=== PATIENT | female | born 1960 | race Caucasian/White ===

== ENCOUNTER 2016-09-27 21:16 | Emergency (ER) | payer BC ==
[~2016-09-27] VITALS: Ht 157.5 cm; Wt 93.0 kg
[~2016-09-27 21:16] MED LIST: ADVIN10/60 INH; AMLO-110 PO; ASPEC325 PO; CLB200 PO; ENAL5TAB83 PO; FAMO20TA11 PO; FESO8TAB PO; FEXO1TAB46 PO; HYDR-5688 PO; LXP/10 PO; MONT1TAB3 PO; PRAV20TA PO; TRIAMCINOLONE NAE
[2016-09-27 21:20] VITALS: TEMP 36.8; Ht 157.5 cm; Wt 93.0 kg
[2016-09-27] MEDS ORDERED: ONDANSETRON INJ 2 MG/ML 2 ML VIAL IV STA (21:50)
[2016-09-27] MEDS ORDERED: LIDODERM (LIDOCAINE) PATCH 5% TD STA (21:50)
[2016-09-27] MEDS ORDERED: KETOROLAC TROMETHAMINE 30 MG/ML VIAL IV STA (21:50)
[2016-09-27] MEDS ORDERED: HYDROmorphone INJ 1 MG/ML SYR IV STA (21:50)
[2016-09-27] MEDS ORDERED: SODIUM CHLORIDE 0.9% 1000ML 1,000 ML IV STA (21:50)
[2016-09-27] MEDS ORDERED: NAPR500T3 PO (22:10)
[2016-09-27] MEDS ORDERED: B-CO-25 PO (22:10)
[2016-09-27] MEDS ORDERED: ALPR-411 PO (22:10)
[2016-09-27] MEDS ORDERED: KRIL1000 PO (22:10)
[2016-09-27] MEDS ORDERED: FLX/5 PO (22:10)
[2016-09-27] MEDS ORDERED: KFL500HP PO (22:13)
--- NOTE | 2016-09-27 22:17 | EMERGENCY ROOM VISIT NOTE ---
History Report prepared by Talita: Magalie Mays Under the Supervision of: Dr. Matt Godwin M.D. First contact with patient: 21:40 Chief Complaint: HIP PAIN Stated Complaint: SEVERE HIP PAIN/BACL/GROIN PAIN,SEVERE SPASMS History of Present Illness The patient is a 55 year old female who presents to the Emergency Room with complaints of persistent left hip pain that began one week ago. She currently rates her discomfort as a 10/10 in severity. The patient states that she was evaluated at [facility] emergency department one week ago and was thought to have either a kidney stone or sciatica. She states that after testing and CT scans, the patient was diagnosed with a UTI. The patient states that she was given a shot of Toradol and discharged with Prednisone, Percocet, and Keflex. She states that she saw her PCP this past and was told that she needed physical therapy. The patient states that she could not get in to see physical therapy until yesterday, but states that her pain worsened. She states that she went back to her PCP's office and was given more Toradol and had hip x- rays. The patient states that she was instructed to go to physical therapy. She states that once evaluated at PT, she was told to use a walker for ambulation. The patient states that her physical therapist stated that she was in too much pain and too inflamed to do any physical therapy. She states that she took Flexeril today. The patient states that she restarted taking her Naproxen today. She notes increased pain with movement, noting that her left hip feels weak and heavy. The patient denies any injury to the hip. She notes slight abdominal pain. The patient states that she has been sleeping in a recliner, but states that she could not settle in it this evening. She states that she has been using a walker to assist with ambulation. The patient notes a history of appendectomy. Source of History: patient Onset: one week ago Position: other (left hip) Symptom Intensity: 10/10 Timing: other (persistent) Modifying Factors (Worsening): movement Associated Symptoms: + abdominal pain, + weakness Note: Associated symptoms: heaviness feeling in left hip Review of Systems See HPI for pertinent positives & negatives. A total of 10 systems reviewed and were otherwise negative. Past Medical & Surgical Medical Problems: (1) Acid reflux (2) Asthma (3) Depression (4) Hypercholesterolemia (5) Hypertension Surgical Problems: (1) Hx of appendectomy (2) Previous section Family History No pertinent family history stated. Social History Smoking Status: Never Smoker Marital Status: Housing Status: lives with significant other Occupation Status: employed Current/Historical Medications Scheduled Alprazolam (Alprazolam), 0.5 MG PO PRN UD Amlodipine (Norvasc), 5 MG PO QAM B-Complex W/ Folic Acid (Super B Complex Maxi), 1 TAB PO DAILY Cephalexin Monohydrate (Cephalexin), 1 TAB PO BID Docusate Sodium (Colace), 1 CAP PO BID Enalapril (Vasotec), 5 MG PO QAM Escitalopram Oxalate (Lexapro), 1 TAB PO QPM Famotidine (Pepcid), 20 MG PO AMPM Fesoterodine Fumarate (Toviaz), 1 TAB PO QAM Fexofenadine Hcl (Shahida), 180 MG PO QAM Fluticasone Prop/Salmeterol (Advair Diskus 100/50 60 Dose), 1 PUFFS INH BID Krill Oil (Krill Oil), 1 CAP PO DAILY Lidocaine (Lidoderm Patch 5%), 1 PATCH TD DIRECTED Montelukast Sodium (Singulair), 1 TAB PO QPM Naproxen (Naproxen), 500 MG PO BID Pravastatin (Pravachol ), 20 MG PO QPM Sennosides (Senokot), 8.6 MG PO HS Scheduled PRN Cyclobenzaprine HCl (Cyclobenzaprine HCl), 5 MG PO TID PRN for Muscle Spasms Oxycodone/Acetaminophen 5MG/325MG (Percocet 5MG/325MG), 1-2 TABLETS PO Q4H PRN for Pain Allergies Coded Allergies: No Known Allergies (Unverified , 12/23/14) Physical Exam Vital Signs Date Time Temp Pulse Resp B/P Pulse Ox O2 Delivery O2 Flow Rate FiO2 09/28/16 00:40 106 16 128/77 95 Room Air 09/27/16 22:39 102 18 165/91 97 Room Air 09/27/16 21:20 36.8 99 18 154/88 98 Room Air Physical Exam GENERAL: Patient is a healthy-appearing well-nourished HEAD: Normocephalic atraumatic EYES: Ocular movements intact pupils equal and react to light OROPHARYNX mucous membranes are moist no exudates present no erythema or edema present NECK: Supple no nuchal rigidity CHEST: Good equal expansion LUNGS: Clear and equal to auscultation CARDIAC: Normal S1 and S2 ABDOMEN: Soft nontender no guarding BACK: No CVA tenderness EXTREMITIES: Point tender in the left hip area, neurovascularly intact. Good range of motion of the knee and ankle. No signs of cellulitis. NEURO: Patient is following commands is answering questions appropriately. Alert and oriented x3 Cranial Nerves 2-12 grossly intact Medical Decision & Procedures ER Provider Diagnostic Interpretation: CT results as stated below per my review and radiologist interpretation: CT Pelvis: No acute fracture or dislocation. Minimal osteoarthritic changes of the hips. No significant erosive changes. No aggressive appearing process. Diverticulosis. Partially imaged pelvic structures show no definite evidence for an acute inflammatory process. Radiologist: Ian Varner MD Study ready at 2312 and initial results transmitted at 2333 Laboratory Results 09/27/16 22:25 Red Blood Count 4.37, Mean Corpuscular Volume 90.8, Mean Corpuscular Hemoglobin 30.0, Mean Corpuscular Hemoglobin Concent 33.0, Mean Platelet Volume 9.4, Neutrophils (%) (Auto) 66.2, Lymphocytes (%) (Auto) 22.1, Monocytes (%) (Auto) 8.6, Eosinophils (%) (Auto) 2.2, Basophils (%) (Auto) 0.6, Neutrophils # (Auto) 9.65, Lymphocytes # (Auto) 3.23, Monocytes # (Auto) 1.25, Eosinophils # (Auto) 0.32, Basophils # (Auto) 0.09 09/27/16 22:25 Test 09/27/16 22:01 09/27/16 22:25 Urine Color YELLOW Urine Appearance CLEAR (CLEAR) Urine pH 6.0 (4.5-7.5) Urine Specific [place] 1.017 (1.000-1.030) Urine Protein NEG (NEG) Urine Glucose (UA) NEG (NEG) Urine Ketones NEG (NEG) Urine Occult Blood NEG (NEG) Urine Nitrite NEG (NEG) Urine Bilirubin NEG (NEG) Urine Urobilinogen NEG (NEG) Urine Leukocyte Esterase SMALL (NEG) Urine WBC (Auto) 5-10 /hpf (0-5) Urine RBC (Auto) 0-4 /hpf (0-4) Urine Hyaline Casts (Auto) 1-5 /lpf (0-5) Urine Epithelial Cells (Auto) 5-10 /lpf (0-5) Urine Bacteria (Auto) NEG (NEG) White Blood Count 14.59 K/uL (4.8-10.8) Red Blood Count 4.37 M/uL (4.2-5.4) Hemoglobin 13.1 g/dL (12.0-16.0) Hematocrit 39.7 % (37-47) Mean Corpuscular Volume 90.8 fL (80-100) Mean Corpuscular Hemoglobin 30.0 pg (25-34) Mean Corpuscular Hemoglobin Concent 33.0 g/dl (32-36) Platelet Count 341 K/uL (130-400) Mean Platelet Volume 9.4 fL (7.4-10.4) Neutrophils (%) (Auto) 66.2 % Lymphocytes (%) (Auto) 22.1 % Monocytes (%) (Auto) 8.6 % Eosinophils (%) (Auto) 2.2 % Basophils (%) (Auto) 0.6 % Neutrophils # (Auto) 9.65 K/uL (1.4-6.5) Lymphocytes # (Auto) 3.23 K/uL (1.2-3.4) Monocytes # (Auto) 1.25 K/uL (0.11-0.59) Eosinophils # (Auto) 0.32 K/uL (0-0.5) Basophils # (Auto) 0.09 K/uL (0-0.2) RDW Standard Deviation 43.8 fL (36.4-46.3) RDW Coefficient of Variation 13.2 % (11.5-14.5) Immature Granulocyte % (Auto) 0.3 % Immature Granulocyte # (Auto) 0.05 K/uL (0.00-0.02) Anion Gap 8.0 mmol/L (3-11) Est Creatinine Clear Calc Drug Dose 67.4 ml/min Estimated GFR () 73.8 Estimated GFR (Non- 63.7 BUN/Creatinine Ratio 19.4 (10-20) Calcium Level 9.4 mg/dl (8.5-10.1) Total Bilirubin 0.5 mg/dl (0.2-1) Direct Bilirubin 0.1 mg/dl (0-0.2) Aspartate Amino Transf (AST/SGOT) 13 U/L (15-37) Alanine Aminotransferase (ALT/SGPT) 27 U/L (12-78) Alkaline Phosphatase 90 U/L (45-117) Total Protein 7.4 gm/dl (6.4-8.2) Albumin 3.6 gm/dl (3.4-5.0) Lipase 94 U/L (73-393) Labs reviewed by ED physician. Medications Administered Medications (Trade) Dose Ordered Sig/William Route Start Time Stop Time Status Last Admin Dose Admin Sodium Chloride (Nss 1000ml) 1,000 ml @ 999 mls/hr Q1H1M STAT IV 09/27/16 21:50 09/27/16 22:50 DC 09/27/16 22:37 999 MLS/HR Lidocaine (Lidoderm Patch 5%) 1 patch NOW STAT TD 09/27/16 21:50 09/27/16 21:54 DC 09/27/16 22:38 1 PATCH Ketorolac Tromethamine (Toradol Inj) 30 mg NOW STAT IV 09/27/16 21:50 09/27/16 21:54 DC 09/27/16 22:34 30 MG Hydromorphone HCl (Dilaudid Inj) 1 mg NOW STAT IV 09/27/16 21:50 09/27/16 21:54 DC 09/27/16 22:36 1 MG Ondansetron HCl (Zofran Inj) 4 mg NOW STAT IV 09/27/16 21:50 09/27/16 21:54 DC 09/27/16 22:33 4 MG ED Course 4: Past medical records reviewed. The patient was evaluated in room B12B. A complete history and physical examination was performed. 2149: Ordered Zofran Inj 4 mg IV, Dilaudid Inj 1 mg IV, Toradol Inj 30 mg IV, Lidocaine 1 patch TD, Sodium Chloride 1000 ml @ 999 mls/hr IV. 0: I reevaluated the patient and she is resting. I updated her at the treatment plan at this time. 5: I reevaluated the patient and she is resting comfortably. I discussed the exam findings with her and I discussed the treatment plan. She verbalized complete understanding and agreement. She is ready to go home. Medical Decision Differential diagnosis: Etiologies such as fracture, dislocation, neurovascular compromise, compartment syndrome, soft tissue injury, as well as others were entertained. This is a 55-year-old female who presents emergency department complaining of left hip pain. The patient reports she is in so much pain she is having difficulty in relating at home. The patient has tried seeing physical therapy and has been to an outside emergency department twice due to the pain. She had x-rays performed at that emergency department. For this reason the patient was sent for CAT scan of her hip which did not show any acute process. An IV was established, patient given normal saline bolus, Toradol, Dilaudid. She had a Lidoderm patch placed in the area the hip where she is having the pain. Repeat examination revealed much improvement the patient's symptoms. At this point the patient was requesting to be admitted however I discussed the fact that the patient's insurance may not cover it therefore case management was asked to speak with the patient. They recommended that the patient be discharged as she would most likely be an observation. Patient was in agreement with this fact. She is going to follow-up with orthopedics in the morning. In the meanwhile she was written for Percocet as well as stool softeners and to take off the Lidoderm patch in 10 hours. Patient was in agreement with the treatment plan. [place] Drug Monitoring Program Search Results: patient reviewed within database Drug Monitoring Findings: The patient had alprazolam 15 mg prescribed yesterday from [place]. Impression Primary Impression: Hip pain, left Scribe Attestation The scribe's documentation has been prepared under my direction and personally reviewed by me in its entirety. I confirm that the note above accurately reflects all work, treatment, procedures, and medical decision making performed by me. Departure Information Dispostion Home / Self-Care Prescriptions Docusate Sodium (COLACE) 100 Mg Cap 1 CAP PO BID for 10 Days, #20 CAP Prov: Matt Godwin MD 09/27/16 Sennosides (SENOKOT) 8.6 Mg Tab 8.6 MG PO HS, #10 TAB Prov: Matt Godwin MD 09/27/16 Oxycodone/Acetaminophen 5MG/325MG (PERCOCET 5MG/325MG) Tab 1-2 TABLETS PO Q4H Y for Pain, #14 TAB PAIN Prov: Matt oGdwin MD 09/27/16 Lidocaine (Lidoderm Patch 5%) 1 Ea Tdsy 1 PATCH TD DIRECTED, #2 PATCH Prov: Matt Godwin MD 09/27/16 Referrals Any Bess M.D. (PCP) Alessio Engle D.O. Forms HOME CARE DOCUMENTATION FORM, IMPORTANT VISIT INFORMATION, WORK / SCHOOL INSTRUCTIONS Patient Instructions ED Sprain Hip, My [facility] Additional Instructions Need follow up with Dr Engle's office Remove Lidoderm patch in 10 hours (10 am) You received narcotic or benzodiazepene medication while in the emergency room today. Do not drive, operate heavy machinery, or drink alcohol under the influence of this medication. Take Naproxen as directed Take Percocet for breakthrough pain You have been examined and treated today on an emergency basis only. This is not a substitute for, or an effort to provide, complete comprehensive medical care. It is impossible to recognize and treat all injuries or illnesses in a single emergency department visit. It is therefore important that you follow up closely with Dr Bess. Call as soon as possible for an appointment. Thank you for your time and consideration. I look forward to speaking with you again soon. Please don't hesitate to call us if you have any questions.
[2016-09-27 22:32] LABS: URINE APPEARANCE CLEAR (CLEAR); URINE BILIRUBIN NEG (NEG); URINE COLOR YELLOW; URINE NITRITE NEG (NEG); URINE SPECIFIC GRAVITY 1.017 (1.000-1.030); UROBILINOGEN NEG (NEG)
[2016-09-27 22:33] LABS: MANUAL MICROSCOPIC REQUIRED? NO; REVIEW REQ? NO
[2016-09-27 22:39] LABS: BASO % 0.6 %; BASO ABS # 0.09 K/uL (0-0.2); COMPLETE YES; EOS % 2.2 %; HEMATOCRIT 39.7 % (37-47); IG% 0.3 %; LYMPH % 22.1 %; LYMPH ABS # 3.23 K/uL (1.2-3.4); MEAN CELL VOLUME 90.8 fL (80-100); MEAN PLATELET VOLUME 9.4 fL (7.4-10.4); MONO % 8.6 %; NEUT % 66.2 %; PLATELET COUNT 341 K/uL (130-400); RED BLOOD COUNT 4.37 M/uL (4.2-5.4); WHITE BLOOD COUNT 14.59 K/uL (4.8-10.8)
[2016-09-27 22:55] LABS: BUN/CREATININE RATIO 19.4 (10-20); CALCIUM 9.4 mg/dl (8.5-10.1); CREATININE 0.99 mg/dl (0.60-1.20); POTASSIUM 3.9 mmol/L (3.5-5.1)
[2016-09-27] MEDS ORDERED: SENN1TAB77 PO (23:44)
[2016-09-27] MEDS ORDERED: DOCU-94 PO (23:44)
[2016-09-27] MEDS ORDERED: NF656 TD (23:44)
[2016-09-27] MEDS ORDERED: OXYC-57 PO (23:44)
[2016-09-28 00:40] VITALS: BP 128/77; PULSE 106; O2SAT 95
--- NOTE | 2016-09-28 07:38 | DIAGNOSTIC IMAGING REPORT ---
PELVIS CT CT DOSE: 991.69 mGy.cm HISTORY: Pt c/o left hip pain TECHNIQUE: Multiaxial CT images of the pelvis were performed and reformatted in the sagittal and coronal plane without the use of contrast. COMPARISON: None. FINDINGS: No fracture or dislocation within the pelvis or hips. Minimal arthritic changes within the bilateral hips. Soft tissues are unremarkable. A few colonic diverticula. IMPRESSION: No fracture or dislocation within the pelvis or hips. Electronically signed by: Todd Apodaca M.D. 09/28/2016 7:36 AM Dictated Date/Time: 09/28/2016 7:33 AM
[2017-03-16] MEDS ORDERED: NRN100 PO (10:24)
[2017-03-16] MEDS ORDERED: NPR375 PO (10:24)
[2017-03-16] MEDS ORDERED: DAPT500I IV (10:24)
[2017-03-16] MEDS ORDERED: CEFT2INJ40 IV (10:24)
[2017-03-16] MEDS ORDERED: CYCL10TA6 PO (10:24)
== END 2016-09-28 00:44 | disposition home or self-care (01) ==
LOC: C.EDB 21:17
DX: M25.552 Pain in left hip (principal); R10.9 Unspecified abdominal pain; R53.1 Weakness; I10 Essential (primary) hypertension; E78.00 Pure hypercholesterolemia, unspecified; F32.9 Major depressive disorder, single episode, unspecified; K21.9 Gastro-esophageal reflux disease without esophagitis; J45.909 Unspecified asthma, uncomplicated; Z79.899 Other long term (current) drug therapy

== ENCOUNTER → 2017-01-11 | Outpatient (CLI) | payer BC ==
[~2017-01-11] MED LIST changes: +ALBINS/ INH; +ALPR-411 PO; -ASPEC325 PO; +B-CO-25 PO; +CALC600T9 PO; +CEFT2INJ40 IV; +CHOL1TAB46 PO; -CLB200 PO; +CYCL10TA6 PO; +DAPT500I IV; +FLX/5 PO; -HYDR-5688 PO; +KFL500HP PO; +KRIL1000 PO; +NABU500T3 PO; +NAPR500T3 PO; +NF656 TD; +NPR375 PO; +NRN100 PO; +OXYC-57 PO; +Proair HFA INH; -TRIAMCINOLONE NAE
--- NOTE | 2017-01-11 12:15 | DIAGNOSTIC IMAGING REPORT ---
LUMBAR SPINE W/O CONTRAST HISTORY: Pain. Neuropathy. OSTEOARTHRITIS OF SPINE WITH RADICULOPATHY, LUMBAR REGION TECHNIQUE: Multiplanar multisequence MRI of the lumbar spine was performed without the use of contrast. COMPARISON: None. FINDINGS: For the purpose of the report the L5-S1 disc space will be located on axial image 22 of 25. Significant degenerative disc changes throughout. Signal characteristics of the vertebral bodies are generally unremarkable. L1-L2: Mild broad-based disc bulge. Minimal impact upon the anterior thecal sac. L2-L3: Broad-based disc bulge. Mild multifactorial narrowing of the spinal canal. L3-L4: Mild multifactorial narrowing of the spinal canal. Broad-based bulging disc. Mild narrowing of the neuroforamina bilaterally. L4-L5: Moderate multifactorial narrowing of the spinal canal. Mild broad-based disc herniation. Hypertrophic change posterior elements. Moderate narrowing of the left and to lesser extent right neuroforamina. L5-S1: Mild left central disc herniation. Minimal impact with the anterior thecal sac. Moderate narrowing of the neuroforamina bilaterally. IMPRESSION: 1. Considerable degenerative disc change throughout the entire lumbar region. 2. Mild left central disc herniation L5-S1 creating minimal impact upon the anterior thecal sac. 3. Moderate multifactorial narrowing of the spinal canal at L4-L5 4. Mild multifactorial narrowing of the spinal canal at L3-L4. 5. Moderate narrowing of several neural foramina bilaterally on a multilevel bases. The above report was generated using voice recognition software. It may contain grammatical, syntax or spelling errors. Electronically signed by: Toi Sanford M.D. 01/11/2017 12:14 PM Dictated Date/Time: 01/11/2017 12:10 PM
== END | disposition home or self-care (01) ==
LOC: C.MRIBC 10:38
PROVIDERS: ATTEND Pain Medicine Interventional Pain Medicine
DX: M47.26 Other spondylosis with radiculopathy, lumbar region (principal)

== ENCOUNTER 2017-03-10 15:27 | Inpatient (IN) | payer BC ==
[~2017-03-10] VITALS: Ht 157.5 cm; Wt 95.0 kg
[~2017-03-10 15:27] MED LIST changes: -ALBINS/ INH; -CALC600T9 PO; -CEFT2INJ40 IV; -CHOL1TAB46 PO; -CYCL10TA6 PO; -DAPT500I IV; -NABU500T3 PO; -NPR375 PO; -NRN100 PO; -Proair HFA INH
[2017-03-10] MEDS ORDERED: KETOROLAC TROMETHAMINE 30 MG/ML VIAL IV STA (16:03)
[2017-03-10] MEDS ORDERED: LIDODERM (LIDOCAINE) PATCH 5% TD STA (16:03)
[2017-03-10] MEDS ORDERED: HYDROmorphone INJ 1 MG/ML SYR IV STA (16:03)
[2017-03-10] MEDS ORDERED: ONDANSETRON INJ 2 MG/ML 2 ML VIAL IV STA (16:03)
[2017-03-10] MEDS ORDERED: SODIUM CHLORIDE 0.9% 1000ML 1,000 ML IV STA (16:03)
[2017-03-10 16:39] LABS: BASO % 0.5 %; BASO ABS # 0.06 K/uL (0-0.2); COMPLETE YES; EOS % 1.9 %; HEMATOCRIT 40.8 % (37-47); IG% 0.3 %; LYMPH % 15.7 %; MEAN CELL VOLUME 91.3 fL (80-100); MEAN CORPUSCULAR HGB CONC 32.8 g/dl (32-36); MEAN PLATELET VOLUME 9.6 fL (7.4-10.4); MONO % 7.2 %; NEUT % 74.4 %; PLATELET COUNT 316 K/uL (130-400); RED BLOOD COUNT 4.47 M/uL (4.2-5.4); WHITE BLOOD COUNT 11.45 K/uL (4.8-10.8)
[2017-03-10 17:06] LABS: ALT/SGPT 25 U/L (12-78); AST/SGOT 17 U/L (15-37); BLOOD UREA NITROGEN 14 mg/dl (7-18); BUN/CREATININE RATIO 17.5 (10-20); C-REACTIVE PROTEIN 4.69 mg/dl (0-0.29); CALCIUM 9.7 mg/dl (8.5-10.1); CARBON DIOXIDE 24 mmol/L (21-32); CHLORIDE 106 mmol/L (98-107); CREATININE 0.79 mg/dl (0.60-1.20); GLUCOSE 97 mg/dl (70-99); SODIUM 139 mmol/L (136-145); URIC ACID 5.7 mg/dl (2.6-7.2)
[2017-03-10 17:16] LABS: ALKALINE PHOSPHATASE 104 U/L (45-117); THYROID STIMULATING HORMONE 0.781 uIu/ml (0.300-4.500)
[2017-03-10 17:23] LABS: ANTI-STREP O SCR: 5YRS OR > NEG IU/ml (<200 IU)
--- NOTE | 2017-03-10 17:28 | EMERGENCY ROOM VISIT NOTE ---
History Report prepared by Talita: Mary Lucia Under the Supervision of: Dr. Matt Godwin M.D. First contact with patient: 15:48 Chief Complaint: BACK PAIN Stated Complaint: SEVERE BACK PAIN - HIP PAIN - SPASMS History of Present Illness The patient is a 56 year old female who presents to the Emergency Room with complaints of constant back pain starting 3 days ago. The patient states that she has seen multiple doctors for her back pain with multiple attempts to treat it and states her last was with a chiropractor. She reports that she feels like "someone beat her up." She states that the pain is worse when she stands up and down. She reports that it is uncomfortable to breathe and wearing her bra is too painful. The patient reports that she has been alternating Percocet and Flexeril every 6-8 hours. She notes she has also been taking Tylenol. She states that these have not provided any relief. The patient states that she had two episodes of incontinence last night of her bladder. She complains that she has been having urination frequency, an aching lower abdomen, muscle spasms, and her breasts feeling sore. The patient notes that everything is on the left side of her body. The patient denies ever having back surgery and neck pain. She notes that she tried 6 weeks of physical therapy with no relief. Source of History: patient Onset: 3 days ago Position: back Quality: other ("someone beat her up") Timing: constant Modifying Factors (Worsening): breathing, other (standing up and down, wearing a bra) Associated Symptoms: + abdominal pain, + urinary symptoms, No neck pain Note: The patient complains of bladder incontinence, muscle spasms, and breast soreness. Review of Systems See HPI for pertinent positives & negatives. A total of 10 systems reviewed and were otherwise negative. Past Medical & Surgical Medical Problems: (1) Anxiety (2) Asthma (3) Back pain (4) Depression (5) Hypercholesterolemia (6) Hypertension Surgical Problems: (1) Hx of appendectomy (2) Previous section (3) Status post appendectomy (4) Status post tubal ligation Family History No pertinent family history Social History Smoking Status: Former Smoker Marital Status: Housing Status: lives with significant other Occupation Status: employed Current/Historical Medications Scheduled Amlodipine (Norvasc), 5 MG PO QAM B-Complex W/ Folic Acid (Super B Complex Maxi), 1 TAB PO DAILY Calcium Carbonate-Vitamin D (Calcium + D), 1 TAB PO DAILY Cholecalciferol (Vitamin D3), 5,000 UNITS PO DAILY Enalapril (Vasotec), 5 MG PO QAM Escitalopram Oxalate (Lexapro), 10 MG PO QPM Famotidine (Pepcid), 20 MG PO BID Fesoterodine Fumarate (Toviaz), 1 TAB PO QAM Fexofenadine Hcl (Shahida), 180 MG PO QAM Fluticasone Prop/Salmeterol (Advair Diskus 100/50 60 Dose), 1 PUFFS INH BID Krill Oil (Krill Oil), 1 CAP PO DAILY Montelukast Sodium (Singulair), 1 TAB PO QPM Nabumetone (Relafen), 500 MG PO BIDM Pravastatin (Pravachol ), 20 MG PO QPM Scheduled PRN Albuterol Sulf (Proventil 0.083% 2.5MG/3ML), 2.5 MG INH Q4 PRN for Wheezing Alprazolam (Alprazolam), 0.5 MG PO TID PRN for Anxiety Cyclobenzaprine HCl (Cyclobenzaprine HCl), 5 MG PO TID PRN for Muscle Spasms Oxycodone/Acetaminophen 5MG/325MG (Percocet 5MG/325MG), 1-2 TABLETS PO Q4H PRN for Pain [Proair HFA], 2 PUFFS INH Q4 PRN for Wheezing Allergies Coded Allergies: No Known Allergies (Unverified , 12/23/14) Physical Exam Vital Signs Date Time Temp Pulse Resp B/P (MAP) Pulse Ox O2 Delivery O2 Flow Rate FiO2 03/10/17 20:45 86 16 139/74 95 Room Air 03/10/17 19:30 88 18 138/87 94 Room Air 03/10/17 17:40 87 16 137/83 92 Room Air 03/10/17 15:41 36.9 96 17 151/88 99 Room Air Physical Exam GENERAL: Patient is a healthy-appearing well-nourished HEAD: Normocephalic atraumatic EYES: Ocular movements intact pupils equal and react to light OROPHARYNX mucous membranes are moist no exudates present no erythema or edema present NECK: Supple no nuchal rigidity CHEST: Good equal expansion LUNGS: Clear and equal to auscultation CARDIAC: Normal S1 and S2 ABDOMEN: Soft nontender no guarding BACK: No CVA tenderness EXTREMITIES: No pain upon palpation normal muscle strength in all groups no clubbing cyanosis or edema NEURO: Patient is following commands and answering questions appropriately. Alert and oriented x3 Cranial Nerves 2-12 grossly intact. Patient can walk on tiptoes. Patient is having spasms on examination over the left side of the body. SKIN: No rash noted. Medical Decision & Procedures ER Provider Diagnostic Interpretation: Radiology results as stated below per my review and radiologist interpretation: THORACIC SPINE MRI HISTORY: Pt c/o loss of bladder, mid back pain TECHNIQUE: Multiplanar multisequence MRI of the thoracic spine was performed without the use of contrast. COMPARISON: None. FINDINGS: No fracture or subluxation. Paraspinal soft tissues are unremarkable. Mild degenerative disc disease throughout the majority of the thoracic spine. There are few small disc bulges and disc protrusions within the thoracic spine. However, no significant central canal or neural foraminal narrowing. The thoracic spinal cord is normal in course, caliber, and signal intensity. Athletic Monitor images demonstrate reversal of the normal lordotic curvature of the cervical spine with multilevel central canal narrowing. There is 3 mm of anterolisthesis of C3 on C4 IMPRESSION: 1. No fracture or subluxation within the thoracic spine. 2. Mild degenerative disc disease within the thoracic spine. No significant central canal or neural foraminal narrowing. 3. Degenerative changes within the cervical spine with multilevel central canal narrowing and reversal of the normal lordotic curvature. There is associated 3 mm of anterolisthesis of C3 on C4 likely due to long-standing degenerative change. Electronically signed by: Todd Apodaca M.D. 03/10/2017 7:13 PM Dictated Date/Time: 03/10/2017 7:08 PM PELVIS 1 OR 2 VIEW ROUTINE, L FEMUR 2 VIEWS ROUTINE CLINICAL HISTORY: Pt c/o left hip pain COMPARISON STUDY: Pelvis CT 09/27/2016. FINDINGS: No fracture or dislocation within the pelvis, hips, left femur. The sacrum appears intact. Soft tissues are unremarkable. No radiopaque foreign bodies. Minimal degenerative changes within the right hip. IMPRESSION: No fracture or dislocation within the pelvis, hips, or left femur. Electronically signed by: Todd Apodaca M.D. 03/10/2017 5:39 PM Dictated Date/Time: 03/10/2017 5:36 PM LUMBAR SPINE MRI HISTORY: Pt c/o loss of bladder control TECHNIQUE: Multiplanar multisequence MRI of the lumbar spine was performed without the use of contrast. COMPARISON: None. FINDINGS: For the purpose of the report the L5-S1 disc space will be located on axial image 27 of 30. Alignment is intact. No fractures within the lumbar spine. Mild disc space narrowing at L1-L2 and L5-S1. Moderate to space narrowing at L3-L4. Severe disc space narrowing at L2-L3 and L4-L5. There is endplate edema along the left side of the L4-L5 level with increased signal within the disc. There is trace paravertebral edema at this location. 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 The conus terminates at the L1-L2 disc space level. L1-L2: Small broad-based posterior disc bulge without significant central canal or neural foraminal narrowing. L2-L3: Small broad-based posterior disc bulge without significant central canal or neural foraminal narrowing. L3-L4: Broad-based posterior disc bulge with ligamentum and facet hypertrophy resulting in mild central canal narrowing. No significant neural foraminal narrowing. L4-L5: Broad-based posterior disc bulge with a central and left paracentral annular tear. In conjunction with the ligamentum and facet hypertrophy this results in mild to moderate central canal and mild to moderate bilateral neural foraminal narrowing. L5-S1: Small broad-based posterior disc bulge without significant central canal narrowing. [id number] bilateral neural foraminal narrowing. IMPRESSION: 1. No fractures or subluxation within the lumbar spine. 2. Multilevel degenerative changes as described above most pronounced at the L4-5 level where there is mild to moderate central canal and neural foraminal narrowing. 3. Endplate edema with increase signal within the disc at the left side of the L4-5 level. There is also trace paravertebral edema at this location. This is likely due to the long-standing degenerative change. However, a developing discitis/osteomyelitis could also a similar appearance in the appropriate clinical setting. Therefore, clinical correlation recommended. Electronically signed by: Todd Apodaca M.D. 03/10/2017 7:21 PM Dictated Date/Time: 03/10/2017 7:14 PM PELVIS 1 OR 2 VIEW ROUTINE, L FEMUR 2 VIEWS ROUTINE CLINICAL HISTORY: Pt c/o left hip pain COMPARISON STUDY: Pelvis CT 09/27/2016. FINDINGS: No fracture or dislocation within the pelvis, hips, left femur. The sacrum appears intact. Soft tissues are unremarkable. No radiopaque foreign bodies. Minimal degenerative changes within the right hip. IMPRESSION: No fracture or dislocation within the pelvis, hips, or left femur. Electronically signed by: Todd Apodaca M.D. 03/10/2017 5:39 PM Dictated Date/Time: 03/10/2017 5:36 PM Laboratory Results 03/10/17 16:25 Red Blood Count 4.47, Mean Corpuscular Volume 91.3, Mean Corpuscular Hemoglobin 30.0, Mean Corpuscular Hemoglobin Concent 32.8, Mean Platelet Volume 9.6, Neutrophils (%) (Auto) 74.4, Lymphocytes (%) (Auto) 15.7, Monocytes (%) (Auto) 7.2, Eosinophils (%) (Auto) 1.9, Basophils (%) (Auto) 0.5, Neutrophils # (Auto) 8.52, Lymphocytes # (Auto) 1.80, Monocytes # (Auto) 0.82, Eosinophils # (Auto) 0.22, Basophils # (Auto) 0.06 03/10/17 16:25 Test 03/10/17 16:25 White Blood Count 11.45 K/uL (4.8-10.8) Red Blood Count 4.47 M/uL (4.2-5.4) Hemoglobin 13.4 g/dL (12.0-16.0) Hematocrit 40.8 % (37-47) Mean Corpuscular Volume 91.3 fL (80-100) Mean Corpuscular Hemoglobin 30.0 pg (25-34) Mean Corpuscular Hemoglobin Concent 32.8 g/dl (32-36) Platelet Count 316 K/uL (130-400) Mean Platelet Volume 9.6 fL (7.4-10.4) Neutrophils (%) (Auto) 74.4 % Lymphocytes (%) (Auto) 15.7 % Monocytes (%) (Auto) 7.2 % Eosinophils (%) (Auto) 1.9 % Basophils (%) (Auto) 0.5 % Neutrophils # (Auto) 8.52 K/uL (1.4-6.5) Lymphocytes # (Auto) 1.80 K/uL (1.2-3.4) Monocytes # (Auto) 0.82 K/uL (0.11-0.59) Eosinophils # (Auto) 0.22 K/uL (0-0.5) Basophils # (Auto) 0.06 K/uL (0-0.2) RDW Standard Deviation 43.2 fL (36.4-46.3) RDW Coefficient of Variation 13.0 % (11.5-14.5) Immature Granulocyte % (Auto) 0.3 % Immature Granulocyte # (Auto) 0.03 K/uL (0.00-0.02) Erythrocyte Sedimentation Rate 43 mm/hr (0-21) Anion Gap 9.0 mmol/L (3-11) Est Creatinine Clear Calc Drug Dose 84.4 ml/min Estimated GFR () 96.3 Estimated GFR (Non- 83.1 BUN/Creatinine Ratio 17.5 (10-20) Uric Acid 5.7 mg/dl (2.6-7.2) Calcium Level 9.7 mg/dl (8.5-10.1) Total Bilirubin 0.5 mg/dl (0.2-1) Direct Bilirubin < 0.1 mg/dl (0-0.2) Aspartate Amino Transf (AST/SGOT) 17 U/L (15-37) Alanine Aminotransferase (ALT/SGPT) 25 U/L (12-78) Alkaline Phosphatase 104 U/L (45-117) C-Reactive Protein 4.69 mg/dl (0-0.29) Total Protein 8.3 gm/dl (6.4-8.2) Albumin 3.6 gm/dl (3.4-5.0) Thyroid Stimulating Hormone (TSH) 0.781 uIu/ml (0.300-4.500) Acetaminophen Level < 2 ug/ml (10-30) Lyme Disease IgG Antibody NEG (NEG) Lyme Disease IgM Antibody NEG (NEG) Hepatitis C Antibody Screen NEG (NEG) Anti-Streptolysin O Antibody Screen NEG IU/ml (<200 IU) Labs reviewed by ED physician. Medications Administered Medications (Trade) Dose Ordered Sig/William Route Start Time Stop Time Status Last Admin Dose Admin Sodium Chloride 1,000 ml @ 999 mls/hr Q1H1M STAT IV 03/10/17 16:03 03/10/17 17:03 DC 03/10/17 16:03 999 MLS/HR Hydromorphone HCl (Dilaudid Inj) 1 mg NOW STAT IV 03/10/17 16:03 03/10/17 16:08 DC 03/10/17 16:28 1 MG Lidocaine (Lidoderm Patch 5%) 1 patch NOW STAT TD 03/10/17 16:03 03/10/17 16:08 DC 03/10/17 16:28 1 PATCH Ketorolac Tromethamine (Toradol Inj) 30 mg NOW STAT IV 03/10/17 16:03 03/10/17 16:08 DC 03/10/17 16:28 30 MG Ondansetron HCl (Zofran Inj) 4 mg NOW STAT IV 03/10/17 16:03 03/10/17 16:08 DC 03/10/17 16:27 4 MG Piperacillin Sod/ Tazobactam Sod (Zosyn Iv) 4.5 gm NOW STAT IV 03/10/17 20:01 03/10/17 20:04 DC 03/10/17 20:54 4.5 GM Vancomycin HCl (Vancomycin 1gm/ 270ml Nss) 1 gm NOW STAT IV 03/10/17 20:01 03/10/17 20:04 DC 03/10/17 21:32 1 GM ED Course 1555: Past medical records reviewed. The patient was evaluated in room B10. A complete history and physical examination was performed. 3: Ordered Zofran Inj 4 mg IV, Toradol Inj 30 mg IV, Lidocaine 1 patch TD, Dilaudid Inj 1 mg IV, NSS 1000 ml @ 999 mls/hr IV. 1952: I discussed the patient's case with Dr. Bola Stiles. He suggests admitting to medicine and starting her on broad spectrum antibiotics. 2000: Ordered Vancomycin HCl 1 gm IV, Zosyn Iv 4.5 gm IV. 2100: I discussed the patient's case with Dr. Banks, he has agreed to evaluate the patient for further management and care. Medical Decision Etiologies such as metabolic, infection, hypo/hyperglycemia, electrolyte abnormalities, cardiac sources, intracerebral event, toxicologic, neurologic, as well as others were entertained. This is a 56-year-old female who presents emergency department complaining of severe back spasms. The patient also lost control of her bladder. In addition the patient has an elevation in her CRP he has are as well as her white blood cell count. Based on these findings the patient was sent for an MRI of her back. This was concerning for discitis. Because of this patient was pain cultured and started on antibiotics. I did discuss the case with [facility] who asked that the patient be admitted to the medicine service. I did discuss case with Dr. Garcia. In the meanwhile the patient was started on IV Dilaudid as well as Toradol. Repeat examination revealed much improvement the patient's symptoms. Consults Time Called: 1951 Consulting Physician: Dr. Bola Stiles Returned Call: 1952 I discussed the patient's case with Dr. Bola Stiles. He suggests admitting to medicine and starting her on broad spectrum antibiotics. Additional Consults: Time Called: 2056 Consulted Physician: Dr. Banks Returned Call: 2100 Additional Comments: I discussed the patient's case with Dr. Banks, he has agreed to evaluate the patient for further management and care. Impression Primary Impression: Discitis Scribe Attestation The scribe's documentation has been prepared under my direction and personally reviewed by me in its entirety. I confirm that the note above accurately reflects all work, treatment, procedures, and medical decision making performed by me. Departure Information Dispostion Being Evaluated By Hospitalist Referrals Any Bess M.D. (PCP) Patient Instructions My [facility] Problem Qualifiers Primary Impression: Discitis Spinal region: lumbar Qualified Codes: M46.46 - Discitis, unspecified, lumbar region
--- NOTE | 2017-03-10 17:40 | DIAGNOSTIC IMAGING REPORT ---
PELVIS 1 OR 2 VIEW ROUTINE, L FEMUR 2 VIEWS ROUTINE CLINICAL HISTORY: Pt c/o left hip pain COMPARISON STUDY: Pelvis CT 09/27/2016. FINDINGS: No fracture or dislocation within the pelvis, hips, left femur. The sacrum appears intact. Soft tissues are unremarkable. No radiopaque foreign bodies. Minimal degenerative changes within the right hip. IMPRESSION: No fracture or dislocation within the pelvis, hips, or left femur. Electronically signed by: Todd Apodaca M.D. 03/10/2017 5:39 PM Dictated Date/Time: 03/10/2017 5:36 PM
[2017-03-10 17:50] LABS: LYME DISEASE AB IGG NEG (NEG); LYME DISEASE AB IGM NEG (NEG)
[2017-03-10] MEDS ORDERED: CALC600T9 PO (18:44)
[2017-03-10] MEDS ORDERED: NABU500T3 PO (18:44)
[2017-03-10] MEDS ORDERED: CHOL1TAB46 PO (18:44)
--- NOTE | 2017-03-10 19:14 | DIAGNOSTIC IMAGING REPORT ---
THORACIC SPINE MRI HISTORY: Pt c/o loss of bladder, mid back pain TECHNIQUE: Multiplanar multisequence MRI of the thoracic spine was performed without the use of contrast. COMPARISON: None. FINDINGS: No fracture or subluxation. Paraspinal soft tissues are unremarkable. Mild degenerative disc disease throughout the majority of the thoracic spine. There are few small disc bulges and disc protrusions within the thoracic spine. However, no significant central canal or neural foraminal narrowing. The thoracic spinal cord is normal in course, caliber, and signal intensity. Surfacing Machine Operator images demonstrate reversal of the normal lordotic curvature of the cervical spine with multilevel central canal narrowing. There is 3 mm of anterolisthesis of C3 on C4 IMPRESSION: 1. No fracture or subluxation within the thoracic spine. 2. Mild degenerative disc disease within the thoracic spine. No significant central canal or neural foraminal narrowing. 3. Degenerative changes within the cervical spine with multilevel central canal narrowing and reversal of the normal lordotic curvature. There is associated 3 mm of anterolisthesis of C3 on C4 likely due to long-standing degenerative change. Electronically signed by: Todd Apodaca M.D. 03/10/2017 7:13 PM Dictated Date/Time: 03/10/2017 7:08 PM
--- NOTE | 2017-03-10 19:23 | DIAGNOSTIC IMAGING REPORT ---
LUMBAR SPINE MRI HISTORY: Pt c/o loss of bladder control TECHNIQUE: Multiplanar multisequence MRI of the lumbar spine was performed without the use of contrast. COMPARISON: None. FINDINGS: For the purpose of the report the L5-S1 disc space will be located on axial image 27 of 30. Alignment is intact. No fractures within the lumbar spine. Mild disc space narrowing at L1-L2 and L5-S1. Moderate to space narrowing at L3-L4. Severe disc space narrowing at L2-L3 and L4-L5. There is endplate edema along the left side of the L4-L5 level with increased signal within the disc. There is trace paravertebral edema at this location. 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 The conus terminates at the L1-L2 disc space level. L1-L2: Small broad-based posterior disc bulge without significant central canal or neural foraminal narrowing. L2-L3: Small broad-based posterior disc bulge without significant central canal or neural foraminal narrowing. L3-L4: Broad-based posterior disc bulge with ligamentum and facet hypertrophy resulting in mild central canal narrowing. No significant neural foraminal narrowing. L4-L5: Broad-based posterior disc bulge with a central and left paracentral annular tear. In conjunction with the ligamentum and facet hypertrophy this results in mild to moderate central canal and mild to moderate bilateral neural foraminal narrowing. L5-S1: Small broad-based posterior disc bulge without significant central canal narrowing. [id number] bilateral neural foraminal narrowing. IMPRESSION: 1. No fractures or subluxation within the lumbar spine. 2. Multilevel degenerative changes as described above most pronounced at the L4-5 level where there is mild to moderate central canal and neural foraminal narrowing. 3. Endplate edema with increase signal within the disc at the left side of the L4-5 level. There is also trace paravertebral edema at this location. This is likely due to the long-standing degenerative change. However, a developing discitis/osteomyelitis could also a similar appearance in the appropriate clinical setting. Therefore, clinical correlation recommended. Electronically signed by: Todd Apodaca M.D. 03/10/2017 7:21 PM Dictated Date/Time: 03/10/2017 7:14 PM
[2017-03-10] MEDS ORDERED: PIPERACILLIN/TAZOBACTAM 4.5 GM/100ML D5W IV STA (20:01)
[2017-03-10] MEDS ORDERED: VANCOMYCIN 1GM/270ML NSS IV STA (20:01)
--- NOTE | 2017-03-10 21:32 | History and Physical ---
History & Physical Date & Time of Service: Mar 10, 2017 at 21:32 . Chief Complaint: back pain . Primary Care Physician: Any Bess M.D. . History of Present Illness Source: patient, clinic records, hospital records 56 YO female followed by Dr. Bess in [place]. History of hypertension, asthma, and other problems noted below. Developed left hip pain in September and was seen by Dr. Sol. Referred to Dr. Vega for pain management. MRI was obtained and injection (SI joint per patient) performed. Has been seeing a chiropractor for spine manipulation over the last 2 weeks. 3 days prior to admission she developed back pain and spasm. Pain located in lower thoracic and lumbar region. Lumbar pain is moderately severe and constant, sometimes radiating to the left groin and left anterior thigh. Pain worsened by activity and certain positions. Last evening she experienced urinary incontinence. Left leg feels weak when she stands from sitting position or climbs stairs. Tried Percocet and Flexeril without much benefit. No fever, chills, sweats. . Past Medical/Surgical History Chronic and Resolved Medical Problems: (1) Anxiety Status: Chronic (2) Asthma Status: Chronic (3) Depression Status: Chronic (4) Hypercholesterolemia Status: Chronic (5) Hypertension Status: Chronic Surgical Problems: (1) Hx of appendectomy Status: Resolved (2) Previous section Status: Resolved (3) Status post appendectomy Status: Chronic (4) Status post tubal ligation Status: Chronic . Family History FATHER Heart disease Diabetes mellitus Asthma MOTHER Hypertension Diabetes mellitus Ovarian cancer Social History Smoking Status: Former Smoker Alcohol Use: none Occupational Status: employed Multi-Drug Resistant Organisms History of MDRO: No Allergies Coded Allergies: No Known Allergies (Unverified , 12/23/14) Home Medications Scheduled Amlodipine (Norvasc), 5 MG PO QAM B-Complex W/ Folic Acid (Super B Complex Maxi), 1 TAB PO DAILY Calcium Carbonate-Vitamin D (Calcium + D), 1 TAB PO DAILY Cholecalciferol (Vitamin D3), 5,000 UNITS PO DAILY Enalapril (Vasotec), 5 MG PO QAM Escitalopram Oxalate (Lexapro), 10 MG PO QPM Famotidine (Pepcid), 20 MG PO BID Fesoterodine Fumarate (Toviaz), 1 TAB PO QAM Fexofenadine Hcl (Shahida), 180 MG PO QAM Fluticasone Prop/Salmeterol (Advair Diskus 100/50 60 Dose), 1 PUFFS INH BID Krill Oil (Krill Oil), 1 CAP PO DAILY Montelukast Sodium (Singulair), 1 TAB PO QPM Nabumetone (Relafen), 500 MG PO BIDM Pravastatin (Pravachol ), 20 MG PO QPM Scheduled PRN Albuterol Sulf (Proventil 0.083% 2.5MG/3ML), 2.5 MG INH Q4 PRN for Wheezing Alprazolam (Alprazolam), 0.5 MG PO TID PRN for Anxiety Cyclobenzaprine HCl (Cyclobenzaprine HCl), 5 MG PO TID PRN for Muscle Spasms Oxycodone/Acetaminophen 5MG/325MG (Percocet 5MG/325MG), 1-2 TABLETS PO Q4H PRN for Pain [Proair HFA], 2 PUFFS INH Q4 PRN for Wheezing Review of Systems Constitutional: No fever, No chills, No sweats, No weight loss Eyes: No worsening of vision, No diplopia ENT: No nasal symptoms, No sore throat Respiratory: No cough, No shortness of breath Cardiovascular: No chest pain, No edema, No palpitations Abdomen: No pain, No nausea, No vomiting, No diarrhea, No GI bleeding Musculoskeletal: + joint pain (back pain) Genitourinary - Female: + urinary incontinence, No dysuria, No hematuria Neurologic: + weakness (left leg), + problem reported (no headaches) Psychiatric: + depression symptoms, + anxiety Endocrine: No excessive thirst, No excessive urination Hematologic / Lymphatic: + abnormal bleeding/bruising Integumentary: No rash, No new/changing skin lesions Physical Exam Vital Signs Date Time Temp Pulse Resp B/P (MAP) Pulse Ox O2 Delivery O2 Flow Rate FiO2 03/10/17 20:45 86 16 139/74 95 Room Air 03/10/17 19:30 88 18 138/87 94 Room Air 03/10/17 17:40 87 16 137/83 92 Room Air 03/10/17 15:41 36.9 96 17 151/88 99 Room Air General Appearance: WD/WN, no apparent distress Head: normocephalic, atraumatic Eyes: normal inspection, PERRL, EOMI, sclerae normal, + pertinent finding ( conjunctivae pink) ENT: normal ENT inspection, hearing grossly normal, pharynx normal Neck: supple, no adenopathy, thyroid normal, trachea midline Respiratory/Chest: lungs clear, no respiratory distress, no accessory muscle use Cardiovascular: regular rate, rhythm, no edema, no gallop, no JVD, no murmur, normal peripheral pulses Abdomen/GI: normal bowel sounds, non tender, soft, no organomegaly, no pulsatile mass Back: + pertinent finding (tenderness over lower thoracic spine and lower lumbar spine; lumbar pain with left SLR) Extremities/Musculoskelatal: normal inspection, no calf tenderness, normal capillary refill, no pedal edema Neurologic/Psych: web application tester II-XII nml as tested (PERRL, EOMI, no facial palsy, no dysarthria), alert, oriented x 3, + pertinent finding (mild proximal weakness LLE; plantar reflexes equivocally upgoing bilaterally) Skin: normal color, warm/dry, no rash Diagnostics Laboratory Results Results Past 24 Hours Test 03/10/17 16:25 Range/Units White Blood Count 11.45 4.8-10.8 K/uL Red Blood Count 4.47 4.2-5.4 M/uL Hemoglobin 13.4 12.0-16.0 g/dL Hematocrit 40.8 37-47 % Mean Corpuscular Volume 91.3 80-100 fL Mean Corpuscular Hemoglobin 30.0 25-34 pg Mean Corpuscular Hemoglobin Concent 32.8 32-36 g/dl Platelet Count 316 130-400 K/uL Mean Platelet Volume 9.6 7.4-10.4 fL Neutrophils (%) (Auto) 74.4 % Lymphocytes (%) (Auto) 15.7 % Monocytes (%) (Auto) 7.2 % Eosinophils (%) (Auto) 1.9 % Basophils (%) (Auto) 0.5 % Neutrophils # (Auto) 8.52 1.4-6.5 K/uL Lymphocytes # (Auto) 1.80 1.2-3.4 K/uL Monocytes # (Auto) 0.82 0.11-0.59 K/uL Eosinophils # (Auto) 0.22 0-0.5 K/uL Basophils # (Auto) 0.06 0-0.2 K/uL RDW Standard Deviation 43.2 36.4-46.3 fL RDW Coefficient of Variation 13.0 11.5-14.5 % Immature Granulocyte % (Auto) 0.3 % Immature Granulocyte # (Auto) 0.03 0.00-0.02 K/uL Erythrocyte Sedimentation Rate 43 0-21 mm/hr Sodium Level 139 136-145 mmol/L Potassium Level 4.0 3.5-5.1 mmol/L Chloride Level 106 98-107 mmol/L Carbon Dioxide Level 24 21-32 mmol/L Anion Gap 9.0 3-11 mmol/L Blood Urea Nitrogen 14 7-18 mg/dl Creatinine 0.79 0.60-1.20 mg/dl Est Creatinine Clear Calc Drug Dose 84.4 ml/min Estimated GFR () 96.3 Estimated GFR (Non- 83.1 BUN/Creatinine Ratio 17.5 10-20 Random Glucose 97 70-99 mg/dl Uric Acid 5.7 2.6-7.2 mg/dl Calcium Level 9.7 8.5-10.1 mg/dl Total Bilirubin 0.5 0.2-1 mg/dl Direct Bilirubin < 0.1 0-0.2 mg/dl Aspartate Amino Transf (AST/SGOT) 17 15-37 U/L Alanine Aminotransferase (ALT/SGPT) 25 12-78 U/L Alkaline Phosphatase 104 45-117 U/L C-Reactive Protein 4.69 0-0.29 mg/dl Total Protein 8.3 6.4-8.2 gm/dl Albumin 3.6 3.4-5.0 gm/dl Thyroid Stimulating Hormone (TSH) 0.781 0.300-4.500 uIu/ml Acetaminophen Level < 2 10-30 ug/ml Lyme Disease IgG Antibody NEG NEG Lyme Disease IgM Antibody NEG NEG Anti-Streptolysin O Antibody Screen NEG <200 IU IU/ml Microbiology Results 03/10/17 Blood Culture, Received Pending 03/10/17 Blood Culture, Received Pending Diagnostic Radiology PELVIS 1 OR 2 VIEW ROUTINE, L FEMUR 2 VIEWS ROUTINE FINDINGS: No fracture or dislocation within the pelvis, hips, left femur. The sacrum appears intact. Soft tissues are unremarkable. No radiopaque foreign bodies. Minimal degenerative changes within the right hip. IMPRESSION: No fracture or dislocation within the pelvis, hips, or left femur. Electronically signed by: Todd Apodaca M.D. 03/10/2017 5:39 PM Dictated Date/Time: 03/10/2017 5:36 PM THORACIC SPINE MRI FINDINGS: No fracture or subluxation. Paraspinal soft tissues are unremarkable. Mild degenerative disc disease throughout the majority of the thoracic spine. There are few small disc bulges and disc protrusions within the thoracic spine. However, no significant central canal or neural foraminal narrowing. The thoracic spinal cord is normal in course, caliber, and signal intensity. 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 There is 3 mm of anterolisthesis of C3 on C4 IMPRESSION: 1. No fracture or subluxation within the thoracic spine. 2. Mild degenerative disc disease within the thoracic spine. No significant central canal or neural foraminal narrowing. 3. Degenerative changes within the cervical spine with multilevel central canal narrowing and reversal of the normal lordotic curvature. There is associated 3 mm of anterolisthesis of C3 on C4 likely due to long-standing degenerative change. Electronically signed by: Todd Apodaca M.D. 03/10/2017 7:13 PM Dictated Date/Time: 03/10/2017 7:08 PM LUMBAR SPINE MRI FINDINGS: For the purpose of the report the L5-S1 disc space will be located on axial image 27 of 30. Alignment is intact. No fractures within the lumbar spine. Mild disc space narrowing at L1-L2 and L5-S1. Moderate to space narrowing at L3-L4. Severe disc space narrowing at L2-L3 and L4-L5. There is endplate edema along the left side of the L4-L5 level with increased signal within the disc. There is trace paravertebral edema at this location. 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 The conus terminates at the L1-L2 disc space level. L1-L2: Small broad-based posterior disc bulge without significant central canal or neural foraminal narrowing. L2-L3: Small broad-based posterior disc bulge without significant central canal or neural foraminal narrowing. L3-L4: Broad-based posterior disc bulge with ligamentum and facet hypertrophy resulting in mild central canal narrowing. No significant neural foraminal narrowing. L4-L5: Broad-based posterior disc bulge with a central and left paracentral annular tear. In conjunction with the ligamentum and facet hypertrophy this results in mild to moderate central canal and mild to moderate bilateral neural foraminal narrowing. L5-S1: Small broad-based posterior disc bulge without significant central canal narrowing. [id number] bilateral neural foraminal narrowing. IMPRESSION: 1. No fractures or subluxation within the lumbar spine. 2. Multilevel degenerative changes as described above most pronounced at the L4-5 level where there is mild to moderate central canal and neural foraminal narrowing. 3. Endplate edema with increase signal within the disc at the left side of the L4-5 level. There is also trace paravertebral edema at this location. This is likely due to the long-standing degenerative change. However, a developing discitis/osteomyelitis could also a similar appearance in the appropriate clinical setting. Therefore, clinical correlation recommended. Electronically signed by: Todd Apodaca M.D. 03/10/2017 7:21 PM Dictated Date/Time: 03/10/2017 7:14 PM . Impression Assessment and Plan BACK PAIN Patient experiencing lower thoracic and lumbar pain with radiation to the left groin and left anterior thigh. She notes proximal weakness of the left lower extremity and last night had incontinence of urine. MR imaging of thoracic and lumbar spine as detailed above with multilevel degenerative disease and possible discitis at L4-L5. Patient is afebrile. WBC = 11,450. ESR = 43. C reactive protein = 4.69. Must assume discitis proven otherwise. Received IV vancomycin in the ED. Vancomycin will be continued and ceftriaxone will be added for gram-negative coverage. Analgesics PRN. PT. Consult Orthopedics Spine and Infectious Disease. HYPERTENSION Hemodynamically stable. Continue enalapril. ASTHMA Stable. Continue Advair + albuterol PRN. DEPRESSION / ANXIETY Continue escitalopram + alprazolam PRN. VTE PROPHYLAXIS Moderate risk for VTE. No anticoagulants pending surgical disposition. SCD's. Ambulate. RESUSCITATION STATUS Discussed with patient. She has a living will. She would like resuscitation attempted in the event of a cardiopulmonary arrest if there is a reasonable chance of a meaningful recovery, but does not want prolonged extraordinary measures if prognosis is poor. Therefore, code status = "Level 1" (full resuscitation). DISPOSITION Admit to Med-Surg Unit. Expected discharge to home. PCP is Dr. Bess with [facility]. Patient reports that Dr. Bess is leaving the practice soon and she will have to establish with a new PCP. . VTE Prophylaxis Given or contraindicated: SCD's
[2017-03-10] MEDS ORDERED: ACETAMINOPHEN 325 MG TAB PO PRN (21:45)
[2017-03-10 21:57] VITALS: Ht 157.5 cm; Wt 95.0 kg
[2017-03-10] MEDS ORDERED: INFLUENZA ADMINISTRATION CHARGE ONE (23:30)
[2017-03-10] MEDS ORDERED: INFLUENZA VIRUS QUAD VACCINE 0.5 ML SYR IM. ONE (23:30)
[2017-03-10] MEDS ORDERED: ALBINS/ INH (23:42)
[2017-03-10] MEDS ORDERED: Proair HFA INH (23:42)
[2017-03-10] MEDS ORDERED: ALBUTEROL HFA 8 GM INHALER INH PRN (23:45)
[2017-03-10] MEDS ORDERED: OXYCODONE/ACETAMINOPHEN 5-325 TAB PO PRN (23:45)
[2017-03-10] MEDS ORDERED: ALPRAZOLAM 0.5 MG TAB PO PRN (23:45)
[2017-03-10] MEDS ORDERED: CYCLOBENZAPRINE HCL 5 MG TAB PO PRN (23:45)
[2017-03-11 07:22] VITALS: BP 129/81; PULSE 79; TEMP 36.8; O2SAT 96
[2017-03-11] MEDS ORDERED: VANCOMYCIN CONSULT ACTIVE PRN (08:15)
[2017-03-11] MEDS: FLUTICASONE/SALMETEROL 100/50 (ADVAIR) 14 PUFF/1 INHALER INH SCH ×2 (08:26→21:16)
[2017-03-11] MEDS: FEXOFENADINE HCL 180 MG TAB PO SCH (08:28)
[2017-03-11] MEDS: FAMOTIDINE 20 MG TAB PO SCH ×2 (08:28→21:17)
[2017-03-11] MEDS: NABUMETONE 500 MG TAB PO SCH ×2 (08:28→17:22)
[2017-03-11] MEDS: ENALAPRIL MALEATE 5 MG TAB PO SCH (08:29)
[2017-03-11] MEDS: CEFTRIAXONE SOD INJ 2,000 MG in DEXTROSE 5% 50ML 50 ML IV SCH (08:29)
[2017-03-11] MEDS: AMLODIPINE BESYLATE 5 MG TAB PO SCH (08:30)
[2017-03-11] MEDS ORDERED: VANCOMYCIN INJ 1,500 MG in SODIUM CHLORIDE 0.9% 500ML 500 ML IV ONE (08:30)
[2017-03-11] MEDS ORDERED: LIDODERM (LIDOCAINE) PATCH 5% TD ONE (10:30)
--- NOTE | 2017-03-11 13:23 | Pharmacy Progress Note ---
Pharmacy Antibiotic Consult Date of Service: Mar 11, 2017. Pharmacy Dosing Scope Pharmacy is consulted to initiate vancomycin IV dosing therapy, order appropriate labs and adjust drug dose/frequency. Subjective The patient is a 56 year old female admitted on Mar 10, 2017 at 21:34. Objective Height (Feet): 5 Height (Inches): 2.00 Weight (Kilograms): 95.000 Lab Results (24hrs): Test 03/10/17 16:25 White Blood Count 11.45 K/uL (4.8-10.8) Red Blood Count 4.47 M/uL (4.2-5.4) Hemoglobin 13.4 g/dL (12.0-16.0) Hematocrit 40.8 % (37-47) Mean Corpuscular Volume 91.3 fL (80-100) Mean Corpuscular Hemoglobin 30.0 pg (25-34) Mean Corpuscular Hemoglobin Concent 32.8 g/dl (32-36) Platelet Count 316 K/uL (130-400) Mean Platelet Volume 9.6 fL (7.4-10.4) Neutrophils (%) (Auto) 74.4 % Lymphocytes (%) (Auto) 15.7 % Monocytes (%) (Auto) 7.2 % Eosinophils (%) (Auto) 1.9 % Basophils (%) (Auto) 0.5 % Neutrophils # (Auto) 8.52 K/uL (1.4-6.5) Lymphocytes # (Auto) 1.80 K/uL (1.2-3.4) Monocytes # (Auto) 0.82 K/uL (0.11-0.59) Eosinophils # (Auto) 0.22 K/uL (0-0.5) Basophils # (Auto) 0.06 K/uL (0-0.2) RDW Standard Deviation 43.2 fL (36.4-46.3) RDW Coefficient of Variation 13.0 % (11.5-14.5) Immature Granulocyte % (Auto) 0.3 % Immature Granulocyte # (Auto) 0.03 K/uL (0.00-0.02) Erythrocyte Sedimentation Rate 43 mm/hr (0-21) Sodium Level 139 mmol/L (136-145) Potassium Level 4.0 mmol/L (3.5-5.1) Chloride Level 106 mmol/L (98-107) Carbon Dioxide Level 24 mmol/L (21-32) Anion Gap 9.0 mmol/L (3-11) Blood Urea Nitrogen 14 mg/dl (7-18) Creatinine 0.79 mg/dl (0.60-1.20) Est Creatinine Clear Calc Drug Dose 84.4 ml/min Estimated GFR () 96.3 Estimated GFR (Non- 83.1 BUN/Creatinine Ratio 17.5 (10-20) Random Glucose 97 mg/dl (70-99) Uric Acid 5.7 mg/dl (2.6-7.2) Calcium Level 9.7 mg/dl (8.5-10.1) Total Bilirubin 0.5 mg/dl (0.2-1) Direct Bilirubin < 0.1 mg/dl (0-0.2) Aspartate Amino Transf (AST/SGOT) 17 U/L (15-37) Alanine Aminotransferase (ALT/SGPT) 25 U/L (12-78) Alkaline Phosphatase 104 U/L (45-117) C-Reactive Protein 4.69 mg/dl (0-0.29) Total Protein 8.3 gm/dl (6.4-8.2) Albumin 3.6 gm/dl (3.4-5.0) Thyroid Stimulating Hormone (TSH) 0.781 uIu/ml (0.300-4.500) Acetaminophen Level < 2 ug/ml (10-30) Lyme Disease IgG Antibody NEG (NEG) Lyme Disease IgM Antibody NEG (NEG) Hepatitis C Antibody Screen NEG (NEG) Anti-Streptolysin O Antibody Screen NEG IU/ml (<200 IU) Assessment & Plan Patient started on vancomycin and rocephin for bone/joint infection. BC x 2 are pending. Vancomycin: * Received vancomycin 1 gm last evening in ED (~10 mg/kg); estimated level this am around 8 mcg/ml therefore gave an additional 1500 mg x 1 (~15 mg/kg) to achieve a peak of ~30 mcg/ml * Will start MD of vancomycin 1250 mg iv q 14 hrs to achieve an estimated trough ~15-20 mcg/ml (goal for bone infection) * Estimated kinetics: t1/2~9 hrs, ke~0.07 hr-1, CrCl ~84 ml/min * Will plan to obtain a trough prior to the 0400 dose on 03/13 to ensure therapeutic; note this will be before steady state but want to ensure therapeutic since patient with elevated BMI>35 kg/m2 and increased risk of drug accumulation Pharmacy will continue to follow and will adjust dose/frequency as necessary. Thank you
[2017-03-11] MEDS ORDERED: KETOROLAC TROMETHAMINE 30 MG/ML VIAL IV ONE (14:28)
--- NOTE | 2017-03-11 14:40 | Progress Note ---
Medicine Progress Note Date & Time of Visit: Mar 11, 2017 at 14:32. Subjective patient seen resting in bedside chair, daughter Yudy at the bedside states she is still having midback pain- worse with movement as well as lower back pain radiating to the left groin, anterior thigh denies incontinence denies other symptoms no fever/chills Objective Last 8 Hrs Date Time Temp Pulse Resp B/P (MAP) Pulse Ox O2 Delivery O2 Flow Rate FiO2 03/11/17 07:22 36.8 79 20 129/81 (97) 96 Room Air Physical Exam: General- oriented x 3, not in distress, speaks in sentences with no effort Head- atraumatic Eyes- EOMI, anicteric ENT- oropharynx clear Neck- supple, no JVD Lungs- clear breath sounds bilaterally Heart- regular rhythm; no murmur, normal rate Abdomen- normal bowel sounds, soft, nontender Extremities- no pretibial edema, no calf tenderness; peripheral pulses intact Back- (+) tenderness on the lower thoracic spine and paraspinal muscles, no erythema/warmth/swelling Neuro- alert, oriented x 3; no gross focal deficits Skin- warm & dry Laboratory Results: Last 24 Hours Test 03/10/17 16:25 White Blood Count 11.45 K/uL Red Blood Count 4.47 M/uL Hemoglobin 13.4 g/dL Hematocrit 40.8 % Mean Corpuscular Volume 91.3 fL Mean Corpuscular Hemoglobin 30.0 pg Mean Corpuscular Hemoglobin Concent 32.8 g/dl Platelet Count 316 K/uL Mean Platelet Volume 9.6 fL Neutrophils (%) (Auto) 74.4 % Lymphocytes (%) (Auto) 15.7 % Monocytes (%) (Auto) 7.2 % Eosinophils (%) (Auto) 1.9 % Basophils (%) (Auto) 0.5 % Neutrophils # (Auto) 8.52 K/uL Lymphocytes # (Auto) 1.80 K/uL Monocytes # (Auto) 0.82 K/uL Eosinophils # (Auto) 0.22 K/uL Basophils # (Auto) 0.06 K/uL RDW Standard Deviation 43.2 fL RDW Coefficient of Variation 13.0 % Immature Granulocyte % (Auto) 0.3 % Immature Granulocyte # (Auto) 0.03 K/uL Erythrocyte Sedimentation Rate 43 mm/hr Sodium Level 139 mmol/L Potassium Level 4.0 mmol/L Chloride Level 106 mmol/L Carbon Dioxide Level 24 mmol/L Anion Gap 9.0 mmol/L Blood Urea Nitrogen 14 mg/dl Creatinine 0.79 mg/dl Est Creatinine Clear Calc Drug Dose 84.4 ml/min Estimated GFR () 96.3 Estimated GFR (Non- 83.1 BUN/Creatinine Ratio 17.5 Random Glucose 97 mg/dl Uric Acid 5.7 mg/dl Calcium Level 9.7 mg/dl Total Bilirubin 0.5 mg/dl Direct Bilirubin < 0.1 mg/dl Aspartate Amino Transf (AST/SGOT) 17 U/L Alanine Aminotransferase (ALT/SGPT) 25 U/L Alkaline Phosphatase 104 U/L C-Reactive Protein 4.69 mg/dl Total Protein 8.3 gm/dl Albumin 3.6 gm/dl Thyroid Stimulating Hormone (TSH) 0.781 uIu/ml Acetaminophen Level < 2 ug/ml Lyme Disease IgG Antibody NEG Lyme Disease IgM Antibody NEG Hepatitis C Antibody Screen NEG Anti-Streptolysin O Antibody Screen NEG IU/ml Date/Time Source Procedure Growth Status 03/10/17 20:40 Blood Blood Culture Pending Received 03/10/17 20:39 Blood Blood Culture Pending Received Assessment & Plan UPPER BACK PAIN, LIKELY MYOFASCIAL PAIN SYNDROME - MRI Thoracic Spine: mild degenerative disc disease - Lidoderm patch, Toradol PRN, Tramadol PRN, Warm compress, PT/OT ordered patient states Flexeril has not been effective as outpatient - will monitor response POSSIBLE L4-L5 DISCITIS - afebrile - blood cultures: pending - empiric Vanco + Ceftri IV Day 2 ID and Ortho consulted HYPERTENSION Hemodynamically stable. Continue enalapril. ASTHMA Stable. Continue Advair + albuterol PRN. DEPRESSION / ANXIETY Continue escitalopram + alprazolam PRN. VTE PROPHYLAXIS Moderate risk for VTE. No anticoagulants pending surgical disposition. SCD's. Ambulate. RESUSCITATION STATUS = "Level 1" (full resuscitation). DISPOSITION Admit to Med-Surg Unit. Expected discharge to home. PCP is Dr. Bess with [facility]. Patient reports that Dr. Bess is leaving the practice soon and she will have to establish with a new PCP. . Current Inpatient Medications: Current Inpatient Medications Medications (Trade) Dose Ordered Sig/William Route Start Time Stop Time Status Last Admin Dose Admin Acetaminophen (Tylenol Tab) 650 mg Q4H PRN PO 03/10/17 21:45 04/09/17 21:44 Alprazolam (Xanax Tab) 0.5 mg TID PRN PO 03/10/17 23:45 04/09/17 23:44 Amlodipine Besylate (Norvasc Tab) 5 mg QAM PO 03/11/17 09:00 04/10/17 08:59 03/11/17 08:30 5 MG Cyclobenzaprine HCl (Flexeril Tab) 5 mg TID PRN PO 03/10/17 23:45 04/09/17 23:44 03/11/17 06:43 5 MG Enalapril Maleate (Vasotec Tab) 5 mg QAM PO 03/11/17 09:00 04/10/17 08:59 03/11/17 08:29 5 MG Escitalopram Oxalate (Lexapro Tab) 10 mg QPM PO 03/11/17 21:00 04/10/17 20:59 Famotidine (Pepcid Tab) 20 mg BID PO 03/11/17 09:00 04/10/17 08:59 03/11/17 08:28 20 MG Fexofenadine HCl (Shahida Tab) 180 mg QAM PO 03/11/17 09:00 04/10/17 08:59 03/11/17 08:28 180 MG Salmeterol Xinafoate/ Fluticasone (Advair Diskus 100/50 Inh) 1 puff BID INH 03/11/17 09:00 04/10/17 08:59 03/11/17 08:26 1 PUFF Montelukast Sodium (Singulair Tab) 10 mg QPM PO 03/11/17 21:00 04/10/17 20:59 Nabumetone (Relafen Tab) 500 mg BIDM PO 03/11/17 08:00 04/10/17 07:59 03/11/17 08:28 500 MG Oxycodone/ Acetaminophen (Percocet 5-325mg Tab) 1 tab Q4H PRN PO 03/10/17 23:45 03/24/17 23:44 03/11/17 01:00 1 TAB Pravastatin Sodium (Pravachol Tab) 20 mg QPM PO 03/11/17 21:00 04/10/17 20:59 Albuterol (Ventolin Hfa Inhaler) 2 puffs Q4H PRN INH 03/10/17 23:45 04/09/17 23:44 Ceftriaxone Sodium 2000 mg/ Dextrose 70 ml @ 100 mls/hr Q24H IV 03/11/17 08:00 04/22/17 07:59 03/11/17 08:29 100 MLS/HR Vancomycin HCl (Consult) 1 ea UD PRN N/A 03/11/17 08:15 04/10/17 08:14 Lidocaine (Lidoderm Patch 5%) 1 patch QAM TD 03/12/17 09:00 03/12/17 09:00 Miscellaneous (Remove Lidoderm Patch) 1 ea DAILY@21 N/A 03/11/17 21:00 04/10/17 20:59 Vancomycin HCl 1250 mg/Sodium Chloride 275 ml @ 125 mls/hr Q14H IV 03/12/17 00:00 03/12/17 00:00
[2017-03-11] MEDS ORDERED: TRAMADOL HCL 50 MG TAB PO PRN (14:45)
[2017-03-11 15:00] VITALS: BP 106/72; PULSE 81; TEMP 37.1; O2SAT 96
[2017-03-11] MEDS: SODIUM CHLORIDE 0.9% 1000ML 1,000 ML IV SCH (15:02)
[2017-03-11] MEDS: LACTOBACILLUS ACIDOPHILUS (FLORANEX) TAB PO SCH (17:21)
[2017-03-11] MEDS: ESCITALOPRAM OXALATE 10 MG TAB PO SCH (21:18)
[2017-03-11] MEDS: MONTELUKAST SOD 10 MG TAB PO SCH (21:18)
[2017-03-11] MEDS: PRAVASTATIN SOD 20 MG TAB PO SCH (21:18)
[2017-03-11] MEDS: KETOROLAC TROMETHAMINE 30 MG/ML VIAL IV PRN (21:19)
[2017-03-11 22:48] VITALS: BP 115/75; PULSE 73; TEMP 37; O2SAT 94
[2017-03-11] MEDS: VANCOMYCIN INJ 1,250 MG in SODIUM CHLORIDE 0.9% 250ML 250 ML IV SCH (23:54)
[2017-03-12 07:22] LABS: BASO % 0.6 %; BASO ABS # 0.05 K/uL (0-0.2); COMPLETE YES; EOS % 3.4 %; HEMATOCRIT 38.7 % (37-47); IG% 0.1 %; LYMPH ABS # 1.77 K/uL (1.2-3.4); MEAN CELL VOLUME 94.2 fL (80-100); MEAN CORPUSCULAR HEMOGLOBIN 29.4 pg (25-34); MEAN CORPUSCULAR HGB CONC 31.3 g/dl (32-36); MEAN PLATELET VOLUME 9.6 fL (7.4-10.4); MONO % 9.1 %; NEUT % 64.8 %; PLATELET COUNT 292 K/uL (130-400); RED BLOOD COUNT 4.11 M/uL (4.2-5.4); WHITE BLOOD COUNT 8.04 K/uL (4.8-10.8)
[2017-03-12 07:46] LABS: BUN/CREATININE RATIO 22.7 (10-20); CALCIUM 9.1 mg/dl (8.5-10.1); CREATININE 0.7 mg/dl (0.60-1.20); POTASSIUM 4.1 mmol/L (3.5-5.1)
[2017-03-12 07:48] VITALS: BP 130/80; PULSE 80; TEMP 37.2; O2SAT 99
[2017-03-12] MEDS: SODIUM CHLORIDE 0.9% 1000ML 1,000 ML IV SCH (08:17)
[2017-03-12] MEDS: KETOROLAC TROMETHAMINE 30 MG/ML VIAL IV PRN ×3 (08:18→23:44)
[2017-03-12] MEDS: CEFTRIAXONE SOD INJ 2,000 MG in DEXTROSE 5% 50ML 50 ML IV SCH (08:18)
[2017-03-12] MEDS: LACTOBACILLUS ACIDOPHILUS (FLORANEX) TAB PO SCH ×3 (08:20→16:59)
[2017-03-12] MEDS: NABUMETONE 500 MG TAB PO SCH ×2 (08:20→16:59)
[2017-03-12] MEDS: FLUTICASONE/SALMETEROL 100/50 (ADVAIR) 14 PUFF/1 INHALER INH SCH ×2 (08:21→20:20)
[2017-03-12] MEDS: FEXOFENADINE HCL 180 MG TAB PO SCH (08:21)
[2017-03-12] MEDS: AMLODIPINE BESYLATE 5 MG TAB PO SCH (08:21)
[2017-03-12] MEDS: FAMOTIDINE 20 MG TAB PO SCH ×2 (08:22→20:22)
[2017-03-12] MEDS: ENALAPRIL MALEATE 5 MG TAB PO SCH (08:22)
[2017-03-12] MEDS ORDERED: LIDODERM (LIDOCAINE) PATCH 5% TD SCH (09:00)
[2017-03-12 09:24] VITALS: O2SAT 99
[2017-03-12 11:19] VITALS: BP 128/80; PULSE 87; O2SAT 100
[2017-03-12 14:32] VITALS: BP 121/82; PULSE 81; TEMP 36.5; O2SAT 100
--- NOTE | 2017-03-12 16:11 | Progress Note ---
Medicine Progress Note Date & Time of Visit: Mar 12, 2017 at 16:11. Subjective seen sitting in bedside chair states upper back pain and low back pain only slightly better still has pain radiating to her left leg reports feeling stiff all over in the morning, lasting for hours denies other symptoms Objective Last 8 Hrs Date Time Temp Pulse Resp B/P (MAP) Pulse Ox O2 Delivery O2 Flow Rate FiO2 03/12/17 14:32 36.5 81 18 121/82 (95) 100 Room Air 03/12/17 11:19 87 100 03/12/17 09:24 99 Room Air 03/12/17 09:00 Room Air 0.0 Physical Exam: General- oriented x 3, not in distress, speaks in sentences with no effort Eyes- anicteric Neck- supple, no JVD Lungs- clear breath sounds bilaterally, no rales/wheezes Heart- regular rhythm; no murmur, normal rate Abdomen- normal bowel sounds, soft, nontender Extremities- no pretibial edema, no calf tenderness; peripheral pulses intact Back- (+) tenderness on the lower thoracic spine and paraspinal muscles, no erythema/warmth/swelling Neuro- alert, oriented x 3; no gross focal deficits Skin- warm & dry Laboratory Results: Last 24 Hours Test 03/12/17 06:33 White Blood Count 8.04 K/uL Red Blood Count 4.11 M/uL Hemoglobin 12.1 g/dL Hematocrit 38.7 % Mean Corpuscular Volume 94.2 fL Mean Corpuscular Hemoglobin 29.4 pg Mean Corpuscular Hemoglobin Concent 31.3 g/dl Platelet Count 292 K/uL Mean Platelet Volume 9.6 fL Neutrophils (%) (Auto) 64.8 % Lymphocytes (%) (Auto) 22.0 % Monocytes (%) (Auto) 9.1 % Eosinophils (%) (Auto) 3.4 % Basophils (%) (Auto) 0.6 % Neutrophils # (Auto) 5.21 K/uL Lymphocytes # (Auto) 1.77 K/uL Monocytes # (Auto) 0.73 K/uL Eosinophils # (Auto) 0.27 K/uL Basophils # (Auto) 0.05 K/uL RDW Standard Deviation 44.4 fL RDW Coefficient of Variation 12.9 % Immature Granulocyte % (Auto) 0.1 % Immature Granulocyte # (Auto) 0.01 K/uL Sodium Level 142 mmol/L Potassium Level 4.1 mmol/L Chloride Level 110 mmol/L Carbon Dioxide Level 27 mmol/L Anion Gap 5.0 mmol/L Blood Urea Nitrogen 16 mg/dl Creatinine 0.70 mg/dl Est Creatinine Clear Calc Drug Dose 95.3 ml/min Estimated GFR () 111.5 Estimated GFR (Non- 96.2 BUN/Creatinine Ratio 22.7 Random Glucose 100 mg/dl Calcium Level 9.1 mg/dl Assessment & Plan UPPER BACK PAIN, 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 Continue enalapril. ASTHMA Stable. Continue Advair + albuterol PRN. DEPRESSION / ANXIETY Continue escitalopram + alprazolam PRN. VTE PROPHYLAXIS Moderate risk for VTE. No anticoagulants pending surgical disposition. SCD's. Ambulate. RESUSCITATION STATUS = "Level 1" (full resuscitation). DISPOSITION Admit to Med-Surg Unit. Expected discharge to home. PCP is Dr. Bess with [facility]. Patient reports that Dr. Bess is leaving the practice soon and she will have to establish with a new PCP. . Current Inpatient Medications: Current Inpatient Medications Medications (Trade) Dose Ordered Sig/[facility] Route Start Time Stop Time Status Last Admin Dose Admin Acetaminophen (Tylenol Tab) 650 mg Q4H PRN PO 03/10/17 21:45 04/09/17 21:44 Alprazolam (Xanax Tab) 0.5 mg TID PRN PO 03/10/17 23:45 04/09/17 23:44 Amlodipine Besylate (Norvasc Tab) 5 mg QAM PO 03/11/17 09:00 04/10/17 08:59 03/12/17 08:21 5 MG Cyclobenzaprine HCl (Flexeril Tab) 5 mg TID PRN PO 03/10/17 23:45 04/09/17 23:44 03/11/17 06:43 5 MG Enalapril Maleate (Vasotec Tab) 5 mg QAM PO 03/11/17 09:00 04/10/17 08:59 03/12/17 08:22 5 MG Escitalopram Oxalate (Lexapro Tab) 10 mg QPM PO 03/11/17 21:00 04/10/17 20:59 03/11/17 21:18 10 MG Famotidine (Pepcid Tab) 20 mg BID PO 03/11/17 09:00 04/10/17 08:59 03/12/17 08:22 20 MG Fexofenadine HCl (Shahida Tab) 180 mg QAM PO 03/11/17 09:00 04/10/17 08:59 03/12/17 08:21 180 MG Salmeterol Xinafoate/ Fluticasone (Advair Diskus 100/50 Inh) 1 puff BID INH 03/11/17 09:00 04/10/17 08:59 03/12/17 08:21 1 PUFF Montelukast Sodium (Singulair Tab) 10 mg QPM PO 03/11/17 21:00 04/10/17 20:59 03/11/17 21:18 10 MG Nabumetone (Relafen Tab) 500 mg BIDM PO 03/11/17 08:00 04/10/17 07:59 03/12/17 08:20 500 MG Oxycodone/ Acetaminophen (Percocet 5-325mg Tab) 1 tab Q4H PRN PO 03/10/17 23:45 03/24/17 23:44 03/11/17 01:00 1 TAB Pravastatin Sodium (Pravachol Tab) 20 mg QPM PO 03/11/17 21:00 04/10/17 20:59 03/11/17 21:18 20 MG Albuterol (Ventolin Hfa Inhaler) 2 puffs Q4H PRN INH 03/10/17 23:45 04/09/17 23:44 Ceftriaxone Sodium 2000 mg/ Dextrose 70 ml @ 100 mls/hr Q24H IV 03/11/17 08:00 04/22/17 07:59 03/12/17 08:18 100 MLS/HR Vancomycin HCl (Consult) 1 ea UD PRN N/A 03/11/17 08:15 04/10/17 08:14 Miscellaneous (Remove Lidoderm Patch) 1 ea DAILY@21 N/A 03/11/17 21:00 04/10/17 20:59 03/11/17 21:17 1 EA Vancomycin HCl 1250 mg/Sodium Chloride 275 ml @ 125 mls/hr Q14H IV 03/12/17 00:00 04/21/17 00:00 03/11/17 23:54 125 MLS/HR Ketorolac Tromethamine (Toradol Inj) 30 mg Q6H PRN IV 03/11/17 14:30 03/16/17 14:29 03/12/17 08:18 30 MG Lactobacillus Acidophilus (Floranex Tab) 4 tab TIDM PO 03/11/17 17:00 04/10/17 16:59 03/12/17 15:09 4 TAB Sodium Chloride 1,000 ml @ 60 mls/hr [id number] IV 03/11/17 14:30 04/10/17 14:29 03/12/17 08:17 60 MLS/HR Tramadol HCl (Ultram Tab) 50 mg Q4H PRN PO 03/11/17 14:45 04/10/17 14:44 03/12/17 15:37 50 MG
[2017-03-12] MEDS ORDERED: DOCUSATE SODIUM/SENNA 50/8.6MG TAB PO PRN (16:15)
[2017-03-12] MEDS ORDERED: POLYETHYLENE (MIRALAX) 17 GM PACK PO ONE (16:30)
[2017-03-12] MEDS ORDERED: GABAPENTIN 100 MG CAP PO ONE (16:30)
[2017-03-12] MEDS: VANCOMYCIN INJ 1,250 MG in SODIUM CHLORIDE 0.9% 250ML 250 ML IV SCH (16:59)
[2017-03-12] MEDS: PRAVASTATIN SOD 20 MG TAB PO SCH (20:22)
[2017-03-12] MEDS: GABAPENTIN 100 MG CAP PO SCH (20:22)
[2017-03-12] MEDS: MONTELUKAST SOD 10 MG TAB PO SCH (20:22)
[2017-03-12] MEDS: ESCITALOPRAM OXALATE 10 MG TAB PO SCH (20:22)
[2017-03-12 23:49] VITALS: BP 116/69; PULSE 83; TEMP 36.5; O2SAT 99
[2017-03-13] MEDS ORDERED: VANCOMYCIN TROUGH ONE (03:30)
[2017-03-13] MEDS: VANCOMYCIN INJ 1,250 MG in SODIUM CHLORIDE 0.9% 250ML 250 ML IV SCH ×2 (04:19→17:09)
[2017-03-13 04:23] LABS: BASO % 0.5 %; BASO ABS # 0.04 K/uL (0-0.2); COMPLETE YES; EOS % 3.5 %; HEMATOCRIT 34.7 % (37-47); IG% 0.1 %; LYMPH % 28.1 %; LYMPH ABS # 2.27 K/uL (1.2-3.4); MEAN CELL VOLUME 92.3 fL (80-100); MEAN CORPUSCULAR HEMOGLOBIN 30.1 pg (25-34); MEAN CORPUSCULAR HGB CONC 32.6 g/dl (32-36); MEAN PLATELET VOLUME 9.2 fL (7.4-10.4); MONO % 9.2 %; NEUT % 58.6 %; PLATELET COUNT 272 K/uL (130-400); RED BLOOD COUNT 3.76 M/uL (4.2-5.4); WHITE BLOOD COUNT 8.07 K/uL (4.8-10.8)
[2017-03-13 04:43] LABS: BLOOD UREA NITROGEN 17 mg/dl (7-18); BUN/CREATININE RATIO 24.2 (10-20); CALCIUM 8.7 mg/dl (8.5-10.1); CARBON DIOXIDE 25 mmol/L (21-32); CHLORIDE 111 mmol/L (98-107); CREATININE 0.69 mg/dl (0.60-1.20); GLUCOSE 109 mg/dl (70-99); POTASSIUM 4.1 mmol/L (3.5-5.1); SODIUM 142 mmol/L (136-145)
[2017-03-13 04:45] LABS: RHEUMATOID FACTOR < 10.0 U/mL (0-15)
[2017-03-13 07:42] VITALS: BP 116/78; PULSE 83; TEMP 36.9; O2SAT 95
[2017-03-13] MEDS: KETOROLAC TROMETHAMINE 30 MG/ML VIAL IV PRN ×3 (07:44→20:49)
[2017-03-13] MEDS: FLUTICASONE/SALMETEROL 100/50 (ADVAIR) 14 PUFF/1 INHALER INH SCH ×2 (07:44→20:44)
[2017-03-13] MEDS: NABUMETONE 500 MG TAB PO SCH ×2 (07:45→17:11)
[2017-03-13] MEDS: GABAPENTIN 100 MG CAP PO SCH ×3 (07:45→20:46)
[2017-03-13] MEDS: FAMOTIDINE 20 MG TAB PO SCH ×2 (07:45→20:45)
[2017-03-13] MEDS: LACTOBACILLUS ACIDOPHILUS (FLORANEX) TAB PO SCH ×3 (07:46→17:10)
[2017-03-13] MEDS: AMLODIPINE BESYLATE 5 MG TAB PO SCH (07:46)
[2017-03-13] MEDS: ENALAPRIL MALEATE 5 MG TAB PO SCH (07:46)
[2017-03-13] MEDS: FEXOFENADINE HCL 180 MG TAB PO SCH (07:46)
[2017-03-13] MEDS ORDERED: POLYETHYLENE (MIRALAX) 17 GM PACK ONE (07:52)
[2017-03-13] MEDS: CEFTRIAXONE SOD INJ 2,000 MG in DEXTROSE 5% 50ML 50 ML IV SCH (07:54)
[2017-03-13] MEDS: POLYETHYLENE (MIRALAX) 17 GM PACK PO SCH (07:54)
--- NOTE | 2017-03-13 10:28 | Pharmacy Progress Note ---
Pharmacy Abx Dose Short Note Date of Service Mar 13, 2017. Assessment & Plan Assessment 56 year old female receiving vancomycin/Rocephin for treatment of bone/joint infection Day # 4 of antimicrobial therapy. Plan Vancomycin * Trough level of 16.7 mcg/mL is technically therapeutic HOWEVER, the dose prior was hung 3 hours late. Suspect actual trough is lower. Re-draw trough tomorrow with 8 am dose. * Continue dose of 1250 mg IV every 14 hours * Goal trough level for bone/joint infection : 15 to 20 mcg/mL * Trough ordered for: 03/14/17 prior to 0800 dose Pharmacy will continue to follow and will adjust dose/frequency as necessary. Thank you.
--- NOTE | 2017-03-13 10:34 | Orthopedic Consultation ---
Orthopedic Consultation Date of Consultation: Mar 13, 2017. Attending Physician: Tao Toscano MD Reason for Consultation: L4 5 degenerative changes versus discitis History of Present Illness Is a pleasant 56-year-old female that we are asked to see in consultation regards to abnormalities on her lumbar MRI. She has had back pain for several months. It has progressively worsened over the past week and a half to 2 weeks. She initially followed up with Dr. Lang for evaluation of her left hip. This pathology was ruled out. Symptoms progressed. She is referred Dr. Vega. Studies are ordered a lumbar MRI at [facility] which we do not have available to review at this point in time. She reports this is the end of December. She then underwent a left SI joint injection by Dr. Vega without relief. Pain persisted. She recently trialed chiropractic treatment with Dr. Mcintosh about a week and a half ago which progressively exacerbated her symptoms. She presented to the emergency room over the weekend after she noted 2 episodes of urinary incontinence the evening before. She denies saddle paresthesias. Pain involves the lumbar spine, thoracic spine, left groin and anterior thigh to the level of the knee. Right leg is asymptomatic. She denies fevers or chills or recent illnesses. She states been taking occasional Percocet as well as Tylenol and ibuprofen for pain control. She reports her family physician is also given her Flexeril. She reports pain is intensified with prolonged sitting. She is most comfortable standing. Past Medical/Surgical History Medical Problems: (1) Discitis Status: Acute (2) Hip pain, left Status: Acute Family History Asthma FATHER Diabetes mellitus FATHER MOTHER Heart disease FATHER Hypertension MOTHER Ovarian cancer MOTHER Social History Smoking Status: Former Smoker Alcohol Use: none Housing Status: lives with significant other Occupation Status: employed Allergies Coded Allergies: No Known Allergies (Unverified , 12/23/14) Home Medications Scheduled Amlodipine (Norvasc), 5 MG PO QAM B-Complex W/ Folic Acid (Super B Complex Maxi), 1 TAB PO DAILY Calcium Carbonate-Vitamin D (Calcium + D), 1 TAB PO DAILY Cholecalciferol (Vitamin D3), 5,000 UNITS PO DAILY Enalapril (Vasotec), 5 MG PO QAM Escitalopram Oxalate (Lexapro), 10 MG PO QPM Famotidine (Pepcid), 20 MG PO BID Fesoterodine Fumarate (Toviaz), 1 TAB PO QAM Fexofenadine Hcl (Shahida), 180 MG PO QAM Fluticasone Prop/Salmeterol (Advair Diskus 100/50 60 Dose), 1 PUFFS INH BID Krill Oil (Krill Oil), 1 CAP PO DAILY Montelukast Sodium (Singulair), 1 TAB PO QPM Nabumetone (Relafen), 500 MG PO BIDM Pravastatin (Pravachol ), 20 MG PO QPM Scheduled PRN Albuterol Sulf (Proventil 0.083% 2.5MG/3ML), 2.5 MG INH Q4 PRN for Wheezing Alprazolam (Alprazolam), 0.5 MG PO TID PRN for Anxiety Cyclobenzaprine HCl (Cyclobenzaprine HCl), 5 MG PO TID PRN for Muscle Spasms Oxycodone/Acetaminophen 5MG/325MG (Percocet 5MG/325MG), 1-2 TABLETS PO Q4H PRN for Pain [Proair HFA], 2 PUFFS INH Q4 PRN for Wheezing Current Inpatient Medications Current Inpatient Medications Medications (Trade) Dose Ordered Sig/[facility] Route Start Time Stop Time Status Last Admin Dose Admin Acetaminophen (Tylenol Tab) 650 mg Q4H PRN PO 03/10/17 21:45 04/09/17 21:44 Alprazolam (Xanax Tab) 0.5 mg TID PRN PO 03/10/17 23:45 04/09/17 23:44 Amlodipine Besylate (Norvasc Tab) 5 mg QAM PO 03/11/17 09:00 04/10/17 08:59 03/13/17 07:46 5 MG Enalapril Maleate (Vasotec Tab) 5 mg QAM PO 03/11/17 09:00 04/10/17 08:59 03/13/17 07:46 5 MG Escitalopram Oxalate (Lexapro Tab) 10 mg QPM PO 03/11/17 21:00 04/10/17 20:59 03/12/17 20:22 10 MG Famotidine (Pepcid Tab) 20 mg BID PO 03/11/17 09:00 04/10/17 08:59 03/13/17 07:45 20 MG Fexofenadine HCl (Shahida Tab) 180 mg QAM PO 03/11/17 09:00 04/10/17 08:59 03/13/17 07:46 180 MG Salmeterol Xinafoate/ Fluticasone (Advair Diskus 100/50 Inh) 1 puff BID INH 03/11/17 09:00 04/10/17 08:59 03/13/17 07:44 1 PUFF Montelukast Sodium (Singulair Tab) 10 mg QPM PO 03/11/17 21:00 04/10/17 20:59 03/12/17 20:22 10 MG Nabumetone (Relafen Tab) 500 mg BIDM PO 03/11/17 08:00 04/10/17 07:59 03/13/17 07:45 500 MG Oxycodone/ Acetaminophen (Percocet 5-325mg Tab) 1 tab Q4H PRN PO 03/10/17 23:45 03/24/17 23:44 03/11/17 01:00 1 TAB Pravastatin Sodium (Pravachol Tab) 20 mg QPM PO 03/11/17 21:00 04/10/17 20:59 03/12/17 20:22 20 MG Albuterol (Ventolin Hfa Inhaler) 2 puffs Q4H PRN INH 03/10/17 23:45 04/09/17 23:44 Ceftriaxone Sodium 2000 mg/ Dextrose 70 ml @ 100 mls/hr Q24H IV 03/11/17 08:00 04/22/17 07:59 03/13/17 07:54 100 MLS/HR Vancomycin HCl (Consult) 1 ea UD PRN N/A 03/11/17 08:15 04/10/17 08:14 Miscellaneous (Remove Lidoderm Patch) 1 ea DAILY@21 N/A 03/11/17 21:00 04/10/17 20:59 03/12/17 20:22 1 EA Vancomycin HCl 1250 mg/Sodium Chloride 275 ml @ 125 mls/hr Q14H IV 03/12/17 00:00 04/21/17 00:00 03/13/17 04:19 125 MLS/HR Ketorolac Tromethamine (Toradol Inj) 30 mg Q6H PRN IV 03/11/17 14:30 03/16/17 14:29 03/13/17 07:44 30 MG Lactobacillus Acidophilus (Floranex Tab) 4 tab TIDM PO 03/11/17 17:00 04/10/17 16:59 03/13/17 07:46 4 TAB Tramadol HCl (Ultram Tab) 50 mg Q4H PRN PO 03/11/17 14:45 04/10/17 14:44 03/12/17 15:37 50 MG Polyethylene (Miralax Powder Packet) 17 gm DAILY PO 03/13/17 09:00 04/12/17 08:59 03/13/17 07:54 17 GM Senna/Docusate Sodium (Senokot S Tab) 1 tab DAILY PRN PO 03/12/17 16:15 04/11/17 16:14 Gabapentin (Neurontin Cap) 100 mg TID PO 03/12/17 21:00 04/11/17 20:59 03/13/17 07:45 100 MG Baclofen (Lioresal Tab) 10 mg TID PO 03/13/17 14:00 04/12/17 13:59 Physical Exam Date Time Temp Pulse Resp B/P (MAP) Pulse Ox O2 Delivery O2 Flow Rate FiO2 03/13/17 07:42 36.9 83 18 116/78 (91) 95 Room Air 03/13/17 00:00 Room Air 03/12/17 23:49 36.5 83 18 116/69 (85) 99 Room Air 03/12/17 20:15 Room Air 03/12/17 16:00 Room Air 03/12/17 14:32 36.5 81 18 121/82 (95) 100 Room Air 03/12/17 11:19 87 100 Upon examination patient is sitting in the chair in her bedroom. No obvious distress. She moves around the room with ease. She changes positions from a seated to a standing position with ease. She is negative logrolling of the left hip. Negative tension signs bilaterally. Strength is intact bilateral lower extremities. Lumbar spine she has no skin breakdown. No increased warmth. No ecchymosis.: General Appearance: WD/WN Head: normocephalic Eyes: normal inspection ENT: hearing grossly normal Neck: supple Respiratory/Chest: no respiratory distress, no accessory muscle use Cardiovascular: regular rate, rhythm, normal peripheral pulses Abdomen/GI: soft Back: normal inspection Extremities/Musculoskelatal: normal inspection, normal capillary refill, normal range of motion, non-tender, pelvis stable Neurologic/Psych: certified medical technician assistant II-XII nml as tested Skin: normal color, no rash Laboratory Results Last 24 Hours Test 03/13/17 04:03 White Blood Count 8.07 K/uL Red Blood Count 3.76 M/uL Hemoglobin 11.3 g/dL Hematocrit 34.7 % Mean Corpuscular Volume 92.3 fL Mean Corpuscular Hemoglobin 30.1 pg Mean Corpuscular Hemoglobin Concent 32.6 g/dl Platelet Count 272 K/uL Mean Platelet Volume 9.2 fL Neutrophils (%) (Auto) 58.6 % Lymphocytes (%) (Auto) 28.1 % Monocytes (%) (Auto) 9.2 % Eosinophils (%) (Auto) 3.5 % Basophils (%) (Auto) 0.5 % Neutrophils # (Auto) 4.73 K/uL Lymphocytes # (Auto) 2.27 K/uL Monocytes # (Auto) 0.74 K/uL Eosinophils # (Auto) 0.28 K/uL Basophils # (Auto) 0.04 K/uL RDW Standard Deviation 43.5 fL RDW Coefficient of Variation 12.8 % Immature Granulocyte % (Auto) 0.1 % Immature Granulocyte # (Auto) 0.01 K/uL Sodium Level 142 mmol/L Potassium Level 4.1 mmol/L Chloride Level 111 mmol/L Carbon Dioxide Level 25 mmol/L Anion Gap 6.0 mmol/L Blood Urea Nitrogen 17 mg/dl Creatinine 0.69 mg/dl Est Creatinine Clear Calc Drug Dose 96.7 ml/min Estimated GFR () 112.0 Estimated GFR (Non- 96.6 BUN/Creatinine Ratio 24.2 Random Glucose 109 mg/dl Calcium Level 8.7 mg/dl Vancomycin Level Trough 16.7 mcg/ml Rheumatoid Factor < 10.0 U/mL Patient Name: EDEN YING Unit Number: [id number] Dictated: 03/10/171913 Transcribed: 03/10/171913 [facility] Printed Date/Time: [~ rep prt dt]/[~ rep prt tm] [~ rep ct labl] - [~ rep ct ivnm] [facility] [place] [address] Dictated: 03/10/171913 Transcribed: 03/10/171913 [facility] Printed Date/Time: [~ rep prt dt]/[~ rep prt tm] [~ rep ct labl] - [~ rep ct ivnm] Patient: EDEN YING Address1: [address] [facility] [address] [facility] Rec: [id number] Address2: Acct ID: [id number] [facility] Zip: [place] [address] Date: 1960 Sex: F Room/Bed: Ref Phy: Any Bess M.D. SC: SUSAN Att Phy: Report #: [id number] Zehra Phy: Any Bess M.D. Test: LSWOC Admit Phy: Well Drill Operator Rotary Drill: FREDI Interpreting Phy: Todd Apodaca MD Diagnosis: SEVERE BACK PAIN - HIP PAIN - SPASMS Ordering Phy: Matt Godwin MD Service Date: 03/10/17 Admit Date: 03/10/17 MNE: [id number] CONF: DICTATED BY: Todd Apodaca M.D.]] CC: Any Bess M.D. Finnerty, Kevin M., MD Endcc: [~ rep ct add3]] LUMBAR SPINE MRI HISTORY: Pt c/o loss of bladder control TECHNIQUE: Multiplanar multisequence MRI of the lumbar spine was performed without the use of contrast. COMPARISON: None. FINDINGS: For the purpose of the report the L5-S1 disc space will be located on axial image 27 of 30. Alignment is intact. No fractures within the lumbar spine. Mild disc space narrowing at L1-L2 and L5-S1. Moderate to space narrowing at L3-L4. Severe disc space narrowing at L2-L3 and L4-L5. There is endplate edema along the left side of the L4-L5 level with increased signal within the disc. There is trace paravertebral edema at this location. 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 The conus terminates at the L1-L2 disc space level. L1-L2: Small broad-based posterior disc bulge without significant central canal or neural foraminal narrowing. L2-L3: Small broad-based posterior disc bulge without significant central canal or neural foraminal narrowing. L3-L4: Broad-based posterior disc bulge with ligamentum and facet hypertrophy resulting in mild central canal narrowing. No significant neural foraminal narrowing. L4-L5: Broad-based posterior disc bulge with a central and left paracentral annular tear. In conjunction with the ligamentum and facet hypertrophy this results in mild to moderate central canal and mild to moderate bilateral neural foraminal narrowing. L5-S1: Small broad-based posterior disc bulge without significant central canal narrowing. [id number] bilateral neural foraminal narrowing. IMPRESSION: 1. No fractures or subluxation within the lumbar spine. 2. Multilevel degenerative changes as described above most pronounced at the L4-5 level where there is mild to moderate central canal and neural foraminal narrowing. 3. Endplate edema with increase signal within the disc at the left side of the L4-5 level. There is also trace paravertebral edema at this location. This is likely due to the long-standing degenerative change. However, a developing discitis/osteomyelitis could also a similar appearance in the appropriate clinical setting. Therefore, clinical correlation recommended. Electronically signed by: Todd Apodaca M.D. 03/10/2017 7:21 PM Dictated Date/Time: 03/10/2017 7:14 PM The status of this report is Signed. Draft = Not yet reviewed or approved by Radiologist. Signed = Reviewed and approved by Radiologist. <AttendingPhy></AttendingPhy> <FamilyPhy>Any Bess M.D.</FamilyPhy> < PrimaryPhy>Any Bess M.D.</PrimaryPhy> <UnitNumber>[id number]</UnitNumber> <VisitNumber>[id number]</VisitNumber> <PatientName>DENVER, [place]</PatientName > <DateOfBirth>1960</DateOfBirth> <Location>[facility]</Location> <ServiceDate> 03/10/17</ServiceDate> <MNE>ESINDI</MNE> <OrderingPhy>Matt Godwin MD</ OrderingPhy> <OrderingPhyMNE>f rep ord dr iniguez</OrderingPhyMNE> <DictatingPhyMNE> f rep dict dr iniguez</DictatingPhyMNE> <CCListMNE>f rep ct mne</CCListMNE> < AdmittingPhyMNE>f pt admit dr iniguez</AdmittingPhyMNE> <AttendingPhyMNE>f pt attend dr iniguez</AttendingPhyMNE> <ConsultingPhyMNE>f pt consult dr iniguez</ConsultingPhyMNE> <FamilyPhyMNE>f pt fam dr iniguez</FamilyPhyMNE> <OtherPhyMNE>f pt other dr iniguez</OtherPhyMNE> < PrimaryPhyMNE>f pt prim care dr iniguez</PrimaryPhyMNE> <ReferringPhyMNE>f pt referring dr iniguez</ReferringPhyMNE> Patient: EDEN YING Address1: [address] [place] [address] Rec: [id number] Address2: Acct ID: [id number] [facility] Zip: [place] [address] Date: 1960 Sex: F Room/Bed: Ref Phy: Any Bess M.D. SC: SUSAN Att Phy: Report #: [id number] Zehra Phy: Any Bess M.D. Test: TWOC Admit Phy: Well Drill Operator Rotary Drill: FREDI Interpreting Phy: Todd Apodaca MD Diagnosis: SEVERE BACK PAIN - HIP PAIN - SPASMS Ordering Phy: Matt Godwin MD Service Date: 03/10/17 Admit Date: 03/10/17 MNE: [id number] CONF: DICTATED BY: Todd Apodaca M.D.]] CC: Any Bess M.D. Finnerty, Kevin M., MD Endcc: [~ rep ct add3]] THORACIC SPINE MRI HISTORY: Pt c/o loss of bladder, mid back pain TECHNIQUE: Multiplanar multisequence MRI of the thoracic spine was performed without the use of contrast. COMPARISON: None. FINDINGS: No fracture or subluxation. Paraspinal soft tissues are unremarkable. Mild degenerative disc disease throughout the majority of the thoracic spine. There are few small disc bulges and disc protrusions within the thoracic spine. However, no significant central canal or neural foraminal narrowing. The thoracic spinal cord is normal in course, caliber, and signal intensity. Apprentice Machinist Outside images demonstrate reversal of the normal lordotic curvature of the cervical spine with multilevel central canal narrowing. There is 3 mm of anterolisthesis of C3 on C4 IMPRESSION: 1. No fracture or subluxation within the thoracic spine. 2. Mild degenerative disc disease within the thoracic spine. No significant central canal or neural foraminal narrowing. 3. Degenerative changes within the cervical spine with multilevel central canal narrowing and reversal of the normal lordotic curvature. There is associated 3 mm of anterolisthesis of C3 on C4 likely due to long-standing degenerative change. Electronically signed by: Todd Apodaca M.D. 03/10/2017 7:13 PM Dictated Date/Time: 03/10/2017 7:08 PM The status of this report is Signed. Draft = Not yet reviewed or approved by Radiologist. Signed = Reviewed and approved by Radiologist. <AttendingPhy></AttendingPhy> <FamilyPhy>Any Bess M.D.</FamilyPhy> < PrimaryPhy>Any Bess M.D.</PrimaryPhy> <UnitNumber>[id number]</UnitNumber> <VisitNumber>[id number]</VisitNumber> <PatientName>DENVER, [place]</PatientName > <DateOfBirth>1960</DateOfBirth> <Location>[facility]</Location> <ServiceDate> 03/10/17</ServiceDate> <MNE>ESINDI</MNE> <OrderingPhy>Matt Godwin MD</ OrderingPhy> <OrderingPhyMNE>f rep ord dr iniguez</OrderingPhyMNE> <DictatingPhyMNE> f rep dict dr iniguez</DictatingPhyMNE> <CCListMNE>f rep ct hira</CCListMNE> < AdmittingPhyMNE>f pt admit dr iniguez</AdmittingPhyMNE> <AttendingPhyMNE>f pt attend dr iniguez</AttendingPhyMNE> <ConsultingPhyMNE>f pt consult dr iniguez</ConsultingPhyMNE> <FamilyPhyMNE>f pt fam dr iniguez</FamilyPhyMNE> <OtherPhyMNE>f pt other dr iniguez</OtherPhyMNE> < PrimaryPhyMNE>f pt prim care dr iniguez</PrimaryPhyMNE> <ReferringPhyMNE>f pt referring dr iniguez</ReferringPhyMNE> Assessment & Plan Assessment: L4 5 degenerative changes versus discitis early Moderate to severe left-sided neural foraminal stenosis L4 5 Plan: Patient's imaging has been reviewed with Dr. Larsen. Patient's MRI is remarkable for severe left-sided L4 5 neural foramen neural foraminal stenosis as well as significant degenerative changes. In light of her leukocytosis and elevated CRP and sedimentation rate upon admission there was concern for early discitis as well. Plan is to treat this conservatively initially. Order rigid LSO brace. Continue light activity in the form of bedrest with bathroom privileges. Continue with antibiotic therapy per infectious disease recommendations. Would consider reimaging her lumbar spine with an MRI in about 8 weeks and assess for any changes. Will proceed based on that.
--- NOTE | 2017-03-13 11:21 | Medical Consult ---
Consultation Date of Consultation: Mar 13, 2017. Attending Physician: Tao Toscano MD Reason for Consultation: Back pain, possible diskitis History of Present Illness 56-year-old female with history of asthma, hypertension, and hyperlipidemia, who states that since September she has been suffering from pain radiating into her right hip and leg. She has seen multiple physicians and has received physical therapy without improvement. Had MRI scan in December which showed only degenerative disease. Now presents with progressively worsening pain, and had recent MRI scan which showed the presence of possible diskitis in the L4-L5 area with associated lumbar osteomyelitis and some paravertebral edema. She denies any significant fever, has been significantly fatigue, and has had some sweats. No chills. Has had history of previous urinary tract infections. No other significant travel or exposure history. Past Medical/Surgical History Medical Problems: (1) Discitis Status: Acute (2) Hip pain, left Status: Acute Medical Problems: (1) Anxiety (2) Asthma (3) Back pain (4) Depression (5) Hypercholesterolemia (6) Hypertension Surgical Problems: (1) Hx of appendectomy (2) Previous section (3) Status post appendectomy (4) Status post tubal ligation Family History Asthma FATHER Diabetes mellitus FATHER MOTHER Heart disease FATHER Hypertension MOTHER Ovarian cancer MOTHER Social History Smoking Status: Former Smoker Alcohol Use: none Housing Status: lives with significant other Occupation Status: employed Allergies Coded Allergies: No Known Allergies (Unverified , 12/23/14) Current Inpatient Medications Current Inpatient Medications Medications (Trade) Dose Ordered Sig/William Route Start Time Stop Time Status Last Admin Dose Admin Acetaminophen (Tylenol Tab) 650 mg Q4H PRN PO 03/10/17 21:45 04/09/17 21:44 Alprazolam (Xanax Tab) 0.5 mg TID PRN PO 03/10/17 23:45 04/09/17 23:44 Amlodipine Besylate (Norvasc Tab) 5 mg QAM PO 03/11/17 09:00 04/10/17 08:59 03/13/17 07:46 5 MG Enalapril Maleate (Vasotec Tab) 5 mg QAM PO 03/11/17 09:00 04/10/17 08:59 03/13/17 07:46 5 MG Escitalopram Oxalate (Lexapro Tab) 10 mg QPM PO 03/11/17 21:00 04/10/17 20:59 03/12/17 20:22 10 MG Famotidine (Pepcid Tab) 20 mg BID PO 03/11/17 09:00 04/10/17 08:59 03/13/17 07:45 20 MG Fexofenadine HCl (Shahida Tab) 180 mg QAM PO 03/11/17 09:00 04/10/17 08:59 03/13/17 07:46 180 MG Salmeterol Xinafoate/ Fluticasone (Advair Diskus 100/50 Inh) 1 puff BID INH 03/11/17 09:00 04/10/17 08:59 03/13/17 07:44 1 PUFF Montelukast Sodium (Singulair Tab) 10 mg QPM PO 03/11/17 21:00 04/10/17 20:59 03/12/17 20:22 10 MG Nabumetone (Relafen Tab) 500 mg BIDM PO 03/11/17 08:00 04/10/17 07:59 03/13/17 07:45 500 MG Oxycodone/ Acetaminophen (Percocet 5-325mg Tab) 1 tab Q4H PRN PO 03/10/17 23:45 03/24/17 23:44 03/11/17 01:00 1 TAB Pravastatin Sodium (Pravachol Tab) 20 mg QPM PO 03/11/17 21:00 04/10/17 20:59 03/12/17 20:22 20 MG Albuterol (Ventolin Hfa Inhaler) 2 puffs Q4H PRN INH 03/10/17 23:45 04/09/17 23:44 Ceftriaxone Sodium 2000 mg/ Dextrose 70 ml @ 100 mls/hr Q24H IV 03/11/17 08:00 04/22/17 07:59 03/13/17 07:54 100 MLS/HR Vancomycin HCl (Consult) 1 ea UD PRN N/A 03/11/17 08:15 04/10/17 08:14 Miscellaneous (Remove Lidoderm Patch) 1 ea DAILY@21 N/A 03/11/17 21:00 04/10/17 20:59 03/12/17 20:22 1 EA Vancomycin HCl 1250 mg/Sodium Chloride 275 ml @ 125 mls/hr Q14H IV 03/12/17 00:00 04/21/17 00:00 03/13/17 04:19 125 MLS/HR Ketorolac Tromethamine (Toradol Inj) 30 mg Q6H PRN IV 03/11/17 14:30 03/16/17 14:29 03/13/17 07:44 30 MG Lactobacillus Acidophilus (Floranex Tab) 4 tab TIDM PO 03/11/17 17:00 04/10/17 16:59 03/13/17 07:46 4 TAB Tramadol HCl (Ultram Tab) 50 mg Q4H PRN PO 03/11/17 14:45 04/10/17 14:44 03/12/17 15:37 50 MG Polyethylene (Miralax Powder Packet) 17 gm DAILY PO 03/13/17 09:00 04/12/17 08:59 03/13/17 07:54 17 GM Senna/Docusate Sodium (Senokot S Tab) 1 tab DAILY PRN PO 03/12/17 16:15 04/11/17 16:14 Gabapentin (Neurontin Cap) 100 mg TID PO 03/12/17 21:00 04/11/17 20:59 03/13/17 07:45 100 MG Baclofen (Lioresal Tab) 10 mg TID PO 03/13/17 14:00 04/12/17 13:59 Review of Systems All systems were reviewed and are negative except as per HPI Physical Exam Date Time Temp Pulse Resp B/P (MAP) Pulse Ox O2 Delivery O2 Flow Rate FiO2 03/13/17 07:42 36.9 83 18 116/78 (91) 95 Room Air 03/13/17 00:00 Room Air 03/12/17 23:49 36.5 83 18 116/69 (85) 99 Room Air 03/12/17 20:15 Room Air 03/12/17 16:00 Room Air 03/12/17 14:32 36.5 81 18 121/82 (95) 100 Room Air 03/12/17 11:19 87 100 General Appearance: WD/WN, no apparent distress Head: normocephalic, atraumatic Eyes: normal inspection, EOMI, sclerae normal ENT: normal ENT inspection, pharynx normal Neck: supple, no adenopathy, thyroid normal, trachea midline Respiratory/Chest: chest non-tender, lungs clear, normal breath sounds, no respiratory distress Cardiovascular: regular rate, rhythm, no gallop, no murmur Abdomen/GI: normal bowel sounds, non tender, soft, no organomegaly Back: normal inspection, no CVA tenderness, + pertinent finding (Tenderness over lower lumbar spine) Extremities/Musculoskelatal: no calf tenderness, normal capillary refill Neurologic/Psych: alert, oriented x 3 Skin: normal color, no rash Lymphatic: no adenopathy Laboratory Results RUN DATE: 03/12/17 [facility] PAGE 1 RUN TIME: 711 Specimen Inquiry PATIENT: EDNE YING LOC: Luis [id number] U # : [id number] AGE/SX: 56/F ROOM: [facility] REG : 03/10/[address]: Tao Toscano MD : 1960 BED: 2 DIS : STATUS: ADM IN TLOC: SPEC #: [id number] IRENE: 03/10/17 STATUS: RES REQ #: [id number] RECD: 03/10/[address]: Matt Godwin MD SOURCE: BLOOD ENTR: 03/10/17-2003 [facility] DR: Any Bess M.D. SPDESC: ORDERED: BLOOD CULTURE Procedure Result Verified Site BLD CULT Preliminary 03/12/17-710 NO GROWTH TO DATE. Last 24 Hours Test 03/13/17 04:03 White Blood Count 8.07 K/uL Red Blood Count 3.76 M/uL Hemoglobin 11.3 g/dL Hematocrit 34.7 % Mean Corpuscular Volume 92.3 fL Mean Corpuscular Hemoglobin 30.1 pg Mean Corpuscular Hemoglobin Concent 32.6 g/dl Platelet Count 272 K/uL Mean Platelet Volume 9.2 fL Neutrophils (%) (Auto) 58.6 % Lymphocytes (%) (Auto) 28.1 % Monocytes (%) (Auto) 9.2 % Eosinophils (%) (Auto) 3.5 % Basophils (%) (Auto) 0.5 % Neutrophils # (Auto) 4.73 K/uL Lymphocytes # (Auto) 2.27 K/uL Monocytes # (Auto) 0.74 K/uL Eosinophils # (Auto) 0.28 K/uL Basophils # (Auto) 0.04 K/uL RDW Standard Deviation 43.5 fL RDW Coefficient of Variation 12.8 % Immature Granulocyte % (Auto) 0.1 % Immature Granulocyte # (Auto) 0.01 K/uL Sodium Level 142 mmol/L Potassium Level 4.1 mmol/L Chloride Level 111 mmol/L Carbon Dioxide Level 25 mmol/L Anion Gap 6.0 mmol/L Blood Urea Nitrogen 17 mg/dl Creatinine 0.69 mg/dl Est Creatinine Clear Calc Drug Dose 96.7 ml/min Estimated GFR () 112.0 Estimated GFR (Non- 96.6 BUN/Creatinine Ratio 24.2 Random Glucose 109 mg/dl Calcium Level 8.7 mg/dl Vancomycin Level Trough 16.7 mcg/ml Rheumatoid Factor < 10.0 U/mL LUMBAR SPINE MRI HISTORY: Pt c/o loss of bladder control TECHNIQUE: Multiplanar multisequence MRI of the lumbar spine was performed without the use of contrast. COMPARISON: None. FINDINGS: For the purpose of the report the L5-S1 disc space will be located on axial image 27 of 30. Alignment is intact. No fractures within the lumbar spine. Mild disc space narrowing at L1-L2 and L5-S1. Moderate to space narrowing at L3-L4. Severe disc space narrowing at L2-L3 and L4-L5. There is endplate edema along the left side of the L4-L5 level with increased signal within the disc. There is trace paravertebral edema at this location. 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 The conus terminates at the L1-L2 disc space level. L1-L2: Small broad-based posterior disc bulge without significant central canal or neural foraminal narrowing. L2-L3: Small broad-based posterior disc bulge without significant central canal or neural foraminal narrowing. L3-L4: Broad-based posterior disc bulge with ligamentum and facet hypertrophy resulting in mild central canal narrowing. No significant neural foraminal narrowing. L4-L5: Broad-based posterior disc bulge with a central and left paracentral annular tear. In conjunction with the ligamentum and facet hypertrophy this results in mild to moderate central canal and mild to moderate bilateral neural foraminal narrowing. L5-S1: Small broad-based posterior disc bulge without significant central canal narrowing. [id number] bilateral neural foraminal narrowing. IMPRESSION: 1. No fractures or subluxation within the lumbar spine. 2. Multilevel degenerative changes as described above most pronounced at the L4-5 level where there is mild to moderate central canal and neural foraminal narrowing. 3. Endplate edema with increase signal within the disc at the left side of the L4-5 level. There is also trace paravertebral edema at this location. This is likely due to the long-standing degenerative change. However, a developing discitis/osteomyelitis could also a similar appearance in the appropriate clinical setting. Therefore, clinical correlation recommended. Electronically signed by: Todd Apodaca M.D. 03/10/2017 7:21 PM Dictated Date/Time: 03/10/2017 7:14 PM The status of this report is Signed. Draft = Not yet reviewed or approved by Radiologist. Assessment & Plan 56-year-old female with possible lumbar diskitis and vertebral osteomyelitis, which would be supported by potential changes on MRI scan from December to now. Agree with current antibiotics with vancomycin and ceftriaxone pending culture results. May need to consider biopsy of the disc space. Await orthopedic consultation. Will follow.
--- NOTE | 2017-03-13 12:59 | Pain Management Consultation ---
Pain Management Consultation Date of Consultation Mar 13, 2017. Reason for Consultation Left-sided low back, hip and groin pain History Mrs. Ying is a 56-year-old white female who was admitted with left-sided back pain radiating towards the hip and groin. The patient reported onset of her current symptoms in September without known injury. She was evaluated by ortho and referred to Dr. Vega who reportedly performed an SI joint injection. The patient does believe that she expresses some short-term relief for duration of local anesthetic but no sustained benefit. She underwent physical therapy as well as chiropractic treatment without relief of symptoms. She indicates her pain is in the left lumbosacral region rating towards the lateral hip and groin location patient describes the pain as aching in characteristic with episodic sharp shooting pains aggravated with positional change. She describes a sensation of the leg being "weak" but denies footdrop or falling. Weakness occurs typically with positional change from sitting to standing as well as stair activities. She denies a radicular pain below the level of the knee. She denies similar right-sided low back, hip or lower extremity pain. She has no bowel or bladder incontinence and denies saddle anesthesias. Imaging completed during this admission raises concerns over discitis versus osteomyelitis at the L4-5 level. Antibiotic therapy is currently being utilized for treatment. Patient does find Toradol to be effective at diminishing her pain and discomfort. Patient has no further constitutional complaints at this time. Plan of care discussed with Dr. Tammie Avelar. Past Medical/Surgical History (1) Hypertension (2) Hypercholesterolemia (3) Asthma (4) Depression (5) Discitis (6) Anxiety (7) Back pain (8) Status post appendectomy (9) Status post tubal ligation Family History Asthma FATHER Diabetes mellitus FATHER MOTHER Heart disease FATHER Hypertension MOTHER Ovarian cancer MOTHER Social / Work History Smoking Status: Former smoker Smokeless Tobacco Use: No Alcohol Use: none Drug Use: none Marital Status: Housing Status: lives with significant other Occupation: employed Allergies Coded Allergies: No Known Allergies (Unverified , 12/23/14) Medications Current Inpatient Medications Medications (Trade) Dose Ordered Sig/William Route Start Time Stop Time Status Last Admin Dose Admin Acetaminophen (Tylenol Tab) 650 mg Q4H PRN PO 03/10/17 21:45 04/09/17 21:44 Alprazolam (Xanax Tab) 0.5 mg TID PRN PO 03/10/17 23:45 04/09/17 23:44 Amlodipine Besylate (Norvasc Tab) 5 mg QAM PO 03/11/17 09:00 04/10/17 08:59 03/13/17 07:46 5 MG Enalapril Maleate (Vasotec Tab) 5 mg QAM PO 03/11/17 09:00 04/10/17 08:59 03/13/17 07:46 5 MG Escitalopram Oxalate (Lexapro Tab) 10 mg QPM PO 03/11/17 21:00 04/10/17 20:59 03/12/17 20:22 10 MG Famotidine (Pepcid Tab) 20 mg BID PO 03/11/17 09:00 04/10/17 08:59 03/13/17 07:45 20 MG Fexofenadine HCl (Shahida Tab) 180 mg QAM PO 03/11/17 09:00 04/10/17 08:59 03/13/17 07:46 180 MG Salmeterol Xinafoate/ Fluticasone (Advair Diskus 100/50 Inh) 1 puff BID INH 03/11/17 09:00 04/10/17 08:59 03/13/17 07:44 1 PUFF Montelukast Sodium (Singulair Tab) 10 mg QPM PO 03/11/17 21:00 04/10/17 20:59 03/12/17 20:22 10 MG Nabumetone (Relafen Tab) 500 mg BIDM PO 03/11/17 08:00 04/10/17 07:59 03/13/17 07:45 500 MG Oxycodone/ Acetaminophen (Percocet 5-325mg Tab) 1 tab Q4H PRN PO 03/10/17 23:45 03/24/17 23:44 03/11/17 01:00 1 TAB Pravastatin Sodium (Pravachol Tab) 20 mg QPM PO 03/11/17 21:00 04/10/17 20:59 03/12/17 20:22 20 MG Albuterol (Ventolin Hfa Inhaler) 2 puffs Q4H PRN INH 03/10/17 23:45 04/09/17 23:44 Ceftriaxone Sodium 2000 mg/ Dextrose 70 ml @ 100 mls/hr Q24H IV 03/11/17 08:00 04/22/17 07:59 03/13/17 07:54 100 MLS/HR Vancomycin HCl (Consult) 1 ea UD PRN N/A 03/11/17 08:15 04/10/17 08:14 Miscellaneous (Remove Lidoderm Patch) 1 ea DAILY@21 N/A 03/11/17 21:00 04/10/17 20:59 03/12/17 20:22 1 EA Vancomycin HCl 1250 mg/Sodium Chloride 275 ml @ 125 mls/hr Q14H IV 03/12/17 00:00 04/21/17 00:00 03/13/17 04:19 125 MLS/HR Ketorolac Tromethamine (Toradol Inj) 30 mg Q6H PRN IV 03/11/17 14:30 03/16/17 14:29 03/13/17 07:44 30 MG Lactobacillus Acidophilus (Floranex Tab) 4 tab TIDM PO 03/11/17 17:00 04/10/17 16:59 03/13/17 07:46 4 TAB Tramadol HCl (Ultram Tab) 50 mg Q4H PRN PO 03/11/17 14:45 04/10/17 14:44 03/12/17 15:37 50 MG Polyethylene (Miralax Powder Packet) 17 gm DAILY PO 03/13/17 09:00 04/12/17 08:59 03/13/17 07:54 17 GM Senna/Docusate Sodium (Senokot S Tab) 1 tab DAILY PRN PO 03/12/17 16:15 04/11/17 16:14 Gabapentin (Neurontin Cap) 100 mg TID PO 03/12/17 21:00 04/11/17 20:59 03/13/17 07:45 100 MG Baclofen (Lioresal Tab) 10 mg TID PO 03/13/17 14:00 04/12/17 13:59 Review of Systems Patient denies complaints related to cardiac, pulmonary, GI, , endocrine, neurologic, hepatic, renal, ENT, dermatologic or musculoskeletal other than those described above in the history of present illness. Physical Exam Height & Weight: Height 5 feet, 2.00 inches. Weight 95.000 (Kilograms) 209 (Pounds) Last Vital Signs Documentation Date Time Temp Pulse Resp B/P (MAP) Pulse Ox O2 Delivery O2 Flow Rate FiO2 03/13/17 08:00 Room Air 03/13/17 07:42 36.9 83 18 116/78 (91) 95 03/12/17 09:00 0.0 Exam: Gen.: Patient sitting upon entering the room in no acute distress. Speech and thought process appropriate. Mood and affect appropriate. Cognition intact. Back/spine: Patient nontender over the midline. Minimal paravertebral lumbosacral tenderness. No focal facet joint tenderness. Patient is tender to provocative testing over the left SI joint, nontender correspondingly on the right. No focal tenderness with piriformis musculature with deep palpation. Facet loadbearing test negative bilaterally. No evidence of edema, erythema or skin breakdown at the lumbar spine. Lower extremities: SLR negative bilaterally. Moderate tenderness over the left greater trochanter, nontender corresponding on the right. Hip is nontender with internal and external rotation bilaterally. Cong maneuver is equivocal on the left. Unable to perform Cong maneuver on the right status post TKA with a well-healed incision over the anterior patella. Resisted hip flexion on the left increased axial low back pain. Strength testing was 5/5 with some guarding on the left. Neurologic: Cranial nerves grossly intact. Patient able to stand and transfer in bed without limitation. Laboratory Laboratory Results (Last CBC): 03/13/17 04:03 Red Blood Count 3.76 L, Mean Corpuscular Volume 92.3, Mean Corpuscular Hemoglobin 30.1, Mean Corpuscular Hemoglobin Concent 32.6, Mean Platelet Volume 9.2, Neutrophils (%) (Auto) 58.6, Lymphocytes (%) (Auto) 28.1, Monocytes (%) ( Auto) 9.2, Eosinophils (%) (Auto) 3.5, Basophils (%) (Auto) 0.5, Neutrophils # ( Auto) 4.73, Lymphocytes # (Auto) 2.27, Monocytes # (Auto) 0.74 H, Eosinophils # (Auto) 0.28, Basophils # (Auto) 0.04 Imaging MRI: non enhanced, reports reviewed MRI Findings Patient: EDEN YING Address1: [address] [place] [address] Rec: [id number] Address2: Acct ID: [id number] [facility] Zip: [place] [address] Date: 1960 Sex: F Room/Bed: Ref Phy: Any Bess M.D. SC: SUSAN Att Phy: Report #: [id number] Zehra Phy: Any Bess M.D. Test: TWOC Admit Phy: Asset Liability Analyst: FREDI Interpreting Phy: Todd Apodaca MD Diagnosis: SEVERE BACK PAIN - HIP PAIN - SPASMS Ordering Phy: Matt Godwin MD Service Date: 03/10/17 Admit Date: 03/10/17 MNE: [id number] CONF: DICTATED BY: Todd Apodaca M.D.]] CC: Any Bess M.D. Finnerty, Kevin M., MD Endcc: [~ rep ct add3]] THORACIC SPINE MRI HISTORY: Pt c/o loss of bladder, mid back pain TECHNIQUE: Multiplanar multisequence MRI of the thoracic spine was performed without the use of contrast. COMPARISON: None. FINDINGS: No fracture or subluxation. Paraspinal soft tissues are unremarkable. Mild degenerative disc disease throughout the majority of the thoracic spine. There are few small disc bulges and disc protrusions within the thoracic spine. However, no significant central canal or neural foraminal narrowing. The thoracic spinal cord is normal in course, caliber, and signal intensity. Planer Feeder images demonstrate reversal of the normal lordotic curvature of the cervical spine with multilevel central canal narrowing. There is 3 mm of anterolisthesis of C3 on C4 IMPRESSION: 1. No fracture or subluxation within the thoracic spine. 2. Mild degenerative disc disease within the thoracic spine. No significant central canal or neural foraminal narrowing. 3. Degenerative changes within the cervical spine with multilevel central canal narrowing and reversal of the normal lordotic curvature. There is associated 3 mm of anterolisthesis of C3 on C4 likely due to long-standing degenerative change. Electronically signed by: Todd Apodaca M.D. 03/10/2017 7:13 PM Dictated Date/Time: 03/10/2017 7:08 PM The status of this report is Signed. Draft = Not yet reviewed or approved by Radiologist. Signed = Reviewed and approved by Radiologist. Patient: EDEN YING Address1: [address] [place] [address] Rec: [id number] Address2: Acct ID: [id number] [facility] Zip: [place] [address] Date: 1960 Sex: F Room/Bed: Ref Phy: Any Bess M.D. SC: SUSAN Att Phy: Report #: [id number] Zehra Phy: Any Bess M.D. Test: LSWOC Admit Phy: Asset Liability Analyst: FREDI Interpreting Phy: Todd Apodaca MD Diagnosis: SEVERE BACK PAIN - HIP PAIN - SPASMS Ordering Phy: Matt Godwin MD Service Date: 03/10/17 Admit Date: 03/10/17 MNE: [id number] CONF: DICTATED BY: Todd Apodaca M.D.]] CC: Any Bess M.D. Finnerty, Kevin M., MD Endcc: [~ rep ct add3]] LUMBAR SPINE MRI HISTORY: Pt c/o loss of bladder control TECHNIQUE: Multiplanar multisequence MRI of the lumbar spine was performed without the use of contrast. COMPARISON: None. FINDINGS: For the purpose of the report the L5-S1 disc space will be located on axial image 27 of 30. Alignment is intact. No fractures within the lumbar spine. Mild disc space narrowing at L1-L2 and L5-S1. Moderate to space narrowing at L3-L4. Severe disc space narrowing at L2-L3 and L4-L5. There is endplate edema along the left side of the L4-L5 level with increased signal within the disc. There is trace paravertebral edema at this location. 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 The conus terminates at the L1-L2 disc space level. L1-L2: Small broad-based posterior disc bulge without significant central canal or neural foraminal narrowing. L2-L3: Small broad-based posterior disc bulge without significant central canal or neural foraminal narrowing. L3-L4: Broad-based posterior disc bulge with ligamentum and facet hypertrophy resulting in mild central canal narrowing. No significant neural foraminal narrowing. L4-L5: Broad-based posterior disc bulge with a central and left paracentral annular tear. In conjunction with the ligamentum and facet hypertrophy this results in mild to moderate central canal and mild to moderate bilateral neural foraminal narrowing. L5-S1: Small broad-based posterior disc bulge without significant central canal narrowing. [id number] bilateral neural foraminal narrowing. IMPRESSION: 1. No fractures or subluxation within the lumbar spine. 2. Multilevel degenerative changes as described above most pronounced at the L4-5 level where there is mild to moderate central canal and neural foraminal narrowing. 3. Endplate edema with increase signal within the disc at the left side of the L4-5 level. There is also trace paravertebral edema at this location. This is likely due to the long-standing degenerative change. However, a developing discitis/osteomyelitis could also a similar appearance in the appropriate clinical setting. Therefore, clinical correlation recommended. Electronically signed by: Todd Apodaca M.D. 03/10/2017 7:21 PM Dictated Date/Time: 03/10/2017 7:14 PM The status of this report is Signed. Draft = Not yet reviewed or approved by Radiologist. Signed = Reviewed and approved by Radiologist. Radiology: reports reviewed Radiology Findings Patient: EDEN YING Address1: [address] [place] [address] Rec: [id number] Address2: Acct ID: [id number] [facility] Zip: [place] [address] Date: 1960 Sex: F Room/Bed: Ref Phy: Any Bess M.D. SC: SUSAN Att Phy: Report #: [id number] Zehra Phy: Any Bess M.D. Test: PVS Admit Phy: Asset Liability Analyst: JUAN Interpreting Phy: Todd Apodaca MD Diagnosis: SEVERE BACK PAIN - HIP PAIN - SPASMS Ordering Phy: Matt Godwin MD Service Date: 03/10/17 Admit Date: 03/10/17 MNE: [id number] CONF: DICTATED BY: Todd Apodaca M.D.]] CC: Any Bess M.D. Finnerty, Kevin M., MD Endcc: [~ rep ct add3]] PELVIS 1 OR 2 VIEW ROUTINE, L FEMUR 2 VIEWS ROUTINE CLINICAL HISTORY: Pt c/o left hip pain COMPARISON STUDY: Pelvis CT 09/27/2016. FINDINGS: No fracture or dislocation within the pelvis, hips, left femur. The sacrum appears intact. Soft tissues are unremarkable. No radiopaque foreign bodies. Minimal degenerative changes within the right hip. IMPRESSION: No fracture or dislocation within the pelvis, hips, or left femur. Electronically signed by: Todd Apodaca M.D. 03/10/2017 5:39 PM Dictated Date/Time: 03/10/2017 5:36 PM The status of this report is Signed. Draft = Not yet reviewed or approved by Radiologist. Signed = Reviewed and approved by Radiologist. Patient: EDEN YING Address1: [address] [facility] Rec: [id number] Address2: Acct ID: [id number] [facility] Zip: [place] [address] Date: 1960 Sex: F Room/Bed: Ref Phy: Any Bess M.D. SC: SUSAN Att Phy: Report #: [id number] Zehra Phy: Any Bess M.D. Test: FMR Admit Phy: Asset Liability Analyst: JUAN Interpreting Phy: Todd Apodaca MD Diagnosis: SEVERE BACK PAIN - HIP PAIN - SPASMS Ordering Phy: Matt Godwin MD Service Date: 03/10/17 Admit Date: 03/10/17 MNE: [id number] CONF: DICTATED BY: Todd Apodaca M.D.]] CC: Any Bess M.D. Finnerty, Kevin M., MD Endcc: [~ rep ct add3]] PELVIS 1 OR 2 VIEW ROUTINE, L FEMUR 2 VIEWS ROUTINE CLINICAL HISTORY: Pt c/o left hip pain COMPARISON STUDY: Pelvis CT 09/27/2016. FINDINGS: No fracture or dislocation within the pelvis, hips, left femur. The sacrum appears intact. Soft tissues are unremarkable. No radiopaque foreign bodies. Minimal degenerative changes within the right hip. IMPRESSION: No fracture or dislocation within the pelvis, hips, or left femur. Electronically signed by: Todd Apodaca M.D. 03/10/2017 5:39 PM Dictated Date/Time: 03/10/2017 5:36 PM The status of this report is Signed. Draft = Not yet reviewed or approved by Radiologist. Signed = Reviewed and approved by Radiologist. Assessment 1. Lumbago with left-sided hip/groin pain of uncertain etiology 2. Potential for discitis versus osteomyelitis L4-5 3. Broad-based posterior disc bulge with a central and left paracentral annular tear at L4-5 4. History of right TKA Recommendations 1. Patient with concern over possible lumbar discitis versus osteomyelitis of the vertebral body currently considered to be a poor candidate for interventional procedures at this time. We discussed potential treatment options once definitive treatment is completed. Will leave to the discretion of orthopedic and infectious disease service regarding the possibility of biopsy. 2. Continue with conservative management at this time 3. Will add baclofen 10 mg 3 times a day 4. Maintain gabapentin at 100 mg 3 times a day, but consider progression of dose pending tolerability. 5. Continue with Toradol and when necessary tramadol
[2017-03-13] MEDS ORDERED: BACLOFEN 10 MG TAB PO SCH (14:00)
[2017-03-13 15:31] VITALS: BP 103/70; PULSE 80; TEMP 36.7; O2SAT 98
--- NOTE | 2017-03-13 19:57 | Progress Note ---
Medicine Progress Note Date & Time of Visit: Mar 13, 2017 at 19:57. Subjective states she feels better today upper back pain resolved low back pain radiating to the left thigh improving felt "spacy" with baclofen denies other symptoms Objective Last 8 Hrs Date Time Temp Pulse Resp B/P (MAP) Pulse Ox O2 Delivery O2 Flow Rate FiO2 03/13/17 16:00 Room Air 03/13/17 15:31 36.7 80 16 103/70 (81) 98 Physical Exam: General- oriented x 3, not in distress, speaks in sentences with no effort Neck- no JVD Lungs- clear BS bilaterally Heart- regular rhythm; no murmur, normal rate Abdomen- normal bowel sounds, soft, nontender Extremities- no pretibial edema, no calf tenderness Back- mild tenderness on the lumbar spine and paraspinal muscles, no erythema/ warmth/swelling Neuro- alert, oriented x 3; no gross focal deficits Skin- warm & dry Laboratory Results: Last 24 Hours Test 03/13/17 04:03 White Blood Count 8.07 K/uL Red Blood Count 3.76 M/uL Hemoglobin 11.3 g/dL Hematocrit 34.7 % Mean Corpuscular Volume 92.3 fL Mean Corpuscular Hemoglobin 30.1 pg Mean Corpuscular Hemoglobin Concent 32.6 g/dl Platelet Count 272 K/uL Mean Platelet Volume 9.2 fL Neutrophils (%) (Auto) 58.6 % Lymphocytes (%) (Auto) 28.1 % Monocytes (%) (Auto) 9.2 % Eosinophils (%) (Auto) 3.5 % Basophils (%) (Auto) 0.5 % Neutrophils # (Auto) 4.73 K/uL Lymphocytes # (Auto) 2.27 K/uL Monocytes # (Auto) 0.74 K/uL Eosinophils # (Auto) 0.28 K/uL Basophils # (Auto) 0.04 K/uL RDW Standard Deviation 43.5 fL RDW Coefficient of Variation 12.8 % Immature Granulocyte % (Auto) 0.1 % Immature Granulocyte # (Auto) 0.01 K/uL Sodium Level 142 mmol/L Potassium Level 4.1 mmol/L Chloride Level 111 mmol/L Carbon Dioxide Level 25 mmol/L Anion Gap 6.0 mmol/L Blood Urea Nitrogen 17 mg/dl Creatinine 0.69 mg/dl Est Creatinine Clear Calc Drug Dose 96.7 ml/min Estimated GFR () 112.0 Estimated GFR (Non- 96.6 BUN/Creatinine Ratio 24.2 Random Glucose 109 mg/dl Calcium Level 8.7 mg/dl Vancomycin Level Trough 16.7 mcg/ml Rheumatoid Factor < 10.0 U/mL Assessment & Plan UPPER BACK PAIN, LIKELY MYOFASCIAL PAIN SYNDROME - MRI Thoracic Spine: mild degenerative disc disease - Lidoderm patch, Toradol PRN, Tramadol PRN, Warm compress, PT/OT ordered patient states Flexeril has not been effective as outpatient -- added Gabapentin 100mg po TID -- pain improving -- patient declines Baclofen due to side effects -- appreciate Ortho and Pain Management SVC recommendations POSSIBLE L4-L5 DISCITIS - remains afebrile - blood cultures: negative so far - empiric Vanco + Ceftri IV Day 4 ID and Ortho consulted awaiting final recommendations HYPERTENSION Hemodynamically stable. Continue enalapril. ASTHMA Stable. Continue Advair + albuterol PRN. DEPRESSION / ANXIETY Continue escitalopram + alprazolam PRN. VTE PROPHYLAXIS Moderate risk for VTE. No anticoagulants pending surgical disposition. SCD's. Ambulate. RESUSCITATION STATUS = "Level 1" (full resuscitation). DISPOSITION Admit to Med-Surg Unit. Expected discharge to home when medically stable PCP is Dr. Bess with [facility]. Patient reports that Dr. Bess is leaving the practice soon and she will have to establish with a new PCP. . Current Inpatient Medications: Current Inpatient Medications Medications (Trade) Dose Ordered Sig/William Route Start Time Stop Time Status Last Admin Dose Admin Acetaminophen (Tylenol Tab) 650 mg Q4H PRN PO 03/10/17 21:45 04/09/17 21:44 Alprazolam (Xanax Tab) 0.5 mg TID PRN PO 03/10/17 23:45 04/09/17 23:44 Amlodipine Besylate (Norvasc Tab) 5 mg QAM PO 03/11/17 09:00 04/10/17 08:59 03/13/17 07:46 5 MG Enalapril Maleate (Vasotec Tab) 5 mg QAM PO 03/11/17 09:00 04/10/17 08:59 03/13/17 07:46 5 MG Escitalopram Oxalate (Lexapro Tab) 10 mg QPM PO 03/11/17 21:00 04/10/17 20:59 03/12/17 20:22 10 MG Famotidine (Pepcid Tab) 20 mg BID PO 03/11/17 09:00 04/10/17 08:59 03/13/17 07:45 20 MG Fexofenadine HCl (Shahida Tab) 180 mg QAM PO 03/11/17 09:00 04/10/17 08:59 03/13/17 07:46 180 MG Salmeterol Xinafoate/ Fluticasone (Advair Diskus 100/50 Inh) 1 puff BID INH 03/11/17 09:00 04/10/17 08:59 03/13/17 07:44 1 PUFF Montelukast Sodium (Singulair Tab) 10 mg QPM PO 03/11/17 21:00 04/10/17 20:59 03/12/17 20:22 10 MG Nabumetone (Relafen Tab) 500 mg BIDM PO 03/11/17 08:00 04/10/17 07:59 03/13/17 17:11 500 MG Oxycodone/ Acetaminophen (Percocet 5-325mg Tab) 1 tab Q4H PRN PO 03/10/17 23:45 03/24/17 23:44 03/11/17 01:00 1 TAB Pravastatin Sodium (Pravachol Tab) 20 mg QPM PO 03/11/17 21:00 04/10/17 20:59 03/12/17 20:22 20 MG Albuterol (Ventolin Hfa Inhaler) 2 puffs Q4H PRN INH 03/10/17 23:45 04/09/17 23:44 Ceftriaxone Sodium 2000 mg/ Dextrose 70 ml @ 100 mls/hr Q24H IV 03/11/17 08:00 04/22/17 07:59 03/13/17 07:54 100 MLS/HR Vancomycin HCl (Consult) 1 ea UD PRN N/A 03/11/17 08:15 04/10/17 08:14 Miscellaneous (Remove Lidoderm Patch) 1 ea DAILY@21 N/A 03/11/17 21:00 04/10/17 20:59 03/12/17 20:22 1 EA Vancomycin HCl 1250 mg/Sodium Chloride 275 ml @ 125 mls/hr Q14H IV 03/12/17 00:00 04/21/17 00:00 03/13/17 17:09 125 MLS/HR Ketorolac Tromethamine (Toradol Inj) 30 mg Q6H PRN IV 03/11/17 14:30 03/16/17 14:29 03/13/17 13:27 30 MG Lactobacillus Acidophilus (Floranex Tab) 4 tab TIDM PO 03/11/17 17:00 04/10/17 16:59 03/13/17 17:10 4 TAB Tramadol HCl (Ultram Tab) 50 mg Q4H PRN PO 03/11/17 14:45 04/10/17 14:44 03/12/17 15:37 50 MG Polyethylene (Miralax Powder Packet) 17 gm DAILY PO 03/13/17 09:00 04/12/17 08:59 03/13/17 07:54 17 GM Senna/Docusate Sodium (Senokot S Tab) 1 tab DAILY PRN PO 03/12/17 16:15 04/11/17 16:14 Gabapentin (Neurontin Cap) 100 mg TID PO 03/12/17 21:00 04/11/17 20:59 03/13/17 15:17 100 MG Baclofen (Lioresal Tab) 10 mg TID PO 03/13/17 14:00 04/12/17 13:59 03/13/17 13:26 10 MG
[2017-03-13] MEDS: PRAVASTATIN SOD 20 MG TAB PO SCH (20:44)
[2017-03-13] MEDS: MONTELUKAST SOD 10 MG TAB PO SCH (20:45)
[2017-03-13] MEDS: ESCITALOPRAM OXALATE 10 MG TAB PO SCH (20:45)
[2017-03-13 23:36] VITALS: BP 103/66; PULSE 79; TEMP 37.1; O2SAT 96
[2017-03-14] MEDS: KETOROLAC TROMETHAMINE 30 MG/ML VIAL IV PRN ×2 (03:00→09:15)
[2017-03-14] MEDS ORDERED: VANCOMYCIN TROUGH SCH (07:30)
[2017-03-14] MEDS: CEFTRIAXONE SOD INJ 2,000 MG in DEXTROSE 5% 50ML 50 ML IV SCH (07:42)
[2017-03-14] MEDS: FLUTICASONE/SALMETEROL 100/50 (ADVAIR) 14 PUFF/1 INHALER INH SCH ×2 (07:47→21:01)
[2017-03-14 07:48] VITALS: BP 103/68; PULSE 83; TEMP 36.7; O2SAT 95
[2017-03-14 07:48] LABS: BASO % 0.5 %; BASO ABS # 0.04 K/uL (0-0.2); COMPLETE YES; EOS % 3.3 %; HEMATOCRIT 40.5 % (37-47); IG% 0.1 %; LYMPH % 24.6 %; LYMPH ABS # 1.92 K/uL (1.2-3.4); MEAN CORPUSCULAR HEMOGLOBIN 29.1 pg (25-34); MEAN CORPUSCULAR HGB CONC 31.6 g/dl (32-36); MEAN PLATELET VOLUME 9.1 fL (7.4-10.4); MONO % 7.2 %; NEUT % 64.3 %; PLATELET COUNT 321 K/uL (130-400); WHITE BLOOD COUNT 7.79 K/uL (4.8-10.8)
[2017-03-14] MEDS: GABAPENTIN 100 MG CAP PO SCH ×3 (07:49→21:01)
[2017-03-14] MEDS: POLYETHYLENE (MIRALAX) 17 GM PACK PO SCH (07:49)
[2017-03-14] MEDS: ENALAPRIL MALEATE 5 MG TAB PO SCH (07:50)
[2017-03-14] MEDS: NABUMETONE 500 MG TAB PO SCH ×2 (07:50→16:50)
[2017-03-14] MEDS: LACTOBACILLUS ACIDOPHILUS (FLORANEX) TAB PO SCH ×3 (07:50→16:50)
[2017-03-14] MEDS: AMLODIPINE BESYLATE 5 MG TAB PO SCH (07:50)
[2017-03-14 07:51] VITALS: BP 115/76; PULSE 81
[2017-03-14] MEDS: FEXOFENADINE HCL 180 MG TAB PO SCH (07:51)
[2017-03-14] MEDS: FAMOTIDINE 20 MG TAB PO SCH ×2 (07:51→21:01)
[2017-03-14 08:11] LABS: BUN/CREATININE RATIO 21.7 (10-20); CALCIUM 9.6 mg/dl (8.5-10.1); CREATININE 0.78 mg/dl (0.60-1.20); POTASSIUM 4.1 mmol/L (3.5-5.1)
[2017-03-14] MEDS: VANCOMYCIN INJ 1,250 MG in SODIUM CHLORIDE 0.9% 250ML 250 ML IV SCH ×2 (08:44→21:27)
--- NOTE | 2017-03-14 09:08 | Pharmacy Progress Note ---
Pharmacy Abx Dose Short Note Date of Service Mar 14, 2017. Assessment & Plan Assessment 56 year old female receiving vancomycin/Rocephin for treatment of possible discitis Day # 5 of antimicrobial therapy. Plan Vancomycin * Trough level of 15.3 mcg/mL is therapeutic. * Continue dose of 1250 mg IV every 14 hours (if patient requires home regimen , may try vancomycin 1 gm IV q12) * Goal trough level for discitis : 15 to 20 mcg/mL * Additional troughs to be ordered as appropriate Pharmacy will continue to follow and will adjust dose/frequency as necessary. Thank you.
--- NOTE | 2017-03-14 09:39 | Orthopedic Progress Note ---
Orthopedic Progress Note Date of Service Mar 14, 2017. Subjective Additional Notes: Patient slightly better today. She still notes lower back pain relating to the left hip and groin. She is a difficult night sleeping last evening. no bowel or bladder changes. Pain management has seen the patient and given medication recommendations. Objective N/V intact, A&O x3, toes mobile Unchanged Date Time Temp Pulse Resp B/P (MAP) Pulse Ox O2 Delivery O2 Flow Rate FiO2 03/14/17 07:51 81 115/76 (89) 03/14/17 07:48 36.7 83 18 103/68 (80) 95 Room Air 03/14/17 00:00 Room Air 03/13/17 23:36 37.1 79 16 103/66 (78) 96 Room Air 03/13/17 20:00 Room Air 03/13/17 16:00 Room Air 03/13/17 15:31 36.7 80 16 103/70 (81) 98 Laboratory Results 24 Hours: Test 03/14/17 07:29 White Blood Count 7.79 K/uL Red Blood Count 4.40 M/uL Hemoglobin 12.8 g/dL Hematocrit 40.5 % Mean Corpuscular Volume 92.0 fL Mean Corpuscular Hemoglobin 29.1 pg Mean Corpuscular Hemoglobin Concent 31.6 g/dl Platelet Count 321 K/uL Mean Platelet Volume 9.1 fL Neutrophils (%) (Auto) 64.3 % Lymphocytes (%) (Auto) 24.6 % Monocytes (%) (Auto) 7.2 % Eosinophils (%) (Auto) 3.3 % Basophils (%) (Auto) 0.5 % Neutrophils # (Auto) 5.00 K/uL Lymphocytes # (Auto) 1.92 K/uL Monocytes # (Auto) 0.56 K/uL Eosinophils # (Auto) 0.26 K/uL Basophils # (Auto) 0.04 K/uL Assessment & Plan Assessment: Degenerative disc disease L4 5 with left-sided neuroforamen stenosis versus early discitis Plan: LSO brace been ordered. Again at this point time we'll continue with antibiotic therapy. We will continue bedrest with bathroom privileges/very light activity. Would consider reimaging in a roughly 8 weeks' time with an updated MRI of the lumbar spine.
--- NOTE | 2017-03-14 09:48 | Pain Management Progress Note ---
Pain Management Progress Note Date of Service Mar 14, 2017. Subjective Patient reported difficulties with left-sided gluteal and hip related pain throughout last evening. She was unable to tolerate baclofen due to feeling sedate with cognitive dysfunction. She found it to be without efficacy as well as regards to pain control. She continues indicate. In the left gluteal lateral hip groin and proximal thigh location which remains aching with episodic sharp and shooting pains continually aggravated with positional change and ambulatory activities. She remains on antibiotic therapy due to concerns over discitis versus osteomyelitis. She continues to find Toradol to be effective at diminishing her discomfort for 4-6 hours in duration. Patient has not utilized Percocet therapy since 03/11/2017 and tramadol since 03/02/2017. She denies radicular pain below the level of the proximal thigh, bowel/bladder incontinence or saddle anesthesias. She has no further constitutional complaints this time. Objective Vital Signs: Last Vital Signs Documentation Date Time Temp Pulse Resp B/P (MAP) Pulse Ox O2 Delivery O2 Flow Rate FiO2 03/14/17 07:51 81 115/76 (89) 03/14/17 07:48 36.7 18 95 Room Air 03/12/17 09:00 0.0 Physical Exam: Gen.: Patient sitting upon entering room in no acute distress. Speech and thought process appropriate. Mood and affect appropriate. Cognition intact. Lower extremities: SLR negative bilaterally. Patient remains moderately tender over the left greater trochanter and IT band location and nontender correspondingly on the right. Strength testing 5/5 with guarding appreciated on the left. Resisted hip flexion increased axial low back pain on the left, nontender corresponding the right. Neurologic: Cranial nerves grossly intact. Ambulatory function not witnessed. Laboratory Laboratory Findings 03/14/17 07:29 Red Blood Count 4.40, Mean Corpuscular Volume 92.0, Mean Corpuscular Hemoglobin 29.1, Mean Corpuscular Hemoglobin Concent 31.6 L, Mean Platelet Volume 9.1, Neutrophils (%) (Auto) 64.3, Lymphocytes (%) (Auto) 24.6, Monocytes (%) (Auto) 7.2, Eosinophils (%) (Auto) 3.3, Basophils (%) (Auto) 0.5, Neutrophils # (Auto) 5.00, Lymphocytes # (Auto) 1.92, Monocytes # (Auto) 0.56, Eosinophils # (Auto) 0.26, Basophils # (Auto) 0.04 Assessment 1. Lumbago with left-sided hip/groin pain of uncertain etiology 2. Possible discitis versus also myelitis L4-5 3. Broad-based posterior disc bulge with central left paracentral annular tear at L4-5 4. History of right TKA Recommendations 1. Will discontinue baclofen due to side effect and resume cyclobenzaprine 10 mg initially at 3 times a day dosing to assess effectiveness versus side effects. 2. Maintain gabapentin at current dosing 3. Continue current dosing of ketorolac without change 4. Tramadol reserved for when necessary breakthrough pain 5. Will plan to follow-up with the patient in outpatient setting at her request for reevaluation as she is not currently a candidate for interventional procedure upon this admission due to concern over discitis/osteomyelitis. 6. Will sign off on the patient at this time. Please reconsult as needed during this admission, otherwise will follow up in the outpatient setting upon discharge. Thank you for allowing us to participate in the care of Mrs. Vaz.
[2017-03-14] MEDS: CYCLOBENZAPRINE HCL 10 MG TAB PO SCH ×2 (14:19→21:01)
[2017-03-14 15:01] VITALS: BP 105/66; PULSE 83; TEMP 36.7; O2SAT 97
--- NOTE | 2017-03-14 15:11 | Infectious Disease Progress Nt ---
Progress Note Date of Service Mar 14, 2017. Subjective Pt evaluation today including: conversation w/ patient, physical exam, chart review, lab review, review of studies, conversation w/ data consultant, review of inpatient medication list Pain may be slightly better today. Remains afebrile. No other new complaints.Blood cultures remain negative, white count also normal. Orthopedic consultation noted All Other Systems: Reviewed and Negative Medications Current Inpatient Medications Medications (Trade) Dose Ordered Sig/William Route Start Time Stop Time Status Last Admin Dose Admin Acetaminophen (Tylenol Tab) 650 mg Q4H PRN PO 03/10/17 21:45 04/09/17 21:44 Alprazolam (Xanax Tab) 0.5 mg TID PRN PO 03/10/17 23:45 04/09/17 23:44 Amlodipine Besylate (Norvasc Tab) 5 mg QAM PO 03/11/17 09:00 04/10/17 08:59 03/14/17 07:50 5 MG Enalapril Maleate (Vasotec Tab) 5 mg QAM PO 03/11/17 09:00 04/10/17 08:59 03/14/17 07:50 5 MG Escitalopram Oxalate (Lexapro Tab) 10 mg QPM PO 03/11/17 21:00 04/10/17 20:59 03/13/17 20:45 10 MG Famotidine (Pepcid Tab) 20 mg BID PO 03/11/17 09:00 04/10/17 08:59 03/14/17 07:51 20 MG Fexofenadine HCl (Shahida Tab) 180 mg QAM PO 03/11/17 09:00 04/10/17 08:59 03/14/17 07:51 180 MG Salmeterol Xinafoate/ Fluticasone (Advair Diskus 100/50 Inh) 1 puff BID INH 03/11/17 09:00 04/10/17 08:59 03/14/17 07:47 1 PUFF Montelukast Sodium (Singulair Tab) 10 mg QPM PO 03/11/17 21:00 04/10/17 20:59 03/13/17 20:45 10 MG Nabumetone (Relafen Tab) 500 mg BIDM PO 03/11/17 08:00 04/10/17 07:59 03/14/17 07:50 500 MG Oxycodone/ Acetaminophen (Percocet 5-325mg Tab) 1 tab Q4H PRN PO 03/10/17 23:45 03/24/17 23:44 03/11/17 01:00 1 TAB Pravastatin Sodium (Pravachol Tab) 20 mg QPM PO 03/11/17 21:00 04/10/17 20:59 03/13/17 20:44 20 MG Albuterol (Ventolin Hfa Inhaler) 2 puffs Q4H PRN INH 03/10/17 23:45 04/09/17 23:44 Ceftriaxone Sodium 2000 mg/ Dextrose 70 ml @ 100 mls/hr Q24H IV 03/11/17 08:00 04/22/17 07:59 03/14/17 07:42 100 MLS/HR Vancomycin HCl (Consult) 1 ea UD PRN N/A 03/11/17 08:15 04/10/17 08:14 Miscellaneous (Remove Lidoderm Patch) 1 ea DAILY@21 N/A 03/11/17 21:00 04/10/17 20:59 03/12/17 20:22 1 EA Vancomycin HCl 1250 mg/Sodium Chloride 275 ml @ 125 mls/hr Q14H IV 03/12/17 00:00 04/21/17 00:00 03/14/17 08:44 125 MLS/HR Ketorolac Tromethamine (Toradol Inj) 30 mg Q6H PRN IV 03/11/17 14:30 03/16/17 14:29 03/14/17 09:15 30 MG Lactobacillus Acidophilus (Floranex Tab) 4 tab TIDM PO 03/11/17 17:00 04/10/17 16:59 03/14/17 12:40 4 TAB Tramadol HCl (Ultram Tab) 50 mg Q4H PRN PO 03/11/17 14:45 04/10/17 14:44 03/12/17 15:37 50 MG Polyethylene (Miralax Powder Packet) 17 gm DAILY PO 03/13/17 09:00 04/12/17 08:59 03/14/17 07:49 17 GM Senna/Docusate Sodium (Senokot S Tab) 1 tab DAILY PRN PO 03/12/17 16:15 04/11/17 16:14 03/13/17 20:48 1 TAB Gabapentin (Neurontin Cap) 100 mg TID PO 03/12/17 21:00 04/11/17 20:59 03/14/17 14:19 100 MG Cyclobenzaprine HCl (Flexeril Tab) 10 mg TID PO 03/14/17 14:00 04/13/17 13:59 03/14/17 14:19 10 MG Objective Vital Signs Date Time Temp Pulse Resp B/P (MAP) Pulse Ox O2 Delivery O2 Flow Rate FiO2 03/14/17 15:01 36.7 83 18 105/66 (79) 97 Room Air 03/14/17 08:00 Room Air 03/14/17 07:51 81 115/76 (89) 03/14/17 07:48 36.7 83 18 103/68 (80) 95 Room Air 03/14/17 00:00 Room Air 03/13/17 23:36 37.1 79 16 103/66 (78) 96 Room Air 03/13/17 20:00 Room Air 03/13/17 16:00 Room Air 03/13/17 15:31 36.7 80 16 103/70 (81) 98 Physical Exam General Appearance: WD/WN, no apparent distress Eyes: normal inspection, EOMI, sclerae normal ENT: normal ENT inspection, pharynx normal Neck: supple, no adenopathy, thyroid normal, trachea midline Respiratory/Chest: chest non-tender, lungs clear, normal breath sounds, no respiratory distress Cardiovascular: regular rate, rhythm, no gallop, no murmur Abdomen: normal bowel sounds, non tender, soft, no organomegaly Extremities: non-tender, no calf tenderness Neurologic/Psychiatric: alert, oriented x 3 Skin: normal color, no rash Lymphatic: no adenopathy Laboratory Results RUN DATE: 03/12/17 [facility] LAB PAGE 1 RUN TIME: 711 Specimen Inquiry PATIENT: EDEN YING LOC: [facility] U # : [id number] AGE/SX: 56/F ROOM: [facility] REG : 03/10/[address]: Tao Toscano MD : [id number] BED: 2 DIS : STATUS: ADM IN TLOC: SPEC #: [id number] IRENE: 03/10/17 STATUS: RES REQ #: [id number] RECD: 03/10/[address]: Matt Godwin MD SOURCE: BLOOD ENTR: 03/10/17-[address]: Any Bess M.D. [facility]: ORDERED: BLOOD CULTURE Procedure Result Verified Site BLD CULT Preliminary 03/12/17 NO GROWTH TO DATE. Last 24 Hours Test 03/14/17 07:29 White Blood Count 7.79 K/uL Red Blood Count 4.40 M/uL Hemoglobin 12.8 g/dL Hematocrit 40.5 % Mean Corpuscular Volume 92.0 fL Mean Corpuscular Hemoglobin 29.1 pg Mean Corpuscular Hemoglobin Concent 31.6 g/dl Platelet Count 321 K/uL Mean Platelet Volume 9.1 fL Neutrophils (%) (Auto) 64.3 % Lymphocytes (%) (Auto) 24.6 % Monocytes (%) (Auto) 7.2 % Eosinophils (%) (Auto) 3.3 % Basophils (%) (Auto) 0.5 % Neutrophils # (Auto) 5.00 K/uL Lymphocytes # (Auto) 1.92 K/uL Monocytes # (Auto) 0.56 K/uL Eosinophils # (Auto) 0.26 K/uL Basophils # (Auto) 0.04 K/uL RDW Standard Deviation 43.2 fL RDW Coefficient of Variation 12.8 % Immature Granulocyte % (Auto) 0.1 % Immature Granulocyte # (Auto) 0.01 K/uL Sodium Level 141 mmol/L Potassium Level 4.1 mmol/L Chloride Level 108 mmol/L Carbon Dioxide Level 26 mmol/L Anion Gap 7.0 mmol/L Blood Urea Nitrogen 17 mg/dl Creatinine 0.78 mg/dl Est Creatinine Clear Calc Drug Dose 85.5 ml/min Estimated GFR () 97.8 Estimated GFR (Non- 84.4 BUN/Creatinine Ratio 21.7 Random Glucose 104 mg/dl Calcium Level 9.6 mg/dl Vancomycin Level Trough 15.3 mcg/ml Cyclic Citrullinated Peptide IgG Ab < 0.40 U/mL Assessment and Plan 56-year-old female with possible lumbar diskitis and vertebral osteomyelitis, which would be supported by potential changes on MRI scan from December to now. Agree with current antibiotics with vancomycin and ceftriaxone pending culture results. Will follow inflammatory markers, clinical response and follow-up MRI to assess response to therapy.
--- NOTE | 2017-03-14 18:29 | Progress Note ---
Subjective Date of Service: Mar 14, 2017. Subjective Pt evaluation today including: conversation w/ patient, physical exam, lab review, review of studies, review of inpatient medication list Saw/examined the patient in room 262 She's doing well - seated in a chair with an LSO brace on Pain controlled Eager to get home Problem List Medical Problems: (1) Discitis Status: Acute (2) Hip pain, left Status: Acute Review of Systems Constitutional: No fever, No chills Respiratory: No shortness of breath Cardiac: No chest pain Abdomen: No pain, No nausea, No vomiting, No diarrhea Musculoskeletal: + joint pain (back pain) Medications Current Inpatient Medications Medications (Trade) Dose Ordered Sig/William Route Start Time Stop Time Status Last Admin Dose Admin Acetaminophen (Tylenol Tab) 650 mg Q4H PRN PO 03/10/17 21:45 04/09/17 21:44 Alprazolam (Xanax Tab) 0.5 mg TID PRN PO 03/10/17 23:45 04/09/17 23:44 Amlodipine Besylate (Norvasc Tab) 5 mg QAM PO 03/11/17 09:00 04/10/17 08:59 03/14/17 07:50 5 MG Enalapril Maleate (Vasotec Tab) 5 mg QAM PO 03/11/17 09:00 04/10/17 08:59 03/14/17 07:50 5 MG Escitalopram Oxalate (Lexapro Tab) 10 mg QPM PO 03/11/17 21:00 04/10/17 20:59 03/13/17 20:45 10 MG Famotidine (Pepcid Tab) 20 mg BID PO 03/11/17 09:00 04/10/17 08:59 03/14/17 07:51 20 MG Fexofenadine HCl (Shahida Tab) 180 mg QAM PO 03/11/17 09:00 04/10/17 08:59 03/14/17 07:51 180 MG Salmeterol Xinafoate/ Fluticasone (Advair Diskus 100/50 Inh) 1 puff BID INH 03/11/17 09:00 04/10/17 08:59 03/14/17 07:47 1 PUFF Montelukast Sodium (Singulair Tab) 10 mg QPM PO 03/11/17 21:00 10/24/17 20:59 03/13/17 20:45 10 MG Nabumetone (Relafen Tab) 500 mg BIDM PO 03/11/17 08:00 04/10/17 07:59 03/14/17 16:50 500 MG Oxycodone/ Acetaminophen (Percocet 5-325mg Tab) 1 tab Q4H PRN PO 03/10/17 23:45 03/24/17 23:44 03/11/17 01:00 1 TAB Pravastatin Sodium (Pravachol Tab) 20 mg QPM PO 03/11/17 21:00 04/10/17 20:59 03/13/17 20:44 20 MG Albuterol (Ventolin Hfa Inhaler) 2 puffs Q4H PRN INH 03/10/17 23:45 04/09/17 23:44 Ceftriaxone Sodium 2000 mg/ Dextrose 70 ml @ 100 mls/hr Q24H IV 03/11/17 08:00 04/22/17 07:59 03/14/17 07:42 100 MLS/HR Vancomycin HCl (Consult) 1 ea UD PRN N/A 03/11/17 08:15 04/10/17 08:14 Miscellaneous (Remove Lidoderm Patch) 1 ea DAILY@21 N/A 03/11/17 21:00 04/10/17 20:59 03/12/17 20:22 1 EA Vancomycin HCl 1250 mg/Sodium Chloride 275 ml @ 125 mls/hr Q14H IV 03/12/17 00:00 04/21/17 00:00 03/14/17 08:44 125 MLS/HR Ketorolac Tromethamine (Toradol Inj) 30 mg Q6H PRN IV 03/11/17 14:30 03/16/17 14:29 03/14/17 09:15 30 MG Lactobacillus Acidophilus (Floranex Tab) 4 tab TIDM PO 03/11/17 17:00 04/10/17 16:59 03/14/17 16:50 4 TAB Tramadol HCl (Ultram Tab) 50 mg Q4H PRN PO 03/11/17 14:45 04/10/17 14:44 03/12/17 15:37 50 MG Polyethylene (Miralax Powder Packet) 17 gm DAILY PO 03/13/17 09:00 04/12/17 08:59 03/14/17 07:49 17 GM Senna/Docusate Sodium (Senokot S Tab) 1 tab DAILY PRN PO 03/12/17 16:15 04/11/17 16:14 03/13/17 20:48 1 TAB Gabapentin (Neurontin Cap) 100 mg TID PO 03/12/17 21:00 04/11/17 20:59 03/14/17 14:19 100 MG Cyclobenzaprine HCl (Flexeril Tab) 10 mg TID PO 03/14/17 14:00 04/13/17 13:59 03/14/17 14:19 10 MG Objective Vital Signs Date Time Temp Pulse Resp B/P (MAP) Pulse Ox O2 Delivery O2 Flow Rate FiO2 03/14/17 16:00 Room Air 03/14/17 15:01 36.7 83 18 105/66 (79) 97 Room Air 03/14/17 08:00 Room Air 03/14/17 07:51 81 115/76 (89) 03/14/17 07:48 36.7 83 18 103/68 (80) 95 Room Air 03/14/17 00:00 Room Air 03/13/17 23:36 37.1 79 16 103/66 (78) 96 Room Air 03/13/17 20:00 Room Air Physical Exam General Appearance: no apparent distress Respiratory/Chest: lungs clear, normal breath sounds, no respiratory distress, no accessory muscle use Cardiovascular: regular rate, rhythm, no edema, no murmur Extremities: + pertinent finding (LSO Brace in place) Laboratory Results Last 24 Hours Test 03/14/17 07:29 White Blood Count 7.79 K/uL Red Blood Count 4.40 M/uL Hemoglobin 12.8 g/dL Hematocrit 40.5 % Mean Corpuscular Volume 92.0 fL Mean Corpuscular Hemoglobin 29.1 pg Mean Corpuscular Hemoglobin Concent 31.6 g/dl Platelet Count 321 K/uL Mean Platelet Volume 9.1 fL Neutrophils (%) (Auto) 64.3 % Lymphocytes (%) (Auto) 24.6 % Monocytes (%) (Auto) 7.2 % Eosinophils (%) (Auto) 3.3 % Basophils (%) (Auto) 0.5 % Neutrophils # (Auto) 5.00 K/uL Lymphocytes # (Auto) 1.92 K/uL Monocytes # (Auto) 0.56 K/uL Eosinophils # (Auto) 0.26 K/uL Basophils # (Auto) 0.04 K/uL RDW Standard Deviation 43.2 fL RDW Coefficient of Variation 12.8 % Immature Granulocyte % (Auto) 0.1 % Immature Granulocyte # (Auto) 0.01 K/uL Sodium Level 141 mmol/L Potassium Level 4.1 mmol/L Chloride Level 108 mmol/L Carbon Dioxide Level 26 mmol/L Anion Gap 7.0 mmol/L Blood Urea Nitrogen 17 mg/dl Creatinine 0.78 mg/dl Est Creatinine Clear Calc Drug Dose 85.5 ml/min Estimated GFR () 97.8 Estimated GFR (Non- 84.4 BUN/Creatinine Ratio 21.7 Random Glucose 104 mg/dl Calcium Level 9.6 mg/dl Vancomycin Level Trough 15.3 mcg/ml Cyclic Citrullinated Peptide IgG Ab < 0.40 U/mL Assessment and Plan UPPER BACK PAIN, LIKELY MYOFASCIAL PAIN SYNDROME 03/14 possible discitis IV Vanco and Rocephin for now as per ID continue LSO brace, Flexeril and Gabapentin as per pain management cultures pending, final abx. recommendations pending - MRI Thoracic Spine: mild degenerative disc disease - Lidoderm patch, Toradol PRN, Tramadol PRN, Warm compress, PT/OT ordered patient states Flexeril has not been effective as outpatient -- added Gabapentin 100mg po TID -- pain improving -- patient declines Baclofen due to side effects -- appreciate Ortho and Pain Management SVC recommendations POSSIBLE L4-L5 DISCITIS - remains afebrile - blood cultures: negative so far - empiric Vanco + Ceftri IV Day 4 ID and Ortho consulted awaiting final recommendations HYPERTENSION Hemodynamically stable. Continue enalapril. ASTHMA Stable. Continue Advair + albuterol PRN. DEPRESSION / ANXIETY Continue escitalopram + alprazolam PRN. VTE PROPHYLAXIS Moderate risk for VTE. No anticoagulants pending surgical disposition. SCD's. Ambulate. RESUSCITATION STATUS = "Level 1" (full resuscitation). DISPOSITION Admit to Med-Surg Unit. Expected discharge to home when medically stable PCP is Dr. Bess with [facility]. Patient reports that Dr. Bess is leaving the practice soon and she will have to establish with a new PCP.
[2017-03-14] MEDS ORDERED: TRAMADOL HCL 50 MG TAB PO PRN (18:45)
[2017-03-14] MEDS: ESCITALOPRAM OXALATE 10 MG TAB PO SCH (21:01)
[2017-03-14] MEDS: MONTELUKAST SOD 10 MG TAB PO SCH (21:01)
[2017-03-14] MEDS: NAPROXEN 375 MG TAB PO PRN (21:02)
[2017-03-14] MEDS: PRAVASTATIN SOD 20 MG TAB PO SCH (21:02)
[2017-03-14 22:55] VITALS: BP 108/70; PULSE 85; TEMP 36.7; O2SAT 95
[2017-03-15 05:35] LABS: BASO % 0.8 %; BASO ABS # 0.06 K/uL (0-0.2); COMPLETE YES; EOS % 3.9 %; HEMATOCRIT 37.7 % (37-47); IG% 0.3 %; LYMPH % 24.7 %; LYMPH ABS # 1.84 K/uL (1.2-3.4); MEAN CELL VOLUME 92.6 fL (80-100); MEAN CORPUSCULAR HEMOGLOBIN 28.5 pg (25-34); MEAN CORPUSCULAR HGB CONC 30.8 g/dl (32-36); MONO % 10.7 %; NEUT % 59.6 %; PLATELET COUNT 286 K/uL (130-400); RED BLOOD COUNT 4.07 M/uL (4.2-5.4); WHITE BLOOD COUNT 7.46 K/uL (4.8-10.8)
[2017-03-15 06:02] LABS: BUN/CREATININE RATIO 25.7 (10-20); CALCIUM 8.7 mg/dl (8.5-10.1); CREATININE 0.72 mg/dl (0.60-1.20); POTASSIUM 4.4 mmol/L (3.5-5.1)
[2017-03-15 07:29] VITALS: BP 105/73; PULSE 78; TEMP 36.7; O2SAT 96
[2017-03-15] MEDS: POLYETHYLENE (MIRALAX) 17 GM PACK PO SCH (07:44)
[2017-03-15] MEDS: FLUTICASONE/SALMETEROL 100/50 (ADVAIR) 14 PUFF/1 INHALER INH SCH ×2 (07:50→21:13)
[2017-03-15] MEDS: GABAPENTIN 100 MG CAP PO SCH ×3 (07:50→21:14)
[2017-03-15] MEDS: CEFTRIAXONE SOD INJ 2,000 MG in DEXTROSE 5% 50ML 50 ML IV SCH (07:50)
[2017-03-15] MEDS: NABUMETONE 500 MG TAB PO SCH ×2 (07:51→16:40)
[2017-03-15] MEDS: FEXOFENADINE HCL 180 MG TAB PO SCH (07:51)
[2017-03-15] MEDS: FAMOTIDINE 20 MG TAB PO SCH ×2 (07:51→21:15)
[2017-03-15] MEDS: CYCLOBENZAPRINE HCL 10 MG TAB PO SCH ×3 (07:52→21:14)
[2017-03-15] MEDS: ENALAPRIL MALEATE 5 MG TAB PO SCH (07:52)
[2017-03-15] MEDS: LACTOBACILLUS ACIDOPHILUS (FLORANEX) TAB PO SCH ×3 (07:52→16:39)
[2017-03-15 07:53] VITALS: BP 124/84; PULSE 92
[2017-03-15] MEDS: AMLODIPINE BESYLATE 5 MG TAB PO SCH (07:53)
[2017-03-15] MEDS: NAPROXEN 375 MG TAB PO PRN ×2 (08:17→21:16)
[2017-03-15] MEDS: VANCOMYCIN INJ 1,250 MG in SODIUM CHLORIDE 0.9% 250ML 250 ML IV SCH (11:38)
[2017-03-15 15:06] VITALS: BP 97/63; PULSE 83; TEMP 36.5; O2SAT 95
--- NOTE | 2017-03-15 18:24 | Infectious Disease Progress Nt ---
Progress Note Date of Service Mar 15, 2017. Subjective Pt evaluation today including: conversation w/ patient, physical exam, chart review, lab review, review of studies, conversation w/ transformation consultant, review of inpatient medication list Patient about the same. Back pain may be slightly better. Remains afebrile. Blood cultures remain negative to date. All Other Systems: Reviewed and Negative Medications Current Inpatient Medications Medications (Trade) Dose Ordered Sig/William Route Start Time Stop Time Status Last Admin Dose Admin Acetaminophen (Tylenol Tab) 650 mg Q4H PRN PO 03/10/17 21:45 04/09/17 21:44 Alprazolam (Xanax Tab) 0.5 mg TID PRN PO 03/10/17 23:45 04/09/17 23:44 Amlodipine Besylate (Norvasc Tab) 5 mg QAM PO 03/11/17 09:00 04/10/17 08:59 03/15/17 07:53 5 MG Enalapril Maleate (Vasotec Tab) 5 mg QAM PO 03/11/17 09:00 04/10/17 08:59 03/15/17 07:52 5 MG Escitalopram Oxalate (Lexapro Tab) 10 mg QPM PO 03/11/17 21:00 04/10/17 20:59 03/14/17 21:01 10 MG Famotidine (Pepcid Tab) 20 mg BID PO 03/11/17 09:00 04/10/17 08:59 03/15/17 07:51 20 MG Fexofenadine HCl (Shahida Tab) 180 mg QAM PO 03/11/17 09:00 04/10/17 08:59 03/15/17 07:51 180 MG Salmeterol Xinafoate/ Fluticasone (Advair Diskus 100/50 Inh) 1 puff BID INH 03/11/17 09:00 04/10/17 08:59 03/15/17 07:50 1 PUFF Montelukast Sodium (Singulair Tab) 10 mg QPM PO 03/11/17 21:00 04/10/17 20:59 03/14/17 21:01 10 MG Nabumetone (Relafen Tab) 500 mg BIDM PO 03/11/17 08:00 04/10/17 07:59 03/15/17 16:40 500 MG Oxycodone/ Acetaminophen (Percocet 5-325mg Tab) 1 tab Q4H PRN PO 03/10/17 23:45 03/24/17 23:44 03/11/17 01:00 1 TAB Pravastatin Sodium (Pravachol Tab) 20 mg QPM PO 03/11/17 21:00 04/10/17 20:59 03/14/17 21:02 20 MG Albuterol (Ventolin Hfa Inhaler) 2 puffs Q4H PRN INH 03/10/17 23:45 04/09/17 23:44 Ceftriaxone Sodium 2000 mg/ Dextrose 70 ml @ 100 mls/hr Q24H IV 03/11/17 08:00 04/22/17 07:59 03/15/17 07:50 100 MLS/HR Vancomycin HCl (Consult) 1 ea UD PRN N/A 03/11/17 08:15 04/10/17 08:14 Miscellaneous (Remove Lidoderm Patch) 1 ea DAILY@21 N/A 03/11/17 21:00 04/10/17 20:59 03/12/17 20:22 1 EA Vancomycin HCl 1250 mg/Sodium Chloride 275 ml @ 125 mls/hr Q14H IV 03/12/17 00:00 04/21/17 00:00 03/15/17 11:38 125 MLS/HR Ketorolac Tromethamine (Toradol Inj) 30 mg Q6H PRN IV 03/11/17 14:30 03/16/17 14:29 03/14/17 09:15 30 MG Lactobacillus Acidophilus (Floranex Tab) 4 tab TIDM PO 03/11/17 17:00 04/10/17 16:59 03/15/17 16:39 4 TAB Tramadol HCl (Ultram Tab) 50 mg Q4H PRN PO 03/11/17 14:45 04/10/17 14:44 03/12/17 15:37 50 MG Polyethylene (Miralax Powder Packet) 17 gm DAILY PO 03/13/17 09:00 04/12/17 08:59 03/14/17 07:49 17 GM Senna/Docusate Sodium (Senokot S Tab) 1 tab DAILY PRN PO 03/12/17 16:15 04/11/17 16:14 03/13/17 20:48 1 TAB Gabapentin (Neurontin Cap) 100 mg TID PO 03/12/17 21:00 04/11/17 20:59 03/15/17 13:33 100 MG Cyclobenzaprine HCl (Flexeril Tab) 10 mg TID PO 03/14/17 14:00 04/13/17 13:59 03/15/17 13:33 10 MG Naproxen (Naprosyn Tab) 375 mg BID PRN PO 03/14/17 18:45 04/13/17 18:44 03/15/17 08:17 375 MG Objective Vital Signs Date Time Temp Pulse Resp B/P (MAP) Pulse Ox O2 Delivery O2 Flow Rate FiO2 03/15/17 16:00 Room Air 03/15/17 15:06 36.5 83 18 97/63 (74) 95 Room Air 03/15/17 08:00 Room Air 03/15/17 07:53 92 124/84 (97) 03/15/17 07:29 36.7 78 16 105/73 (84) 96 Room Air 03/15/17 00:00 Room Air 03/14/17 22:55 36.7 85 18 108/70 (83) 95 Room Air 03/14/17 20:00 Room Air Physical Exam General Appearance: WD/WN, no apparent distress Eyes: normal inspection, EOMI, sclerae normal ENT: normal ENT inspection, pharynx normal Neck: supple, no adenopathy, thyroid normal, trachea midline Respiratory/Chest: lungs clear, normal breath sounds, no respiratory distress Cardiovascular: regular rate, rhythm, no gallop, no murmur Abdomen: normal bowel sounds, non tender, soft, no organomegaly Extremities: non-tender, no calf tenderness Neurologic/Psychiatric: alert, oriented x 3 Skin: normal color, no rash Lymphatic: no adenopathy Laboratory Results Last 24 Hours Test 03/15/17 05:23 White Blood Count 7.46 K/uL Red Blood Count 4.07 M/uL Hemoglobin 11.6 g/dL Hematocrit 37.7 % Mean Corpuscular Volume 92.6 fL Mean Corpuscular Hemoglobin 28.5 pg Mean Corpuscular Hemoglobin Concent 30.8 g/dl Platelet Count 286 K/uL Mean Platelet Volume 9.0 fL Neutrophils (%) (Auto) 59.6 % Lymphocytes (%) (Auto) 24.7 % Monocytes (%) (Auto) 10.7 % Eosinophils (%) (Auto) 3.9 % Basophils (%) (Auto) 0.8 % Neutrophils # (Auto) 4.45 K/uL Lymphocytes # (Auto) 1.84 K/uL Monocytes # (Auto) 0.80 K/uL Eosinophils # (Auto) 0.29 K/uL Basophils # (Auto) 0.06 K/uL RDW Standard Deviation 43.6 fL RDW Coefficient of Variation 13.0 % Immature Granulocyte % (Auto) 0.3 % Immature Granulocyte # (Auto) 0.02 K/uL Sodium Level 143 mmol/L Potassium Level 4.4 mmol/L Chloride Level 110 mmol/L Carbon Dioxide Level 26 mmol/L Anion Gap 7.0 mmol/L Blood Urea Nitrogen 19 mg/dl Creatinine 0.72 mg/dl Est Creatinine Clear Calc Drug Dose 92.6 ml/min Estimated GFR () 107.7 Estimated GFR (Non- 93.0 BUN/Creatinine Ratio 25.7 Random Glucose 104 mg/dl Calcium Level 8.7 mg/dl Assessment and Plan 56-year-old female with possible lumbar diskitis and vertebral osteomyelitis, which would be supported by potential changes on MRI scan from December to now. patient should be continued on antibiotic therapy empirically for diskitis, and would recommend combination of daptomycin and ceftriaxone to allow easier outpatient therapy. Will discuss with all involved and follow.
[2017-03-15 20:00] VITALS: O2SAT 95
[2017-03-15] MEDS: PRAVASTATIN SOD 20 MG TAB PO SCH (21:14)
[2017-03-15] MEDS: MONTELUKAST SOD 10 MG TAB PO SCH (21:14)
[2017-03-15] MEDS: ESCITALOPRAM OXALATE 10 MG TAB PO SCH (21:15)
[2017-03-15 23:33] VITALS: BP 107/69; PULSE 85; TEMP 36.6; O2SAT 94
[2017-03-16] VITALS: O2SAT 95
--- NOTE | 2017-03-16 | Progress Note ---
Subjective Date of Service: Mar 15, 2017. Subjective Pt evaluation today including: conversation w/ patient, physical exam, lab review, review of studies, review of inpatient medication list Saw/examined the patient in room 262 she feels well back pain controlled no other issues to note today Problem List Medical Problems: (1) Discitis Status: Acute (2) Hip pain, left Status: Acute Review of Systems Constitutional: No fever, No chills Respiratory: No cough, No shortness of breath Cardiac: No chest pain Abdomen: No pain, No nausea, No vomiting, No diarrhea Musculoskeletal: + joint pain Medications Current Inpatient Medications Medications (Trade) Dose Ordered Sig/William Route Start Time Stop Time Status Last Admin Dose Admin Acetaminophen (Tylenol Tab) 650 mg Q4H PRN PO 03/10/17 21:45 04/09/17 21:44 Alprazolam (Xanax Tab) 0.5 mg TID PRN PO 03/10/17 23:45 04/09/17 23:44 Amlodipine Besylate (Norvasc Tab) 5 mg QAM PO 03/11/17 09:00 04/10/17 08:59 03/15/17 07:53 5 MG Enalapril Maleate (Vasotec Tab) 5 mg QAM PO 03/11/17 09:00 04/10/17 08:59 03/15/17 07:52 5 MG Escitalopram Oxalate (Lexapro Tab) 10 mg QPM PO 03/11/17 21:00 04/10/17 20:59 03/15/17 21:15 10 MG Famotidine (Pepcid Tab) 20 mg BID PO 03/11/17 09:00 04/10/17 08:59 03/15/17 21:15 20 MG Fexofenadine HCl (Shahida Tab) 180 mg QAM PO 03/11/17 09:00 04/10/17 08:59 03/15/17 07:51 180 MG Salmeterol Xinafoate/ Fluticasone (Advair Diskus 100/50 Inh) 1 puff BID INH 03/11/17 09:00 04/10/17 08:59 03/15/17 21:13 1 PUFF Montelukast Sodium (Singulair Tab) 10 mg QPM PO 03/11/17 21:00 04/10/17 20:59 03/15/17 21:14 10 MG Nabumetone (Relafen Tab) 500 mg BIDM PO 03/11/17 08:00 04/10/17 07:59 03/15/17 16:40 500 MG Oxycodone/ Acetaminophen (Percocet 5-325mg Tab) 1 tab Q4H PRN PO 03/10/17 23:45 03/24/17 23:44 03/11/17 01:00 1 TAB Pravastatin Sodium (Pravachol Tab) 20 mg QPM PO 03/11/17 21:00 04/10/17 20:59 03/15/17 21:14 20 MG Albuterol (Ventolin Hfa Inhaler) 2 puffs Q4H PRN INH 03/10/17 23:45 04/09/17 23:44 Ceftriaxone Sodium 2000 mg/ Dextrose 70 ml @ 100 mls/hr Q24H IV 03/11/17 08:00 04/22/17 07:59 03/15/17 07:50 100 MLS/HR Vancomycin HCl (Consult) 1 ea UD PRN N/A 03/11/17 08:15 04/10/17 08:14 Miscellaneous (Remove Lidoderm Patch) 1 ea DAILY@21 N/A 03/11/17 21:00 04/10/17 20:59 03/12/17 20:22 1 EA Vancomycin HCl 1250 mg/Sodium Chloride 275 ml @ 125 mls/hr Q14H IV 03/12/17 00:00 04/21/17 00:00 03/15/17 11:38 125 MLS/HR Ketorolac Tromethamine (Toradol Inj) 30 mg Q6H PRN IV 03/11/17 14:30 03/16/17 14:29 03/14/17 09:15 30 MG Lactobacillus Acidophilus (Floranex Tab) 4 tab TIDM PO 03/11/17 17:00 04/10/17 16:59 03/15/17 16:39 4 TAB Tramadol HCl (Ultram Tab) 50 mg Q4H PRN PO 03/11/17 14:45 04/10/17 14:44 03/12/17 15:37 50 MG Polyethylene (Miralax Powder Packet) 17 gm DAILY PO 03/13/17 09:00 04/12/17 08:59 03/14/17 07:49 17 GM Senna/Docusate Sodium (Senokot S Tab) 1 tab DAILY PRN PO 03/12/17 16:15 04/11/17 16:14 03/13/17 20:48 1 TAB Gabapentin (Neurontin Cap) 100 mg TID PO 03/12/17 21:00 04/11/17 20:59 03/15/17 21:14 100 MG Cyclobenzaprine HCl (Flexeril Tab) 10 mg TID PO 03/14/17 14:00 04/13/17 13:59 03/15/17 21:14 10 MG Naproxen (Naprosyn Tab) 375 mg BID PRN PO 03/14/17 18:45 04/13/17 18:44 03/15/17 21:16 375 MG Objective Vital Signs Date Time Temp Pulse Resp B/P (MAP) Pulse Ox O2 Delivery O2 Flow Rate FiO2 03/15/17 23:33 36.6 85 20 107/69 (82) 94 Room Air 03/15/17 20:00 95 Room Air 0.0 03/15/17 16:00 Room Air 03/15/17 15:06 36.5 83 18 97/63 (74) 95 Room Air 03/15/17 08:00 Room Air 03/15/17 07:53 92 124/84 (97) 03/15/17 07:29 36.7 78 16 105/73 (84) 96 Room Air 03/15/17 00:00 Room Air Physical Exam General Appearance: no apparent distress ENT: hearing grossly normal Respiratory/Chest: lungs clear, normal breath sounds, no respiratory distress, no accessory muscle use Cardiovascular: regular rate, rhythm, no edema, no murmur Laboratory Results Last 24 Hours Test 03/15/17 05:23 White Blood Count 7.46 K/uL Red Blood Count 4.07 M/uL Hemoglobin 11.6 g/dL Hematocrit 37.7 % Mean Corpuscular Volume 92.6 fL Mean Corpuscular Hemoglobin 28.5 pg Mean Corpuscular Hemoglobin Concent 30.8 g/dl Platelet Count 286 K/uL Mean Platelet Volume 9.0 fL Neutrophils (%) (Auto) 59.6 % Lymphocytes (%) (Auto) 24.7 % Monocytes (%) (Auto) 10.7 % Eosinophils (%) (Auto) 3.9 % Basophils (%) (Auto) 0.8 % Neutrophils # (Auto) 4.45 K/uL Lymphocytes # (Auto) 1.84 K/uL Monocytes # (Auto) 0.80 K/uL Eosinophils # (Auto) 0.29 K/uL Basophils # (Auto) 0.06 K/uL RDW Standard Deviation 43.6 fL RDW Coefficient of Variation 13.0 % Immature Granulocyte % (Auto) 0.3 % Immature Granulocyte # (Auto) 0.02 K/uL Sodium Level 143 mmol/L Potassium Level 4.4 mmol/L Chloride Level 110 mmol/L Carbon Dioxide Level 26 mmol/L Anion Gap 7.0 mmol/L Blood Urea Nitrogen 19 mg/dl Creatinine 0.72 mg/dl Est Creatinine Clear Calc Drug Dose 92.6 ml/min Estimated GFR () 107.7 Estimated GFR (Non- 93.0 BUN/Creatinine Ratio 25.7 Random Glucose 104 mg/dl Calcium Level 8.7 mg/dl Assessment and Plan UPPER BACK PAIN, LIKELY MYOFASCIAL PAIN SYNDROME 03/15 lumbar disc[address] plan to place PICC line in the AM Dapto and Rocephin long-term as per ID 03/14 possible discitis IV Vanco and Rocephin for now as per ID continue LSO brace, Flexeril and Gabapentin as per pain management cultures pending, final abx. recommendations pending - MRI Thoracic Spine: mild degenerative disc disease - Lidoderm patch, Toradol PRN, Tramadol PRN, Warm compress, PT/OT ordered patient states Flexeril has not been effective as outpatient -- added Gabapentin 100mg po TID -- pain improving -- patient declines Baclofen due to side effects -- appreciate Ortho and Pain Management SVC recommendations POSSIBLE L4-L5 DISCITIS - remains afebrile - blood cultures: negative so far - empiric Vanco + Ceftri IV Day 4 ID and Ortho consulted awaiting final recommendations HYPERTENSION Hemodynamically stable. Continue enalapril. ASTHMA Stable. Continue Advair + albuterol PRN. DEPRESSION / ANXIETY Continue escitalopram + alprazolam PRN. VTE PROPHYLAXIS Moderate risk for VTE. No anticoagulants pending surgical disposition. SCD's. Ambulate. RESUSCITATION STATUS = "Level 1" (full resuscitation). DISPOSITION Admit to Med-Surg Unit. Expected discharge to home when medically stable PCP is Dr. Bess with [facility]. Patient reports that Dr. Bess is leaving the practice soon and she will have to establish with a new PCP.
[2017-03-16] MEDS: VANCOMYCIN INJ 1,250 MG in SODIUM CHLORIDE 0.9% 250ML 250 ML IV SCH (01:38)
[2017-03-16 07:54] VITALS: BP 129/86; PULSE 84; TEMP 36.7; O2SAT 97
[2017-03-16] MEDS: POLYETHYLENE (MIRALAX) 17 GM PACK PO SCH (07:59)
[2017-03-16] MEDS: CYCLOBENZAPRINE HCL 10 MG TAB PO SCH ×3 (08:00→13:49)
[2017-03-16] MEDS: FLUTICASONE/SALMETEROL 100/50 (ADVAIR) 14 PUFF/1 INHALER INH SCH (08:00)
[2017-03-16] MEDS: NABUMETONE 500 MG TAB PO SCH (08:01)
[2017-03-16] MEDS: ENALAPRIL MALEATE 5 MG TAB PO SCH (08:02)
[2017-03-16] MEDS: LACTOBACILLUS ACIDOPHILUS (FLORANEX) TAB PO SCH ×2 (08:02→11:45)
[2017-03-16] MEDS: AMLODIPINE BESYLATE 5 MG TAB PO SCH (08:02)
[2017-03-16] MEDS: FAMOTIDINE 20 MG TAB PO SCH (08:03)
[2017-03-16] MEDS: FEXOFENADINE HCL 180 MG TAB PO SCH (08:03)
[2017-03-16] MEDS: GABAPENTIN 100 MG CAP PO SCH ×2 (08:03→13:46)
[2017-03-16] MEDS: NAPROXEN 375 MG TAB PO PRN (08:04)
[2017-03-16] MEDS: CEFTRIAXONE SOD INJ 2,000 MG in DEXTROSE 5% 50ML 50 ML IV SCH (08:05)
[2017-03-16 08:09] VITALS: O2SAT 97
[2017-03-16 08:12] LABS: BUN/CREATININE RATIO 21.3 (10-20); CALCIUM 9.3 mg/dl (8.5-10.1); CREATININE 0.79 mg/dl (0.60-1.20); POTASSIUM 4.1 mmol/L (3.5-5.1)
[2017-03-16 08:13] LABS: HEMATOCRIT 39.9 % (37-47); MEAN CELL VOLUME 93.4 fL (80-100); MEAN CORPUSCULAR HEMOGLOBIN 29.7 pg (25-34); MEAN CORPUSCULAR HGB CONC 31.8 g/dl (32-36); MEAN PLATELET VOLUME 10.2 fL (7.4-10.4); PLATELET COUNT 298 K/uL (130-400); RED BLOOD COUNT 4.27 M/uL (4.2-5.4); WHITE BLOOD COUNT 7.49 K/uL (4.8-10.8)
[2017-03-16 08:17] LABS: BASO % 0.8 %; BASO ABS # 0.06 K/uL (0-0.2); COMPLETE YES; EOS % 3.9 %; HYPERSEGMENTED POLYS 1+; IG% 0.3 %; LYMPH % 19.9 %; LYMPH ABS # 1.49 K/uL (1.2-3.4); MONO % 8.5 %; NEUT % 66.6 %; PLT ESTIMATE NORMAL; TOXIC GRANULATION 1+
[2017-03-16] MEDS ORDERED: CYCL10TA6 PO (10:24)
[2017-03-16] MEDS ORDERED: DAPT500I IV (10:24)
[2017-03-16] MEDS ORDERED: NRN100 PO (10:24)
[2017-03-16] MEDS ORDERED: CEFT2INJ40 IV (10:24)
[2017-03-16] MEDS ORDERED: NPR375 PO (10:24)
--- NOTE | 2017-03-16 10:36 | Progress Note ---
Subjective Date of Service: Mar 16, 2017. Subjective Pt evaluation today including: conversation w/ patient, physical exam, lab review, review of studies, review of inpatient medication list Saw/examined the patient in room 262 Doing well, back pain improved, no issues with that Able to ambulate; and pain controlled with pain medications Problem List Medical Problems: (1) Discitis Status: Acute (2) Hip pain, left Status: Acute Review of Systems Constitutional: No fever, No chills Respiratory: No shortness of breath Cardiac: No chest pain Abdomen: No pain, No nausea, No vomiting, No diarrhea Heme: No abnormal bleeding/bruising Medications Current Inpatient Medications Medications (Trade) Dose Ordered Sig/William Route Start Time Stop Time Status Last Admin Dose Admin Acetaminophen (Tylenol Tab) 650 mg Q4H PRN PO 03/10/17 21:45 04/09/17 21:44 Alprazolam (Xanax Tab) 0.5 mg TID PRN PO 03/10/17 23:45 04/09/17 23:44 Amlodipine Besylate (Norvasc Tab) 5 mg QAM PO 03/11/17 09:00 04/10/17 08:59 03/16/17 08:02 5 MG Enalapril Maleate (Vasotec Tab) 5 mg QAM PO 03/11/17 09:00 04/10/17 08:59 03/16/17 08:02 5 MG Escitalopram Oxalate (Lexapro Tab) 10 mg QPM PO 03/11/17 21:00 04/10/17 20:59 03/15/17 21:15 10 MG Famotidine (Pepcid Tab) 20 mg BID PO 03/11/17 09:00 04/10/17 08:59 03/16/17 08:03 20 MG Fexofenadine HCl (Shahida Tab) 180 mg QAM PO 03/11/17 09:00 04/10/17 08:59 03/16/17 08:03 180 MG Salmeterol Xinafoate/ Fluticasone (Advair Diskus 100/50 Inh) 1 puff BID INH 03/11/17 09:00 04/10/17 08:59 03/16/17 08:00 1 PUFF Montelukast Sodium (Singulair Tab) 10 mg QPM PO 03/11/17 21:00 04/10/17 20:59 03/15/17 21:14 10 MG Nabumetone (Relafen Tab) 500 mg BIDM PO 03/11/17 08:00 04/10/17 07:59 03/16/17 08:01 500 MG Oxycodone/ Acetaminophen (Percocet 5-325mg Tab) 1 tab Q4H PRN PO 03/10/17 23:45 03/24/17 23:44 03/11/17 01:00 1 TAB Pravastatin Sodium (Pravachol Tab) 20 mg QPM PO 03/11/17 21:00 04/10/17 20:59 03/15/17 21:14 20 MG Albuterol (Ventolin Hfa Inhaler) 2 puffs Q4H PRN INH 03/10/17 23:45 04/09/17 23:44 Ceftriaxone Sodium 2000 mg/ Dextrose 70 ml @ 100 mls/hr Q24H IV 03/11/17 08:00 04/22/17 07:59 03/16/17 08:05 100 MLS/HR Miscellaneous (Remove Lidoderm Patch) 1 ea DAILY@21 N/A 03/11/17 21:00 04/10/17 20:59 03/12/17 20:22 1 EA Ketorolac Tromethamine (Toradol Inj) 30 mg Q6H PRN IV 03/11/17 14:30 03/16/17 14:29 03/14/17 09:15 30 MG Lactobacillus Acidophilus (Floranex Tab) 4 tab TIDM PO 03/11/17 17:00 04/10/17 16:59 03/16/17 08:02 4 TAB Tramadol HCl (Ultram Tab) 50 mg Q4H PRN PO 03/11/17 14:45 04/10/17 14:44 03/12/17 15:37 50 MG Polyethylene (Miralax Powder Packet) 17 gm DAILY PO 03/13/17 09:00 04/12/17 08:59 03/14/17 07:49 17 GM Senna/Docusate Sodium (Senokot S Tab) 1 tab DAILY PRN PO 03/12/17 16:15 04/11/17 16:14 03/13/17 20:48 1 TAB Gabapentin (Neurontin Cap) 100 mg TID PO 03/12/17 21:00 10/25/17 20:59 03/16/17 08:03 100 MG Cyclobenzaprine HCl (Flexeril Tab) 10 mg TID PO 03/14/17 14:00 04/13/17 13:59 03/16/17 08:00 10 MG Naproxen (Naprosyn Tab) 375 mg BID PRN PO 03/14/17 18:45 04/13/17 18:44 03/16/17 08:04 375 MG Daptomycin 600 mg/ Sodium Chloride 62 ml @ 100 mls/hr Q24H IV 03/16/17 11:00 04/27/17 10:59 Objective Vital Signs Date Time Temp Pulse Resp B/P (MAP) Pulse Ox O2 Delivery O2 Flow Rate FiO2 03/16/17 08:09 97 Room Air 03/16/17 07:54 36.7 84 20 129/86 (100) 97 Room Air 03/16/17 00:00 95 Room Air 0.0 03/15/17 23:33 36.6 85 20 107/69 (82) 94 Room Air 03/15/17 20:00 95 Room Air 0.0 03/15/17 16:00 Room Air 03/15/17 15:06 36.5 83 18 97/63 (74) 95 Room Air Physical Exam General Appearance: no apparent distress Respiratory/Chest: lungs clear, normal breath sounds, no respiratory distress, no accessory muscle use Cardiovascular: regular rate, rhythm, no edema, no murmur Extremities: normal inspection, no pedal edema Neurologic/Psychiatric: no motor/sensory deficits, alert, normal mood/affect Laboratory Results Last 24 Hours Test 03/16/17 07:14 White Blood Count 7.49 K/uL Red Blood Count 4.27 M/uL Hemoglobin 12.7 g/dL Hematocrit 39.9 % Mean Corpuscular Volume 93.4 fL Mean Corpuscular Hemoglobin 29.7 pg Mean Corpuscular Hemoglobin Concent 31.8 g/dl Platelet Count 298 K/uL Mean Platelet Volume 10.2 fL Neutrophils (%) (Auto) 66.6 % Lymphocytes (%) (Auto) 19.9 % Monocytes (%) (Auto) 8.5 % Eosinophils (%) (Auto) 3.9 % Basophils (%) (Auto) 0.8 % Neutrophils # (Auto) 4.99 K/uL Lymphocytes # (Auto) 1.49 K/uL Monocytes # (Auto) 0.64 K/uL Eosinophils # (Auto) 0.29 K/uL Basophils # (Auto) 0.06 K/uL RDW Standard Deviation 44.2 fL RDW Coefficient of Variation 13.0 % Immature Granulocyte % (Auto) 0.3 % Immature Granulocyte # (Auto) 0.02 K/uL Nucleated RBC Absolute Count (auto) 0.05 K/uL Nucleated Red Blood Cells % 0.7 % Hypersegmented Polys 1+ Toxic Granulation 1+ Platelet Estimate NORMAL Sodium Level 140 mmol/L Potassium Level 4.1 mmol/L Chloride Level 107 mmol/L Carbon Dioxide Level 26 mmol/L Anion Gap 7.0 mmol/L Blood Urea Nitrogen 17 mg/dl Creatinine 0.79 mg/dl Est Creatinine Clear Calc Drug Dose 84.4 ml/min Estimated GFR () 96.3 Estimated GFR (Non- 83.1 BUN/Creatinine Ratio 21.3 Random Glucose 102 mg/dl Calcium Level 9.3 mg/dl Assessment and Plan UPPER BACK PAIN, LIKELY MYOFASCIAL PAIN SYNDROME 03/[address] PICC line in today Daptomycin 6mg/kg q24 hours Rocephin 2grams daily will do a 6 week course weekly CPK + LFTs 03/15 lumbar discitis plan to place PICC line in the AM Dapto and Rocephin long-term as per ID 03/14 possible discitis IV Vanco and Rocephin for now as per ID continue LSO brace, Flexeril and Gabapentin as per pain management cultures pending, final abx. recommendations pending - MRI Thoracic Spine: mild degenerative disc disease - Lidoderm patch, Toradol PRN, Tramadol PRN, Warm compress, PT/OT ordered patient states Flexeril has not been effective as outpatient -- added Gabapentin 100mg po TID -- pain improving -- patient declines Baclofen due to side effects -- appreciate Ortho and Pain Management SVC recommendations POSSIBLE L4-L5 DISCITIS - remains afebrile - blood cultures: negative so far - empiric Vanco + Ceftri IV Day 4 ID and Ortho consulted awaiting final recommendations HYPERTENSION Hemodynamically stable. Continue enalapril. ASTHMA Stable. Continue Advair + albuterol PRN. DEPRESSION / ANXIETY Continue escitalopram + alprazolam PRN. VTE PROPHYLAXIS Moderate risk for VTE. No anticoagulants pending surgical disposition. SCD's. Ambulate. RESUSCITATION STATUS = "Level 1" (full resuscitation). DISPOSITION Admit to Med-Surg Unit. Expected discharge to home when medically stable PCP is Dr. Bess with [facility]. Patient reports that Dr. Bess is leaving the practice soon and she will have to establish with a new PCP.
--- NOTE | 2017-03-16 10:49 | Discharge Instructions ---
Discharge Instructions Date of Service Mar 16, 2017. Admission Reason for Admission: Back Pain Discharge Discharge Diagnosis / Problem: Lumbar Discitis Discharge Goals Goal(s): Decrease discomfort, Improve function, Diagnostic testing, Therapeutic intervention Activity Recommendations Activity Limitations: resume your previous activity . Instructions / Follow-Up Instructions / Follow-Up Please follow-up with Jayla Chan on March 23 at 1:15PM * You will be on daptomycin 600mg daily, as well as Rocephin 2Grams daily (both antibiotics) for around 6 weeks * You will need weekly lab work while taking the daptomycin - CPK and LFTs ( blood work) * Please follow-up with Dr. Hyman, Infectious Disease Current Hospital Diet Patient's current hospital diet: AHA Diet (Heart Healthy) Discharge Diet Recommended Diet: AHA Diet (Heart Healthy) Pending Studies Studies pending at discharge: no Medical Emergencies . Who to Call and When: Medical Emergencies: If at any time you feel your situation is an emergency, please call 911 immediately. . Non-Emergent Contact Non-Emergency issues call your: Primary Care Provider, Specialist (Infectious Disease) . . "Provider Documentation" section prepared by Ralph Ch. . VTE Core Measure Inpt VTE Proph given/why not?: SCD's
--- NOTE | 2017-03-16 10:50 | Discharge Summary ---
Discharge Summary Date of Service Mar 16, 2017. Discharge Summary Admission Date: Mar 10, 2017 at 21:34 Discharge Date: Mar 16, 2017 Discharge Disposition: Home with services Principal Diagnosis: Lumbar Discitis Medication Reconciliation New Medications: Ceftriaxone Sodium (Ceftriaxone Sodium) 2 Gm Inj 2 GM IV DAILY for 45 Days, #45 ML Daptomycin (Daptomycin) 500 Mg Inj 600 MG IV Q24H for 45 Days, #54 ML Gabapentin (Gabapentin) 100 Mg Cap 100 MG PO TID for 30 Days, #90 CAP Naproxen (Naproxen) 375 Mg Tab 375 MG PO BID PRN for pain for 15 Days, #30 TAB Changed Medications: Cyclobenzaprine Hcl (Flexeril) 10 Mg Tab 1 TAB PO TID for 15 Days, #45 TAB (Changed from: Cyclobenzaprine HCl 5 Mg Tab 5 Mg PO TID PRN Muscle Spasms #30 ) Continued Medications: Albuterol Sulf (Proventil 0.083% 2.5MG/3ML) 2.5 Mg/3 Ml Nebu 2.5 MG INH Q4 PRN for Wheezing, EA Alprazolam (Alprazolam) 0.5 Mg Tab 0.5 MG PO TID PRN for Anxiety Amlodipine (Norvasc) 5 Mg Tab 5 MG PO QAM, TAB B-Complex W/ Folic Acid (Super B Complex Maxi) 1 Tab Tab 1 TAB PO DAILY Calcium Carbonate-Vitamin D (Calcium + D) 1 Tab Tab 1 TAB PO DAILY Cholecalciferol (Vitamin D3) 5,000 Unit Tab 5000 UNITS PO DAILY Enalapril (Vasotec) 5 Mg Tab 5 MG PO QAM, TAB Escitalopram Oxalate (Lexapro) 10 Mg Tab 10 MG PO QPM Famotidine (Pepcid) 20 Mg Tab 20 MG PO BID, TAB Fesoterodine Fumarate (Toviaz) 8 Mg Tab 1 TAB PO QAM for 30 Days Fexofenadine Hcl (Shahida) 180 Mg Tab 180 MG PO QAM, TAB Fluticasone Prop/Salmeterol (Advair Diskus 100/50 60 Dose) 1 Ea Aerp 1 PUFFS INH BID for 30 Days Krill Oil (Krill Oil) 1 Cap Cap 1 CAP PO DAILY Montelukast Sodium (Singulair) 10 Mg Tab 1 TAB PO QPM for 90 Days, #90 TAB 1 Refill Nabumetone (Relafen) 500 Mg Tab 500 MG PO BIDM, TAB Oxycodone/Acetaminophen 5MG/325MG (Percocet 5MG/325MG) Tab 1-2 TABLETS PO Q4H PRN for Pain, #14 TAB PAIN Pravastatin (Pravachol ) 20 Mg Tab 20 MG PO QPM, TAB [Proair HFA] () 2 PUFFS INH Q4 PRN for Wheezing Admission Information HPI (per Admitting provider): 56 YO female followed by Dr. Bess in [place]. History of hypertension, asthma, and other problems noted below. Developed left hip pain in September and was seen by Dr. Sol. Referred to Dr. Vega for pain management. MRI was obtained and injection (SI joint per patient) performed. Has been seeing a chiropractor for spine manipulation over the last 2 weeks. 3 days prior to admission she developed back pain and spasm. Pain located in lower thoracic and lumbar region. Lumbar pain is moderately severe and constant, sometimes radiating to the left groin and left anterior thigh. Pain worsened by activity and certain positions. Last evening she experienced urinary incontinence. Left leg feels weak when she stands from sitting position or climbs stairs. Tried Percocet and Flexeril without much benefit. No fever, chills, sweats. . Physical Exam (per Admitting): General Appearance: WD/WN, no apparent distress Head: normocephalic, atraumatic Eyes: normal inspection, PERRL, EOMI, sclerae normal, + pertinent finding ( conjunctivae pink) ENT: normal ENT inspection, hearing grossly normal, pharynx normal Neck: supple, no adenopathy, thyroid normal, trachea midline Respiratory/Chest: lungs clear, no respiratory distress, no accessory muscle use Cardiovascular: regular rate, rhythm, no edema, no gallop, no JVD, no murmur , normal peripheral pulses Abdomen/GI: normal bowel sounds, non tender, soft, no organomegaly, no pulsatile mass Back: + pertinent finding (tenderness over lower thoracic spine and lower lumbar spine; lumbar pain with left SLR) Extremities/Musculoskelatal: normal inspection, no calf tenderness, normal capillary refill, no pedal edema Neurologic/Psych: casing mixer II-XII nml as tested (PERRL, EOMI, no facial palsy, no dysarthria), alert, oriented x 3, + pertinent finding (mild proximal weakness LLE; plantar reflexes equivocally upgoing bilaterally) Skin: normal color, warm/dry, no rash Hospital Course UPPER BACK PAIN, LIKELY MYOFASCIAL PAIN SYNDROME 03/[address] PICC line in today Daptomycin 6mg/kg q24 hours Rocephin 2grams daily will do a 6 week course weekly CPK + LFTs 03/15 lumbar disc[address] plan to place PICC line in the AM Dapto and Rocephin long-term as per ID 03/14 possible discitis IV Vanco and Rocephin for now as per ID continue LSO brace, Flexeril and Gabapentin as per pain management cultures pending, final abx. recommendations pending - MRI Thoracic Spine: mild degenerative disc disease - Lidoderm patch, Toradol PRN, Tramadol PRN, Warm compress, PT/OT ordered patient states Flexeril has not been effective as outpatient -- added Gabapentin 100mg po TID -- pain improving -- patient declines Baclofen due to side effects -- appreciate Ortho and Pain Management SVC recommendations POSSIBLE L4-L5 DISCITIS - remains afebrile - blood cultures: negative so far - empiric Vanco + Ceftri IV Day 4 ID and Ortho consulted awaiting final recommendations HYPERTENSION Hemodynamically stable. Continue enalapril. ASTHMA Stable. Continue Advair + albuterol PRN. DEPRESSION / ANXIETY Continue escitalopram + alprazolam PRN. VTE PROPHYLAXIS Moderate risk for VTE. No anticoagulants pending surgical disposition. SCD's. Ambulate. RESUSCITATION STATUS = "Level 1" (full resuscitation). DISPOSITION Admit to Med-Surg Unit. Expected discharge to home when medically stable PCP is Dr. Bess with [facility]. Patient reports that Dr. Bess is leaving the practice soon and she will have to establish with a new PCP. Total time spent on discharge = 50 minutes This includes examination of the patient, discharge planning, medication reconciliation, and communication with other providers. Discharge Instructions Please follow-up with Jayla Chan on March 23 at 1:15PM * You will be on daptomycin 600mg daily, as well as Rocephin 2Grams daily (both antibiotics) for around 6 weeks * You will need weekly lab work while taking the daptomycin - CPK and LFTs ( blood work) * Please follow-up with Dr. Hyman, Infectious Disease
[2017-03-16] MEDS ORDERED: DAPTOmycin IV 600 MG in SODIUM CHLORIDE 0.9% 50ML 50 ML IV SCH (11:00)
[2017-03-16 12:08] VITALS: BP 129/86; PULSE 84; TEMP 36.7; O2SAT 97
== END 2017-03-16 14:15 | disposition home health service (06) | DRG 541 ==
LOC: C.EDB 15:28 → C.MS2W 21:34 → ENRESERV 22:17
PROVIDERS: ADMIT Hospitalist; ATTEND Family Medicine
DX: M46.20 Osteomyelitis of vertebra, site unspecified (principal); M46.46 Discitis, unspecified, lumbar region; M79.1 Myalgia; I10 Essential (primary) hypertension; E78.00 Pure hypercholesterolemia, unspecified; F32.9 Major depressive disorder, single episode, unspecified; F41.9 Anxiety disorder, unspecified; J45.909 Unspecified asthma, uncomplicated; Z79.899 Other long term (current) drug therapy; Z87.891 Personal history of nicotine dependence

== ENCOUNTER → 2017-05-14 | Outpatient (CLI) | payer BC ==
[~2017-05-14] MED LIST changes: +ALBINS/ INH; +CALC600T9 PO; +CEFT2INJ40 IV; +CHOL1TAB46 PO; +DAPT500I IV; -FLX/5 PO; +GADAVIST IV PRN; -KFL500HP PO; +NABU500T3 PO; -NAPR500T3 PO; -NF656 TD; +NPR375 PO; +NRN100 PO; -OXYC-57 PO; +Proair HFA INH
--- NOTE | 2017-05-14 19:47 | DIAGNOSTIC IMAGING REPORT ---
LUMBAR SPINE COMBINATION CLINICAL HISTORY: 56 years-old Female presenting with LUMBAR SPINE OSTEOMYELITIS. TECHNIQUE: Multisequence, multiplanar MR imaging of the lumbar spine was performed before and after the administration of intravenous contrast. IV contrast: 9 mL of Gadavist. COMPARISON: 03/10/2017. FINDINGS: Localizer images: Unremarkable. Levoscoliotic curvature centered at L2-3. Otherwise normal lumbar lordosis. Vertebral bodies maintain normal height and alignment. Persistent left eccentric bone marrow edema at the L4-5 endplates with minimal fluid signal intensity within the L4-5 disc space. This appearance is unchanged from prior exam. Associated enhancement on postcontrast imaging. No significant paraspinal inflammatory change. No associated fluid collection or epidural inflammation. Very degrees of disc height loss and desiccation noted diffusely throughout the lumbar spine. Multilevel degenerative changes again noted further detailed below: L1 to: Mild disc bulge without significant neural foraminal or spinal canal narrowing. L2-3: Mild disc bulge without significant spinal canal or neural foraminal narrowing. L3-4: Mild disc bulge eccentrically on the left in combination with facet arthropathy and ligamentum flavum thickening results in mild effacement of the anterior thecal sac and left lateral recess. This may abut the transiting left L4 nerve root. Mild left neural foraminal narrowing. L4-5: Mild disc bulge with facet arthropathy and ligamentum flavum thickening result in mild right and moderate left neural foraminal narrowing as well as mild circumferential effacement of the thecal sac. L5-S1: Left eccentric disc bulge results in effacement of the far lateral left neural foramen as well as the left lateral recess. In combination with facet arthropathy, mild right and moderate left neural foraminal narrowing results. There is mass effect on the exiting left L5 nerve root. 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 Paraspinal soft tissues within normal limits. Spinal cord ends in good position at at L1. Cauda equina normal in morphology. No abnormal enhancement on postcontrast imaging. IMPRESSION: 1. Persistent mild bony edema at the L4-5 disc space eccentrically on the left with similar degree of fluid signal within the L4-5 disc space. This is likely degenerative in etiology given the lack of progression since the prior exam and, more importantly, the lack of paraspinal inflammatory change. 2. Multilevel degenerative changes as detailed above. Notably, this includes abutment of the transiting left L4 nerve root and mass effect on the exiting left L5 nerve root secondary to degenerative change. Varying degrees of neural foraminal narrowing as detailed above. Electronically signed by: Fco Ulloa M.D. 05/14/2017 7:45 PM Dictated Date/Time: 05/14/2017 7:36 PM
== END | disposition home or self-care (01) ==
LOC: C.MRI 17:40
PROVIDERS: ATTEND Internal Medicine Infectious Disease
DX: M46.46 Discitis, unspecified, lumbar region (principal); M46.26 Osteomyelitis of vertebra, lumbar region; M51.36 Other intervertebral disc degeneration, lumbar region; M48.061 Spinal stenosis, lumbar region without neurogenic claudication

== ENCOUNTER → 2017-06-01 | Outpatient (CLI) | payer BC ==
[~2017-06-01] MED LIST changes: -GADAVIST IV PRN
[2017-06-01 10:41] LABS: BASO % 1.4 %; BASO ABS # 0.09 K/uL (0-0.2); COMPLETE YES; EOS % 5.3 %; HEMATOCRIT 38.5 % (37-47); LYMPH % 24.7 %; LYMPH ABS # 1.59 K/uL (1.2-3.4); MEAN CELL VOLUME 91.2 fL (80-100); MEAN CORPUSCULAR HEMOGLOBIN 29.6 pg (25-34); MEAN CORPUSCULAR HGB CONC 32.5 g/dl (32-36); MEAN PLATELET VOLUME 9.6 fL (7.4-10.4); MONO % 8.9 %; NEUT % 59.7 %; PLATELET COUNT 282 K/uL (130-400); RED BLOOD COUNT 4.22 M/uL (4.2-5.4); WHITE BLOOD COUNT 6.43 K/uL (4.8-10.8)
[2017-06-01 11:08] LABS: ALT/SGPT 26 U/L (12-78); AST/SGOT 21 U/L (15-37); BLOOD UREA NITROGEN 14 mg/dl (7-18); BUN/CREATININE RATIO 17.2 (10-20); C-REACTIVE PROTEIN 1.56 mg/dl (0-0.29); CARBON DIOXIDE 25 mmol/L (21-32); CHLORIDE 106 mmol/L (98-107); CREATININE 0.82 mg/dl (0.60-1.20); GLUCOSE 90 mg/dl (70-99); SODIUM 137 mmol/L (136-145)
[2017-06-01 11:10] LABS: ALB/GLOB RATIO 0.9 (0.9-2); ALKALINE PHOSPHATASE 105 U/L (45-117)
== END | disposition home or self-care (01) ==
LOC: C.LAB1850 09:41
PROVIDERS: ATTEND Internal Medicine Infectious Disease
DX: M46.46 Discitis, unspecified, lumbar region (principal)

== ENCOUNTER → 2017-07-06 | Outpatient (CLI) | payer BC ==
[2017-07-06 10:08] LABS: BASO % 1.1 %; BASO ABS # 0.06 K/uL (0-0.2); COMPLETE YES; EOS % 2.6 %; EOS ABS # 0.15 K/uL (0-0.5); HEMATOCRIT 39.8 % (37-47); LYMPH % 31.3 %; LYMPH ABS # 1.78 K/uL (1.2-3.4); MEAN CELL VOLUME 90.9 fL (80-100); MEAN CORPUSCULAR HEMOGLOBIN 29.7 pg (25-34); MEAN CORPUSCULAR HGB CONC 32.7 g/dl (32-36); MEAN PLATELET VOLUME 9.7 fL (7.4-10.4); MONO % 8.1 %; MONO ABS # 0.46 K/uL (0.11-0.59); NEUT % 56.9 %; NEUT ABS # 3.23 K/uL (1.4-6.5); PLATELET COUNT 312 K/uL (130-400); RED BLOOD COUNT 4.38 M/uL (4.2-5.4); RED CELL DISTRIBUTION WIDTH CV 13.5 % (11.5-14.5); RED CELL DISTRIBUTION WIDTH SD 44.9 fL (36.4-46.3); WHITE BLOOD COUNT 5.68 K/uL (4.8-10.8)
[2017-07-06 10:23] LABS: ALBUMIN 3.6 gm/dl (3.4-5.0); ALT/SGPT 23 U/L (12-78); AST/SGOT 17 U/L (15-37); BLOOD UREA NITROGEN 12 mg/dl (7-18); BUN/CREATININE RATIO 14.7 (10-20); C-REACTIVE PROTEIN 0.81 mg/dl (0-0.29); CALCIUM 9.3 mg/dl (8.5-10.1); CARBON DIOXIDE 25 mmol/L (21-32); CHLORIDE 105 mmol/L (98-107); CREATININE 0.79 mg/dl (0.60-1.20); EstGFR CKD-E AfrAm 96.3; EstGFR CKD-E NON AfrAm 83.1; POTASSIUM 4.2 mmol/L (3.5-5.1); SODIUM 137 mmol/L (136-145)
[2017-07-06 10:23] LABS: GLUCOSE 95 mg/dl (70-99)
[2017-07-06 10:24] LABS: ALB/GLOB RATIO 0.9 (0.9-2); ALKALINE PHOSPHATASE 91 U/L (45-117); TOTAL PROTEIN 7.5 gm/dl (6.4-8.2)
[2017-07-06 10:30] LABS: ERYTHROCYTE SEDIMENTATION RATE 22 mm/hr (0-21)
== END | disposition home or self-care (01) ==
LOC: C.LAB1850 09:12
DX: M46.46 Discitis, unspecified, lumbar region (principal)

== ENCOUNTER → 2017-10-12 | Outpatient (CLI) | payer BC ==
[2017-10-12 12:37] LABS: BASO % 0.7 %; BASO ABS # 0.04 K/uL (0-0.2); EOS % 3.4 %; EOS ABS # 0.19 K/uL (0-0.5); HEMATOCRIT 40.1 % (37-47); HEMOGLOBIN 12.7 g/dL (12.0-16.0); IG# 0.01 K/uL (0.00-0.02); LYMPH % 26.3 %; LYMPH ABS # 1.47 K/uL (1.2-3.4); MEAN CORPUSCULAR HEMOGLOBIN 29.5 pg (25-34); MEAN CORPUSCULAR HGB CONC 31.7 g/dl (32-36); MEAN PLATELET VOLUME 9.6 fL (7.4-10.4); MONO % 9.6 %; MONO ABS # 0.54 K/uL (0.11-0.59); NEUT % 59.8 %; NEUT ABS # 3.35 K/uL (1.4-6.5); PLATELET COUNT 301 K/uL (130-400); RED CELL DISTRIBUTION WIDTH CV 13.2 % (11.5-14.5); RED CELL DISTRIBUTION WIDTH SD 45.2 fL (36.4-46.3)
[2017-10-12 12:50] LABS: ALBUMIN 3.9 gm/dl (3.4-5.0); ALT/SGPT 30 U/L (12-78); AST/SGOT 24 U/L (15-37); BLOOD UREA NITROGEN 11 mg/dl (7-18); CALCIUM 9.1 mg/dl (8.5-10.1); CARBON DIOXIDE 24 mmol/L (21-32); GLUCOSE 91 mg/dl (70-99); POTASSIUM 4.1 mmol/L (3.5-5.1); SODIUM 138 mmol/L (136-145)
[2017-10-12 12:52] LABS: ALKALINE PHOSPHATASE 104 U/L (45-117); TOTAL PROTEIN 7.5 gm/dl (6.4-8.2)
== END | disposition home or self-care (01) ==
LOC: C.LAB1850 09:20
PROVIDERS: ATTEND Internal Medicine Infectious Disease
DX: M46.46 Discitis, unspecified, lumbar region (principal)

== ENCOUNTER → 2017-10-25 | Outpatient (CLI) | payer BC ==
[~2017-10-25] MED LIST changes: +GADAVIST IV PRN
--- NOTE | 2017-10-25 10:06 | DIAGNOSTIC IMAGING REPORT ---
MRI LUMBAR SPINE COMBINATION CLINICAL HISTORY: M46.46 Lumbar [id number] Osteomyelitis of lumbar spine TECHNIQUE: Sagittal and axial T1, T2 and STIR images were obtained. Images were acquired before and after the administration of 9.5 cc of intravenous Gadavist. COMPARISON STUDY: 05/14/2017 OBSERVATIONS: There are no areas of marrow edema to indicate neoplasm or osteomyelitis. Degenerative endplate signal changes are present at the L4-5 level. L1-2: There is a minimal circumferential disc bulge. There is no significant spinal or foraminal stenosis L2-3: There is a circumferential disc bulge with mild triangular spinal stenosis. There is no significant foraminal narrowing L3-4: There is a circumferential disc bulge with mild triangular spinal stenosis. There is no significant foraminal narrowing L4-5: There is a circumferential disc bulge. There is a slight triangular configuration of the thecal sac. There is facet joint arthropathy. There is no significant foraminal narrowing L5-S1: There is a broad-based central disc protrusion. This abuts the S1 nerve roots. There is minor bilateral foraminal narrowing. There are no paraspinal inflammatory changes. 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 The conus medullaris and cauda equina appear normal. IMPRESSION: 1. No MRI evidence of osteomyelitis 2. Multilevel spondylitic changes with mild spinal stenosis at the L2-3, L3-4, and L4-5 levels. 3. Small Broad-based central disc protrusion at the L5-S1 level. This abuts the S1 nerve roots. Electronically signed by: Lance Lcuiano M.D. 10/25/2017 10:05 AM Dictated Date/Time: 10/25/2017 9:59 AM
== END | disposition home or self-care (01) ==
LOC: C.MRIBC 08:42
PROVIDERS: ATTEND Internal Medicine Infectious Disease
DX: M46.46 Discitis, unspecified, lumbar region (principal); M46.26 Osteomyelitis of vertebra, lumbar region

== ENCOUNTER 2018-09-19 06:52 | Inpatient (IN) ==
--- NOTE | 2018-09-02 16:38 | PAT Medication Instructions ---
Medication Instructions Date of Service September 02, 2018 Home Medications albuterol sulfate 0.63 mg INHALATION QID PRN albuterol sulfate [ProAir HFA] 2 puff INHALATION QID PRN alprazolam 0.5 mg PO TID PRN amlodipine 5 mg PO QAM amoxicillin 500 mg PO UD calcium carbonate-vitamin D3 1 tab PO BID cholecalciferol (vitamin D3) 5,000 unit PO QAM enalapril maleate [Vasotec] 5 mg PO QAM escitalopram oxalate 10 mg PO QPM famotidine 20 mg PO BID fesoterodine [Toviaz] 8 mg PO QAM fexofenadine 180 mg PO QAM fluticasone propion-salmeterol 1 puff INHALATION BID krill oil 1 cap PO QAM montelukast 10 mg PO PM nabumetone 500 mg PO BID rosuvastatin [Crestor] 5 mg PO QPM vitamin B complex 1 cap PO QAM Continue as directed amoxicillin 500 mg PO UD ASK your surgeon for instructions nabumetone 500 mg PO BID STOP taking 2 weeks before surgery (or as soon as possible if surgery is within 2 weeks) krill oil 1 cap PO QAM DO NOT take the morning of surgery calcium carbonate-vitamin D3 1 tab PO BID cholecalciferol (vitamin D3) 5,000 unit PO QAM enalapril maleate [Vasotec] 5 mg PO QAM famotidine 20 mg PO BID vitamin B complex 1 cap PO QAM Take morning of surgery With a small sip of water, OTHERWISE NOTHING TO EAT OR DRINK AFTER MIDNIGHT: albuterol sulfate 0.63 mg INHALATION QID PRN (use if needed; please bring with you to hospital day of surgery if possible) albuterol sulfate [ProAir HFA] 2 puff INHALATION QID PRN (if needed) alprazolam 0.5 mg PO TID PRN (if needed) amlodipine 5 mg PO QAM fesoterodine [Toviaz] 8 mg PO QAM fexofenadine 180 mg PO QAM fluticasone propion-salmeterol 1 puff INHALATION BID Take evening before surgery albuterol sulfate 0.63 mg INHALATION QID PRN (if needed) albuterol sulfate [ProAir HFA] 2 puff INHALATION QID PRN (if needed) alprazolam 0.5 mg PO TID PRN (if needed) calcium carbonate-vitamin D3 1 tab PO BID escitalopram oxalate 10 mg PO QPM famotidine 20 mg PO BID fluticasone propion-salmeterol 1 puff INHALATION BID montelukast 10 mg PO PM rosuvastatin [Crestor] 5 mg PO QPM Other Notes If you have any questions please call us at [phone] or [phone] or [phone] or [phone]
--- NOTE | 2018-09-03 10:34 | Anesthesiology Consultation ---
Date of Service September 03, 2018 Assessment & Plan (1) Encounter for pre-operative examination: - PCP= 09/11/18= "cleared to proceed with surgery." Chart Review Chart Review: Acceptable Risk for Surgery and Patient seen in Pre Admission Testing Teaching & Discussion Pre-Anesthesia Teaching/Discussion Notes: Instructed NPO after midnight before surgery,except medications with 15 cc of water. Medication instructions provided according to the PAT guidelines. History Surgery Operation Date: 09/19/18 08:15 Proposed Procedures p Left Total Knee Arthroplasty - Bran Sol MD Height/Weight Height: 5 ft 2 in Weight: 93.6 kg Allergies Allergy/AdvReac Type Severity Reaction Status Date / Time No Known Allergies Allergy Verified 09/02/18 09:34 Medications Home Medications Medication Instructions Recorded Confirmed Last Taken albuterol sulfate 0.63 mg INHALATION QID PRN 09/02/18 09/02/18 Unknown albuterol sulfate [ProAir HFA] 2 puff INHALATION QID PRN 09/02/18 09/02/18 Unknown alprazolam 0.5 mg PO TID PRN 09/02/18 09/02/18 Unknown amlodipine 5 mg PO QAM 09/02/18 09/02/18 Unknown amoxicillin 500 mg PO UD 09/02/18 09/02/18 Unknown calcium carbonate-vitamin D3 1 tab PO BID 09/02/18 09/02/18 Unknown [Calcium 500 + D] cholecalciferol (vitamin D3) 5,000 unit PO QAM 09/02/18 09/02/18 Unknown [Vitamin D3] enalapril maleate [Vasotec] 5 mg PO QAM 09/02/18 09/02/18 Unknown escitalopram oxalate 10 mg PO QPM 09/02/18 09/02/18 Unknown famotidine 20 mg PO BID 09/02/18 09/02/18 Unknown fesoterodine [Toviaz] 8 mg PO QAM 09/02/18 09/02/18 Unknown fexofenadine 180 mg PO QAM 09/02/18 09/02/18 Unknown fluticasone propion-salmeterol 1 puff INHALATION BID 09/02/18 09/02/18 Unknown [Advair Diskus] krill oil 1 cap PO QAM 09/02/18 09/02/18 Unknown montelukast 10 mg PO PM 09/02/18 09/02/18 Unknown nabumetone 500 mg PO BID 09/02/18 09/02/18 Unknown rosuvastatin [Crestor] 5 mg PO QPM 09/02/18 09/02/18 Unknown vitamin B complex 1 cap PO QAM 09/02/18 09/02/18 Unknown Past Medical History Medical History Asthma STABLE GERD (gastroesophageal reflux disease) CONTROLLED Hyperlipidemia Hypertension Obesity Osteoarthritis Past Surgical History Surgical History History of appendectomy History of bilateral tubal ligation History of cataract extraction with lens replacement B/L History of section History of foot surgery HEEL SURGERY FOR BONE SPUR History of total knee replacement RIGHT= SAB X 2 ATTEMPTS AT L3-L4 + PNB AT [facility] Past Anesthesia History No Family Hx of Anesthesia Complications and Other Awareness x 1 episode with Right TKA. History of PONV Yes (X1 EPISODE WITH APPE) Motion Sickness Screening History of Motion Sickness: No Social History Smoking Status: Former smoker tobacco type: cigarettes Smoking cigarettes per day: QUIT 30 YEARS AGO, HX OF SOCIAL USE Do You Dip or Chew Tobacco: No Hx Alcohol Use: No Hx Substance Use: No substance use type: does not use Exercise / Class Metabolic Activity III < 4 Walking/Shop/Light housework Review of Systems Patient denies chest pain, shortness of breath, cough, wheezing, palpitations. Physical Exam Vital Signs VITALS BP 144/86 P 91 TEMP 97.9 SP02 98%RA RESP 16 PHYSICAL Full neck and c-spine range of motion. Full TMJ range of motion. TMD 2.5 finger breaths Mallampati Score 2 Dentition: missing molar, upper front caps Lungs: clear throughout to auscultation Cardiac: regular rate and rhythm, no murmurs noted Spine: normal Carotid arteries: negative bruit Extremities: no edema Testing Electrocardiogram Date: 09/03/18 Findings: + NSR @ (88) Chest X-Ray Date: 09/03/18 Findings: + NAD Calcification the thoracic aortic arch. There is no pneumothorax, pleural effusion, focal airspace consolidation or overt pulmonary edema. There is mild right hemidiaphragm elevation. Laboratory Results 09/03/18 11:01 09/03/18 11:01 Blood Type O Positive 09/03/18 11:01 Antibody Screen NEGATIVE 09/03/18 11:01 PT 10.5 Seconds (9.0-12.0) 09/03/18 11:01 INR 1.0 (0.9-1.1) 09/03/18 11:01 APTT 28.2 Seconds (21.0-31.0) 09/03/18 11:01 Hemoglobin A1c 6.1 % (4.5-5.6) H 09/03/18 11:01 Urine Color Dark Yellow 09/03/18 11:01 Urine Appearance Clear (Clear) 09/03/18 11:01 Urine pH 5.5 (4.5-7.5) 09/03/18 11:01 Ur Specific Mcgill 1.014 (1.000-1.030) 09/03/18 11:01 Urine Protein Negative (Negative) 09/03/18 11:01 Urine Glucose (UA) Negative (Negative) 09/03/18 11:01 Urine Ketones Negative (Negative) 09/03/18 11:01 Urine Nitrite Negative (Negative) 09/03/18 11:01 Ur Leukocyte Esterase Negative (Negative) 09/03/18 11:01 09/03/18 11:01 Urine Culture - Final Urine,Clean Catch Corynbact.sp not urealyticum No sensitivities to follow per urine culture report*
--- NOTE | 2018-09-03 11:38 | XRay Report ---
XR chest Pre-admission PA/Lat HISTORY: 57 years-old Female pat preoperative exam. No acute chest complaints COMPARISON: None available TECHNIQUE: PA and lateral views of the chest FINDINGS: Cardiac mediastinal and hilar silhouettes are within normal limits. Calcification the thoracic aortic arch. There is no pneumothorax, pleural effusion, focal airspace consolidation or overt pulmonary ed tom. There is mild right hemidiaphragm elevation. Degenerative changes are seen about the shoulders a nd spine. IMPRESSION: No acute process. The above report was generated using voice recognition software. It may contain grammatical, syntax o r spelling errors. Electronically signed by: Kenney Mcbride M.D. 09/03/2018 11:37 AM
[2018-09-03 12:01] LABS: Basophils # (auto) 0.05 K/uL (0-0.2); Basophils % (auto) 0.6 %; Eosinophils # (auto) 0.22 K/uL (0-0.5); Eosinophils % (auto) 2.6 %; Hematocrit (blood only) 41.7 % (37-47); Hemoglobin 13.1 g/dL (12.0-16.0); Immature Granulocytes # (auto) 0.01 K/uL (0.00-0.02); Immature Granulocytes % (auto) 0.1 %; Lymphocytes # (auto) 2.26 K/uL (1.2-3.4); Mean Corpuscular Hgb Conc 31.4 g/dL (32-36); Mean Corpuscular Volume 93.5 fL (80-100); Mean Platelet Volume 9.7 fL (7.4-10.4); Monocytes # (auto) 0.44 K/uL (0.11-0.59); Monocytes % (auto) 5.3 %; Neutrophils % (auto) 64.4 %; Platelet Count 295 K/uL (130-400); RDW Coefficient of Variation 13.2 % (11.5-14.5); RDW Standard Deviation 45.2 fL (36.4-46.3); Red Blood Count 4.46 M/uL (4.2-5.4); White Blood Count 8.38 K/uL (4.8-10.8)
[2018-09-03 12:02] LABS: Appearance Urine Clear (Clear); Bilirubin Urine Negative (Negative); Blood Urine Negative (Negative); Color Urine Dark Yellow; Glucose Urine UA Negative (Negative); Ketones Urine Negative (Negative); Leukocyte Esterase Urine Negative (Negative); Nitrite Urine Negative (Negative); Protein Urine Negative (Negative); Specific Gravity Urine 1.014 (1.000-1.030); Urobilinogen Urine Negative (Negative); pH Urine 5.5 (4.5-7.5)
[2018-09-03 12:08] LABS: Albumin Level 3.6 gm/dl (3.4-5.0); BUN Creatinine Ratio 18.1 (10-20); Calcium 9.1 mg/dl (8.5-10.1); Creatinine Clr Calc Pharmacy 84.9 ml/min; Est GFR (African American) 98.6; Est GFR (Non-African American) 85.1; Potassium 4.1 mmol/L (3.5-5.1)
[2018-09-03 12:14] LABS: Partial Thromboplastin Time 28.2 Seconds (21.0-31.0); Prothrombin Time 10.5 Seconds (9.0-12.0)
[2018-09-03 12:23] LABS: Estimated Average Glucose 128 mg/dl; Hemoglobin A1C 6.1 % (4.5-5.6)
--- NOTE | 2018-09-18 15:57 | History and Physical Report ---
DATE OF ADMISSION: 09/19/2018 CHIEF COMPLAINT: Left knee pain. HISTORY OF PRESENT ILLNESS: The patient is a 57-year-old female with known osteoarthritis about her left knee. She has had a previous successful right total knee arthroplasty. She has had several previous corticosteroid injections about the left knee with minimal relief. She has known osteoarthritic changes on her x-rays. She has pain with prolonged weightbearing and standing activities. She has pain and difficulty with any kneeling, bending, or squatting activities. She has pain with work related activities. Due to ongoing pain and disability, she now desires to proceed with left total knee arthroplasty. PAST MEDICAL HISTORY: Hypertension, hypercholesterolemia, depression, asthma, acid reflux, obesity. PAST SURGICAL HISTORY: Right total knee arthroplasty, , appendectomy, heel surgery. MEDICATIONS: Proventil inhalation q. 4 hours p.r.n., Norvasc 5 mg daily, Vasotec 5 mg daily, Lexapro 10 mg daily, Advair Diskus one inhalation twice daily, Singulair 10 mg at bedtime, Relafen 500 mg twice daily, Pepcid 20 mg twice daily, Crestor 5 mg daily, Toviaz 8 mg daily, Premarin vaginal cream, ProAir 2 puffs q. 4 hours p.r.n., Krill oil omega 3 daily, vitamin D3 5000 units daily, Shahida daily, super B complex daily, calcium plus D daily, Xanax 0.5 mg t.i.d. p.r.n. anxiety. ALLERGIES: SEASONAL. SOCIAL HISTORY AND REVIEW OF SYSTEMS: Noncontributory. PHYSICAL EXAMINATION: GENERAL: Well-nourished, well-developed female who appears stated age. HEENT: Normocephalic, atraumatic. Extraocular movements intact, oropharynx pink and moist. NECK: Supple without adenopathy. LUNGS: Clear to auscultation bilaterally. HEART: Regular rate and rhythm. ABDOMEN: Soft, nontender, nondistended, obese. EXTREMITIES: The upper extremities are within normal limits. Left knee has neutral alignment. She complains primarily of medial compartment pain. Her range of motion is from 0-120 degrees. X-RAYS: X-rays were reviewed. She has near bone on bone arthritis of the medial compartment. There is an osteochondral lesion in the medial femoral condyle. Medial joint line osteophytes. She also has degenerative change about the patellofemoral joint. ASSESSMENT: Left knee degenerative joint disease. PLAN: Risks versus benefits were discussed. Consent was obtained. The patient's primary care physician is Jayla Chan PA-C. Will proceed with left total knee arthroplasty as indicated.
[~2018-09-19 06:52] MED LIST changes: +ACETAMINOPHEN 500 MG TAB PO SCH; -ADVIN10/60 INH; -ALBINS/ INH; -ALPR-411 PO; -AMLO-110 PO; -B-CO-25 PO; +BUPIVACAINE 0.5 % 5 MG/1 ML PF 10ML VIAL ONE; -CALC600T9 PO; +CEFAZOLIN 2000MG 2,000 MG/15 ML SYR IV SCH; -CEFT2INJ40 IV; -CHOL1TAB46 PO; +CeleBREX 200 MG CAP PO SCH; -DAPT500I IV; -ENAL5TAB83 PO; -FAMO20TA11 PO; +FAMOTIDINE 20 MG TAB PO SCH; -FESO8TAB PO; -FEXO1TAB46 PO; +GABAPENTIN 300 MG PO SCH; -GADAVIST IV PRN; -KRIL1000 PO; +LR 500ML BOLUS, THEN 15ML/HR IV SCH; -LXP/10 PO; -MONT1TAB3 PO; -NABU500T3 PO; -NPR375 PO; -NRN100 PO; -PRAV20TA PO; -Proair HFA INH; +ROPIVACAINE 0.5% 5 MG/ML 30 ML VIAL ONE; +ROPIVACAINE 0.5% HCL/PF 150 MG, BUPIVACAINE 0.5% MPF 30 ML, EPINEPHrine 30MG/30ML (OR U... INFIL SCH; +TRANEXAMIC ACID 1,000 MG **IV Intra-op IV SCH; +TRANEXAMIC ACID 1,000 MG **IV Pre-op IV SCH; +dexAMETHasone 4 MG TAB PO SCH
[2018-09-19] MEDS ORDERED: LIDOCAINE HCL 2% 2 ML VIAL/AMP(20MG/ML) INFIL ONE (07:47)
[2018-09-19] MEDS ORDERED: fentaNYL citrate 100 MCG/2 ML VIAL ONE (07:47)
[2018-09-19] MEDS ORDERED: PROPOFOL IV EMULSION 10 MG/ML 20 ML VIAL IV ONE (07:47)
[2018-09-19] MEDS ORDERED: MIDAZOLAM HCL 1 MG/ML 2ML VIAL ONE ×2 (07:47→09:28)
[2018-09-19] MEDS ORDERED: BACITRACIN INJ 50,000 UNIT VIAL ONE (07:55)
[2018-09-19] MEDS ORDERED: POVIDONE-IODINE OP SOLN 30 ML BTL ONE (07:55)
--- NOTE | 2018-09-19 08:06 | History & Physical Bridge Note ---
Date of Service September 19, 2018 History & Physical Bridge Note I have examined the patient, reviewed the History & Physical and in the interval since the performance of the History & Physical I have noted the following changes of clinical significance: no changes noted
[2018-09-19] MEDS ORDERED: ePHEDrine sulfate 50 MG/ML AMP IV PRN (09:25)
[2018-09-19] MEDS ORDERED: KETOROLAC 30 MG/ML VIAL IV PRN (09:25)
[2018-09-19] MEDS ORDERED: HYDROmorphone INJ 1 MG/ML SYRINGE IV PRN (09:25)
[2018-09-19] MEDS ORDERED: ATROPINE SULFATE 0.1 MG/ML 10ML SYR IV PRN (09:25)
[2018-09-19] MEDS ORDERED: ONDANSETRON INJ 2 MG/ML 2 ML VIAL IV PRN ×2 (09:25→13:09)
[2018-09-19] MEDS ORDERED: PHENYLEPHRINE 100MCG/ML 5ML SYR IV PRN (09:25)
[2018-09-19] MEDS: ORTHO JOINT ANESTHETIC ONE ×2 (09:58→14:15)
--- NOTE | 2018-09-19 10:25 | Operative Report ---
Post Operative Report Pre & Post Diagnosis Operation Date: 09/19/18 09:35 Pre-Op Diagnosis: Left Knee Osteoarthritis Post-Op Diagnosis: Left Knee Osteoarthritis Procedure Operation Date: 09/19/18 09:35 Actual Procedures p Left Total Knee Arthroplasty(Left) - Bran Sol MD Surgeon Bran Sol MD Credit Rating Inspector Jose Roberto Estimated Blood Loss 10 Findings Consistent with Post-Op Diagnosis Severe OA Specimens Bone fragments Anesthesia Type Spinal MAC Complications none Disposition Accompanied Patient To Recovery: No Disposition: Recovery Room Indications Knee pain Description of Procedure Patient's left leg was prepped and draped in usual sterile manner. The limb was exsanguinated with an Esmarch bandage and tourniquet inflated to 325 mmHg. Longitudinal incision was made subcutaneous tissue was sharply dissected electrocautery used for hemostasis. Medium parapatellar incision was made the patella was everted and the knee was flexed. The fat pad was removed anterior and posterior cruciate limits removed and the medial face of the tibia was cleared of soft tissue using electrocautery and a Murguia. Blunt Hohmann was placed in the external medullary alignment guide was used perform the proximal tibia osteotomy this bone was removed. Next external was attention was turned to the distal femur where a flexible guide eric was placed and the distal femoral cut was made a size 3 femur was chosen as a size to be used. The chamfer cuts were then made and the notch cut was then made and the drill was placed for the pegs. The trial femur fit well and brought him used to gain access to the proximal tibia. The 2 tibial component was chosen the tibia was prepared in a trial reduction was carried out with a size 9 poly-which gave good soft tissue tension in flexion and extension. The patella was then reamed and a 35 patella was utilized but the patella trial was placed and the patella was found to track well. Trials were removed periarticular joint mix was injected pulsatile irrigation was used to thoroughly cleanse the knee the bone ends were dried and the final components were cemented in position knee was held in some in extension while cement hardened the wound was finally irrigated Betadine soap was utilized in a sterile and the wound was closed in layers #1 Vicryl was used to close extensor mechanism subcutaneous tissue was closed using 0 Dexon skin was closed with connie. Sterile dressing of Adaptic 4 x 4's sterile and doubling this is applied. The patient tolerated procedure well. Mr. Cid he was utilized all portions of the case including prepping draping surgical assistance wound measure and dressing application. I attest to the content of the Intraoperative Record and any orders documented therein. Any exceptions are noted below.
--- NOTE | 2018-09-19 11:37 | XRay Report ---
XR knee LT 2V routine CLINICAL HISTORY: 57 years-old Female presenting with Surgical Post Op. TECHNIQUE: Frontal and lateral views of the left knee were obtained. COMPARISON: None. FINDINGS: Postsurgical changes of total left knee arthroplasty with patellar resurfacing. Skin connie and a lucero rgical drain noted. Expected intra-articular and soft tissue emphysema. No malalignment or periprosth etic fracture. IMPRESSION: Expected postsurgical changes status post total left knee arthroplasty with patellar resurfacing. Electronically signed by: Fco Ulloa M.D. 09/19/2018 11:37 AM
--- NOTE | 2018-09-19 12:25 | Anesthesiology Progress Note ---
Date of Service September 19, 2018 Anesthesia Post Procedure Vital Signs Vital Signs: Temp Pulse Pulse Resp BP Pulse Ox 09/19/18 12:10 36.3 C L 83 14 127/73 100 09/19/18 12:00 81 16 131/80 100 09/19/18 11:50 84 13 139/83 100 09/19/18 11:40 87 14 142/80 H 100 09/19/18 11:30 84 18 143/83 H 100 09/19/18 11:20 87 17 144/81 H 100 09/19/18 11:10 97 H 17 98/51 L 100 09/19/18 11:04 36.3 C L 94 H 13 128/65 100 09/19/18 07:28 36.9 C 87 18 157/90 H 97 Notes Mental Status: alert / awake / arousable Patient Amnestic to Procedure: Yes Nausea / Vomiting: adequately controlled Pain: adequately controlled Airway Patency, RR, SpO2: stable & adequate BP & HR: stable & adequate Hydration State: stable & adequate Neuraxial Anesthesia: was administered and sensory block is resolving Anesthetic Complications: no major complications apparent
[2018-09-19] MEDS ORDERED: BISACODYL 10 MG SUPP PR PRN (13:09)
[2018-09-19] MEDS ORDERED: HYDROmorphone INJ 0.5 MG/0.5 ML SYR IV PRN (13:09)
[2018-09-19] MEDS ORDERED: NALOXONE HCL 0.4 MG/1 ML VIAL/CARP IV PRN (13:09)
[2018-09-19] MEDS ORDERED: SODIUM CHLORIDE 0.9% 1000ML 1,000 ML IV SCH (13:09)
[2018-09-19] MEDS ORDERED: MAGNESIUM HYDROXIDE SUSP 30 ML UDC PO PRN (13:09)
[2018-09-19] MEDS ORDERED: ALPRAZolam 0.5 MG TABLET PO PRN (13:09)
[2018-09-19] MEDS ORDERED: ALBUTEROL HFA 8 GM INHALER INH PRN (13:09)
--- NOTE | 2018-09-19 14:03 | Consultation ---
Date of Consultation September 19, 2018 Assessment & Plan (1) Status post left knee replacement: This is a 57yo F with a PMH of HTN, HLD, pre-diabetes, mood disorder, asthma and other medical problems listed below who is POD#0 s/p L TKA by Dr. Sol. -Pt is doing well post-operatively -Per ortho for pain control, wound care, anticoagulation and activities -Monitor H&H (EBL: 10ml), pre-op hgb of 13.1 on 09/03/18 -Continue incentive spirometry, PT/OT when appropriate (2) Hypertension: Normotensive. Took Amlodipine 5mg this morning pre-operatively -Plan to continue amlodipine, Vasotec tomorrow (3) Asthma: Stable. Lung exam clear. Continue singular, Advair inh, Albuterol inh PRN (4) Hyperlipidemia: Continue Crestor (5) Pre-diabetes: Found to have a1c of 6.1 in August 2018 -Discussed lifestyle modifications, follow up with PCP to recheck a1c -DM II diet while in-patient (6) GERD (gastroesophageal reflux disease): Continue Pepcid (7) Overactive bladder: Continue Toviaz. Consider holding if urine output is poor -Monitor I&Os (8) Anxiety: Continue SSRI, Xanax PRN (9) Depression: Stable. Continue SSRI DVT Ppx: SCDs, aspirin BID per primary service PCP: Rocio NOLAN Dispo: Per primary service Patient seen in collaboration with Dr. Heck. Please see addendum. Will be followed by Dr. Estrada for the remainder of admission. Supervising Physician Co-Signing Physician Notes Patient is a 57-year-old female who underwent left TKA by Dr. Donahue was seen and examined postop. Patient is doing well postoperatively. Denies any chest pain, shortness of breath, dizziness, nausea abdominal pain. Patient's left knee pain at surgical site is controlled. Offers no complaints at this time. On exam patient is obese, no apparent distress, lungs are clear to auscultation, S1-S2 no murmur, left knee surgical site in dressing, + drain, complete neuro exam not performed, no pedal edema. Monitor for postop anemia. Bowel regimen to prevent constipation. Activity, DVT prophylaxis as per primary team. Continue home inhalers for asthma. Monitor blood sugar levels. Continue hypertension medications with parameters. I personally reviewed the record. Patient is interviewed and examined at bedside. Patient's care is coordinated with Lisa Musa PA-C. Please refer to the documentation above for details of patient's presentation and for discussion of other issues. History of Present Illness Reason for Consultation: Postop medical management Attending Physician: Bran Sol MD History of Present Illness This is a 57yo F with a PMH of HTN, HLD, pre-diabetes, mood disorder, asthma and other medical problems listed below who is POD#0 s/p L TKA by Dr. Sol. Patient feels well postoperatively. Denies any knee pain. Still experiencing residual numbness from nerve block but is regaining feeling in distal leg. No chest pain or shortness of breath. Tolerating lunch without nausea, vomiting or abdominal pain. Does not have a Dobbs catheter in but is yet to urinate po stoperatively. Last bowel movement was 2 days ago. Denies fever, chills, headache, lightheadedness, visual changes, cough, palpitations, dysuria, constipation, diarrhea. PCP is OVIDIO Chan in [place]. Allergies Allergy/AdvReac Type Severity Reaction Status Date / Time No Known Allergies Allergy Verified 09/19/18 07:12 Home Medications Home Medications Medication Instructions Recorded Confirmed Type albuterol sulfate 0.63 mg INHALATION QID PRN 09/02/18 09/02/18 History albuterol sulfate [ProAir HFA] 2 puff INHALATION QID PRN 09/02/18 09/02/18 History alprazolam 0.5 mg PO TID PRN 09/02/18 09/02/18 History amlodipine 5 mg PO QAM 09/02/18 09/19/18 History amoxicillin 500 mg PO UD 09/02/18 09/02/18 History calcium carbonate-vitamin D3 1 tab PO BID 09/02/18 09/19/18 History [Calcium 500 + D] cholecalciferol (vitamin D3) 5,000 unit PO QAM 09/02/18 09/19/18 History [Vitamin D3] enalapril maleate [Vasotec] 5 mg PO QAM 09/02/18 09/19/18 History escitalopram oxalate 10 mg PO QPM 09/02/18 09/19/18 History famotidine 20 mg PO BID 09/02/18 09/19/18 History fesoterodine [Toviaz] 8 mg PO QAM 09/02/18 09/19/18 History fexofenadine 180 mg PO QAM 09/02/18 09/19/18 History fluticasone propion-salmeterol 1 puff INHALATION BID 09/02/18 09/02/18 History [Advair Diskus] krill oil 1 cap PO QAM 09/02/18 09/19/18 History montelukast 10 mg PO PM 09/02/18 09/19/18 History nabumetone 500 mg PO BID 09/02/18 09/19/18 History rosuvastatin [Crestor] 5 mg PO QPM 09/02/18 09/19/18 History vitamin B complex 1 cap PO QAM 09/02/18 09/19/18 History Patient History Medical History Overactive bladder (Chronic) GERD (gastroesophageal reflux disease) (Chronic) Hyperlipidemia (Chronic) Hypertension (Chronic) Asthma (Chronic) Depression (Chronic) Anxiety (Chronic) Asthma (Chronic) STABLE GERD (gastroesophageal reflux disease) (Chronic) CONTROLLED Hyperlipidemia (Chronic) Hypertension (Chronic) Mood disorder (Chronic) Osteoarthritis (Chronic) Obesity (Chronic) Surgical History Status post appendectomy (Chronic) Status post tubal ligation (Chronic) History of appendectomy (Resolved) History of bilateral tubal ligation (Resolved) History of cataract extraction with lens replacement (Resolved) B/L History of section (Resolved) History of foot surgery (Resolved) HEEL SURGERY FOR BONE SPUR History of total knee replacement (Resolved) RIGHT= SAB X 2 ATTEMPTS AT L3-L4 + PNB AT [facility] Social History Preferred Language: [place] Communication Ability: Effective Handbag Stitcher Required: No Beliefs That Will Affect Care: None Current Living Situation: Alone Other Information That Helps Us Care for You: No Feels Safe at Home: Yes Safety Concerns: Feels Safe At This Time Smoking Status: Former smoker Hx Alcohol Use: Yes Hx Substance Use: No Review of Systems Ten systems reviewed and negative except as noted in the HPI. Physical Exam Vital Signs (Past 24 Hours): Last Vital Signs Temp 36.3 C L 09/19/18 12:10 Pulse 86 09/19/18 13:30 Resp 18 09/19/18 13:30 BP 128/84 09/19/18 13:30 Pulse Ox 99 09/19/18 13:30 Physical Exam: General Appearance: WD/WN, no apparent distress, sitting upright in bed eating lunch Head: normocephalic, atraumatic Eyes: normal inspection, PERRL, EOMI ENT: hearing grossly normal, pharynx normal (moist mucous membranes) Neck: supple, no JVD, no adenopathy Respiratory/Chest: lungs clear to auscultation. No wheezes, rales or rhonci. No respiratory distress or accessory muscle use Cardiovascular: regular rate, rhythm, no murmur, normal peripheral pulses Abdomen/GI: normal bowel sounds, soft, non-tender to palpation Extremities/Musculoskelatal: Left knee with surgical bandage in place, clean/dry/intact. Drain visualized. No calf tenderness, normal capillary refill, no pedal edema Neurologic/Psych: alert, normal mood/affect, oriented x 3 Skin: normal color, warm/dry Results & Data Laboratory Results Pertinent pre-op lab work (09/03/18): Hgb: 13.1 Cr: 0.77 GFR: 85.1 A1c: 6.1
[2018-09-19] MEDS: ACETAMINOPHEN 500 MG TAB PO SCH ×2 (14:39→21:26)
[2018-09-19] MEDS ORDERED: ALBUTEROL 0.5% NEB SOLN 2.5 MG/0.5 ML VIAL INH PRN (16:00)
[2018-09-19] MEDS: CEFAZOLIN 2000MG 2,000 MG/15 ML SYR IV SCH (17:38)
[2018-09-19] MEDS: FERROUS GLUCONATE 324 MG TAB PO SCH (17:38)
[2018-09-19] MEDS: OXYCODONE HCL IR 5 MG TAB (IMMEDIATE RELEASE) PO PRN (18:30)
[2018-09-19] MEDS: ESCITALOPRAM OXALATE 10 MG TAB PO SCH (20:36)
[2018-09-19] MEDS: SENNA 8.6 MG TAB PO SCH (20:36)
[2018-09-19] MEDS: DOCUSATE SODIUM 100 MG CAP PO SCH (20:36)
[2018-09-19] MEDS: FAMOTIDINE 20 MG TAB PO SCH (20:36)
[2018-09-19] MEDS: FLUTICASONE/SALMETEROL 100/50 (ADVAIR) 14 PUFF/1 INHALER INH SCH (20:37)
[2018-09-19] MEDS: ROSUVASTATIN CALCIUM 5 MG TAB PO SCH (20:37)
[2018-09-19] MEDS: ASPIRIN 81 MG ECTAB PO SCH (20:38)
[2018-09-19] MEDS: MONTELUKAST SODIUM 10 MG TABLET PO SCH (20:38)
[2018-09-20] MEDS: CEFAZOLIN 2000MG 2,000 MG/15 ML SYR IV SCH (02:25)
[2018-09-20] MEDS: ACETAMINOPHEN 500 MG TAB PO SCH (05:51)
[2018-09-20] MEDS: OXYCODONE HCL IR 5 MG TAB (IMMEDIATE RELEASE) PO PRN (06:03)
[2018-09-20 06:10] LABS: Hematocrit (blood only) 37.7 % (37-47); Hemoglobin 12.2 g/dL (12.0-16.0); Mean Corpuscular Hgb Conc 32.4 g/dL (32-36); Mean Corpuscular Volume 91.5 fL (80-100); Mean Platelet Volume 10.1 fL (7.4-10.4); Platelet Count 258 K/uL (130-400); RDW Coefficient of Variation 12.9 % (11.5-14.5); RDW Standard Deviation 43.4 fL (36.4-46.3); Red Blood Count 4.12 M/uL (4.2-5.4); White Blood Count 15.28 K/uL (4.8-10.8)
[2018-09-20 06:32] LABS: BUN Creatinine Ratio 23.1 (10-20); Calcium 8.9 mg/dl (8.5-10.1); Creatinine Clr Calc Pharmacy 108.5 ml/min; Est GFR (African American) 116.4; Est GFR (Non-African American) 100.5; Potassium 4.1 mmol/L (3.5-5.1)
--- NOTE | 2018-09-20 07:27 | Orthopedic Progress Note ---
Date of Service September 20, 2018 Assessment & Plan (1) Status post left knee replacement: 57 yo female stable POD #1 s/p left TKA, mild footdrop present 1. Med management 2. DVT prophylaxis- ASA, SCDs 3. PT/OT 4. D/C planning- home w/ HH Subjective Pt resting in bed, pain controlled, pt states leg still numb and cannot fully move foot/ankle Physical Exam Vital Signs (Past 24 Hours): Last Vital Signs Temp 36.6 C 09/20/18 02:31 Pulse 71 09/20/18 02:31 Resp 16 09/20/18 02:31 BP 123/74 09/20/18 02:31 Pulse Ox 96 09/20/18 02:31 Physical Exam: Mild foot drop present, Prevena dressing and drain in place Results & Data Laboratory Results 09/20/18 09/20/18 09/19/18 Range/Units 05:40 05:40 11:18 WBC 15.28 H (4.8-10.8) K/uL RBC 4.12 L (4.2-5.4) M/uL Hgb 12.2 (12.0-16.0) g/dL Hct 37.7 (37-47) % MCV 91.5 (80-100) fL MCH 29.6 (25-34) pg MCHC 32.4 (32-36) g/dL RDW Std Deviation 43.4 (36.4-46.3) fL RDW Coeff of Peggy 12.9 (11.5-14.5) % Plt Count 258 (130-400) K/uL MPV 10.1 (7.4-10.4) fL Sodium 140 (136-145) mmol/L Potassium 4.1 (3.5-5.1) mmol/L Chloride 111 H (98-107) mmol/L Carbon Dioxide 23 (21-32) mmol/L Anion Gap 6.0 (3-11) BUN 14 (7-18) mg/dl Creatinine 0.60 (0.6-1.2) mg/dl Est Cr Clr Drug Dosing 108.5 ml/min Est GFR ( Amer) 116.4 Est GFR (Non-Af Amer) 100.5 BUN/Creatinine Ratio 23.1 H (10-20) Glucose 116 H (70-99) mg/dl POC Glucose 131 H (70-99) Calcium 8.9 (8.5-10.1) mg/dl
[2018-09-20] MEDS: FERROUS GLUCONATE 324 MG TAB PO SCH ×2 (08:38→16:45)
[2018-09-20] MEDS: FLUTICASONE/SALMETEROL 100/50 (ADVAIR) 14 PUFF/1 INHALER INH SCH ×2 (08:39→20:22)
[2018-09-20] MEDS: DOCUSATE SODIUM 100 MG CAP PO SCH ×2 (08:40→20:16)
[2018-09-20] MEDS: FEXOFENADINE HCL 180 MG TAB PO SCH (08:40)
[2018-09-20] MEDS: MULTIVITAMIN TAB PO SCH (08:41)
[2018-09-20] MEDS: FAMOTIDINE 20 MG TAB PO SCH ×2 (08:42→20:22)
[2018-09-20] MEDS: ENALAPRIL MALEATE 5 MG TAB PO SCH (08:43)
[2018-09-20] MEDS: AMLODIPINE BESYLATE 5 MG TAB PO SCH (08:45)
[2018-09-20] MEDS: ASPIRIN 81 MG ECTAB PO SCH ×2 (10:04→20:22)
[2018-09-20] MEDS: HYDROCODONE/ACETAMOPHEN 5/325MG TAB PO PRN ×3 (10:11→19:12)
--- NOTE | 2018-09-20 14:16 | Hospitalist Progress Note ---
Date of Service September 20, 2018 Assessment & Plan (1) Status post left knee replacement: This is a 57yo F with a PMH of HTN, HLD, pre-diabetes, mood disorder, asthma and other medical problems listed below who is POD#1 s/p L TKA by Dr. Sol. Resume Post Op Care per Surgery Protocol Incentive Spirometry 10x per Hour Resume Relative Home Meds Where Appropriate PT/OT with appropriate fall precautions Transition from IV to PO Pain control DVT Prophylaxis Per Surgery Protocol Monitor Daily Labs (2) Hypertension: Normotensive. Took Amlodipine 5mg this morning pre-operatively -Plan to continue amlodipine, Vasotec (3) Asthma: Stable. Lung exam clear. Continue singular, Advair inh, Albuterol inh PRN (4) Hyperlipidemia: Continue Crestor (5) Pre-diabetes: Found to have a1c of 6.1 in August 2018 -Discussed lifestyle modifications, follow up with PCP to recheck a1c -DM II diet while in-patient (6) GERD (gastroesophageal reflux disease): Continue Pepcid (7) Overactive bladder: Continue Toviaz. Consider holding if urine output is poor -Monitor I&Os (8) Anxiety: Continue SSRI, Xanax PRN (9) Depression: Stable. Continue SSRI DVT Ppx: SCDs, aspirin BID per primary service PCP: Rocio NOLAN Dispo: Per primary service Subjective ROS-No Headache, No Visual Changes, No Nausea, No Vomiting, No Fever, No Chills, No Neck Pain or Stiffness, No Chest Pain, No Palpitations, No SOB, No PARK, No Co ugh, No Sputum, No Wheezing, No Abdominal Pain, No Diarrhea, No Hematemesis, No Hemoptysis, No Unexpected Weight Loss, No Flank pain, No Melena, No Hematochezia, No Frequency, No Urgency, No Burning, No Hematuria, No Rashes, No Diaphoresis. Appetite is Normal Physical Exam Gen-AAO x 3, NAD, Afebrile Head-NCAT, EOMI, PERRLA, Anicteric Sclera, No Posterior Pharyngeal Erythema Neck-Supple, No JVD, No Thyromegaly, No Masses, No LAD, No Bruits Lungs-Clear to Auscultation Bilaterally, No Rales, No Rhonchi, No Wheezing, No Crepitus Chest-No S4, +S1, +S2, No S3, No Murmurs, No Rubs, No Gallops, No Ectopy Abdomen-Soft, Bowel Sounds Present, Non Tender, Non Distended, No Hepatomegaly, No Splenomegaly, No Palpable Masses, No Rebound, No Rigidity, No Guarding Musculoskeletal-Full Range of Motion Bilaterally, No CVAT Extremities-No Cyanosis, No Clubbing, No Edema, Sore Knee L c Drain and HemeVac Nuero-Cranial Nerves II-XII grossly intact, Motor WNL, DTRs WNL, Strength WNL, Non Focal Psych-Normal Mood Physical Exam Vital Signs (Past 24 Hours): Last Vital Signs Temp 36.6 C 09/20/18 10:35 Pulse 66 09/20/18 14:07 Resp 14 09/20/18 14:07 BP 107/72 09/20/18 14:07 Pulse Ox 98 09/20/18 10:35 Results & Data Laboratory Results Current Diagnoses Hyperlipidemia, unspecified (09/19/18) Major depressive disorder, single episode, unspecified (09/19/18) Anxiety disorder, unspecified (09/19/18) Essential (primary) hypertension (09/19/18) Unspecified asthma, uncomplicated (09/19/18) Gastro-esophageal reflux disease without esophagitis (09/19/18) Overactive bladder (09/19/18) Prediabetes (09/19/18) Encounter for other preprocedural examination (09/19/18) Presence of left artificial knee joint (09/19/18) Allergies No Known Allergies Allergy (Verified 09/19/18 07:12) Height/Weight/Isolation Height 5 ft 2 in Weight 92.9 kg Chemistry 09/20/18 05:40 Sodium 140 Potassium 4.1 Chloride 111 H Carbon Dioxide 23 Anion Gap 6.0 BUN 14 Creatinine 0.60 Glucose 116 H
[2018-09-20] MEDS: SENNA 8.6 MG TAB PO SCH (20:16)
[2018-09-20] MEDS: ROSUVASTATIN CALCIUM 5 MG TAB PO SCH (20:22)
[2018-09-20] MEDS: MONTELUKAST SODIUM 10 MG TABLET PO SCH (20:22)
[2018-09-20] MEDS: ESCITALOPRAM OXALATE 10 MG TAB PO SCH (20:22)
[2018-09-21] MEDS: HYDROCODONE/ACETAMOPHEN 5/325MG TAB PO PRN ×4 (02:46→23:16)
[2018-09-21] MEDS: KETOROLAC 30 MG/ML VIAL IV SCH ×3 (07:37→21:00)
[2018-09-21] MEDS: DOCUSATE SODIUM 100 MG CAP PO SCH ×2 (07:43→21:01)
--- NOTE | 2018-09-21 07:59 | Orthopedic Progress Note ---
Date of Service September 21, 2018 Assessment & Plan (1) Status post left knee replacement: 57 yo female stable POD #2 s/p left TKA, mild footdrop resolved With her pain uncontrolled, we will add Toradol for short-term 30 mg IV every 6 hours. We will also add MS Contin 15 mg p.o. twice daily. We will see how she adjusted the medications and how her pain control was later. If she is tolerating medication well, and pain is controlled, we can possibly have her discharged home today. We will plan on checking her later today to see how she is progressing. 1. Med management 2. DVT prophylaxis- ASA, SCDs 3. PT/OT 4. D/C planning- home w/ HH Subjective Postop day 2 status post left total knee arthroplasty. Patient is lying in bed awake and alert. She states that her pain is not controlled. Currently she states that it is a 9 out of 10. She denies shortness of breath, chest pain, lightheadedness. She denies calf pain. She states that the [place] every 6 hours is not helping her. She had been on oxycodone which made her very groggy. She was then switched to the [place]. She states that her blood pressure has been somewhat low as well and that she almost passed out in the bathroom earlier. Current blood pressure is 155/77. Physical Exam Vital Signs (Past 24 Hours): Last Vital Signs Temp 36.9 C 09/21/18 07:29 Pulse 76 09/21/18 07:29 Resp 18 09/21/18 07:29 BP 155/77 H 09/21/18 07:29 Pulse Ox 96 09/21/18 07:29 Physical Exam: Pravena dressing is clean dry and intact. She does not have any overt swelling of the knee that is unusual for the surgery. Calves are soft nontender. Neurovascular intact. Toes are mobile. Foot drop has resolved.
--- NOTE | 2018-09-21 08:23 | Hospitalist Progress Note ---
Date of Service September 21, 2018 Assessment & Plan (1) Status post left knee replacement: This is a 57yo F with a PMH of HTN, HLD, pre-diabetes, mood disorder, asthma and other medical problems listed below who is POD#2 s/p L TKA by Dr. Sol. Resume Post Op Care per Surgery Protocol Incentive Spirometry 10x per Hour Resume Relative Home Meds Where Appropriate PT/OT with appropriate fall precautions Transition from IV to PO Pain control, Pain still high Doesn't tolerate Oxy well. DVT Prophylaxis Per Surgery Protocol ASA 81 BID Monitor Daily Labs (2) Hypertension: Normotensive. -Plan to continue amlodipine, Vasotec c parameters (3) Asthma: Stable. Lung exam clear. Continue singular, Advair inh, Albuterol inh PRN (4) Hyperlipidemia: Continue Crestor (5) Pre-diabetes: Found to have a1c of 6.1 in August 2018 -Discussed lifestyle modifications, follow up with PCP to recheck a1c -DM II diet while in-patient (6) GERD (gastroesophageal reflux disease): Continue Pepcid (7) Overactive bladder: Continue Toviaz. Consider holding if urine output is poor -Monitor I&Os (8) Anxiety: Continue SSRI, Xanax PRN (9) Depression: Stable. Continue SSRI DVT Ppx: SCDs, aspirin BID per primary service PCP: Rocio NOLAN Dispo: Per primary service, home in 1-2 days when pain controlled Subjective ROS-No Headache, No Visual Changes, No Nausea, No Vomiting, No Fever, No Chills, No Neck Pain or Stiffness, No Chest Pain, No Palpitations, No SOB, No PARK, No Cough, No Sputum, No Wheezing, No Abdominal Pain, No Diarrhea, No Hematemesis, No Hemoptysis, No Unexpected Weight Loss, No Flank pain, No Melena, No Hematochezia, No Frequency, No Urgency, No Burning, No Hematuria, No Rashes, No Diaphoresis. Appetite is Normal Physical Exam Gen-AAO x 3, NAD, Afebrile Head-NCAT, EOMI, PERRLA, Anicteric Sclera, No Posterior Pharyngeal Erythema Neck-Supple, No JVD, No Thyromegaly, No Masses, No LAD, No Bruits Lungs-Clear to Auscultation Bilaterally, No Rales, No Rhonchi, No Wheezing, No Crepitus Chest-No S4, +S1, +S2, No S3, No Murmurs, No Rubs, No Gallops, No Ectopy Abdomen-Soft, Bowel Sounds Present, Non Tender, Non Distended, No Hepatomegaly, No Splenomegaly, No Palpable Masses, No Rebound, No Rigidity, No Guarding Musculoskeletal-Full Range of Motion Bilaterally, No CVAT Extremities-No Cyanosis, No Clubbing, No Edema, Sore Knee L Drain out Nuero-Cranial Nerves II-XII grossly intact, Motor WNL, DTRs WNL, Strength WNL, Non Focal Psych-Normal Mood Physical Exam Vital Signs (Past 24 Hours): Last Vital Signs Temp 36.9 C 09/21/18 07:29 Pulse 76 09/21/18 07:29 Resp 18 09/21/18 07:29 BP 155/77 H 09/21/18 07:29 Pulse Ox 96 09/21/18 07:29 Results & Data Laboratory Results Current Diagnoses Hyperlipidemia, unspecified (09/19/18) Major depressive disorder, single episode, unspecified (09/19/18) Anxiety disorder, unspecified (09/19/18) Essential (primary) hypertension (09/19/18) Unspecified asthma, uncomplicated (09/19/18) Gastro-esophageal reflux disease without esophagitis (09/19/18) Overactive bladder (09/19/18) Prediabetes (09/19/18) Encounter for other preprocedural examination (09/19/18) Presence of left artificial knee joint (09/19/18) Allergies No Known Allergies Allergy (Verified 09/19/18 07:12) Height/Weight/Isolation Height 5 ft 2 in Weight 92.9 kg Chemistry 09/20/18 05:40 Sodium 140 Potassium 4.1 Chloride 111 H Carbon Dioxide 23 Anion Gap 6.0 BUN 14 Creatinine 0.60 Glucose 116 H
[2018-09-21] MEDS: MoRPHine SULFATE CR 15 MG TABCR PO SCH ×2 (08:49→21:03)
[2018-09-21] MEDS: AMLODIPINE BESYLATE 5 MG TAB PO SCH (08:50)
[2018-09-21] MEDS: ENALAPRIL MALEATE 5 MG TAB PO SCH (08:50)
[2018-09-21] MEDS: FLUTICASONE/SALMETEROL 100/50 (ADVAIR) 14 PUFF/1 INHALER INH SCH ×2 (08:50→21:00)
[2018-09-21] MEDS: FAMOTIDINE 20 MG TAB PO SCH ×2 (08:50→21:01)
[2018-09-21] MEDS: MULTIVITAMIN TAB PO SCH (08:51)
[2018-09-21] MEDS: ASPIRIN 81 MG ECTAB PO SCH ×2 (08:51→21:01)
[2018-09-21] MEDS: FERROUS GLUCONATE 324 MG TAB PO SCH ×2 (08:51→17:47)
[2018-09-21] MEDS: FEXOFENADINE HCL 180 MG TAB PO SCH (08:51)
[2018-09-21] MEDS: ESCITALOPRAM OXALATE 10 MG TAB PO SCH (21:01)
[2018-09-21] MEDS: ROSUVASTATIN CALCIUM 5 MG TAB PO SCH (21:01)
[2018-09-21] MEDS: MONTELUKAST SODIUM 10 MG TABLET PO SCH (21:01)
[2018-09-21] MEDS: SENNA 8.6 MG TAB PO SCH (21:02)
[2018-09-22] MEDS: KETOROLAC 30 MG/ML VIAL IV SCH ×2 (02:06→08:26)
[2018-09-22 06:14] LABS: BUN Creatinine Ratio 23.6 (10-20); Calcium 8.6 mg/dl (8.5-10.1); Creatinine Clr Calc Pharmacy 120.5 ml/min; Est GFR (African American) 120.6; Potassium 4.3 mmol/L (3.5-5.1)
[2018-09-22 06:56] LABS: Hematocrit (blood only) 35.6 % (37-47); Hemoglobin 11.2 g/dL (12.0-16.0); Mean Corpuscular Hgb Conc 31.5 g/dL (32-36); Mean Corpuscular Volume 93.4 fL (80-100); Mean Platelet Volume 9.4 fL (7.4-10.4); Platelet Count 229 K/uL (130-400); RDW Coefficient of Variation 13.4 % (11.5-14.5); RDW Standard Deviation 45.8 fL (36.4-46.3); Red Blood Count 3.81 M/uL (4.2-5.4); White Blood Count 7.89 K/uL (4.8-10.8)
[2018-09-22] MEDS: HYDROCODONE/ACETAMOPHEN 5/325MG TAB PO PRN (07:28)
--- NOTE | 2018-09-22 07:34 | Orthopedic Progress Note ---
Date of Service September 22, 2018 Assessment & Plan (1) Status post left knee replacement: We will plan another PT and OT session this morning. Otherwise the patient is doing much better. She will continue her aspirin, SCDs and RONNY hose today. We discussed her pain medications for discharge. Patient will continue to take her hydrocodone every 6 hours as needed. We discussed that she will be going home with a very limited supply of MS Contin. Plans will be to continue this medication but start weaning off of this by Sunday. We discussed the combination of MS Contin and hydrocodone and the risks involved. Patient understands and will begin weaning herself off of the MS Contin the beginning of the week. She is also on alprazolam p.o. 3 times daily as needed at home. She assures me that she has not taken any of that in quite some time. We also discussed the risks involved with taking this medication along with her narcotic medication. I let her know that I would place a Narcan prescription on the chart as a precaution of which she understands what it is used for and how to use it. If needed. We will plan on discharging her home today with home health services. Subjective Patient is postop day 3 status post left total knee arthroplasty. The patient's pain control is much better today. She states that she has been getting in and out of bed by herself essentially and doing quite well. Pain is controlled. Shortness of breath, chest pain, lightheadedness, nausea and vomiting. She notes a little bit of extra drowsiness with the use of MS Contin but not enough to cause cognitive impairment or make it problematic for her. She is hoping to go home today. Physical Exam Vital Signs (Past 24 Hours): Last Vital Signs Temp 36.9 C 09/22/18 07:13 Pulse 77 09/22/18 07:13 Resp 18 09/22/18 07:13 BP 137/82 09/22/18 07:13 Pulse Ox 98 09/22/18 07:13 Physical Exam: Patient is awake and alert and very conversant. Prevena dressing is clean ,dry and intact. There is no overt drainage in the collection tube. Calves are soft and nontender. Neurovascular is intact.
--- NOTE | 2018-09-22 07:42 | Discharge Summary ---
Date of Service September 22, 2018 Admission HPI Per Admitting Provider HISTORY OF PRESENT ILLNESS: The patient is a 57-year-old female with known osteoarthritis about her left knee. She has had a previous successful right total knee arthroplasty. She has had several previous corticosteroid injections about the left knee with minimal relief. She has known osteoarthritic changes on her x-rays. She has pain with prolonged weightbearing and standing activities. She has pain and difficulty with any kneeling, bending, or squatting activities. She has pain with work related activities. Due to ongoing pain and disability, she now desires to proceed with left total knee arthroplasty. Admission Exam Per Admitting Provider As per admitting history and physical. Principal Diagnosis Left knee osteoarthritis. Discharge Exam VSS,Afeb. Patient is awake and alert and very conversant. Prevena dressing is clean ,dry and intact. There is no overt drainage in the collection tube. Calves are soft and nontender. Neurovascular is intact. Discharge Data Allergies Allergy/AdvReac Type Severity Reaction Status Date / Time No Known Allergies Allergy Verified 09/19/18 07:12 Consultations 09/19/18 13:09 Consult Case Management - Discharge Planning Routine Consult Hospitalist Routine Procedures Performed Operation Date: 09/19/18 09:35 Actual Procedures p Left Total Knee Arthroplasty(Left) - Bran Sol MD Ordered Studies 09/19/18 05:00 US - OR guided needle placemen Routine Hospital Course (1) Status post left knee replacement: Patient was admitted on the above-noted date and had the above-noted surgery of left total knee replacement. She tolerated the procedure well[facility]. On her first postoperative day, she was awake and alert and had good pain control. Her only complaint was she was having difficulty moving the left foot in dorsiflexion. Laboratory values were benign and vital signs were stable. She had a mild foot drop noted and was started on physical therapy protocol and occupational therapy protocol. She is continued on DVT prophylaxis and pain management. By her second postoperative day vital signs are stable, and she was complaining of pain control issues. She was rating her pain a 9 out of 10. Her Pravena dressing was remaining intact and functioning well. There was no overt erythema. Calves are soft and nontender. Her foot drop had resolved and neurovascular is intact. Toes are mobile and she had good dorsiflexion and plantar flexion. Adjustments were made to her pain medications and she was continued on her protocol. By her third postoperative day, vital signs are stable and she was afebrile. She was awake and alert and in good spirits. Pain was controlled. She had no complaints. She was hoping to go home. Physical exam remain the same. Dressing was clean, dry, and intact. No overt erythema noted. Calves are soft nontender and neurovascular is intact. She was progressing well with her physical therapy and was felt she can be discharged home with home health services. Total Time Total Time Spent Total Time Spent (In Minutes): 5 Discharge Plan Discharge Items Patient Disposition: Home - Home Health Services Reason For Visit: LEFT KNEE OSTEOARTHRITIS Discharge Diagnosis: Left knee arthritis Discharge Goals: Decrease discomfort and Improve function Activity: Per 'Additional Instructions' section Non-emergency contact: Surgeon Call non-emergency contact if: your pain is not controlled, your temperature is above 101.5, your wound has increased redness and your wound has increased drainage Follow-up/Referrals: Jayla Chan [Primary Care Provider] - Diet: Carb Consistent or DM2 Addtl Provider Instructions: ACTIVITY RECOMMENDATIONS: SELF CARE INSTRUCTIONS AFTER TOTAL KNEE REPLACEMENT A. You may need to continue a physical therapy program after discharge from the hospital. There are several options available to you. Your doctor will assist you in selecting the best one for you. 1. An out-patient facility 2 to 3 times a week for therapy or home therapy. 2. Continue working on all exercises taught to you in the hospital. Your goals should be to increase bending of your knee to 90 degrees and beyond and to fully straighten your knee. B. You may progress at your own pace from walking with a walker or crutches to a cane; then to no assistive devices. C. Make walking a part of your daily routine. Be up as much as comfortable with rest periods throughout the day. Rest with leg elevation is very important. Use the ice wrap frequently for the first 3-4 weeks. D. There are no restrictions on activities. You may ride in a car, shop, participate in reproducer and all social activities. E. Wear the long elastic stockings (RONNY hose) 20 hours a day for 2 weeks after surgery. They can be removed several times a day for laundering and for a bath. F. You may shower, no tub baths until cleared by your doctor. SPECIAL CARE INSTRUCTIONS: VERY IMPORTANT TO READ AND REVIEW A. There are a few signs you need to watch for after you are home. Call [facility] if you notice any of the followin. Increased severe knee pain. Some pain is expected especially when you exercise. 2. Increased swelling in your leg or knee; pain or swelling of the calf muscle in either lower leg. 3. Any fluid drainage from the incision. 4. Shortness of breath or chest pain. B. Please call [facility] at if you have any concerns or questions about your operation or recovery. The doctor or his nurse will return your call promptly. C. You must take antibiotics before dental work, bladder, bowel or other surgery. Your doctor will provide you with a permanent care to carry describing this precaution. IMPORTANT: * REMEMBER TO TAKE ASPIRIN, 81 MG, TWICE DAILY FOR 4 WEEKS UNLESS OTHERWISE DIRECTED. THIS IS YOUR BLOOD THINNER. * HIGH RISK PATIENTS MAY BE PRESCRIBED A STRONGER BLOOD THINNER. THIS WILL BE PROVIDED AT DISCHARGE. * CALL IF INCREASED PAIN, REDNESS, DRAINAGE OR FEVER GREATER THAT 101. * WEAR RONNY HOSE 20 HOURS PER DAY FOR 2 WEEKS. Prevena- This is a large suction dressing covering your incision. This will help pull any excess drainage from the wound and allow your incision to heal properly. You may shower with this if you can keep the unit outside of the shower. If any bleeding or leakage is noted please call your doctor's office. This will remain on your incision for 7 days and then should be removed. This can be done yourself or by the home nursing staff if applicable. The entire unit is disposable once removed. Once removed, keep incision clean and dry. If redness or drainage is noted, please call your surgeon. FOLLOW UP VISIT: If appointment is not already scheduled: Please call [facility] to make a follow-up appointment for 2 weeks after your surgery at . Prescriptions: New aspirin [Ecotrin Low Strength] 81 mg Tablet,Delayed Release (Dr/Ec) 81 mg PO BID 30 Days Qty: 60 RF: 0 sennosides [Senokot] 8.6 mg Tablet 17.2 mg PO HS Qty: 30 RF: 0 morphine 15 mg Tablet Extended Release 15 mg PO Q12H Qty: 6 RF: 0 cefadroxil 500 mg capsule 500 mg PO BID Qty: 28 RF: 1 hydrocodone-acetaminophen 5-325 mg tablet 1 - 2 tab PO Q6H PRN (Reason: pain) Qty: 30 RF: 0 Narcan 4 mg/actuation spray,non-aerosol 1 sprays INTNAS ONCE Qty: 2 RF: 0 Continued amoxicillin 500 mg Tablet 500 mg PO UD RF: 0 rosuvastatin [Crestor] 5 mg Tablet 5 mg PO QPM RF: 0 albuterol sulfate 0.63 mg/3 mL Solution For Nebulization 0.63 mg INHALATION QID PRN (Reason: Wheezing) RF: 0 enalapril maleate [Vasotec] 5 mg Tablet 5 mg PO QAM RF: 0 fexofenadine 180 mg Tablet 180 mg PO QAM RF: 0 amlodipine 5 mg Tablet 5 mg PO QAM RF: 0 alprazolam 0.5 mg Tablet 0.5 mg PO TID PRN (Reason: Anxiety) RF: 0 famotidine 20 mg Tablet 20 mg PO BID RF: 0 montelukast 10 mg Tablet 10 mg PO PM RF: 0 fluticasone propion-salmeterol [Advair Diskus] 100-50 mcg/dose Blister With Device 1 puff INHALATION BID RF: 0 albuterol sulfate [ProAir HFA] 90 mcg/actuation Hfa Aerosol Inhaler 2 puff INHALATION QID PRN (Reason: Wheezing) RF: 0 vitamin B complex Capsule 1 cap PO QAM RF: 0 escitalopram oxalate 10 mg Tablet 10 mg PO QPM RF: 0 calcium carbonate-vitamin D3 [Calcium 500 + D] 500 mg(1,250mg) -200 unit Tablet 1 tab PO BID RF: 0 Toviaz 8 mg Tablet Extended Release 24 Hr 8 mg PO QAM RF: 0 cholecalciferol (vitamin D3) [Vitamin D3] 5,000 unit Tablet 5,000 unit PO QAM RF: 0 krill oil 500 mg Capsule 1 cap PO QAM RF: 0 Discontinued nabumetone 500 mg Tablet 500 mg PO BID RF: 0 Stand-Alone Forms: [facility] Admission Data Admit Date/Time: 09/19/18 11:16 Attending Provider: Bran Sol Admit Provider: Bran Sol Primary Care Provider: Jayla Chan Other Providers: Herminio Banks Service: Surgical Services Supervising Physician Co-Signing Physician Notes Dr. Bran Sol
[2018-09-22] MEDS: MoRPHine SULFATE CR 15 MG TABCR PO SCH (08:26)
[2018-09-22] MEDS: FERROUS GLUCONATE 324 MG TAB PO SCH (08:35)
[2018-09-22] MEDS: FAMOTIDINE 20 MG TAB PO SCH (08:35)
[2018-09-22] MEDS: ENALAPRIL MALEATE 5 MG TAB PO SCH (08:35)
[2018-09-22] MEDS: MULTIVITAMIN TAB PO SCH (08:35)
[2018-09-22] MEDS: AMLODIPINE BESYLATE 5 MG TAB PO SCH (08:35)
[2018-09-22] MEDS: ASPIRIN 81 MG ECTAB PO SCH (08:35)
[2018-09-22] MEDS: FLUTICASONE/SALMETEROL 100/50 (ADVAIR) 14 PUFF/1 INHALER INH SCH (08:36)
[2018-09-22] MEDS: FEXOFENADINE HCL 180 MG TAB PO SCH (08:36)
[2018-09-22] MEDS: DOCUSATE SODIUM 100 MG CAP PO SCH (08:43)
--- NOTE | 2018-09-22 09:25 | Hospitalist Progress Note ---
Date of Service September 22, 2018 Assessment & Plan (1) Status post left knee replacement: This is a 57yo F with a PMH of HTN, HLD, pre-diabetes, mood disorder, asthma and other medical problems listed below who is POD#2 s/p L TKA by Dr. Sol. DC today per IM standpoint (2) Hypertension: Normotensive. (3) Asthma: Stable. Lung exam clear. (4) Hyperlipidemia: Continue Crestor (5) Pre-diabetes: Found to have a1c of 6.1 in August 2018 -Discussed lifestyle modifications, follow up with PCP to recheck a1c (6) GERD (gastroesophageal reflux disease): Continue Pepcid (7) Overactive bladder: Continue Toviaz. Consider holding if urine output is poor (8) Anxiety: Continue SSRI, Xanax PRN (9) Depression: Stable. Continue SSRI DVT Ppx: SCDs, aspirin BID per primary service PCP: Rocio NOLAN Dispo: Per primary service, home today Subjective ROS-No Headache, No Visual Changes, No Nausea, No Vomiting, No Fever, No Chills, No Neck Pain or Stiffness, No Chest Pain, No Palpitations, No SOB, No PARK, No Cough, No Sputum, No Wheezing, No Abdominal Pain, No Diarrhea, No Hematemesis, No Hemoptysis, No Unexpected Weight Loss, No Flank pain, No Melena, No Hematochezia, No Frequency, No Urgency, No Burning, No Hematuria, No Rashes, No Diaphoresis. Appetite is Normal Physical Exam Gen-AAO x 3, NAD, Afebrile Head-NCAT, EOMI, PERRLA, Anicteric Sclera, No Posterior Pharyngeal Erythema Neck-Supple, No JVD, No Thyromegaly, No Masses, No LAD, No Bruits Lungs-Clear to Auscultation Bilaterally, No Rales, No Rhonchi, No Wheezing, No Crepitus Chest-No S4, +S1, +S2, No S3, No Murmurs, No Rubs, No Gallops, No Ectopy Abdomen-Soft, Bowel Sounds Present, Non Tender, Non Distended, No Hepatomegaly, No Splenomegaly, No Palpable Masses, No Rebound, No Rigidity, No Guarding Musculoskeletal-Full Range of Motion Bilaterally, No CVAT Extremities-No Cyanosis, No Clubbing, No Edema, Sore Knee L Drain out Nuero-Cranial Nerves II-XII grossly intact, Motor WNL, DTRs WNL, Strength WNL, N on Focal Psych-Normal Mood Physical Exam Vital Signs (Past 24 Hours): Last Vital Signs Temp 36.9 C 09/22/18 08:07 Pulse 76 09/22/18 08:07 Resp 18 09/22/18 08:07 BP 137/82 09/22/18 08:07 Pulse Ox 98 09/22/18 08:07 Results & Data Laboratory Results Current Diagnoses Hyperlipidemia, unspecified (09/19/18) Major depressive disorder, single episode, unspecified (09/19/18) Anxiety disorder, unspecified (09/19/18) Essential (primary) hypertension (09/19/18) Unspecified asthma, uncomplicated (09/19/18) Gastro-esophageal reflux disease without esophagitis (09/19/18) Overactive bladder (09/19/18) Prediabetes (09/19/18) Encounter for other preprocedural examination (09/19/18) Presence of left artificial knee joint (09/19/18) Allergies No Known Allergies Allergy (Verified 09/19/18 07:12) Height/Weight/Isolation Height 5 ft 2 in Weight 92.9 kg Chemistry 09/22/18 05:17 Sodium 140 Potassium 4.3 Chloride 111 H Carbon Dioxide 23 Anion Gap 6.0 BUN 13 Creatinine 0.54 L Glucose 97
== END 2018-09-22 11:22 | disposition home health service (06) | DRG 470 ==
LOC: ASU 06:52 → 3E 11:16

== ENCOUNTER 2019-02-12 10:04 | Inpatient (IN) ==
[2019-02-12] MEDS ORDERED: KETOROLAC TROMETHAMINE 15 MG/ML VIAL IV STA (11:22)
[2019-02-12] MEDS ORDERED: MoRPHine SULFATE 4 MG/ML 1 ML CARP\\VIAL IV STA (11:22)
[2019-02-12 11:57] LABS: Basophils # (auto) 0.03 K/uL (0-0.2); Basophils % (auto) 0.2 %; Eosinophils # (auto) 0.03 K/uL (0-0.5); Eosinophils % (auto) 0.2 %; Hemoglobin 13.1 g/dL (12.0-16.0); Immature Granulocytes # (auto) 0.05 K/uL (0.00-0.02); Immature Granulocytes % (auto) 0.3 %; Lymphocytes # (auto) 1.18 K/uL (1.2-3.4); Lymphocytes % (auto) 6.9 %; Mean Corpuscular Hgb Conc 32.8 g/dL (32-36); Mean Corpuscular Volume 88.5 fL (80-100); Mean Platelet Volume 8.8 fL (7.4-10.4); Monocytes # (auto) 0.58 K/uL (0.11-0.59); Monocytes % (auto) 3.4 %; Neutrophils # (auto) 15.18 K/uL (1.4-6.5); Platelet Count 419 K/uL (130-400); RDW Coefficient of Variation 13.7 % (11.5-14.5); RDW Standard Deviation 44.7 fL (36.4-46.3); Red Blood Count 4.52 M/uL (4.2-5.4); White Blood Count 17.05 K/uL (4.8-10.8)
[2019-02-12 12:13] LABS: Albumin Level 3.4 gm/dl (3.4-5.0); BUN Creatinine Ratio 18.8 (10-20); C Reactive Protein 7.59 mg/dl (0-0.29); Calcium 10.1 mg/dl (8.5-10.1); Creatinine Clr Calc Pharmacy 90.7 ml/min; Est GFR (African American) 109.9; Est GFR (Non-African American) 94.8; Potassium 3.2 mmol/L (3.5-5.1)
[2019-02-12 12:16] LABS: Albumin Globulin Ratio 0.7 (0.9-2); Globulin 4.9 gm/dl (2.5-4.0); Total Protein 8.3 gm/dl (6.4-8.2)
--- NOTE | 2019-02-12 13:00 | Emergency Department Note ---
History of Present Illness General Chief complaint: Neck Injury/Pain Stated complaint: NECK PAIN Time Seen by Provider: 02/12/19 10:59 History of Present Illness Maximum Pain Intensity: 10 This patient is a 58-year-old female who presents to the emergency department via private vehicle for evaluation of ongoing swelling particularly to the left hand and severe pain. Her symptoms have been going on for approximately 2 weeks. She also reports neck pain. The patient was seen in the emergency department approximately 1 week ago. Labs and imaging was performed. The patient was put on Keflex for cellulitis. She has been taking this with no improvement. She denies any fever or chills. No chest pain or shortness of breath. Patient reports a knee replacement in September of this year. The patient followed up with her orthopedic doctor yesterday. They were concerned about a possible abnormality/infection of the hand in addition to problems with the cervical spine. She is reportedly due to have an MRI of the neck and also of the left hand. She has been taking Tylenol with minimal relief. The pain is worse with any movement. It is a burning sensation. Of note, the patient also reports multiple dental procedures in the last several weeks including a root canal. Home Medications Home Medications Medication Instructions Recorded Confirmed Type Toviaz 8 mg PO QAM 09/02/18 02/12/19 History albuterol sulfate 0.63 mg INHALATION QID PRN 09/02/18 02/12/19 History albuterol sulfate [ProAir HFA] 2 puff INHALATION QID PRN 09/02/18 02/12/19 History alprazolam 0.5 mg PO TID PRN 09/02/18 02/12/19 History amlodipine 5 mg PO QAM 09/02/18 02/12/19 History amoxicillin 500 mg PO UD 09/02/18 02/12/19 History calcium carbonate-vitamin D3 1 tab PO BID 09/02/18 02/12/19 History [Calcium 500 + D] cholecalciferol (vitamin D3) 5,000 unit PO QAM 09/02/18 02/12/19 History [Vitamin D3] enalapril maleate 5 mg PO QAM 09/02/18 02/12/19 History escitalopram oxalate 10 mg PO QPM 09/02/18 02/12/19 History famotidine 20 mg PO BID 09/02/18 02/12/19 History fexofenadine 180 mg PO QAM 09/02/18 02/12/19 History fluticasone propion-salmeterol 1 puff INHALATION BID 09/02/18 02/12/19 History [Advair Diskus] krill oil 1 cap PO QAM 09/02/18 02/12/19 History montelukast 10 mg PO PM 09/02/18 02/12/19 History rosuvastatin [Crestor] 5 mg PO QPM 09/02/18 02/12/19 History vitamin B complex 1 cap PO QAM 09/02/18 02/12/19 History cephalexin [Keflex] 500 mg PO QID 10 Days #40 cap 02/05/19 02/12/19 Rx hydrocodone-acetaminophen [[place]] 1 tab PO Q6H PRN #10 tab 02/05/19 02/12/19 Rx nabumetone 500 mg PO BID 02/05/19 02/12/19 History prednisone 10 mg PO UD 02/05/19 02/12/19 History acetaminophen [Tylenol Extra 500 mg PO Q6H PRN 02/12/19 02/12/19 History Strength] Allergies Allergy/AdvReac Type Severity Reaction Status Date / Time No Known Allergies Allergy Verified 02/12/19 11:02 Past Med/Surg History Medical History Overactive bladder (Chronic) GERD (gastroesophageal reflux disease) (Chronic) Hyperlipidemia (Chronic) Hypertension (Chronic) Asthma (Chronic) Depression (Chronic) Anxiety (Chronic) Asthma (Chronic) STABLE GERD (gastroesophageal reflux disease) (Chronic) CONTROLLED Hyperlipidemia (Chronic) Hypertension (Chronic) Mood disorder (Chronic) Obesity (Chronic) Osteoarthritis (Chronic) Surgical History Status post appendectomy (Chronic) Status post tubal ligation (Chronic) History of appendectomy (Resolved) History of bilateral tubal ligation (Resolved) History of cataract extraction with lens replacement (Resolved) B/L History of section (Resolved) History of foot surgery (Resolved) HEEL SURGERY FOR BONE SPUR History of total knee replacement (Resolved) RIGHT= SAB X 2 ATTEMPTS AT L3-L4 + PNB AT [facility] Family History Other Diabetes Hypertension Ovarian cancer Social History Preferred Language: Welsh Communication Ability: Effective 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 Beliefs That Will Affect Care: None Current Living Situation: Alone Other Information That Helps Us Care for You: No Feels Safe at Home: Yes Safety Concerns: Feels Safe At This Time Smoking Status: Former smoker Tobacco Type: cigarettes ; Cigarettes Per Day: QUIT 30 YEARS AGO, HX OF SOCIAL USE ; Second Hand Exposure: No ; Hx Alcohol Use: No Hx Substance Use: No Review of Systems A total of 10 systems reviewed and were otherwise negative Physical Exam Vital Signs Vital Signs - 24 hr 02/12/19 10:22 02/12/19 12:05 02/12/19 14:52 Temperature 36.8 C Temperature Source Oral Sepsis Recent Fever Within 48 Hours No Sepsis New/Unexplained Change in Mental Status No Sepsis Action Taken by Nursing No Action Required Pulse Rate 86 Pulse Rate [Right Finger] 99 H 64 Respiratory Rate 18 20 20 Respiratory Effort / Characteristics Non-Labored Spontaneous Non-Labored Spontaneous Non-Labored Spontaneous Respiratory Depth Normal Normal Normal Respiratory Pattern Regular Regular Regular Blood Pressure 173/95 H Blood Pressure [Left Arm] 137/96 118/79 Blood Pressure Mean 121 Blood Pressure Mean [Left Arm] 109 92 Blood Pressure Position Sitting Blood Pressure Position [Left Arm] Lying Lying Pulse Oximetry 100 95 98 Oxygen Delivery Method Room Air Room Air Room Air 02/12/19 16:00 Temperature Temperature Source Sepsis Recent Fever Within 48 Hours Sepsis New/Unexplained Change in Mental Status Sepsis Action Taken by Nursing Pulse Rate Pulse Rate [Right Finger] 65 Respiratory Rate 18 Respiratory Effort / Characteristics Non-Labored Spontaneous Respiratory Depth Normal Respiratory Pattern Regular Blood Pressure Blood Pressure [Left Arm] 118/79 Blood Pressure Mean Blood Pressure Mean [Left Arm] 92 Blood Pressure Position Blood Pressure Position [Left Arm] Lying Pulse Oximetry 94 Oxygen Delivery Method Room Air Constitutional WD/WN, vitals as above Eyes EOM intact bilaterally ENMT external ear and nose normal, oropharynx normal Neck trachea midline Respiratory normal respiratory effort, lungs clear to auscultation Cardiovascular RRR, no murmur, no edema Gastrointestinal (Abdomen) Percussion/Palpation: abdomen soft Musculoskeletal Diffuse edema and warmth noted particularly to the left hand distal to the wrist. Tenderness to palpation over the dorsum of the hand. Skin is intact. Field Operations Coordinator strength 2/5. Capillary refill in the fingers is less than 2 seconds. Radial pulse +2. Pain with extension of the neck. No pain with flexion of the neck. Skin no rashes, warm and dry Neurologic Alert and oriented x3. No focal motor deficits. Psychiatric Acting appropriately Course Patient was seen and examined Vital signs including blood pressure were reviewed medications list was verified with patient Labs were obtained, and a saline lock was established Morphine 4 mg IV and Toradol 15 mg IV ordered for pain Imaging performed and reviewed Upon reassessment, the patient's pain was improved. We discussed her results. She voiced understanding. She was comfortable with disposition of possible inpatient management. Case was discussed with orthopedics and the [facility]. They kindly agreed to evaluate the patient for further work-up and treatment. Consultations Consultation #1: Kem Vasquez PA-C Consultation #2: [facility] Administered Medications Acetaminophen (Tylenol) 1,000 mg PO Q8 ZANDRA Stop: 03/14/19 18:44 Last Admin: 02/12/19 20:03 Dose: 1,000 mg Documented by: [id number] Gadobutrol (Gadavist 65ml) 9 ml IV ONCE PRN PRN Reason: Interaction Checking Stop: 02/16/19 17:22 Last Admin: 02/12/19 17:24 Dose: 9 ml Documented by: [id number] Ceftriaxone Sodium 2,000 mg/ (Dextrose) 70 mls @ 100 mls/hr IV DAILY ZANDRA; Caty col Stop: 02/22/19 16:44 Last Admin: 02/12/19 17:47 Dose: Not Given Documented by: [id number] Vancomycin HCl 2,250 mg/ (Sodium Chloride) 545 mls @ 200 mls/hr IV ONE ONE Stop: 02/12/19 21:43 Last Admin: 02/12/19 20:02 Dose: 200 mls/hr Documented by: [id number] Discontinued Medications Ceftriaxone Sodium (Rocephin) Confirm Administered Dose 2,000 mg IV .STK-MED ONE Stop: 02/12/19 17:47 Last Admin: 02/12/19 17:47 Dose: 2,000 mg Documented by: [id number] Ketorolac Tromethamine (Toradol) 15 mg IV NOW STA Stop: 02/12/19 11:23 Last Admin: 02/12/19 11:34 Dose: 15 mg Documented by: [id number] Miscellaneous Information (Pharmacy Consult) 1 ea N/A NOW STA Stop: 02/12/19 16:40 Last Admin: 02/12/19 19:41 Dose: Not Given Documented by: [id number] Morphine Sulfate (Morphine Sulfate) 4 mg IV NOW STA Stop: 02/12/19 11:23 Last Admin: 02/12/19 11:34 Dose: 4 mg Documented by: [id number] Potassium Chloride (Klor-Con M20) 40 meq PO NOW STA Stop: 02/12/19 16:40 Last Admin: 02/12/19 17:46 Dose: 40 meq Documented by: [id number] Medical Decision Making Home Medications Current Medication List: was personally reviewed by me Laboratory Data Attestation: I reviewed the patient's lab results. Result diagrams: 02/12/19 11:45 02/12/19 11:45 Lab Results 02/12/19 02/12/19 02/12/19 Range/Units 11:45 11:45 11:45 WBC 17.05 H (4.8-10.8) K/uL RBC 4.52 (4.2-5.4) M/uL Hgb 13.1 (12.0-16.0) g/dL Hct 40.0 (37-47) % MCV 88.5 (80-100) fL MCH 29.0 (25-34) pg MCHC 32.8 (32-36) g/dL RDW Std Deviation 44.7 (36.4-46.3) fL RDW Coeff of Peggy 13.7 (11.5-14.5) % Plt Count 419 H (130-400) K/uL MPV 8.8 (7.4-10.4) fL Immature Gran % (Auto) 0.3 % Neut % (Auto) 89.0 % Lymph % (Auto) 6.9 % [place] % (Auto) 3.4 % Eos % (Auto) 0.2 % Baso % (Auto) 0.2 % Immature Gran # (Auto) 0.05 H (0.00-0.02) K/uL Neut # (Auto) 15.18 H (1.4-6.5) K/uL Lymph # (Auto) 1.18 L (1.2-3.4) K/uL [place] # (Auto) 0.58 (0.11-0.59) K/uL Eos # (Auto) 0.03 (0-0.5) K/uL Baso # (Auto) 0.03 (0-0.2) K/uL ESR > 90 H (0-21) mm/hr Sodium 137 (136-145) mmol/L Potassium 3.2 L (3.5-5.1) mmol/L Chloride 103 (98-107) mmol/L Carbon Dioxide 27 (21-32) mmol/L Anion Gap 7.0 (3-11) BUN 13 (7-18) mg/dl Creatinine 0.70 (0.6-1.2) mg/dl Est Cr Clr Drug Dosing 90.7 ml/min Est GFR ( Amer) 109.9 Est GFR (Non-Af Amer) 94.8 BUN/Creatinine Ratio 18.8 (10-20) Glucose 142 H (70-99) mg/dl Uric Acid (2.6-7.2) mg/dl Calcium 10.1 (8.5-10.1) mg/dl Total Bilirubin 1.0 (0.2-1) mg/dl AST 12 L (15-37) U/L ALT 41 (12-78) U/L Alkaline Phosphatase 99 (45-117) U/L C-Reactive Protein 7.59 H (0-0.29) mg/dl Total Protein 8.3 H (6.4-8.2) gm/dl Albumin 3.4 (3.4-5.0) gm/dl Globulin 4.9 H (2.5-4.0) gm/dl Albumin/Globulin Ratio 0.7 L (0.9-2) Procalcitonin (0-0.5) ng/ml Lyme Disease IgG Ab (Negative) Lyme Disease IgM Ab (Negative) 02/12/19 02/12/19 Range/Units 11:45 11:45 WBC (4.8-10.8) K/uL RBC (4.2-5.4) M/uL Hgb (12.0-16.0) g/dL Hct (37-47) % MCV (80-100) fL MCH (25-34) pg MCHC (32-36) g/dL RDW Std Deviation (36.4-46.3) fL RDW Coeff of Peggy (11.5-14.5) % Plt Count (130-400) K/uL MPV (7.4-10.4) fL Immature Gran % (Auto) % Neut % (Auto) % Lymph % (Auto) % [place] % (Auto) % Eos % (Auto) % Baso % (Auto) % Immature Gran # (Auto) (0.00-0.02) K/uL Neut # (Auto) (1.4-6.5) K/uL Lymph # (Auto) (1.2-3.4) K/uL [place] # (Auto) (0.11-0.59) K/uL Eos # (Auto) (0-0.5) K/uL Baso # (Auto) (0-0.2) K/uL ESR (0-21) mm/hr Sodium (136-145) mmol/L Potassium (3.5-5.1) mmol/L Chloride (98-107) mmol/L Carbon Dioxide (21-32) mmol/L Anion Gap (3-11) BUN (7-18) mg/dl Creatinine (0.6-1.2) mg/dl Est Cr Clr Drug Dosing ml/min Est GFR ( Amer) Est GFR (Non-Af Amer) BUN/Creatinine Ratio (10-20) Glucose (70-99) mg/dl Uric Acid 3.0 (2.6-7.2) mg/dl Calcium (8.5-10.1) mg/dl Total Bilirubin (0.2-1) mg/dl AST (15-37) U/L ALT (12-78) U/L Alkaline Phosphatase (45-117) U/L C-Reactive Protein (0-0.29) mg/dl Total Protein (6.4-8.2) gm/dl Albumin (3.4-5.0) gm/dl Globulin (2.5-4.0) gm/dl Albumin/Globulin Ratio (0.9-2) Procalcitonin < 0.05 (0-0.5) ng/ml Lyme Disease IgG Ab Negative (Negative) Lyme Disease IgM Ab Negative (Negative) Imaging Data Attestation: I personally reviewed and interpreted this imaging study as follows: Radiologist's Impression: Ultrasound left upper extremity IMPRESSION: No DVT within the upper extremity. The above report was generated using voice recognition software. It may contain grammatical, syntax or spelling errors. Electronically signed by: Toi Sanford M.D. 02/12/2019 1:34 PM Dictated: 02/12/19 1334 Transcribed: 02/12/19 1334 [facility] Narrative Differential diagnosis: Infectious etiology, DVT, vascular abnormality, inf lammatory disease, among others This patient is a 58-year-old female that returns to the emergency department complaining of ongoing pain and swelling particularly to the left hand. On exam, the hand was edematous. There were no breaks in the skin noted. It was not erythematous. Work-up reveals leukocytosis. She has been on steroids. Her inflammatory markers are also elevated. The case was discussed with orthopedics who saw the patient in the office yesterday. They recommended an MRI of the hand and hospitalist consultation for likely admission to the hospital for further work-up. They thought that this was likely a cellulitis. Impression & Plan Cellulitis Discharge Plan Visit Data *Final* Discharge Date/Time: 02/12/19 18:07 Chief Complaint: Neck Injury/Pain Stated Complaint: NECK PAIN ED Provider: Patricia Lion ED Midlevel Provider: Connie Velasco Discharge Problem: Cellulitis Patient Disposition: Admitted As Inpatient Discharge Instructions Interventions: ED Discharge Assessment Last Done: 02/12/19 18:07
[2019-02-12 13:01] LABS: Procalcitonin < 0.05 ng/ml (0-0.5)
[2019-02-12 13:08] LABS: Lyme Ab IgM w/WB Rflx Negative (Negative)
[2019-02-12 13:09] LABS: Lyme Ab IgG w/WB Rflx Negative (Negative)
--- NOTE | 2019-02-12 13:35 | Ultrasound Report ---
US venous doppler UE LT HISTORY: Pain. Edema. edema to LUE recent sx COMPARISON STUDY: None. FINDINGS: The internal jugular vein is patent. There is normal flow within the subclavian vein. There is normal flow and compressibility within the left axillary, basilic, brachial, radial, ulnar, and v isualized cephalic veins. IMPRESSION: No DVT within the upper extremity. The above report was generated using voice recognition software. It may contain grammatical, syntax or spelling errors. Electronically signed by: Toi Sanford M.D. 02/12/2019 1:34 PM
[2019-02-12] MEDS ORDERED: CONSULT PHARMACY STA (16:39)
[2019-02-12] MEDS ORDERED: POTASSIUM CHLORIDE 20 MEQ TABCR PO STA (16:39)
--- NOTE | 2019-02-12 17:18 | History & Physical Report ---
Date of Service February 12, 2019 Assessment & Plan (1) Left wrist pain: (2) Neck pain: (3) Elevated C-reactive protein (CRP): (4) Leukocytosis: This is a 58-year-old female who has significant past medical history of HTN, HLD, asthma, depression, GERD, OA DJD, mood disorder, IV who presents to [facility] secondary to left wrist swelling x1.5 weeks. Refer to HPI regarding past 2 week clinical course Seen in [facility] ED 02/05 - concern for LUE cellulitis, tx with keflex. Previously been seen in Urgent care 02/03 and placed on Prednisone taper (40mg x 4 day; 30mg x 4 days; 20mg x4 days; 10mg x 4 days) for concern for arthritis vs carpal tunnel No improvement of sx; worsen of edema, pain, ROM, no erythema L Hand/wrist xray performed 02/05 no acute fx, +soft tissue swelling Neck Xray as outpt: C3-4 anterolisthesis with likely bilateral neuroforaminal narrowing. Pt with Leukocytosis 17k, elevated esr/crp procalcitonin/lyme negative, uric acid 3.0 ED provider contacted orthopedics who recommended MRI of L hand/wrist and admission for further work up Ddx but not limited to: Septic arthritis, osteomyelitis, abscess, diskitis, tenosynovitis among others Pt does not meet SIRS/sepsis criteria per current CMS guidelines admit to med/surg MRI currently pending/blood cultures pending ortho consulted Start empiric Vanco/Rocephin Will complete prednisone taper tomorrow NPO after midnight in event surgical intervention required pain management with scheduled APAP PRN oxycodone 5mg moderate pain; Morphine severe pain Ice to LUE; warm compress to neck prn (5) Hypokalemia: 40meq KCL ordered x 1 repeat bmp in am (6) Hypertension: blood pressure stable continue amlodipine, enalapril (7) Hyperlipidemia: continue statin (8) Asthma: no acute exacerbation continue advair, prn albuterol (9) Depression: continue escitalopram mood stable (10) GERD (gastroesophageal reflux disease): continue famotidine (11) DVT prophylaxis: SCD/TEDS for now awaiting MRI results/ortho input - will hold off for now in event surgical intervention required eval need for chemical prophlyaxis daily Disposition: d/c to home when able Follow up: PCP Jayla Chan PA-C upon discharge Patient was seen and examined in collaboration with Dr. Franklin, please see addendum History of Present Illness Chief Complaint: L hand/wrist swelling x 1.5 weeks. Primary Care Provider: Jayla Chan PA-C This is a 58-year-old female who has significant past medical history of HTN, HLD, asthma, depression, GERD, OA DJD, mood disorder, IV who presents to [facility] secondary to left wrist swelling x1.5 weeks. Initially patient developed neck stiffness and pain approximately 2 weeks ago. Due to increase in pain and development of left wrist pain 5 days later [facility]. Her left wrist was concerning for carpal tunnel and x-rays were performed of the neck. Per report x-rays reveal chronic spondylolisthesis but otherwise no acute change. Due to above symptoms she was prescribed prednisone taper in which she will finish tomorrow. 2 days later on 02/05 her left wrist became increasingly painful which brought her to [facility] ED. She had increased pain, swelling and some redness. X-rays performed revealed soft tissue swelling but no acute fracture. There was concern for cellulitis so she was placed on a 10-day course of Keflex in which she has taken for 8 days. She has been taking APAP and ibuprofen without significant relief. There is been no improvement with the Keflex. She no longer has redness to the left hand but has increased swelling extending proximally to her mid forearm, decreased range of motion with wrist, pain worse at night. Pain currently 5/10 even with recent analgesia. Pain is constant and worse with movement. She has no trauma and no insect bite. Never had anything like this in the past. After her ER visit on 02/05 she did have a orthopedic appointment the same day. Per patient report she was seen by Kem Vasquez PA-C who is more concerned for possible tendinitis vs infection, less likely carpal tunnel. MRI was recommended but not yet performed. Through all this she continued to have neck stiffness and pain. No neck pain radiation to extremities or numbness/tingling. She denies any fever, chills, sweats, lightheadedness, dizziness, syncope, chest pain, shortness of breath, palpitations, PARK, nausea, vomiting, diarrhea, change her bowel or urinary habits. Her appetite is otherwise been normal. No recent illness. Hx of discitis many years ago. Recent dental work done with root canal. Allergies Allergy/AdvReac Type Severity Reaction Status Date / Time No Known Allergies Allergy Verified 02/12/19 11:02 Home Medications Home Medications Medication Instructions Recorded Confirmed Type Toviaz 8 mg PO QAM 09/02/18 02/12/19 History albuterol sulfate 0.63 mg INHALATION QID PRN 09/02/18 02/12/19 History albuterol sulfate [ProAir HFA] 2 puff INHALATION QID PRN 09/02/18 02/12/19 History alprazolam 0.5 mg PO TID PRN 09/02/18 02/12/19 History amlodipine 5 mg PO QAM 09/02/18 02/12/19 History amoxicillin 500 mg PO UD 09/02/18 02/12/19 History calcium carbonate-vitamin D3 1 tab PO BID 09/02/18 02/12/19 History [Calcium 500 + D] cholecalciferol (vitamin D3) 5,000 unit PO QAM 09/02/18 02/12/19 History [Vitamin D3] enalapril maleate 5 mg PO QAM 09/02/18 02/12/19 History escitalopram oxalate 10 mg PO QPM 09/02/18 02/12/19 History famotidine 20 mg PO BID 09/02/18 02/12/19 History fexofenadine 180 mg PO QAM 09/02/18 02/12/19 History fluticasone propion-salmeterol 1 puff INHALATION BID 09/02/18 02/12/19 History [Advair Diskus] krill oil 1 cap PO QAM 09/02/18 02/12/19 History montelukast 10 mg PO PM 09/02/18 02/12/19 History rosuvastatin [Crestor] 5 mg PO QPM 09/02/18 02/12/19 History vitamin B complex 1 cap PO QAM 09/02/18 02/12/19 History hydrocodone-acetaminophen [[place]] 1 tab PO Q6H PRN #10 tab 02/05/19 02/12/19 Rx nabumetone 500 mg PO BID 02/05/19 02/12/19 History acetaminophen [Tylenol Extra 500 mg PO Q6H PRN 02/12/19 02/12/19 History Strength] meloxicam [Mobic] 7.5 mg PO BID PRN #15 tab 02/15/19 Rx Past Med/Surg History Medical History Overactive bladder (Chronic) GERD (gastroesophageal reflux disease) (Chronic) Hyperlipidemia (Chronic) Hypertension (Chronic) Asthma (Chronic) Depression (Chronic) Anxiety (Chronic) Asthma (Chronic) STABLE GERD (gastroesophageal reflux disease) (Chronic) CONTROLLED Hyperlipidemia (Chronic) Hypertension (Chronic) Mood disorder (Chronic) Obesity (Chronic) Osteoarthritis (Chronic) Surgical History Status post appendectomy (Chronic) Status post tubal ligation (Chronic) History of appendectomy (Resolved) History of bilateral tubal ligation (Resolved) History of cataract extraction with lens replacement (Resolved) B/L History of section (Resolved) History of foot surgery (Resolved) HEEL SURGERY FOR BONE SPUR History of total knee replacement (Resolved) RIGHT= SAB X 2 ATTEMPTS AT L3-L4 + PNB AT [facility] Family History Other Diabetes Hypertension Ovarian cancer Social History Preferred Language: Belarusian Communication Ability: Effective Regional Airline Pilot Required: No Beliefs That Will Affect Care: None Current Living Situation: Alone Other Information That Helps Us Care for You: No Feels Safe at Home: Yes Safety Concerns: Feels Safe At This Time Smoking Status: Former smoker Tobacco Type: cigarettes ; Cigarettes Per Day: QUIT 30 YEARS AGO, HX OF SOCIAL USE ; Second Hand Exposure: No ; Hx Alcohol Use: No Hx Substance Use: No Review of Systems Review of Systems: All systems reviewed & are unremarkable except as noted in HPI & below Physical Exam Physical Exam: Constitutional: WD/WN, vitals as above, NAD, sitting up in bed, pleasant, conversing easily Head: Normocephalic, Atraumatic Eyes: PERRL, conjunctivae normal, anicteric sclerae ENMT: external ear and nose normal, oropharynx normal Neck: trachea midline, no thyromegaly normal visual inspection Respiratory: normal respiratory effort, lungs clear to auscultation, no wheeze, rales, rhonchi. Normal insp/exp effort, no accessory muscle use Cardiovascular: RRR, no murmur, no edema Vessels: no JVD or carotid bruit Chest: normal inspection of chest Abdomen: normal bowel sounds, soft, nontender, no hepatosplenomegaly Musculoskeletal: L hand/wrist edema extending in stocking/glove like distribution to mid forearm with notable demarcation but not erythematous. Pain to palpation throughout. Decrease ROM To L wrist and fingers with minimal flexion/ext, ab/adduction, notable epitrochlear, axillary adenopathy, no streaking. Full ROM To neck but decreased with lateral flexion. No pain to palpation to Vertebral process or paraspinal musculature. Skin: no rashes, warm and dry normal turgor Neurologic: PERRL, EOMI, accommodation nl, no face palsy, no dysarthria CN's II-XI intact bilaterally and moves all extremities Psychiatric: A+Ox3, euthymic affect Lymphatic: no cervical or axillary lymphadenopathy : deferred Results & Data Vital Signs (Past 12 Hours) Vital Signs Temp Pulse Pulse Resp BP BP Pulse Ox 02/12/19 16:00 65 18 118/79 94 02/12/19 14:52 64 20 118/79 98 02/12/19 12:05 99 H 20 137/96 95 02/12/19 10:22 36.8 C 86 18 173/95 H 100 Laboratory Results Short CBC 02/12/19 Range/Units 11:45 WBC 17.05 H (4.8-10.8) K/uL Hgb 13.1 (12.0-16.0) g/dL Hct 40.0 (37-47) % Plt Count 419 H (130-400) K/uL BMP 02/12/19 11:45 Sodium 137 Potassium 3.2 L Chloride 103 Carbon Dioxide 27 BUN 13 Creatinine 0.70 Glucose 142 H Calcium 10.1 Liver Function 02/12/19 Range/Units 11:45 Total Bilirubin 1.0 (0.2-1) mg/dl AST 12 L (15-37) U/L ALT 41 (12-78) U/L Alkaline Phosphatase 99 (45-117) U/L Albumin 3.4 (3.4-5.0) gm/dl Diagnostic Findings Venous U/S: IMPRESSION: No DVT within the upper extremity. Xray L wrist/hand 02/05 HAND: Demineralized appearance of the bones. Mild multidigit metacarpophalangeal with mild to moderate interphalangeal osteoarthritis. Moderate first carpometacarpal with mild radiocarpal osteoarthritis. No acute fracture or dislocation.. Mild dorsal soft tissue swelling without opaque foreign body. WRIST: Demineralized appearance the bones with degenerative changes as above. Mild soft tissue swelling circumferentially about the wrist and dorsal hand. No acute fracture, dislocation or opaque foreign body. IMPRESSION: 1. Soft tissue swelling without acute fracture or dislocation. 2. Demineralized appearance of the bones with degenerative changes as above. Cspine Xray [facility] on 02/03: FINDINGS Grade 1-2 C3-4 anterolisthesis is increased from prior with likely neuroforaminal narrowing at this level. C7-T1 grade 1 anterolisthesis stable.. Vertebral body heights are preserved. Varying degrees of disc space narrowing and facet arthropathy. Base of the dens is unremarkable. Lateral masses of C1 appear symmetrical. Soft tissues are unremarkable. Impression IMPRESSION Increased C3-4 anterolisthesis with likely bilateral neuroforaminal narrowing. MRI: Pending Medications Administered Gadobutrol (Gadavist 65ml) 9 ml IV ONCE PRN PRN Reason: Interaction Checking Stop: 02/16/19 17:22 Last Admin: 02/12/19 17:24 Dose: 9 ml Documented by: [id number] Discontinued Medications Ketorolac Tromethamine (Toradol) 15 mg IV NOW STA Stop: 02/12/19 11:23 Last Admin: 02/12/19 11:34 Dose: 15 mg Documented by: [id number] Morphine Sulfate (Morphine Sulfate) 4 mg IV NOW STA Stop: 02/12/19 11:23 Last Admin: 02/12/19 11:34 Dose: 4 mg Documented by: [id number] Code Status & VTE Plan Code Status Full Code VTE Prophylaxis Plan VTE Prophylaxis will be ordered: Yes Supervising Physician Co-Signing Physician Notes Pt was seen and examined. Agreed with Liliana NOLAN, exam assessment and plan. 58-year-old female with PMH has of HTN, HLD, asthma, depression, GERD, OA DJD, mood disorder, IV who presents to [facility] for left wrist pain and swelling x1.5 weeks. Pt said that about 2 weeks ago she developed neck stiffness followed by wrist pain. She went to an urgent care and was prescribed prednisone with no relief. Her symptoms were worsening and came to the ER and was given Keflex that she has been taking for 8 days. Dopler of LUE done in the ER showed no DVT . MRI of LUE showed increased fluid and synovial enhancement of the distal radioulnar joint surrounding the distal ulna. Moderate subcutaneous fluid of the left wrist and hand which may reflect cellulitis or edema. Lab in the ER showed elevated esr/crp, procalcitonin/lyme negative. Will start on empiric Vanco/Rocephin. Continue pain control. Follow up blood cx. Orthopedic consult. Will continue monitor closely. MD Noemi
[2019-02-12] MEDS ORDERED: GADOBUTROL 65ML VIAL IV PRN (17:23)
[2019-02-12] MEDS ORDERED: cefTRIAXone SODIUM 2000MG/70ML D5W IV ONE (17:46)
[2019-02-12] MEDS: cefTRIAXone SODIUM 2,000 MG in DEXTROSE 5% 50 ML IV SCH (17:47)
--- NOTE | 2019-02-12 17:53 | Magnetic Resonance Report ---
MRI OF THE LEFT HAND WITH AND WITHOUT CONTRAST CLINICAL HISTORY: Diffuse edema and pain. Evaluate for infection. COMPARISON STUDY: Left hand and wrist radiographs February 05, 2019. TECHNIQUE: Utilizing a 1.5 Bev magnet and dedicated coil, multiplanar, multi echo imaging of the le ft hand and wrist was performed pre and postcontrast indication. Intravenous injection of 9 cc of Donny avist was uneventful. FINDINGS: Alignment of the left wrist and hand is anatomic. There is joint space narrowing with marro w edema adjacent to the triscaphe the joint. There is also joint space narrowing of the left first ca rpometacarpal joint. No additional sites of marrow edema within the left wrist or hand are noted. Not e is made of moderate subcutaneous edema of the dorsal left wrist and hand. No soft tissue rim-enhanc ing fluid collection is identified to suggest a soft tissue abscess. There is increased fluid with in creased synovial enhancement of the distal radioulnar joint surrounding the distal ulna. No associate d marrow edema is present. No additional sites of significant synovial enhancement are identified on the postcontrast images. Carpal tunnel is normal. No mass is identified. Sensitivity is diminished gi regine this technique but there is no evidence for soft tissue gas. Tendons appear intact. IMPRESSION: 1. Increased fluid and synovial enhancement of the distal radioulnar joint surrounding the distal uln a. The findings are nonspecific and septic arthropathy could have this appearance. A reactive synovit is/inflammatory arthritis could appear similar. 2. Moderate subcutaneous fluid of the left wrist and hand which may reflect cellulitis or edema. No s oft tissue abscess. 3. Marrow edema centered on the triscaphe joint. This is likely due to osteoarthrosis. An infectious process with osteomyelitis could appear similar although is considered less likely. Electronically signed by: Justyn Talbot M.D. 02/12/2019 5:51 PM
[2019-02-12] MEDS ORDERED: MoRPHine SULFATE 4 MG/ML 1 ML CARP\\VIAL IV PRN (18:19)
[2019-02-12] MEDS ORDERED: ALPRAZolam 0.5 MG TABLET PO PRN (18:19)
[2019-02-12] MEDS ORDERED: OXYCODONE/ACETAMINOPHEN 5mg/325mg TAB PO PRN (18:19)
[2019-02-12] MEDS ORDERED: ONDANSETRON INJ 2 MG/ML 2 ML VIAL IV PRN (18:19)
[2019-02-12] MEDS ORDERED: ALBUTEROL 0.083% NEBU SOLN 3 ML VIAL NEB PRN (18:19)
[2019-02-12] MEDS ORDERED: ALUMINUM/MAGNESIUM SUSP 30 ML UDC PO PRN (18:19)
[2019-02-12] MEDS ORDERED: POLYETHYLENE (MIRALAX) 17 GM PACK PO PRN (18:19)
[2019-02-12] MEDS ORDERED: MAGNESIUM HYDROXIDE SUSP 30 ML UDC PO PRN (18:19)
[2019-02-12] MEDS ORDERED: VANCOMYCIN CONSULT ACTIVE PRN (18:39)
[2019-02-12] MEDS ORDERED: ROCEPHIN: PHARMACY CONSULT IN PROGRESS PRN (18:48)
[2019-02-12] MEDS ORDERED: VANCOMYCIN HCL 2,250 MG in SODIUM CHLORIDE 0.9% 500 ML IV ONE (19:00)
[2019-02-12] MEDS: ACETAMINOPHEN 500 MG TAB PO SCH (20:03)
[2019-02-12] MEDS: FLUTICASONE/SALMETEROL 100/50 (ADVAIR) 14 PUFF/1 INHALER INH SCH (21:05)
[2019-02-12] MEDS: ESCITALOPRAM OXALATE 10 MG TAB PO SCH (21:06)
[2019-02-12] MEDS: ROSUVASTATIN CALCIUM 5 MG TAB PO SCH (21:06)
[2019-02-12] MEDS: MONTELUKAST SODIUM 10 MG TABLET PO SCH (21:07)
[2019-02-12] MEDS: FAMOTIDINE 20 MG TAB PO SCH (21:29)
[2019-02-13] MEDS: VANCOMYCIN HCL 1,250 MG in SODIUM CHLORIDE 0.9% 250 ML IV SCH ×2 (03:53→16:29)
[2019-02-13] MEDS: ACETAMINOPHEN 500 MG TAB PO SCH ×3 (06:00→22:00)
[2019-02-13 07:02] LABS: Basophils # (auto) 0.02 K/uL (0-0.2); Basophils % (auto) 0.2 %; Eosinophils # (auto) 0.11 K/uL (0-0.5); Eosinophils % (auto) 0.9 %; Hematocrit (blood only) 34.3 % (37-47); Immature Granulocytes # (auto) 0.04 K/uL (0.00-0.02); Immature Granulocytes % (auto) 0.3 %; Lymphocytes # (auto) 3.94 K/uL (1.2-3.4); Lymphocytes % (auto) 32.7 %; Mean Corpuscular Hemoglobin 28.6 pg (25-34); Mean Corpuscular Hgb Conc 32.1 g/dL (32-36); Mean Corpuscular Volume 89.1 fL (80-100); Mean Platelet Volume 8.7 fL (7.4-10.4); Monocytes % (auto) 9.1 %; Neutrophils # (auto) 6.84 K/uL (1.4-6.5); Neutrophils % (auto) 56.8 %; Platelet Count 385 K/uL (130-400); RDW Coefficient of Variation 13.8 % (11.5-14.5); RDW Standard Deviation 45.1 fL (36.4-46.3); Red Blood Count 3.85 M/uL (4.2-5.4); White Blood Count 12.05 K/uL (4.8-10.8)
[2019-02-13 07:29] LABS: BUN Creatinine Ratio 26.5 (10-20); Calcium 8.9 mg/dl (8.5-10.1); Creatinine Clr Calc Pharmacy 113.4 ml/min; Est GFR (African American) 118.3; Est GFR (Non-African American) 102.1; Potassium 4.1 mmol/L (3.5-5.1)
[2019-02-13] MEDS ORDERED: predniSONE 10 MG TABLET PO SCH (09:00)
[2019-02-13] MEDS: FEXOFENADINE HCL 180 MG TAB PO SCH (09:40)
[2019-02-13] MEDS: CHOLECALCIFEROL 1,000 UNITS TAB PO SCH (09:40)
[2019-02-13] MEDS: FAMOTIDINE 20 MG TAB PO SCH ×2 (09:40→20:03)
[2019-02-13] MEDS: AMLODIPINE BESYLATE 5 MG TAB PO SCH (09:45)
[2019-02-13] MEDS: ENALAPRIL MALEATE 5 MG TAB PO SCH (09:45)
[2019-02-13] MEDS: FLUTICASONE/SALMETEROL 100/50 (ADVAIR) 14 PUFF/1 INHALER INH SCH ×2 (09:45→20:02)
[2019-02-13] MEDS: cefTRIAXone SODIUM 2,000 MG in DEXTROSE 5% 50 ML IV SCH (09:51)
--- NOTE | 2019-02-13 11:37 | Hospitalist Progress Note ---
Date of Service February 13, 2019 Assessment & Plan (1) Left wrist pain: (2) Neck pain: (3) Elevated C-reactive protein (CRP): (4) Leukocytosis: Present on admission with worsening LUE swelling and tenderness Failed outpatient therapy with taper prednisone and Keflex MRI L hand showed increased fluid and synovial enhancement of the distal radioulnar joint surrounding the distal ulna. Moderate subcutaneous fluid of the left wrist and hand which may reflect cellulitis or edema Venous Doppler of LUE showed no DVT within the upper extremity Elevated WBC, ESR and C-reactive on admission Continue vanco and rocephin IV for now WBC trending down and afebrile Ortho consulted Will keep NPO for now, in case she requires any surgical intervention Continue pain control (5) Hypokalemia: K stable Monitor BMP (6) Hypertension: blood pressure stable continue amlodipine, enalapril (7) Hyperlipidemia: continue statin (8) Asthma: no acute exacerbation continue advair, prn albuterol (9) Depression: continue escitalopram mood stable (10) GERD (gastroesophageal reflux disease): continue famotidine (11) DVT prophylaxis: SCD/TEDS (possible surgical intervention Ambulates Disposition: Will discharge once medically stable Subjective Pt was seen and examined Lying in bed with no distress Pt said that she slept last night She said that her pain slightly improves Pain worsening with movement of L hand Pt said that she is very hungry now Denies any chest pain, palpitation, dizziness and SOB Physical Exam Physical Exam: General- No acute distress Head- atraumatic Eyes- PERRL, EOMI, ENT- oropharynx clear Neck- supple, no JVD Lungs- clear to auscultation Heart- regular rhythm; no murmur Abdomen- normal bowel sounds, soft, nontender Extremities- no calf tenderness, +L hand/wrist tenderness and swelling with no erythema Neuro- alert, oriented x 3; PERRL, EOMI; no facial palsy; no dysarthria Skin- warm & dry Results & Data Vital Signs (Past 12 Hours) Vital Signs Temp Pulse Resp BP BP Pulse Ox 02/13/19 09:44 96 H 130/77 02/13/19 06:37 36.8 C 78 19 113/71 96 02/12/19 23:35 36.7 C 85 20 93/61 L 93
[2019-02-13] MEDS ORDERED: LIDOCAINE HCL 2% (LOCAL) INJ 50 ML VIAL ONE (13:32)
--- NOTE | 2019-02-13 14:01 | Orthopedic Consultation ---
Date of Consultation February 13, 2019 Assessment & Plan (1) Left wrist pain: The surrounding cellulitis in the wrist appears to have improved with the IV antibiotics She continues to have amount of pain and swelling region of the wrist joint itself. Given her symptoms and her history I felt it was appropriate to rule out a septic joint. I anesthetized the skin with some lidocaine under sterile conditions. I then aspirated the wrist joint and then attempted to aspirate the DRUJ. I got a small amount of bloody appearing fluid. This will be sent for Gram stain, culture, cell count. We will keep her n.p.o. for now. If it does appear that she has an obvious infection of the wrist joint then we will likely proceed with I&D later today. If the aspiration is equivocal we will likely let her eat tonight and then make her n.p.o. after midnight tonight and continue to monitor her for possible I&D tomorrow if she worsens or fails to progress with the IV antibiotics or if the further analysis or culture start to grow something within the wrist joint. Present on Admission?: Yes History of Present Illness Reason for Consultation: Left wrist pain and swelling Attending Physician: oLu Franklin MD History of Present Illness The patient is a 58-year-old female who has had symptoms of left wrist pain for about 2 weeks. She initially had neck pain as well as wrist pain. She was evaluated at an urgent care center at that time x-rays were obtained and is more concern for carpal tunnel syndrome. She was then started on a steroid taper. About 2 days later she had increasing pain and redness in the wrist. She was seen in the emergency room and started on Keflex. She did this for about a week without any improvement of her symptoms. She was evaluated by Kem Vasquez PA-C who felt this was more either tendinitis or infection type process. She subsequently presented to the emergency room with erythema and swelling of the dorsum of the wrist. She has been started on IV antibiotics which has helped with the erythema and some with the swelling in the arm but she still has significant wrist pain. MRIs been obtained which demonstrates some questionable fluid in the wrist joint but no discrete abscess and no large increase in synovial fluid. Allergies Allergy/AdvReac Type Severity Reaction Status Date / Time No Known Allergies Allergy Verified 02/12/19 11:02 Home Medications Home Medications Medication Instructions Recorded Confirmed Type Toviaz 8 mg PO QAM 09/02/18 02/12/19 History albuterol sulfate 0.63 mg INHALATION QID PRN 09/02/18 02/12/19 History albuterol sulfate [ProAir HFA] 2 puff INHALATION QID PRN 09/02/18 02/12/19 History alprazolam 0.5 mg PO TID PRN 09/02/18 02/12/19 History amlodipine 5 mg PO QAM 09/02/18 02/12/19 History amoxicillin 500 mg PO UD 09/02/18 02/12/19 History calcium carbonate-vitamin D3 1 tab PO BID 09/02/18 02/12/19 History [Calcium 500 + D] cholecalciferol (vitamin D3) 5,000 unit PO QAM 09/02/18 02/12/19 History [Vitamin D3] enalapril maleate 5 mg PO QAM 09/02/18 02/12/19 History escitalopram oxalate 10 mg PO QPM 09/02/18 02/12/19 History famotidine 20 mg PO BID 09/02/18 02/12/19 History fexofenadine 180 mg PO QAM 09/02/18 02/12/19 History fluticasone propion-salmeterol 1 puff INHALATION BID 09/02/18 02/12/19 History [Advair Diskus] krill oil 1 cap PO QAM 09/02/18 02/12/19 History montelukast 10 mg PO PM 09/02/18 02/12/19 History rosuvastatin [Crestor] 5 mg PO QPM 09/02/18 02/12/19 History vitamin B complex 1 cap PO QAM 09/02/18 02/12/19 History cephalexin [Keflex] 500 mg PO QID 10 Days #40 cap 02/05/19 02/12/19 Rx hydrocodone-acetaminophen [[place]] 1 tab PO Q6H PRN #10 tab 02/05/19 02/12/19 Rx nabumetone 500 mg PO BID 02/05/19 02/12/19 History prednisone 10 mg PO UD 02/05/19 02/12/19 History acetaminophen [Tylenol Extra 500 mg PO Q6H PRN 02/12/19 02/12/19 History Strength] Patient History Medical History Overactive bladder (Chronic) GERD (gastroesophageal reflux disease) (Chronic) Hyperlipidemia (Chronic) Hypertension (Chronic) Asthma (Chronic) Depression (Chronic) Anxiety (Chronic) Asthma (Chronic) STABLE GERD (gastroesophageal reflux disease) (Chronic) CONTROLLED Hyperlipidemia (Chronic) Hypertension (Chronic) Mood disorder (Chronic) Obesity (Chronic) Osteoarthritis (Chronic) Surgical History Status post appendectomy (Chronic) Status post tubal ligation (Chronic) History of appendectomy (Resolved) History of bilateral tubal ligation (Resolved) History of cataract extraction with lens replacement (Resolved) B/L History of section (Resolved) History of foot surgery (Resolved) HEEL SURGERY FOR BONE SPUR History of total knee replacement (Resolved) RIGHT= SAB X 2 ATTEMPTS AT L3-L4 + PNB AT [facility] Family History Other Diabetes Hypertension Ovarian cancer Social History Preferred Language: Greek Communication Ability: Effective Terrazzo Helper Required: No Beliefs That Will Affect Care: None Current Living Situation: Alone Other Information That Helps Us Care for You: No Feels Safe at Home: Yes Safety Concerns: Feels Safe At This Time Smoking Status: Former smoker Tobacco Type: cigarettes ; Cigarettes Per Day: QUIT 30 YEARS AGO, HX OF SOCIAL USE ; Second Hand Exposure: No ; Hx Alcohol Use: No Hx Substance Use: No Physical Exam Constitutional: WD/WN, vitals as above ENMT: Ears: no hearing impairment Respiratory: normal respiratory effort Cardiovascular: Rate/Rhythm: regular rate Musculoskeletal: Left wrist: There is edema in the region of the wrist. No significant erythema is appreciated. The patient states that prior to starting the IV antibiotics she had erythema on the dorsal aspect of the wrist extending up into the region of the forearm a little bit. This is improved with IV antibiotics but she still having wrist pain. She is tenderness to palpation the region of the wrist joint. Some mild pain at the DRUJ but much more tender in the region of the carpus. She has some pain with passive extension of the long finger. No significant pain with passive extension of the small finger some mild pain with extension of the ring finger no significant pain with passive extension of the index and thumb. She has pain with passive motion at the wrist and palpation of the wrist Results & Data Vital Signs (Past 12 Hours) Vital Signs Temp Pulse Resp BP BP Pulse Ox 02/13/19 09:44 96 H 130/77 02/13/19 06:37 36.8 C 78 19 113/71 96
--- NOTE | 2019-02-13 14:43 | Procedure Note ---
Procedure Note Date of Service February 13, 2019 Note Preprocedure diagnosis: Left wrist pain Postprocedure diagnosis: Same Procedure: Left wrist aspiration Anesthesia: Local Specimen: Synovial fluid sent for Gram stain, cell count, cultures, crystals, Lyme Indications: Patient is a 58-year-old female has had about 2 weeks of left wrist pain and swelling. She is failed p.o. Keflex. She has been started on IV antibiotics. Cellulitis around the arm has improved but she continues to have pain and swelling in the region of the wrist. I elected to aspirate the wrist to rule out septic joint. Procedure: Under sterile conditions anesthetized the skin only with about 2 cc of lidocaine. I then aspirated the wrist joint for about half a cc of bloody fluid. This fluid is sent for laboratory analysis. She tolerated the procedure well. Coding
[2019-02-13] MEDS: KETOROLAC 30 MG/ML VIAL IV SCH ×2 (16:07→22:35)
[2019-02-13] MEDS: ESCITALOPRAM OXALATE 10 MG TAB PO SCH (20:03)
[2019-02-13] MEDS: MONTELUKAST SODIUM 10 MG TABLET PO SCH (20:03)
[2019-02-13] MEDS: ROSUVASTATIN CALCIUM 5 MG TAB PO SCH (20:03)
[2019-02-14] MEDS ORDERED: VANCOMYCIN TROUGH ONE (03:30)
[2019-02-14] MEDS: KETOROLAC 30 MG/ML VIAL IV SCH ×2 (04:11→09:19)
[2019-02-14 04:16] LABS: Hematocrit (blood only) 33.8 % (37-47); Hemoglobin 10.9 g/dL (12.0-16.0); Mean Corpuscular Hemoglobin 28.4 pg (25-34); Mean Corpuscular Hgb Conc 32.2 g/dL (32-36); Mean Platelet Volume 8.3 fL (7.4-10.4); Platelet Count 388 K/uL (130-400); RDW Coefficient of Variation 13.8 % (11.5-14.5); RDW Standard Deviation 44.2 fL (36.4-46.3); Red Blood Count 3.84 M/uL (4.2-5.4); White Blood Count 11.52 K/uL (4.8-10.8)
[2019-02-14] MEDS: VANCOMYCIN HCL 1,250 MG in SODIUM CHLORIDE 0.9% 250 ML IV SCH ×2 (04:17→16:06)
[2019-02-14 04:34] LABS: BUN Creatinine Ratio 30.5 (10-20); Calcium 8.8 mg/dl (8.5-10.1); Creatinine Clr Calc Pharmacy 97.7 ml/min; Est GFR (African American) 112.6; Est GFR (Non-African American) 97.2
[2019-02-14] MEDS: ACETAMINOPHEN 500 MG TAB PO SCH ×3 (05:55→21:10)
--- NOTE | 2019-02-14 08:41 | Pharmacy Report ---
Pharmacy Abx Dose Short Note - Date of Service February 14, 2019 - Assessment & Plan A/P Vanco trough prior to Css reasonable, 13mcg/mL. Renal fxn has remained fairly stable. Given her habitus she is at risk for vanco accumulation. We will check a trough that is reflective of Css: 02/15/19 @0330. C/s's/ VAL have not resulted yet. Pharmacy will continue to follow and will adjust dose/frequency as necessary. Thank you.
[2019-02-14] MEDS: FLUTICASONE/SALMETEROL 100/50 (ADVAIR) 14 PUFF/1 INHALER INH SCH ×2 (09:08→21:09)
[2019-02-14] MEDS: FEXOFENADINE HCL 180 MG TAB PO SCH (09:08)
[2019-02-14] MEDS: CHOLECALCIFEROL 1,000 UNITS TAB PO SCH (09:09)
[2019-02-14] MEDS: ENALAPRIL MALEATE 5 MG TAB PO SCH (09:09)
[2019-02-14] MEDS: AMLODIPINE BESYLATE 5 MG TAB PO SCH (09:09)
[2019-02-14] MEDS: FAMOTIDINE 20 MG TAB PO SCH ×2 (09:09→21:10)
[2019-02-14] MEDS: cefTRIAXone SODIUM 2,000 MG in DEXTROSE 5% 50 ML IV SCH (09:15)
[2019-02-14] MEDS ORDERED: LACTOBACILLUS ACIDOPHILUS (FLORANEX) TAB PO SCH (12:00)
--- NOTE | 2019-02-14 13:33 | Orthopedic Progress Note ---
Date of Service February 14, 2019 Assessment & Plan (1) Acute pain of left wrist: Uncertain etiology--gram stain negative. Exam doesn't appear to suggest infection. Possible gout but no crystals seen in the aspiration. No surgical intervention appears to be needed at this time. Discussed findings and differential with the patient. Ortho to sign off at this time and may follow up with Dr. Hartlye [place] [facility] [place] 2 [place] for re-evaluation. May benefit from Mobic 7.5 mg daily upon d/c. Subjective States the left wrist and hand feel significantly better today. She is able to make a fist with the left hand which she couldn't previously. Feels the toradol is helping significantly. Physical Exam Constitutional: WD/WN, vitals as above Musculoskeletal: Left wrist: Minimal to no swelling noted. No erythema or streaking. Some discomfort in the wrist with PROM of the wrist. Tender near the wrist joint but patient states that is improved. Full AROM all fingers/hand. Psychiatric: A+Ox3, euthymic affect Results & Data Vital Signs (Past 12 Hours) Vital Signs Temp Pulse Pulse Resp BP Pulse Ox 02/14/19 09:07 78 136/80 02/14/19 08:00 36.9 C 82 16 132/72 98
--- NOTE | 2019-02-14 16:27 | Hospitalist Progress Note ---
Date of Service February 14, 2019 Assessment & Plan (1) Left wrist pain: (2) Neck pain: (3) Elevated C-reactive protein (CRP): (4) Leukocytosis: Present on admission with worsening LUE swelling and tenderness Failed outpatient therapy with taper prednisone and Keflex MRI L hand showed increased fluid and synovial enhancement of the distal radioulnar joint surrounding the distal ulna. Moderate subcutaneous fluid of the left wrist and hand which may reflect cellulitis or edema Venous Doppler of LUE showed no DVT within the upper extremity Elevated WBC, ESR and C-reactive on admission on vanco and rocephin IV for now WBC trending down and afebrile Ortho consulted s/p needle aspiration done yesterday and fluid was sent for culture and gram statin - no growth so far No surgical intervention appears to be needed at this time. Does not seem to be infectious related as per ortho recommended to start on Mobic Will d/c abx (5) Hypokalemia: K stable Monitor BMP (6) Hypertension: blood pressure stable continue amlodipine, enalapril (7) Hyperlipidemia: continue statin (8) Asthma: no acute exacerbation continue advair, prn albuterol (9) Depression: continue escitalopram mood stable (10) GERD (gastroesophageal reflux disease): continue famotidine (11) DVT prophylaxis: SCD/TEDS (possible surgical intervention ) Ambulates Disposition: Possible discharge tomorrow Subjective Pt was seen and examined Sitting in chair with no distress Pt said that she feels much better She said that she able to make a fist She said that pain improves Denies any chest pain, palpitation and SOB Physical Exam Physical Exam: General- No acute distress Head- atraumatic Eyes- PERRL, EOMI, ENT- oropharynx clear Neck- supple, no JVD Lungs- clear to auscultation Heart- regular rhythm; no murmur Abdomen- normal bowel sounds, soft, nontender Extremities- no calf tenderness, +L hand/wrist tenderness improves significant with mild wrist swelling and no erythema Neuro- alert, oriented x 3; PERRL, EOMI; no facial palsy; no dysarthria Skin- warm & dry Results & Data Vital Signs (Past 12 Hours) Vital Signs Temp Pulse Pulse Resp BP Pulse Ox 02/14/19 14:55 36.8 C 92 H 16 118/72 94 02/14/19 09:07 78 136/80 02/14/19 08:00 36.9 C 82 16 132/72 98
[2019-02-14] MEDS: ROSUVASTATIN CALCIUM 5 MG TAB PO SCH (21:09)
[2019-02-14] MEDS: LACTOBACILLUS ACIDOPHILUS (FLORANEX) TAB PO SCH (21:10)
[2019-02-14] MEDS: KETOROLAC 30 MG/ML VIAL IV PRN (21:10)
[2019-02-14] MEDS: MONTELUKAST SODIUM 10 MG TABLET PO SCH (21:10)
[2019-02-14] MEDS: ESCITALOPRAM OXALATE 10 MG TAB PO SCH (21:10)
[2019-02-14 23:17] VITALS: O2SAT 97
[2019-02-15] MEDS ORDERED: VANCOMYCIN TROUGH ONE (03:30)
[2019-02-15 04:01] LABS: Est GFR (African American) 110.4; Est GFR (Non-African American) 95.3
[2019-02-15] MEDS: KETOROLAC 30 MG/ML VIAL IV PRN (04:19)
[2019-02-15] MEDS: VANCOMYCIN HCL 1,250 MG in SODIUM CHLORIDE 0.9% 250 ML IV SCH (04:19)
[2019-02-15 06:22] VITALS: TEMP 97.9
[2019-02-15] MEDS: ACETAMINOPHEN 500 MG TAB PO SCH ×2 (06:22→13:34)
[2019-02-15] MEDS: FLUTICASONE/SALMETEROL 100/50 (ADVAIR) 14 PUFF/1 INHALER INH SCH (09:19)
[2019-02-15] MEDS: FAMOTIDINE 20 MG TAB PO SCH (09:20)
[2019-02-15] MEDS: FEXOFENADINE HCL 180 MG TAB PO SCH (09:20)
[2019-02-15] MEDS: LACTOBACILLUS ACIDOPHILUS (FLORANEX) TAB PO SCH (09:20)
[2019-02-15] MEDS: AMLODIPINE BESYLATE 5 MG TAB PO SCH (09:21)
[2019-02-15] MEDS: CHOLECALCIFEROL 1,000 UNITS TAB PO SCH (09:21)
[2019-02-15] MEDS: ENALAPRIL MALEATE 5 MG TAB PO SCH (09:21)
[2019-02-15] MEDS: cefTRIAXone SODIUM 2,000 MG in DEXTROSE 5% 50 ML IV SCH (09:28)
--- NOTE | 2019-02-15 13:25 | Hospitalist Progress Note ---
Date of Service February 15, 2019 Assessment & Plan (1) Left wrist pain: (2) Neck pain: (3) Elevated C-reactive protein (CRP): (4) Leukocytosis: Present on admission with worsening LUE swelling and tenderness Failed outpatient therapy with taper prednisone and Keflex MRI L hand showed increased fluid and synovial enhancement of the distal radioulnar joint surrounding the distal ulna. Moderate subcutaneous fluid of the left wrist and hand which may reflect cellulitis or edema Venous Doppler of LUE showed no DVT within the upper extremity Elevated WBC, ESR and C-reactive on admission on vanco and rocephin IV for now WBC trending down and afebrile Ortho consulted s/p needle aspiration done yesterday and fluid was sent for culture and gram statin - no growth No surgical intervention appears to be needed at this time. Does not seem to be infectious related as per ortho Has been getting toradol that seems to help Ortho recommended to discharge on Mobic Abx discontinues on discharge (5) Hypokalemia: K stable Monitor BMP (6) Hypertension: blood pressure stable continue amlodipine, enalapril (7) Hyperlipidemia: continue statin (8) Asthma: no acute exacerbation continue advair, prn albuterol (9) Depression: continue escitalopram mood stable (10) GERD (gastroesophageal reflux disease): continue famotidine (11) DVT prophylaxis: SCD/TEDS (possible surgical intervention ) Ambulates Disposition: Possible discharge home today Follow up with your primary care provider Dr. Chan on 02/19 @ 10:55 AM Subjective Pt was seen and examined. Lying in bed with no distress . Pt said that she feels much better She said that she is able to move her wrist and make a fist with no significant discomfort She said that pain improves significantly Denies any chest pain, palpitation, dizziness, fever and SOB Physical Exam Physical Exam: General- No acute distress Head- atraumatic Eyes- PERRL, EOMI, ENT- oropharynx clear Neck- supple, no JVD Lungs- clear to auscultation Heart- regular rhythm; no murmur Abdomen- normal bowel sounds, soft, nontender Extremities- no calf tenderness, +L hand/wrist tenderness improves significant with mild wrist swelling and no erythema Neuro- alert, oriented x 3; PERRL, EOMI; no facial palsy; no dysarthria Skin- warm & dry Results & Data Vital Signs (Past 12 Hours) Vital Signs Temp Pulse Resp BP Pulse Ox 02/15/19 06:20 36.6 C 83 20 113/70 97
[2019-02-15 14:11] VITALS: BP 130/77; PULSE 92
--- NOTE | 2019-02-16 08:36 | Discharge Summary ---
Date of Service February 15, 2019 Admission HPI Per Admitting Provider This is a 58-year-old female who has significant past medical history of HTN, HLD, asthma, depression, GERD, OA DJD, mood disorder, IV who presents to [facility] secondary to left wrist swelling x1.5 weeks. Initially patient developed neck stiffness and pain approximately 2 weeks ago. Due to increase in pain and development of left wrist pain 5 days later she presented to [facility] urgent care on 02/03/2019. Her left wrist was concerning for carpal tunnel and x-rays were performed of the neck. Per report x-rays reveal chronic spondylolisthesis but otherwise no acute change. Due to above symptoms she was prescribed prednisone taper in which she will finish tomorrow. 2 days later on 02/05 her left wrist became increasingly painful which brought her to [facility] ED. She had increased pain, swelling and some redness. X-rays performed revealed soft tissue swelling but no acute fracture. There was concern for cellulitis so she was placed on a 10-day course of Keflex in which she has taken for 8 days. She has been taking APAP and ibuprofen without significant relief. There is been no improvement with the Keflex. She no longer has redness to the left hand but has increased swelling extending proximally to her mid forearm, decreased range of motion with wrist, pain worse at night. Pain currently 5/10 even with recent analgesia. Pain is constant and worse with movement. She has no trauma and no insect bite. Never had anything like this in the past. After her ER visit on 02/05 she did have a orthopedic appointment the same day. Per patient report she was seen by Kem Vasquez PA-C who is more concerned for possible tendinitis vs infection, less likely carpal tunnel. MRI was recommended but not yet performed. Through all this she continued to have neck stiffness and pain. No neck pain radiation to extremities or numbness/tingling. She denies any fever, chills, sweats, lightheadedness, dizziness, syncope, chest pain, shortness of breath, palpitations, PARK, nausea, vomiting, diarrhea, change her bowel or urinary habits. Her appetite is otherwise been normal. No recent illness. Hx of discitis many years ago. Recent dental work done with root canal. Admission Exam Per Admitting Provider Constitutional: WD/WN, vitals as above, NAD, sitting up in bed, pleasant, conversing easily Head: Normocephalic, Atraumatic Eyes: PERRL, conjunctivae normal, anicteric sclerae ENMT: external ear and nose normal, oropharynx normal Neck: trachea midline, no thyromegaly normal visual inspection Respiratory: normal respiratory effort, lungs clear to auscultation, no wheeze, rales, rhonchi. Normal insp/exp effort, no accessory muscle use Cardiovascular: RRR, no murmur, no edema Vessels: no JVD or carotid bruit Chest: normal inspection of chest Abdomen: normal bowel sounds, soft, nontender, no hepatosplenomegaly Musculoskeletal: L hand/wrist edema extending in stocking/glove like distribution to mid forearm with notable demarcation but not erythematous. Pain to palpation throughout. Decrease ROM To L wrist and fingers with minimal flexion/ext, ab/adduction, notable epitrochlear, axillary adenopathy, no streaking. Full ROM To neck but decreased with lateral flexion. No pain to palpation to Vertebral process or paraspinal musculature. Skin: no rashes, warm and dry normal turgor Neurologic: PERRL, EOMI, accommodation nl, no face palsy, no dysarthria CN's II-XI intact bilaterally and moves all extremities Psychiatric: A+Ox3, euthymic affect Lymphatic: no cervical or axillary lymphadenopathy : deferred Principal Diagnosis (1) Left wrist pain: (2) Neck pain: (3) Elevated C-reactive protein (CRP): (4) Leukocytosis: (5) Hypokalemia (6) Hyperlipidemia: (7) Hypertension (8) Hyperlipidemia Discharge Exam General- No acute distress Head- atraumatic Eyes- PERRL, EOMI, ENT- oropharynx clear Neck- supple, no JVD Lungs- clear to auscultation Heart- regular rhythm; no murmur Abdomen- normal bowel sounds, soft, nontender Extremities- no calf tenderness, +L hand/wrist tenderness improves significant with mild wrist swelling and no erythema Neuro- alert, oriented x 3; PERRL, EOMI; no facial palsy; no dysarthria Skin- warm & dry Discharge Data Allergies Allergy/AdvReac Type Severity Reaction Status Date / Time No Known Allergies Allergy Verified 02/12/19 11:02 Consultations 02/12/19 15:58 ED Decision to Admit Stat 02/12/19 16:39 Consult Orthopedic Surgery Routine Ordered Studies 02/12/19 12:56 US venous doppler UE LT Stat 02/12/19 15:28 MR hand LT wo/w con Stat MRI OF THE LEFT HAND WITH AND WITHOUT CONTRAST CLINICAL HISTORY: Diffuse edema and pain. Evaluate for infection. COMPARISON STUDY: Left hand and wrist radiographs February 05, 2019. TECHNIQUE: Utilizing a 1.5 Bev magnet and dedicated coil, multiplanar, multi echo imaging of the left hand and wrist was performed pre and postcontrast indication. Intravenous injection of 9 cc of Gadavist was uneventful. FINDINGS: Alignment of the left wrist and hand is anatomic. There is joint space narrowing with marrow edema adjacent to the triscaphe the joint. There is also joint space narrowing of the left first carpometacarpal joint. No additional sites of marrow edema within the left wrist or hand are noted. Note is made of moderate subcutaneous edema of the dorsal left wrist and hand. No soft tissue rim-enhancing fluid collection is identified to suggest a soft tissue abscess. There is increased fluid with increased synovial enhancement of the distal radioulnar joint surrounding the distal ulna. No associated marrow edema is p resent. No additional sites of significant synovial enhancement are identified on the postcontrast images. Carpal tunnel is normal. No mass is identified. Sensitivity is diminished given this technique but there is no evidence for soft tissue gas. Tendons appear intact. IMPRESSION: 1. Increased fluid and synovial enhancement of the distal radioulnar joint surrounding the distal ulna. The findings are nonspecific and septic arthropathy could have this appearance. A reactive synovitis/inflammatory arthritis could appear similar. 2. Moderate subcutaneous fluid of the left wrist and hand which may reflect cellulitis or edema. No soft tissue abscess. 3. Marrow edema centered on the triscaphe joint. This is likely due to osteoarthrosis. An infectious process with osteomyelitis could appear similar although is considered less likely. Electronically signed by: Justyn Talbot M.D. 02/12/2019 5:51 PM Dictated: 02/12/19 1735 Transcribed: 02/12/19 1735 US venous doppler UE LT HISTORY: Pain. Edema. edema to LUE recent sx COMPARISON STUDY: None. FINDINGS: The internal jugular vein is patent. There is normal flow within the subclavian vein. There is normal flow and compressibility within the left axillary, basilic, brachial, radial, ulnar, and visualized cephalic veins. IMPRESSION: No DVT within the upper extremity. The above report was generated using voice recognition software. It may contain grammatical, syntax or spelling errors. Electronically signed by: Toi Sanford M.D. 02/12/2019 1:34 PM Dictated: 02/12/19 1334 Transcribed: 02/12/19 1334 Hospital Course (1) Left wrist pain: (2) Neck pain: (3) Elevated C-reactive protein (CRP): (4) Leukocytosis: Present on admission with worsening LUE swelling and tenderness Failed outpatient therapy with taper prednisone and Keflex MRI L hand showed increased fluid and synovial enhancement of the distal radioulnar joint surrounding the distal ulna. Moderate subcutaneous fluid of the left wrist and hand which may reflect cellulitis or edema Venous Doppler of LUE showed no DVT within the upper extremity Elevated WBC, ESR and C-reactive on admission on vanco and rocephin IV for now WBC trending down and afebrile Ortho consulted s/p needle aspiration done yesterday and fluid was sent for culture and gram statin - no growth No surgical intervention appears to be needed at this time. Does not seem to be infectious related as per ortho Has been getting toradol that seems to help Ortho recommended to discharge on Mobic Abx discontinues on discharge (5) Hypokalemia: K stable Monitor BMP (6) Hypertension: blood pressure stable continue amlodipine, enalapril (7) Hyperlipidemia: continue statin (8) Asthma: no acute exacerbation continue advair, prn albuterol (9) Depression: continue escitalopram mood stable (10) GERD (gastroesophageal reflux disease): continue famotidine (11) DVT prophylaxis: SCD/TEDS (possible surgical intervention ) Ambulates Disposition: Possible discharge home today Follow up with your primary care provider Dr. Chan on 02/19 @ 10:55 AM Total Time Total Time Spent Total Time Spent (In Minutes): 35 minutes Total Time Includes: Examination of the Patient, Discharge Planning, Medication Reconciliation, Communication With Other Providers and Other Discharge Plan Discharge Items Patient Disposition: Home - Self-Care Reason For Visit: L HAND EDEMA,FAILED OUTPT TREATMENT CONCERN FOR SE Discharge Diagnosis: (1) Left wrist pain: (2) Neck pain: (3) Elevated C-reactive protein (CRP): (4) Leukocytosis: (5) Hypokalemia (6) Hyperlipidemia: (7) Hypertension (8) Hyperlipidemia Discharge Goals: Decrease discomfort, Improve disease control and Increase independence Activity: Resume your previous activity Activity Comment: As tolerated Non-emergency contact: Primary Care Provider Call non-emergency contact if: you have any medication questions and your temperature is above 101 Follow-up/Referrals: Jayla Chan PA-C [Primary Care Provider] - Sony Hartley M.D. [Physician] - (Call for a follow up appointment in 2 weeks from discharge.) Diet: Heart Healthy Add Provider Instructions: Follow up with your primary care provider Dr. Chan on 02/19 @ 10:55 AM Follow up with Dr. Hartley at [facility] in 2 weeks for re- evaluation if symptoms do not resolve (please call for the appointment) Prescriptions: New meloxicam [Mobic] 7.5 mg tablet 7.5 mg PO BID PRN (Reason: pain) Qty: 15 RF: 0 Continued amoxicillin 500 mg Tablet 500 mg PO UD RF: 0 rosuvastatin [Crestor] 5 mg Tablet 5 mg PO QPM RF: 0 albuterol sulfate 0.63 mg/3 mL Solution For Nebulization 0.63 mg INHALATION QID PRN (Reason: Wheezing) RF: 0 enalapril maleate 5 mg Tablet 5 mg PO QAM RF: 0 fexofenadine 180 mg Tablet 180 mg PO QAM RF: 0 amlodipine 5 mg Tablet 5 mg PO QAM RF: 0 alprazolam 0.5 mg Tablet 0.5 mg PO TID PRN (Reason: Anxiety) RF: 0 famotidine 20 mg Tablet 20 mg PO BID RF: 0 montelukast 10 mg Tablet 10 mg PO PM RF: 0 fluticasone propion-salmeterol [Advair Diskus] 100-50 mcg/dose Blister With Device 1 puff INHALATION BID RF: 0 albuterol sulfate [ProAir HFA] 90 mcg/actuation Hfa Aerosol Inhaler 2 puff INHALATION QID PRN (Reason: Wheezing) RF: 0 vitamin B complex Capsule 1 cap PO QAM RF: 0 escitalopram oxalate 10 mg Tablet 10 mg PO QPM RF: 0 calcium carbonate-vitamin D3 [Calcium 500 + D] 500 mg(1,250mg) -200 unit Tablet 1 tab PO BID RF: 0 Toviaz 8 mg Tablet Extended Release 24 Hr 8 mg PO QAM RF: 0 cholecalciferol (vitamin D3) [Vitamin D3] 5,000 unit Tablet 5,000 unit PO QAM RF: 0 krill oil 500 mg Capsule 1 cap PO QAM RF: 0 nabumetone 500 mg Tablet 500 mg PO BID RF: 0 hydrocodone-acetaminophen [[place]] 5-325 mg tablet 1 tab PO Q6H PRN (Reason: pain) Qty: 10 RF: 0 acetaminophen [Tylenol Extra Strength] 500 mg Tablet 500 mg PO Q6H PRN (Reason: Pain) RF: 0 Discontinued prednisone 10 mg tablet 10 mg PO UD RF: 0 Stand-Alone Forms: [facility] Discharge Orders: Discharge Order (Routine); Ordered 02/15/19 Ordered By: Lou Franklin Admission Data Admit Date/Time: 02/14/19 16:34 Attending Provider: Lou Franklin Admit Provider: Lou Franklin Primary Care Provider: Jayla Chan Other Providers: Lou Franklin ; Dragan Moe Service: Medical Other Interventions: Discharge Summary Assessment (RN) Last Done: 02/15/19 14:07 DC Date/Time DO NOT enter until pt leaves facility: 02/15/19 15:47
--- NOTE | 2019-02-20 10:18 | Coding Query ---
CODING QUERY To promote full compliance with coding requirements relating to patient care, provider participation is requested in all cases of traffic manager uncertainty. Please assist us with the question(s) below: Coding Question(s): There is documentation of Left Wrist Pain. There is documentation on Orthopedic Progress Note 02/14 of possible gout but no crystals seen in the aspiration and the Discharge Summary documents that it does not seem to be infectious related as per ortho and the patient had been getting Toradol that seemed to help and was discharged on Mobic. Please clarify below, in your clinical opinion, regarding the most likely etiology of the Left Wrist Pain. ( x ) Left Wrist Pain is from Unknown likely source ( ) Left Wrist Pain is most likely from possible Gout ( ) Left Wrist Pain is most likely from Other: Please Specify Physician's Response(s): Thank you Jennifer Sánchez Principal Diagnosis: "that condition established after study, to be chiefly responsible for occasioning the admission of the patient to the hospital for care." Co-Existing Principal Diagnosis: "when two or more diagnoses equally meet the criteria for principal diagnosis as determined by the circumstances of admission, diagnostic work up, and/or therapy provided, and the Alphabetic Index, Tabular List, or another coding guideline does not provide sequencing direction, any one of the diagnoses may be sequenced first." "When the physician has documented what appears to be a current diagnosis in the body of the record, but has not included the diagnosis in the final diagnostic statement, the physician should be asked whether the diagnosis should be added." ([facility] 2 QTR90. p3-4) IONA
== END 2019-02-15 15:47 | disposition home or self-care (01) | DRG 556 ==
LOC: 3N 10:04 → ED 10:04 → 3N 18:07

== ENCOUNTER 2020-09-14 10:08 | Observation (INO) ==
--- NOTE | 2020-08-17 09:45 | PAT Medication Instructions ---
Medication Instructions Date of Service August 17, 2020 Home Medications Medication Instructions Recorded meloxicam [Mobic] 7.5 mg PO BID PRN #15 tab 02/15/19 albuterol sulfate 0.63 mg INHALATION QID PRN albuterol sulfate [ProAir HFA] 2 puff INHALATION QID PRN amlodipine 5 mg PO QAM amoxicillin 500 mg PO UD calcium carbonate-vitamin D3 [Calcium 500 + D] 1 tab PO BID cholecalciferol (vitamin D3) [Vitamin D3] 5,000 unit PO QAM enalapril maleate 5 mg PO QAM escitalopram oxalate 10 mg PO QPM famotidine 20 mg PO BID fexofenadine 180 mg PO QAM montelukast 10 mg PO PM rosuvastatin [Crestor] 5 mg PO QPM vitamin B complex 1 cap PO QAM acetaminophen [Tylenol Extra Strength] 500 mg PO Q6H PRN meloxicam [Mobic] 7.5 mg PO BID PRN fluticasone propion-salmeterol [Wixela Inhub] 1 inh INHALATION BID metformin 500 mg PO QPM mirabegron [Myrbetriq] 25 mg PO QAM Continue as directed amoxicillin 500 mg PO UD (prior to dental procedures) ASK your surgeon for instructions meloxicam [Mobic] 7.5 mg PO BID PRN DO NOT take the morning of surgery calcium carbonate-vitamin D3 [Calcium 500 + D] 1 tab PO BID cholecalciferol (vitamin D3) [Vitamin D3] 5,000 unit PO QAM enalapril maleate 5 mg PO QAM famotidine 20 mg PO BID fexofenadine 180 mg PO QAM vitamin B complex 1 cap PO QAM mirabegron [Myrbetriq] 25 mg PO QAM Take morning of surgery With a small sip of water, OTHERWISE NOTHING TO EAT OR DRINK AFTER MIDNIGHT: albuterol sulfate 0.63 mg INHALATION QID PRN (if needed) albuterol sulfate [ProAir HFA] 2 puff INHALATION QID PRN (if needed) amlodipine 5 mg PO QAM acetaminophen [Tylenol Extra Strength] 500 mg PO Q6H PRN (okay to take up to 4 hours prior to surgery if needed) fluticasone propion-salmeterol [Wixela Inhub] 1 inh INHALATION BID Please bring rescue inhaler with you to hospital day of surgery. Take evening before surgery albuterol sulfate 0.63 mg INHALATION QID PRN (if needed) albuterol sulfate [ProAir HFA] 2 puff INHALATION QID PRN (if needed) calcium carbonate-vitamin D3 [Calcium 500 + D] 1 tab PO BID escitalopram oxalate 10 mg PO QPM famotidine 20 mg PO BID montelukast 10 mg PO PM rosuvastatin [Crestor] 5 mg PO QPM acetaminophen [Tylenol Extra Strength] 500 mg PO Q6H PRN (if needed) fluticasone propion-salmeterol [Wixela Inhub] 1 inh INHALATION BID metformin 500 mg PO QPM Other Notes If you have any questions please call us at [phone] or [phone] or [phone] or [phone]
--- NOTE | 2020-08-18 11:14 | Anesthesiology Consultation ---
Date of Service August 18, 2020 Assessment & Plan (1) Encounter for pre-operative examination: - Per assessment on 08/18: Travel screen negative. No known COVID-19 positive contacts or current COVID-19 related symptoms. Surgeon arranging preop COVID testing. Awaiting results. - Check BSG AM DOS - S/P Left TKA: 09/19/18: SAB at L3-L4 + PNB at [facility] Chart Review Chart Review: Acceptable Risk for Surgery (pending surgeon-ordered PCP clearance) and Patient seen in Pre Admission Testing Teaching & Discussion Pre-Anesthesia Teaching/Discussion Notes: Instructed NPO after midnight before surgery,except medications with 15 cc of water. Medication instructions provided according to the PAT guidelines. History Surgery Operation Date: 09/14/20 10:40 Proposed Procedures p Right Total Knee Revision - Mario Moreno DO Height/Weight Height: 5 ft 2 in Weight: 92.9 kg Allergies Allergy/AdvReac Type Severity Reaction Status Date / Time No Known Allergies Allergy Verified 08/05/20 09:36 Medications Home Medications Medication Instructions Recorded Confirmed Last Taken albuterol sulfate 0.63 mg INHALATION QID PRN 09/02/18 08/05/20 Unknown albuterol sulfate [ProAir HFA] 2 puff INHALATION QID PRN 09/02/18 08/05/20 Unknown amlodipine 5 mg PO QAM 09/02/18 08/05/20 02/12/19 amoxicillin 500 mg PO UD 09/02/18 08/05/20 Unknown calcium carbonate-vitamin D3 1 tab PO BID 09/02/18 08/05/20 02/12/19 [Calcium 500 + D] cholecalciferol (vitamin D3) 5,000 unit PO QAM 09/02/18 08/05/20 02/12/19 [Vitamin D3] enalapril maleate 5 mg PO QAM 09/02/18 08/05/20 02/12/19 escitalopram oxalate 10 mg PO QPM 09/02/18 08/05/20 02/11/19 famotidine 20 mg PO BID 09/02/18 08/05/20 02/12/19 fexofenadine 180 mg PO QAM 09/02/18 08/05/20 02/12/19 montelukast 10 mg PO PM 09/02/18 08/05/20 02/11/19 rosuvastatin [Crestor] 5 mg PO QPM 09/02/18 08/05/20 02/11/19 vitamin B complex 1 cap PO QAM 09/02/18 08/05/20 02/12/19 acetaminophen [Tylenol Extra 500 mg PO Q6H PRN 02/12/19 08/05/20 02/12/19 Strength] 1000 mg meloxicam [Mobic] 7.5 mg PO BID PRN #15 tab 02/15/19 08/05/20 Unknown fluticasone propion-salmeterol 1 inh INHALATION BID 08/05/20 08/05/20 Unknown [Wixela Inhub] metformin 500 mg PO QPM 08/05/20 08/05/20 Unknown mirabegron [Myrbetriq] 25 mg PO QAM 08/05/20 08/05/20 Unknown Past Medical History Medical History Asthma Depression Diabetes mellitus, type 2 NIDDM GERD (gastroesophageal reflux disease) History of anxiety Hyperlipidemia Hypertension Obesity Osteoarthritis Overactive bladder Exercise / Class Metabolic Activity III < 4 Walking/Shop/Light housework Past Family History Family History Mother Family history of diabetes mellitus Father Family history of diabetes mellitus Other Diabetes Hypertension No family history of adverse response to anesthesia Ovarian cancer Past Surgical History Surgical History History of appendectomy History of bilateral tubal ligation History of cataract extraction with lens replacement R/L History of section X1 History of foot surgery Left bone spur surgery History of tonsillectomy History of tooth extraction History of total knee replacement R/L; Left TKA: 09/19/18: SAB at L3-L4 + PNB at [facility] Past Anesthesia History No Hx of Anesthesia Complications (except PONV) and No Family Hx of Anesthesia Complications History of PONV No Hx of Motion Sickness and History of PONV (x1 episode) Social History Smoking Status: Former smoker tobacco type: cigarettes Do You Dip or Chew Tobacco: No Smoking End Date: Quit 30 years ago (hx of social use) Hx Alcohol Use: No alcohol intake frequency: holidays/special occasions only Hx Substance Use: No substance use type: does not use Review of Systems Patient denies chest pain, shortness of breath, dyspnea on exertion, joint pain, reflux, cough, wheezing, palpitations. Physical Exam Vital Signs VITALS BP 116/81 P 99 TEMP 97.9 SP02 97%RA RESP 16 PHYSICAL Full neck and c-spine range of motion. Full TMJ range of motion. TMD 3 finger breaths Mallampati Score 1 Dentition: intact, upper front teeth "glued in" Lungs: clear throughout to auscultation Cardiac: regular rate and rhythm, no murmurs noted Spine: normal Carotid arteries: negative bruit Extremities: no edema Testing Laboratory Results 08/18/20 12:00 08/18/20 12:00 PT 10.3 Seconds (9.0-12.0) 08/18/20 12:00 INR 1.0 (0.9-1.1) 08/18/20 12:00 APTT 26.5 Seconds (21.0-31.0) 08/18/20 12:00 Hemoglobin A1c 6.1 % (4.5-5.6) H 08/18/20 12:00 Blood Type O Positive 08/18/20 12:00 Antibody Screen NEGATIVE 08/18/20 12:00 Electrocardiogram Date: 08/18/20 NSR at 79bpm. unconfirmed report. Chest X-Ray Date: 08/18/20 FINDINGS: PA and lateral chest radiographs are compared to study dated 09/03/2018. The cardiomediastinal silhouette is unremarkable noting atherosclerotic calcification of the thoracic aorta. The lungs and pleural spaces are clear. There is no pneumothorax. The skeletal structures are osteopenic. The bony thorax appears intact. IMPRESSION: No active disease in the chest.
--- NOTE | 2020-08-18 12:42 | XRay Report ---
TWO VIEW CHEST CLINICAL HISTORY: Preoperative examination. FINDINGS: PA and lateral chest radiographs are compared to study dated 09/03/2018. The cardiomediastin al silhouette is unremarkable noting atherosclerotic calcification of the thoracic aorta. The lungs and pleural spaces are clear. There is no pneumothorax. The skeletal structures are osteopenic. The b amauri thorax appears intact. IMPRESSION: No active disease in the chest. ACT 112: Negative or not required by law. Electronically signed by: Tavon Booker M.D. 08/18/2020 12:41 PM
[2020-08-18 13:22] LABS: Basophils # (auto) 0.04 K/uL (0-0.2); Basophils % (auto) 0.4 %; Eosinophils # (auto) 0.15 K/uL (0-0.5); Eosinophils % (auto) 1.6 %; Hematocrit (blood only) 42.3 % (37-47); Hemoglobin 13.6 g/dL (12.0-16.0); Immature Granulocytes # (auto) 0.02 K/uL (0.00-0.02); Immature Granulocytes % (auto) 0.2 %; Lymphocytes # (auto) 2.43 K/uL (1.2-3.4); Lymphocytes % (auto) 25.5 %; Mean Corpuscular Hemoglobin 29.6 pg (25-34); Mean Corpuscular Hgb Conc 32.2 g/dL (32-36); Mean Corpuscular Volume 92.2 fL (80-100); Mean Platelet Volume 10.2 fL (7.4-10.4); Monocytes # (auto) 0.63 K/uL (0.11-0.59); Monocytes % (auto) 6.6 %; Neutrophils # (auto) 6.25 K/uL (1.4-6.5); Neutrophils % (auto) 65.7 %; Platelet Count 363 K/uL (130-400); RDW Coefficient of Variation 13.1 % (11.5-14.5); RDW Standard Deviation 43.6 fL (36.4-46.3); Red Blood Count 4.59 M/uL (4.2-5.4); White Blood Count 9.52 K/uL (4.8-10.8)
[2020-08-18 13:26] LABS: Partial Thromboplastin Time 26.5 Seconds (21.0-31.0); Prothrombin Time 10.3 Seconds (9.0-12.0)
[2020-08-18 13:31] LABS: Albumin Level 3.8 gm/dl (3.4-5.0); BUN Creatinine Ratio 19.7 (10-20); Calcium 9.8 mg/dl (8.5-10.1); Creatinine Clr Calc Pharmacy 84.6 ml/min; Est GFR (African American) 100.4; Est GFR (Non-African American) 86.6; Potassium 4.1 mmol/L (3.5-5.1)
[2020-08-18 13:37] LABS: Estimated Average Glucose 128 mg/dl; Hemoglobin A1C 6.1 % (4.5-5.6)
[2020-08-18 15:22] LABS: Appearance Urine Clear (Clear); Bilirubin Urine Negative (Negative); Blood Urine Negative (Negative); Color Urine Yellow; Glucose Urine UA Negative (Negative); Ketones Urine Negative (Negative); Leukocyte Esterase Urine Negative (Negative); Nitrite Urine Negative (Negative); Protein Urine Negative (Negative); Specific Gravity Urine 1.011 (1.000-1.030); Urobilinogen Urine Negative (Negative); pH Urine 6.5 (4.5-7.5)
--- NOTE | 2020-08-18 15:32 | Electrocardiogram Report ---
Test Reason : Blood Pressure : / mmHG Vent. Rate : 079 BPM Atrial Rate : 079 BPM P-R Int : 140 ms QRS Dur : 082 ms QT Int : 396 ms P-R-T Axes : 023 056 048 degrees QTc Int : 454 ms Normal sinus rhythm Normal ECG When compared with ECG of 12-FEB-2019 12:30, No significant change was found Confirmed by Elias Perez ([id number]) on 08/18/2020 3:32:01 PM Referred By: Mario Moreno Confirmed By:Elias Perez
--- NOTE | 2020-09-11 09:29 | History & Physical Report ---
Date of Service September 14, 2020 Assessment & Plan (1) Failed total right knee replacement: I have indicated the patient for revision right total knee replacement, tibial component. The risks, benefits and complications of surgery were explained to the patient which include but not limited to infection, acute blood loss, DVT/PE, injury to nerves, vessels, bone, soft tissue, arthrofibrosis, chronic pain, failure of the prosthesis, knee dislocation, leg length discrepancy, need for additional surgery, cardiac and pulmonary events and . The patient wished to proceed with surgery and informed consent was obtained at this time. We will plan for Lovenox post-operatively for DVT proph ylaxis. Upon discharge the patient will be discharged home with home health services. Appropriate clearances by PCP were obtained. History of Present Illness Chief Complaint: Failed right total knee, aseptic loosening tibial component Primary Care Provider: Jayla Chan PA-C The patient is a 59 year old female who presents with failed right total knee with aseptic loosening of the tibial component. Principle surgery performed 01/07/[address] Sol. The patient has failed outpatient conservative treatments to this point which included NSAIDs, bracing, activity modification and a home exercise/walking program. The patient's pain and limited function have progressed to the point where they severely hinder their activities of daily living and they no longer tolerate exercise programs. They are requesting to proceed with total knee replacement surgery. Allergies Allergy/AdvReac Type Severity Reaction Status Date / Time No Known Allergies Allergy Verified 09/14/20 10:40 Home Medications Medication Instructions Recorded Confirmed Type albuterol sulfate 0.63 mg INHALATION QID PRN 09/02/18 08/05/20 History albuterol sulfate [ProAir HFA] 2 puff INHALATION QID PRN 09/02/18 08/05/20 History amlodipine 5 mg PO QAM 09/02/18 09/14/20 History amoxicillin 500 mg PO UD 09/02/18 08/05/20 History calcium carbonate-vitamin D3 1 tab PO BID 09/02/18 08/05/20 History [Calcium 500 + D] cholecalciferol (vitamin D3) 5,000 unit PO QAM 09/02/18 08/05/20 History [Vitamin D3] enalapril maleate [Vasotec] 5 mg PO QAM 09/02/18 09/14/20 History escitalopram oxalate [Lexapro] 10 mg PO QPM 09/02/18 09/14/20 History famotidine 20 mg PO BID 09/02/18 09/14/20 History fexofenadine [Shahida Allergy] 180 mg PO QAM 09/02/18 09/14/20 History montelukast 10 mg PO PM 09/02/18 09/14/20 History rosuvastatin [Crestor] 5 mg PO QPM 09/02/18 09/14/20 History vitamin B complex 1 cap PO QAM 09/02/18 09/14/20 History acetaminophen [Tylenol Extra 500 mg PO Q6H PRN 02/12/19 09/14/20 History Strength] meloxicam [Mobic] 7.5 mg PO BID PRN #15 tab 02/15/19 09/14/20 Rx fluticasone propion-salmeterol 1 inh INHALATION BID 08/05/20 09/14/20 History [Wixela Inhub] metformin 500 mg PO QPM 08/05/20 09/14/20 History mirabegron [Myrbetriq] 25 mg PO QAM 08/05/20 09/14/20 History Past Med/Surg History Medical History Asthma Depression Diabetes mellitus, type 2 NIDDM GERD (gastroesophageal reflux disease) History of anxiety Hyperlipidemia Hypertension Obesity Osteoarthritis Overactive bladder Surgical History History of appendectomy History of bilateral tubal ligation History of cataract extraction with lens replacement R/L History of section X1 History of foot surgery Left bone spur surgery History of tonsillectomy History of tooth extraction History of total knee replacement R/L; Left TKA: 09/19/18: SAB at L3-L4 + PNB at [facility] Family History Mother Family history of diabetes mellitus Father Family history of diabetes mellitus Other Diabetes Hypertension No family history of adverse response to anesthesia Ovarian cancer Social History Smoking Status: Former smoker Smoking End Date: Quit 30 years ago (hx of social use); Second Hand Exposure: No; Do You Dip or Chew Tobacco: No; Tobacco Cessation Education Requested by Patient: No Hx Alcohol Use: No Hx Substance Use: No Preferred Language: Turkish Communication Ability: Effective Foundation Coordinator Required: No Beliefs That Will Affect Care: None Current Living Situation: Alone Feels Safe at Home: Yes Safety Concerns: Feels Safe At This Time Assistive Devices: Cane and Glasses Review of Systems Review of Systems: All systems reviewed & are unremarkable except as noted in HPI & below Constitutional: as per Subjective / HPI Physical Exam Physical Exam: RLE NVSI +EHL/FHL/TA/GS SILT grossly, +2 DP pulse, compartments soft NT, painful ROM of the knee, 0-115 degrees of flexion, antalgic gait. Constitutional: WD/WN, vitals as above Eyes: PERRL, conjunctivae normal, anicteric sclerae ENMT: external ear and nose normal, oropharynx normal Neck: trachea midline, no thyromegaly Respiratory: normal respiratory effort, lungs clear to auscultation Cardiovascular: RRR, no murmur, no edema Gastrointestinal (Abdomen): normal bowel sounds, soft, nontender, no hepatosplenomegaly Musculoskeletal: no cyanosis or clubbing, extremities motor strength 5/5 Skin: no rashes, warm and dry Neurologic: patellar DTR's 2+ bilat, sensation intact Psychiatric: A+Ox3, euthymic affect Lymphatic: no cervical or axillary lymphadenopathy Results & Data Results & Data ([facility]) Diagnostic Findings Xrays of the right knee demonstrate post surgical changes total knee replacement with gross loosening of the tibial component, +osteolysis and subsidence. Pre Admission Testing Addendum Laboratory Results 08/18/20 12:00 08/18/20 12:00 PT 10.3 Seconds (9.0-12.0) 08/18/20 12:00 INR 1.0 (0.9-1.1) 08/18/20 12:00 APTT 26.5 Seconds (21.0-31.0) 08/18/20 12:00 Hemoglobin A1c 6.1 % (4.5-5.6) H 08/18/20 12:00 Urine Color Yellow 08/18/20 12:00 Urine Appearance Clear (Clear) 08/18/20 12:00 Urine pH 6.5 (4.5-7.5) 08/18/20 12:00 Ur Specific [place] 1.011 (1.000-1.030) 08/18/20 12:00 Urine Protein Negative (Negative) 08/18/20 12:00 Urine Glucose (UA) Negative (Negative) 08/18/20 12:00 Urine Ketones Negative (Negative) 08/18/20 12:00 Urine Nitrite Negative (Negative) 08/18/20 12:00 Ur Leukocyte Esterase Negative (Negative) 08/18/20 12:00 Blood Type O Positive 08/18/20 12:00 Antibody Screen NEGATIVE 08/18/20 12:00
[~2020-09-14 10:08] MED LIST changes: +BUPIVACAINE 0.25% 30 ML VIAL ONE; -CEFAZOLIN 2000MG 2,000 MG/15 ML SYR IV SCH; -GABAPENTIN 300 MG PO SCH; +GABAPENTIN 600 MG DOSE PO SCH; +METOCLOPRAMIDE HCL 10 MG TABLET PO SCH; -ROPIVACAINE 0.5% 5 MG/ML 30 ML VIAL ONE; -ROPIVACAINE 0.5% HCL/PF 150 MG, BUPIVACAINE 0.5% MPF 30 ML, EPINEPHrine 30MG/30ML (OR U... INFIL SCH; +ROPIVACAINE 0.5% HCL/PF 150 MG, BUPIVACAINE 0.75% MPF 20 ML, EPINEPHrine 30MG/30ML (OR ... INFIL SCH; +VANCOMYCIN HCL 1,500 MG in SODIUM CHLORIDE 0.9% 500 ML IV SCH; +ceFAZolin 2000MG 2,000 MG/15 ML SYR IV SCH
[2020-09-14] MEDS ORDERED: LIDOCAINE HCL 2% 2 ML VIAL/AMP(20MG/ML) INFIL ONE (10:17)
[2020-09-14] MEDS ORDERED: PROPOFOL IV EMULSION 10 MG/ML 20 ML VIAL IV ONE ×4 (10:17→17:14)
[2020-09-14] MEDS ORDERED: MIDAZOLAM HCL 1 MG/ML 2ML VIAL ONE (10:18)
--- NOTE | 2020-09-14 11:59 | History & Physical Bridge Note ---
Date of Service September 14, 2020 History & Physical Bridge Note I have examined the patient, reviewed the History & Physical and in the interval since the performance of the History & Physical I have noted the following changes of clinical significance: no changes noted
[2020-09-14] MEDS ORDERED: BACITRACIN INJ 50,000 UNIT VIAL ONE (12:27)
[2020-09-14] MEDS ORDERED: ORTHO JOINT ANESTHETIC ONE (12:27)
[2020-09-14] MEDS ORDERED: ATROPINE SULFATE 0.1 MG/ML 10ML SYR IV PRN (12:36)
[2020-09-14] MEDS ORDERED: ePHEDrine sulfate 50 MG/ML AMP IV PRN (12:36)
[2020-09-14] MEDS ORDERED: ONDANSETRON INJ 2 MG/ML 2 ML VIAL IV PRN ×2 (12:37→19:08)
[2020-09-14] MEDS ORDERED: ONDANSETRON INJ 2 MG/ML 2 ML VIAL ONE ×2 (14:05→17:13)
[2020-09-14] MEDS ORDERED: fentaNYL citrate 100 MCG/2 ML VIAL ONE ×2 (14:05→15:58)
[2020-09-14] MEDS ORDERED: ROCURONIUM BROMIDE 10 MG/ML 5 ML VIAL IV ONE (14:05)
[2020-09-14] MEDS ORDERED: DEXAMETHASONE SOD INJ 4 MG/ML VIAL ONE (14:05)
[2020-09-14] MEDS ORDERED: KETAMINE 50 MG/5 ML SYRINGE ONE (14:17)
--- NOTE | 2020-09-14 16:45 | Post Operative Brief Note ---
Immediate Post Op Note v1 Date of Surgery September 14, 2020 Pre & Post Diagnosis Operation Date: 09/14/20 12:20 Pre-Op Diagnosis: Right Knee Failed Total Knee Arthropaslty Post-Op Diagnosis: Right Knee Failed Total Knee Arthropaslty I identified the patient and participated in the time-out.: Yes Procedure Operation Date: 09/14/20 12:20 Actual Procedures p Right Total Knee Revision(Right) - Mario Moreno DO Surgeon Mario Moreno DO Custom Shop Worker Delonte Cid Estimated Blood Loss 225 Findings Consistent with Post-Op Diagnosis Fluids See anesthesia report Specimens None Drains Hemovac Drain Anesthesia Type General Complications none Disposition Disposition: Recovery Room Overlapping Procedure I was present for: the critical portions of procedure. I was immediately available: during the entire case. Back up surgeon: was not required during procedure.
--- NOTE | 2020-09-14 16:45 | Operative Report ---
Post Operative Report Pre & Post Diagnosis Operation Date: 09/14/20 12:20 Pre-Op Diagnosis: Right Knee Failed Total Knee Arthropaslty Post-Op Diagnosis: Right Knee Failed Total Knee Arthropaslty I identified the patient and participated in the time-out.: Yes Procedure Operation Date: 09/14/20 12:20 Actual Procedures p Right Total Knee Revision(Right) - tibia - DO esthela Connors poly exchange Surgeon Mario Moreno DO Toll Bridge Operator Delonte Cid Estimated Blood Loss 225 Findings Consistent with Post-Op Diagnosis Fluids See anesthesia report Specimens None Anesthesia Type General Complications none Disposition Disposition: Recovery Room Description of Procedure Following induction of spinal anesthesia, a tourniquet was applied to the proximal aspect of the thigh and the patient's right leg was prepped and draped in the usual sterile manner. A timeout was performed and site joann verified. Appropriate IV abx were verified and given. Limb was exsanguinated with an esmarch bandage and tourniquet was inflated to right mmHg. The prior incision was identified and a longitudinal midline incision was made over the anterior knee. Subcutaneous tissue was sharply dissected down to fascia. Electrocautery was used for hemostasis. Next a medial parapatellar arthrotomy was performed. Meticulous removal of hypertrophic synovium and scar tissue was removed with Bovie. The patella was subluxed laterally and the knee was flexed. A avila retractor was used to expose the synovium above on the anterior aspect of the femur and removed down to bone. Next, the anterior fat pad was removed to aid in visualization. The medial face of the tibia was cleared of soft tissue first with a bovie and a scales elevator. This tissue was retracted posteriorly using a blunt hohmann. Once adequate access was obtained to the total knee prosthesis we removed the tibial articular surface. We examined the distal femur prosthesis I removed all soft tissue at the bone metal interface. The femoral component was well fixed and without signs of wear. Next we turned our attention to the proximal tibia which was grossly loose. Utilizing a flat wide osteotomes we were able to lever the component out of the bone. Proximal tibial bone demonstrated significant osteolysis and was cystic. Next we meticulously removed remaining cement and cleared the proximal tibia and any remaining soft tissue. We gained access to the intramedullary tibia and membrane was scraped with curved curettes. Next sequential intramedullary reaming was performed by hand on the tibia until adequate bone chatter was appreciated. Reaming was stopped at 13 mm on the tibia. At this time the tourniquet was dropped at 60 minutes. The intramedullary reamer was left in the tibia and the T-handle was removed. The proximal tibia cutting guide was attached to the reamer and pinned in place. Intramedullary reamer was removed and the proximal tibia was cut removing minimal bone until there was a flat cut perpendicular to the mechanical axis. An additional 5mm was taken from the medial proximal tibial plateau perpendicular to the mechanical axis. We confirmed the cut with drop eric and spacer block. Next the proximal tibia was assessed and two bent Hohmanns were placed medial and lateral to aid in visualization. The appropriate tibia size and rotation was selected and a size 3 tibial plate with 15mm medial and 10mm lateral tibial augments was pinned into place with appropriate rotation. Preparation of the tibia was completed utilizing the matching tibial drill and broach. The trial tibial plate was removed and the trial size 3 tibia with 13 x 100 mm stem with 15mm lateral amd 10mm medial augments were attached to the proximal tibia and impacted into place. This provided good fit and fill of the proximal tibia. A 12 mm LPS tibial articular surface was trialed. Sequential trialing of tibial sizes was performed, increasing to a tibial articular surface size 17 mm. Varus-valgus balance was assessed in 0 degrees of extension and 30, 60 and 90 degrees of flexion. A final tibial articular surface size 17 LPS was chosen. Access was gained to the patella and meticulous removal of fibrous soft tissue surrounding the patella button was removed. The patella was cleared of any remaining osteophytes utilizing the rongour. The patella button was found to be stable and well fixed without signs of wear. The knee was found to be well balanced, well aligned, with excellent patellar tracking. The leg was rewrapped with new Esmarch and tourniquet inflated once again at this time. The trials were removed and final components were obtained and assembled on the back table. Aquamantys was utilized for any bleeders and Orthomix solution injected into the posterior capsule. The knee was irrigated with copious amounts of sterile saline solution mixed with bacitracin. Access to the proximal tibia was once again obtained utilizing two bent hohmann retractors and the proximal tibia was dried with lap sponges. The final components were cemented into place utilizing Palacos cement and all excess cement was removed. A trial tibial articular surface was placed while cemented hardened. Knee stability was once again assessed and the final component inserted. The knee was injected with the remaining Orthomix solution and irrigated once more with sterile saline solution mixed with bacitracin. Betadine soak was performed for 3 minutes followed by irrigation with copious amounts of sterile saline solution with bacitracin. HMV drain was placed deep to fascial layer. The capsulotomy was closed with #1 Vicryl followed by subcutaneous closure with 2-0 Vicryl suture. Skin closure was performed using connie. Sterile dressings were applied which included Yohannes incisional fav, Webril and octavia wrap. The tourniquet was deflated at 65 minutes for a total of 125 minutes of tourniquet time for the case. The patient was extubated in the OR and transported to the PACU in stable condition. Due to the complex nature of the procedure, the entire surgery was performed with the operational assistance of Delonte Cid PA-C. The orthotics assistant, under direct supervision, was involved in the actual performance of all aspects of the surgical procedure including patient positioning, hemostasis, tissue retraction, instrument management and wound closure. I attest to the content of the Intraoperative Record and any orders documented therein. Any exceptions are noted below.
[2020-09-14] MEDS ORDERED: GLYCOPYRROLATE 0.2 MG/ML VIAL ONE ×2 (16:46→17:29)
[2020-09-14] MEDS ORDERED: NEOSTIGMINE METHYLSULFATE 5 MG/5 ML SYR ONE ×2 (16:46→17:29)
[2020-09-14] MEDS ORDERED: LABETALOL HCL IV 5 MG/ML 20ML IV ONE (17:02)
[2020-09-14] MEDS: fentaNYL citrate 100 MCG/2 ML VIAL IV PRN ×4 (17:42→17:57)
[2020-09-14] MEDS: HYDROmorphone INJ 2 MG/ML SYR/VIAL IV PRN ×2 (18:18→18:23)
--- NOTE | 2020-09-14 18:35 | Anesthesiology Progress Note ---
Date of Service September 14, 2020 Anesthesia Post Procedure Vital Signs Vital Signs: Temp Pulse Pulse Resp BP Pulse Ox 09/14/20 18:25 36.8 C 91 H 17 128/82 97 09/14/20 18:15 79 15 137/84 98 09/14/20 18:05 80 15 133/88 97 09/14/20 17:55 90 12 141/78 H 100 09/14/20 17:45 88 13 146/94 H 100 09/14/20 17:35 92 H 13 133/97 100 09/14/20 17:27 36.4 C L 81 16 147/99 H 99 09/14/20 10:45 37.1 C 89 20 170/85 H 97 Pain Intensity Right Knee: Pain Intensity: 2 Transfer of Care Handoff Completed per policy Notes Mental Status: alert / awake / arousable and participated in evaluation Patient Amnestic to Procedure: Yes Nausea / Vomiting: adequately controlled Pain: adequately controlled and improving with treatment Airway Patency, RR, SpO2: stable & adequate BP & HR: stable & adequate Hydration State: stable & adequate Anesthetic Complications: no major complications apparent and Pt Satisfied with anesthetic care
--- NOTE | 2020-09-14 18:37 | XRay Report ---
RIGHT KNEE 2 VIEWS History: Right total knee arthroplasty. Degenerative arthritis. Postop. FINDINGS: The patient is status post a right total knee arthroplasty. The hardware is intact. No frac ture or dislocation. Skin connie and surgical drains are in place. IMPRESSION: Right total knee arthroplasty. No evidence for hardware complication. ACT 112: Negative or not required by law. Electronically signed by: Todd Apodaca M.D. 09/14/2020 6:35 PM
[2020-09-14] MEDS ORDERED: METOCLOPRAMIDE HCL INJ 5 MG/ML 2 ML VIAL IV PRN (19:08)
[2020-09-14] MEDS ORDERED: VANCOMYCIN CONSULT ACTIVE PRN (19:08)
[2020-09-14] MEDS ORDERED: NALOXONE HCL 0.4 MG/1 ML VIAL/CARP IV PRN (19:08)
[2020-09-14] MEDS ORDERED: diphenhydrAMINE Capsule 25 MG CAP PO PRN (19:08)
[2020-09-14] MEDS ORDERED: HYDROmorphone INJ 0.5 MG/0.5 ML SYR IV PRN (19:08)
[2020-09-14] MEDS ORDERED: MAGNESIUM HYDROXIDE SUSP 30 ML UDC PO PRN (19:08)
[2020-09-14] MEDS ORDERED: bisacodyL 10 MG SUPP PR PRN (19:08)
[2020-09-14] MEDS ORDERED: PHARMACY GLYCEMIC MGMT CONSULT PRN (19:21)
--- NOTE | 2020-09-14 19:27 | Orthopedic Progress Note ---
Date of Service September 14, 2020 Assessment & Plan (1) Failed total right knee replacement: s/p revision right total knee, tibial component, removal of hardware, poly exchange -ancef/vanco x 24 -DVT ppx: SCDs, TEDs, Lovenox daily -WBAT RLE -PT/OT -PO XR demonstrates a well aligned well fixed prothesis without fracture/dislocation -am labs -monitor drain output -DC planning Admission and Anticipated Discharge Date Admission Date: September 14, 2020 Subjective Post Operative Progress Note Patient seen in PACU, comfortable appearing, c/o pain, receiving pain medicat ion, no acute issues. Review of Systems Review of Systems: All systems reviewed & are unremarkable except as noted in HPI & below Constitutional: as per Subjective / HPI Physical Exam Physical Exam: RLE + 2 DP pulse, compartments soft NT, dressing CDI, HMV drain intact. Constitutional: WD/WN, vitals as above Results & Data ([facility]) Vital Signs (Past 12 Hours) Vital Signs Temp Pulse Pulse Resp BP Pulse Ox 09/14/20 19:09 37.1 C 99 H 16 144/92 H 98 09/14/20 18:45 36.8 C 86 12 126/92 95 09/14/20 18:35 36.8 C 84 15 143/79 H 92 09/14/20 18:25 36.8 C 91 H 17 128/82 97 09/14/20 18:15 79 15 137/84 98 09/14/20 18:05 80 15 133/88 97 09/14/20 17:55 90 12 141/78 H 100 09/14/20 17:45 88 13 146/94 H 100 09/14/20 17:35 92 H 13 133/97 100 09/14/20 17:27 36.4 C L 81 16 147/99 H 99 09/14/20 10:45 37.1 C 89 20 170/85 H 97
[2020-09-14] MEDS ORDERED: GLUCOSE 40% GEL 15 GM TUBE PO PRN (19:30)
[2020-09-14] MEDS ORDERED: GLUCOSE 10 TABS/TUBE PO PRN (19:30)
[2020-09-14] MEDS ORDERED: CARBOHYDRATES FOR HYPOGLYCEMIA PO PRN (19:30)
[2020-09-14] MEDS ORDERED: DEXTROSE 50% 50 ML SYRINGE IV PRN (19:30)
[2020-09-14] MEDS ORDERED: GLUCAGON FOR INJ 1 MG VIAL SQ PRN (19:30)
[2020-09-14] MEDS ORDERED: ALBUTEROL HFA 8 GM INHALER INH PRN (19:34)
[2020-09-14] MEDS ORDERED: LEVALBUTEROL HCL 0.63 MG/3 ML NEB INH PRN (19:36)
[2020-09-14] MEDS ORDERED: LANTUS PER UNIT CHARGE SQ ONE (20:00)
[2020-09-14] MEDS: INSULIN ASPART 100 UNITS/ML 3 ML PEN SC SCH (21:01)
[2020-09-14] MEDS: ROSUVASTATIN CALCIUM 5 MG TAB PO SCH (21:02)
[2020-09-14] MEDS: oxyCODONE HCL IR 5 MG TAB (IMMEDIATE RELEASE) PO PRN (21:02)
[2020-09-14] MEDS: MONTELUKAST SODIUM 10 MG TABLET PO SCH (21:03)
[2020-09-14] MEDS: SENNA 8.6 MG TAB PO SCH (21:03)
[2020-09-14] MEDS: ESCITALOPRAM OXALATE 10 MG TAB PO SCH (21:03)
[2020-09-14] MEDS: ceFAZolin 2000MG 2,000 MG/15 ML SYR IV SCH (21:04)
[2020-09-14] MEDS: FAMOTIDINE 20 MG TAB PO SCH (21:13)
[2020-09-14] MEDS: DOCUSATE SODIUM 100 MG CAP PO SCH (21:13)
[2020-09-14] MEDS: ACETAMINOPHEN 500 MG TAB PO SCH (23:50)
[2020-09-15] MEDS: INSULIN ASPART 100 UNITS/ML 3 ML PEN SC SCH ×6 (00:04→22:34)
[2020-09-15] MEDS: SODIUM CHLORIDE 0.9% 1000ML 1,000 ML IV SCH ×2 (00:26→09:06)
[2020-09-15] MEDS ORDERED: VANCOMYCIN HCL 1,500 MG in SODIUM CHLORIDE 0.9% 500 ML IV SCH (01:00)
[2020-09-15] MEDS: oxyCODONE HCL IR 5 MG TAB (IMMEDIATE RELEASE) PO PRN ×4 (01:13→21:10)
[2020-09-15] MEDS: ceFAZolin 2000MG 2,000 MG/15 ML SYR IV SCH (04:28)
[2020-09-15] MEDS: ACETAMINOPHEN 500 MG TAB PO SCH ×3 (05:45→21:09)
[2020-09-15] MEDS: amLODIPine BESYLATE 5 MG TAB PO SCH (09:06)
[2020-09-15] MEDS: MIRABEGRON ER 25 MG TAB PO SCH (09:07)
[2020-09-15] MEDS: ENOXAPARIN INJ 40 MG/0.4 ML SYR SQ SCH (09:07)
[2020-09-15] MEDS: MULTIVITAMIN TAB PO SCH (09:07)
[2020-09-15] MEDS: FLUTICASONE/VILANTEROL 100/25MCG 14 PUFFS/INHALER INH SCH (09:08)
[2020-09-15] MEDS: DOCUSATE SODIUM 100 MG CAP PO SCH ×2 (09:11→20:44)
[2020-09-15] MEDS: FAMOTIDINE 20 MG TAB PO SCH ×2 (09:11→20:44)
--- NOTE | 2020-09-15 09:44 | Pharmacy Report ---
Pharmacy Glycemic Short Note 2 - Date of Service September 15, 2020 - Glycemic Short BSG Results (Last 24 hours): 09/14/20 09/14/20 09/14/20 10:40 17:37 20:45 POC Glucose 115 H 161 H 366 H* 09/14/20 09/14/20 09/15/20 20:46 23:54 04:26 POC Glucose 186 H 149 H 129 H 09/15/20 08:16 POC Glucose 152 H OUTPATIENT ANTIDIABETIC REGIMEN: * Metformin XR 500 mg PO w/ evening meal * HbA1c: 6.1% (08/18/20) ASSESSMENT: * GY is a 59 year old female now POD #1 s/p right total knee revision * Patient received dexamethasone 4 mg IV and 8 mg PO intraoperatively * BSGs yesterday of 115 (preoperatively), 161, 186, and 149 mg/dL * Patient given 16 units of Lantus yesterday to help cover hyperglycemic effects of steroids * Fasting BSG of 152 mg/dL this morning - will hold off on Lantus as steroids will not be continued * Renal function adequate - will restart metformin this evening PLAN FOR INPATIENT GLYCEMIC CONTROL: * Metformin XR 500 mg PO daily w/ evening meal * Basal insulin * hold * Bolus insulin - loosen * NovoLog per scale ACHS or Q6hrs while NPO * Goal Range: Low 110 mg/dL - High 140 mg/dL * Correction Factor: 35 mg/dL/unit * Nutritional / Prandial insulin per carb ratio of 1 unit per 12 grams CHO consumed PLAN FOR DISCHARGE: * HbA1c of 6.1% is at goal - continue metformin 500 mg PO daily with dinner
[2020-09-15 10:14] LABS: Hematocrit (blood only) 37.1 % (37-47); Hemoglobin 11.9 g/dL (12.0-16.0); Mean Corpuscular Hemoglobin 30.1 pg (25-34); Mean Corpuscular Hgb Conc 32.1 g/dL (32-36); Mean Corpuscular Volume 93.7 fL (80-100); Mean Platelet Volume 9.4 fL (7.4-10.4); Platelet Count 290 K/uL (130-400); RDW Coefficient of Variation 12.9 % (11.5-14.5); RDW Standard Deviation 44.3 fL (36.4-46.3); Red Blood Count 3.96 M/uL (4.2-5.4); White Blood Count 12.67 K/uL (4.8-10.8)
[2020-09-15 10:31] LABS: BUN Creatinine Ratio 14.7 (10-20); Calcium 9.2 mg/dl (8.5-10.1); Creatinine Clr Calc Pharmacy 66.1 ml/min; Est GFR (African American) 74.5; Est GFR (Non-African American) 64.3; Potassium 3.9 mmol/L (3.5-5.1)
--- NOTE | 2020-09-15 10:55 | Orthopedic Progress Note ---
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, tibial component, removal of hardware, poly exchange POD#1 -ancef/vanco x 24 -DVT ppx: SCDs, TEDs, Lovenox daily -WBAT RLE -PT/OT -PO XR demonstrates a well aligned well fixed prothesis without fracture/dislocation -am labs - as above, hgb 11.9 -RLE common peroneal nerve neurapraxia/foot drop, discussed with patient, continue to monitor, dressing/octavia wrap taken down, knee flexed up, continue with ice, discussed if symptoms persist will obtain AFO -monitor drain output - 125/146cc -DC planning - home with Admission and Anticipated Discharge Date Admission Date: September 14, 2020 Subjective Post Operative Progress Note Patient seen sitting up in bed, comfortable, denies complaints, pain well controlled, no acute issues. Denies F/C/N/V/SOB/CP. Review of Systems Review of Systems: All systems reviewed & are unremarkable except as noted in HPI & below Constitutional: as per Subjective / HPI Physical Exam Physical Exam: RLE PE +2 DP pulse, compartments soft NT, dressing CDI, HMV drain intact, decreased sensation dorsal foot, weakness to dorsiflexion Constitutional: WD/WN, vitals as above Results & Data ([facility]) Vital Signs (Past 12 Hours) Vital Signs Temp Pulse Resp BP Pulse Ox 09/15/20 07:16 36.5 C 89 16 126/77 96 09/15/20 02:15 36.9 C 84 16 153/87 H 96 Laboratory Results 09/15/20 09/15/20 09/15/20 Range/Units 09:50 09:50 08:16 WBC 12.67 H (4.8-10.8) K/uL RBC 3.96 L (4.2-5.4) M/uL Hgb 11.9 L (12.0-16.0) g/dL Hct 37.1 (37-47) % MCV 93.7 (80-100) fL MCH 30.1 (25-34) pg MCHC 32.1 (32-36) g/dL RDW Std Deviation 44.3 (36.4-46.3) fL RDW Coeff of Peggy 12.9 (11.5-14.5) % Plt Count 290 (130-400) K/uL MPV 9.4 (7.4-10.4) fL Sodium 139 (136-145) mmol/L Potassium 3.9 (3.5-5.1) mmol/L Chloride 108 H (98-107) mmol/L Carbon Dioxide 25 (21-32) mmol/L Anion Gap 6.0 (3-11) BUN 14 (7-18) mg/dl Creatinine 0.96 (0.6-1.2) mg/dl Est Cr Clr Drug Dosing 66.1 ml/min Est GFR ( Amer) 74.5 Est GFR (Non-Af Amer) 64.3 BUN/Creatinine Ratio 14.7 (10-20) Glucose 127 H (70-99) mg/dl POC Glucose 152 H (70-99) mg/dl Calcium 9.2 (8.5-10.1) mg/dl Blood Type Antibody Screen Crossmatch 09/15/20 09/14/20 09/14/20 Range/Units 04:26 23:54 20:46 WBC (4.8-10.8) K/uL RBC (4.2-5.4) M/uL Hgb (12.0-16.0) g/dL Hct (37-47) % MCV (80-100) fL MCH (25-34) pg MCHC (32-36) g/dL RDW Std Deviation (36.4-46.3) fL RDW Coeff of Peggy (11.5-14.5) % Plt Count (130-400) K/uL MPV (7.4-10.4) fL Sodium (136-145) mmol/L Potassium (3.5-5.1) mmol/L Chloride (98-107) mmol/L Carbon Dioxide (21-32) mmol/L Anion Gap (3-11) BUN (7-18) mg/dl Creatinine (0.6-1.2) mg/dl Est Cr Clr Drug Dosing ml/min Est GFR ( Amer) Est GFR (Non-Af Amer) BUN/Creatinine Ratio (10-20) Glucose (70-99) mg/dl POC Glucose 129 H 149 H 186 H (70-99) mg/dl Calcium (8.5-10.1) mg/dl Blood Type Antibody Screen Crossmatch 09/14/20 09/14/20 09/14/20 Range/Units 20:45 17:37 10:28 WBC (4.8-10.8) K/uL RBC (4.2-5.4) M/uL Hgb (12.0-16.0) g/dL Hct (37-47) % MCV (80-100) fL MCH (25-34) pg MCHC (32-36) g/dL RDW Std Deviation (36.4-46.3) fL RDW Coeff of Peggy (11.5-14.5) % Plt Count (130-400) K/uL MPV (7.4-10.4) fL Sodium (136-145) mmol/L Potassium (3.5-5.1) mmol/L Chloride (98-107) mmol/L Carbon Dioxide (21-32) mmol/L Anion Gap (3-11) BUN (7-18) mg/dl Creatinine (0.6-1.2) mg/dl Est Cr Clr Drug Dosing ml/min Est GFR ( Amer) Est GFR (Non-Af Amer) BUN/Creatinine Ratio (10-20) Glucose (70-99) mg/dl POC Glucose 366 H* 161 H (70-99) mg/dl Calcium (8.5-10.1) mg/dl Blood Type O Positive Antibody Screen NEGATIVE Crossmatch See Detail
[2020-09-15] MEDS ORDERED: metFORMIN HCL ER 500 MG TABCR PO SCH (17:00)
[2020-09-15] MEDS: ROSUVASTATIN CALCIUM 5 MG TAB PO SCH (20:42)
[2020-09-15] MEDS: ESCITALOPRAM OXALATE 10 MG TAB PO SCH (20:42)
[2020-09-15] MEDS: SENNA 8.6 MG TAB PO SCH (20:42)
[2020-09-15] MEDS: MONTELUKAST SODIUM 10 MG TABLET PO SCH (20:42)
[2020-09-16] MEDS: ACETAMINOPHEN 500 MG TAB PO SCH ×2 (06:07→14:31)
[2020-09-16] MEDS: oxyCODONE HCL IR 5 MG TAB (IMMEDIATE RELEASE) PO PRN ×3 (06:07→14:30)
[2020-09-16 07:43] LABS: Mean Corpuscular Hgb Conc 32.4 g/dL (32-36); Mean Corpuscular Volume 92.6 fL (80-100); Mean Platelet Volume 9.8 fL (7.4-10.4); Platelet Count 266 K/uL (130-400); RDW Coefficient of Variation 13.1 % (11.5-14.5); RDW Standard Deviation 44.6 fL (36.4-46.3); Red Blood Count 3.67 M/uL (4.2-5.4); White Blood Count 9.25 K/uL (4.8-10.8)
[2020-09-16] MEDS: FLUTICASONE/VILANTEROL 100/25MCG 14 PUFFS/INHALER INH SCH (07:46)
[2020-09-16] MEDS: MULTIVITAMIN TAB PO SCH (07:46)
[2020-09-16] MEDS: ENOXAPARIN INJ 40 MG/0.4 ML SYR SQ SCH (07:46)
[2020-09-16] MEDS: amLODIPine BESYLATE 5 MG TAB PO SCH (07:46)
[2020-09-16] MEDS: MIRABEGRON ER 25 MG TAB PO SCH (07:46)
[2020-09-16] MEDS: INSULIN ASPART 100 UNITS/ML 3 ML PEN SC SCH ×2 (07:47→12:51)
[2020-09-16] MEDS: FAMOTIDINE 20 MG TAB PO SCH (07:51)
[2020-09-16] MEDS: DOCUSATE SODIUM 100 MG CAP PO SCH (07:51)
[2020-09-16 08:16] LABS: BUN Creatinine Ratio 26.8 (10-20); Calcium 8.6 mg/dl (8.5-10.1); Creatinine Clr Calc Pharmacy 102.3 ml/min; Est GFR (African American) 113.6
--- NOTE | 2020-09-16 08:58 | Orthopedic Progress Note ---
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, tibial component, removal of hardware, poly exchange POD#2 -ancef/vanco x 24 -DVT ppx: SCDs, TEDs, Lovenox daily -WBAT RLE -PT/OT -PO XR demonstrates a well aligned well fixed prothesis without fracture/dislocation -am labs - as above, hgb 11.0 -RLE common peroneal nerve neurapraxia/foot drop, slight improvement in light and deep pressure sensation anterior lateral lower leg, discussed dx with patient at length, will continue to monitor, avoid compressive dressing on RLE, avoid prolonged periods of full extension, continue to flex knee while in bed, continue with ice, will obtain AFO at this time, prior to discharge, discussed if no improvement at 3 months would obtain EMG at that time. Patient expressed understanding and all questions answered to satisfaction, agreeable to plan. -monitor drain output - 150/150cc -DC planning - home with POD#1 -ancef/vanco x 24 -DVT ppx: SCDs, TEDs, Lovenox daily -WBAT RLE -PT/OT -PO XR demonstrates a well aligned well fixed prothesis without fracture/dislocation -am labs - as above, hgb 11.9 -RLE common peroneal nerve neurapraxia/foot drop, discussed with patient, continue to monitor, dressing/octavia wrap taken down, knee flexed up, continue with ice, discussed if symptoms persist will obtain AFO -monitor drain output - 125/146cc -DC planning - home with (2) Foot drop, right: Admission and Anticipated Discharge Date Admission Date: September 14, 2020 Subjective Post Operative Progress Note Patient seen sitting up in bed, comfortable, denies complaints, pain well controlled, no acute issues. Denies F/C/N/V/SOB/CP. Review of Systems Review of Systems: All systems reviewed & are unremarkable except as noted in HPI & below Constitutional: as per Subjective / HPI Physical Exam Physical Exam: RLE +2 DP pulse, compartments soft NT, dressing cdi. +foot drop, slight improvement in light and deep pressure sensation as well as pain sensation anterior lateral lower leg, unchanged decreased sensation dorsal foot and 1st webspace, slight improvement in pain sensation to dorsal foot, decreased MS to dorsi flexion. Constitutional: WD/WN, vitals as above Results & Data ([facility]) Vital Signs (Past 12 Hours) Vital Signs Temp Pulse Resp BP Pulse Ox 09/16/20 08:00 37.5 C 83 18 149/84 H 95 Diagnostic Findings 09/16/20 09/16/20 09/16/20 Range/Units 08:21 08:10 06:53 WBC (4.8-10.8) K/uL RBC (4.2-5.4) M/uL Hgb (12.0-16.0) g/dL Hct (37-47) % MCV (80-100) fL MCH (25-34) pg MCHC (32-36) g/dL RDW Std Deviation (36.4-46.3) fL RDW Coeff of Peggy (11.5-14.5) % Plt Count (130-400) K/uL MPV (7.4-10.4) fL Sodium 138 (136-145) mmol/L Potassium Pending (3.5-5.1) mmol/L Chloride 107 (98-107) mmol/L Carbon Dioxide 26 (21-32) mmol/L Anion Gap 5.0 (3-11) BUN 17 (7-18) mg/dl Creatinine 0.62 D (0.6-1.2) mg/dl Est Cr Clr Drug Dosing 102.3 ml/min Est GFR ( Amer) 113.6 Est GFR (Non-Af Amer) 98.0 BUN/Creatinine Ratio 26.8 H (10-20) Glucose 135 H (70-99) mg/dl POC Glucose 132 H (70-99) mg/dl Calcium 8.6 (8.5-10.1) mg/dl Crossmatch 09/16/20 09/15/20 09/15/20 Range/Units 06:53 20:40 17:15 WBC 9.25 (4.8-10.8) K/uL RBC 3.67 L (4.2-5.4) M/uL Hgb 11.0 L (12.0-16.0) g/dL Hct 34.0 L (37-47) % MCV 92.6 (80-100) fL MCH 30.0 (25-34) pg MCHC 32.4 (32-36) g/dL RDW Std Deviation 44.6 (36.4-46.3) fL RDW Coeff of Peggy 13.1 (11.5-14.5) % Plt Count 266 (130-400) K/uL MPV 9.8 (7.4-10.4) fL Sodium (136-145) mmol/L Potassium (3.5-5.1) mmol/L Chloride (98-107) mmol/L Carbon Dioxide (21-32) mmol/L Anion Gap (3-11) BUN (7-18) mg/dl Creatinine (0.6-1.2) mg/dl Est Cr Clr Drug Dosing ml/min Est GFR ( Amer) Est GFR (Non-Af Amer) BUN/Creatinine Ratio (10-20) Glucose (70-99) mg/dl POC Glucose 137 H 117 H (70-99) mg/dl Calcium (8.5-10.1) mg/dl Crossmatch 09/15/20 09/15/20 09/15/20 Range/Units 12:00 09:50 09:50 WBC 12.67 H (4.8-10.8) K/uL RBC 3.96 L (4.2-5.4) M/uL Hgb 11.9 L (12.0-16.0) g/dL Hct 37.1 (37-47) % MCV 93.7 (80-100) fL MCH 30.1 (25-34) pg MCHC 32.1 (32-36) g/dL RDW Std Deviation 44.3 (36.4-46.3) fL RDW Coeff of Peggy 12.9 (11.5-14.5) % Plt Count 290 (130-400) K/uL MPV 9.4 (7.4-10.4) fL Sodium 139 (136-145) mmol/L Potassium 3.9 (3.5-5.1) mmol/L Chloride 108 H (98-107) mmol/L Carbon Dioxide 25 (21-32) mmol/L Anion Gap 6.0 (3-11) BUN 14 (7-18) mg/dl Creatinine 0.96 (0.6-1.2) mg/dl Est Cr Clr Drug Dosing 66.1 ml/min Est GFR ( Amer) 74.5 Est GFR (Non-Af Amer) 64.3 BUN/Creatinine Ratio 14.7 (10-20) Glucose 127 H (70-99) mg/dl POC Glucose 95 (70-99) mg/dl Calcium 9.2 (8.5-10.1) mg/dl Crossmatch 09/14/20 Range/Units 10:28 WBC (4.8-10.8) K/uL RBC (4.2-5.4) M/uL Hgb (12.0-16.0) g/dL Hct (37-47) % MCV (80-100) fL MCH (25-34) pg MCHC (32-36) g/dL RDW Std Deviation (36.4-46.3) fL RDW Coeff of Peggy (11.5-14.5) % Plt Count (130-400) K/uL MPV (7.4-10.4) fL Sodium (136-145) mmol/L Potassium (3.5-5.1) mmol/L Chloride (98-107) mmol/L Carbon Dioxide (21-32) mmol/L Anion Gap (3-11) BUN (7-18) mg/dl Creatinine (0.6-1.2) mg/dl Est Cr Clr Drug Dosing ml/min Est GFR ( Amer) Est GFR (Non-Af Amer) BUN/Creatinine Ratio (10-20) Glucose (70-99) mg/dl POC Glucose (70-99) mg/dl Calcium (8.5-10.1) mg/dl Crossmatch See Detail
--- NOTE | 2020-09-16 14:10 | Communication Note ---
Date of Service: September 16, 2020 Pt currently being fitted with AFO brace for her foot drop. No complaints. Progressing well. Dressing intact. Plan for dc to home today.
--- NOTE | 2020-09-16 22:01 | Discharge Summary ---
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 Principle surgery performed 01/07/[address] Sol. The patient has failed outpatient conservative treatments to this point which included NSAIDs, bracing, activity modification and a home exercise/walking program. The patient's pain and limited function have progressed to the point where they severely hinder their activities of daily living and they no longer tolerate exercise programs. They are requesting to proceed with total knee replacement surgery. Principal Diagnosis Revision right total knee replacement Discharge Exam RLE PE +2 DP pulse compartments soft NT, dressing CDI, +foot drop, slight improvement in slight touch to anterior lateral lower leg, decreased sensation dorsal foot and 1st webspace, weakness to dorsiflexion. 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 The patient's symptoms have progressed to the point where it has been difficult to perform even normal activities of daily living. I indicated the patient for a revision right total knee arthroplasty, the risks, benefits and complications of the procedure include but not limited to infection, bleeding, damage to bone, nerves, vessels, surrounding soft tissue, may develop blood clots, loss of function, leg length discrepancy, dislocation, failure of the components, loosening of the components, the need for additional surgery and . The patient wished to proceed with surgery at this time and informed consent was obtained. Hospital Course: On 09/14/20 the patient was taken to the operating room, adequate anesthesia administered and underwent a revision right total knee arthroplasty. The patient tolerated the procedure well and was taken to the PACU in stable condition. Post-operatively the patient was started on a DVT ppx medication and given appropriate IV antibiotics. Consults were placed to physical therapy, occupational therapy and case management. On POD#1, the patient did well overnight and their pain was well controlled. It was noted the patient had a foot drop with decreased sensation to her RLE on PE. Compressing dressing was removed, knee flexed and ice applied. Labs were drawn and the Hgb was 11.9. The patient progressed well with PT. On POD#2, the patient continued to do well overnight, pain was controlled, slight improvement in light touch to her lower leg however continued to have paraesthesias to dorsal foot and foot drop. AFO was ordered and fitted. The patient progressed with PT, labs drawn, hgb 11.0. The patients hospital stay was relatively uneventful and they were deemed stable by the orthopedic team and consultants to be discharged home with outpatient PT on 09/16/20. Discharge Instructions: Upon discharge the patient may weight bear as tolerates through their operative extremity with AFO. They were instructed to keep the incision clean and dry at all times. The patient may shower but should not submerge the incision, avoid bathing, pools and hot tubs. The patient was given a script for pain medication and should take as instructed. The patient was given a script for DVT ppx Lovenox daily and should take as directed. The patient was instructed to not drive or travel for long distances until cleared to do so. If the patient develops any symptoms of fevers, chills, nausea, vomiting, increased redness, swelling, pain or drainage from the surgical site, they should notify the office and/or proceed to the nearest emergency room. The patient should follow up in 10-14 days after surgery for their routine post-operative follow-up appointment and should call the office, to confirm the date and time. s/p revision right total knee, tibial component, removal of hardware, poly exchange POD#2 -ancef/vanco x 24 -DVT ppx: SCDs, TEDs, Lovenox daily -WBAT RLE -PT/OT -PO XR demonstrates a well aligned well fixed prothesis without fracture/dislocation -am labs - as above, hgb 11.0 -RLE common peroneal nerve neurapraxia/foot drop, slight improvement in light and deep pressure sensation anterior lateral lower leg, discussed dx with patient at length, will continue to monitor, avoid compressive dressing on RLE, avoid prolonged periods of full extension, continue to flex knee while in bed, continue with ice, will obtain AFO at this time, prior to discharge, discussed if no improvement at 3 months would obtain EMG at that time. Patient expressed understanding and all questions answered to satisfaction, agreeable to plan. -monitor drain output - 150/150cc -DC planning - home with POD#1 -ancef/vanco x 24 -DVT ppx: SCDs, TEDs, Lovenox daily -WBAT RLE -PT/OT -PO XR demonstrates a well aligned well fixed prothesis without fracture/dislocation -am labs - as above, hgb 11.9 -RLE common peroneal nerve neurapraxia/foot drop, discussed with patient, continue to monitor, dressing/octavia wrap taken down, knee flexed up, continue with ice, discussed if symptoms persist will obtain AFO -monitor drain output - 125/146cc -DC planning - home with (2) Foot drop, right: Total Time Total Time Spent Total Time Spent (In Minutes): 45 Discharge Plan Discharge Items Patient Disposition: Home - Self-Care Reason For Visit: Right Knee Failed Total Knee Arthropaslty Discharge Diagnosis: Revisoin right total knee replacement Activity: Per Instructions section Lifting: Wait until after follow-up appointment Bathing: Keep incision dry Bathing Comment: No bathing, pools or hot tubs. Sexual Activity: Wait until after follow-up appointment Exercise/Sports: Wait until after follow-up appointment Driving/Machine Use: No driving. Weightbearing: Full weightbearing Non-emergency contact: Primary Care Provider and Surgeon Call non-emergency contact if: you have any medication questions, your symptoms worsen, your pain is not controlled, your pain is worsening, your pain is unusual for you, your pain is concerning for you, you have a fever, your temperature is above 101, your wound has increased redness, your wound has increased drainage and your wound pain has increased Follow-up/Referrals: Jayla Chan PA-C [Primary Care Provider] - Diet: Regular Addtl Attending Provider Instructions: ACTIVITY RECOMMENDATIONS: SELF CARE INSTRUCTIONS AFTER REVISION TOTAL KNEE REPLACEMENT A. You may need to continue a physical therapy program after discharge from the hospital. There are several options available to you. Your doctor will assist you in selecting the best one for you. 1. An out-patient facility 2 to 3 times a week for therapy or home therapy. 2. Continue working on all exercises taught to you in the hospital. Your goals should be to increase bending of your knee to 90 degrees and beyond and to fully straighten your knee. B. You may progress at your own pace from walking with a walker or crutches to a cane; then to no assistive devices. C. Make walking a part of your daily routine. Be up as much as comfortable with rest periods throughout the day. Rest with leg elevation is very important. Use the ice wrap frequently for the first 3-4 weeks. D. There are no restrictions on activities. You may ride in a car, shop, participate in care center manager and all social activities. E. Wear the long elastic stockings (RONNY hose) 20 hours a day for 2 weeks after surgery. They can be removed several times a day for laundering and for a bath. F. You may shower, no tub baths until cleared by your doctor. SPECIAL CARE INSTRUCTIONS: VERY IMPORTANT TO READ AND REVIEW A. There are a few signs you need to watch for after you are home. Call [facility] if you notice any of the followin. Increased severe knee pain. Some pain is expected especially when you exercise. 2. Increased swelling in your leg or knee; pain or swelling of the calf muscle in either lower leg. 3. Any fluid drainage from the incision. 4. Shortness of breath or chest pain. B. Please call [facility] at if you have any concerns or questions about your operation or recovery. The doctor or his nurse will return your call promptly. C. You must take antibiotics before dental work, bladder, bowel or other surgery. Your doctor will provide you with a permanent care to carry describing this precaution. IMPORTANT: * REMEMBER TO TAKE LOVENOX DAILY FOR 4 WEEKS UNLESS OTHERWISE DIRECTED. THIS IS YOUR BLOOD THINNER. * HIGH RISK PATIENTS MAY BE PRESCRIBED A STRONGER BLOOD THINNER. THIS WILL BE PROVIDED AT DISCHARGE. * CALL IF INCREASED PAIN, REDNESS, DRAINAGE OR FEVER GREATER THAT 101. * WEAR RONNY HOSE 20 HOURS PER DAY FOR 2 WEEKS. *SANCHEZ incisional vac is a special dressing covering your incision. This dressing provides a sterile dry environment while you are healing. The dressing is to be left in place for 7 days post-operatively. Your home nurse or surgeon will remove. If you develop any redness or blisters or have any questions notify your surgeon immediately. FOLLOW UP VISIT: If appointment is not already scheduled: Please call [facility] to make a follow-up appointment for 2 weeks after your surgery at . Pending Studies at Discharge: No Stand-Alone Forms: My [facility] [employer], Smoking Cessation Medications and DC Order Prescriptions: New enoxaparin 40 mg/0.4 mL Syringe 40 mg subcut Q24H Qty: 28 RF: 0 acetaminophen 500 mg Tablet 1,000 mg PO Q8 PRN (Reason: fever or pain) Qty: 90 RF: 0 oxycodone 5 mg Tablet 5 mg PO Q6H MDD 4 PRN (Reason: pain) Qty: 30 RF: 0 sennosides [Senokot] 8.6 mg Tablet 17.2 mg PO HS PRN (Reason: constipation) Qty: 28 RF: 0 Continued amoxicillin 500 mg Tablet 500 mg PO UD RF: 0 rosuvastatin [Crestor] 5 mg Tablet 5 mg PO QPM RF: 0 albuterol sulfate 0.63 mg/3 mL Solution For Nebulization 0.63 mg INHALATION QID PRN (Reason: Wheezing) RF: 0 enalapril maleate [Vasotec] 5 mg Tablet 5 mg PO QAM RF: 0 fexofenadine [Shahida Allergy] 180 mg Tablet 180 mg PO QAM RF: 0 amlodipine 5 mg Tablet 5 mg PO QAM RF: 0 famotidine 20 mg Tablet 20 mg PO BID RF: 0 montelukast 10 mg Tablet 10 mg PO PM RF: 0 albuterol sulfate [ProAir HFA] 90 mcg/actuation Hfa Aerosol Inhaler 2 puff INHALATION QID PRN (Reason: Wheezing) RF: 0 vitamin B complex Capsule 1 cap PO QAM RF: 0 escitalopram oxalate [Lexapro] 10 mg Tablet 10 mg PO QPM RF: 0 calcium carbonate-vitamin D3 [Calcium 500 + D] 500 mg(1,250mg) -200 unit Tablet 1 tab PO BID RF: 0 cholecalciferol (vitamin D3) [Vitamin D3] 5,000 unit Tablet 5,000 unit PO QAM RF: 0 fluticasone propion-salmeterol [Wixela Inhub] 100-50 mcg/dose Blister With Device 1 inh INHALATION BID RF: 0 metformin 500 mg Tablet Extended Release 24 Hr 500 mg PO QPM RF: 0 Myrbetriq 25 mg Tablet Extended Release 24 Hr 25 mg PO QAM RF: 0 Discontinued acetaminophen [Tylenol Extra Strength] 500 mg Tablet 500 mg PO Q6H PRN (Reason: Pain) RF: 0 meloxicam [Mobic] 7.5 mg tablet 7.5 mg PO BID PRN (Reason: pain) Qty: 15 RF: 0 Discharge Orders: Discharge Order (Routine); Ordered 09/16/20 Ordered By: Delonte Hubbard/Other Patient Handouts: Managing Type 2 Diabetes, Managing Diabetes: The A1C Test Admission Data Admit Date/Time: 09/14/20 18:02 Attending Provider: Mario Moreno Admit Provider: Mario Moreno Primary Care Provider: Jalya Chan Other Interventions: Discharge Summary Assessment (RN) Last Done: 09/16/20 15:03
== END 2020-09-16 15:40 | disposition home or self-care (01) ==
LOC: ASU 10:08 → 3W 10:08

== ENCOUNTER 2020-09-19 14:32 | Inpatient (IN) ==
[2020-09-19] MEDS ORDERED: SODIUM CHLORIDE 0.9% 500 ML IV ONE (14:39)
--- NOTE | 2020-09-19 14:56 | Emergency Department Note ---
Impression & Plan Acute knee pain, Status post right knee replacement, Edema, Ambulatory dysfunction ED Provider Note NAME: EDEN YING AGE: 59 SEX: F : 1960 ARRIVES VIA: Ambulance INFORMANT: Patient ED PROVIDER(S): Willy Rajput DO CHIEF COMPLAINT: swelling and pain in RLE HPI: Patient is a 59-year-old female status postop from a total knee performed on the by Dr. Scott of [facility]. Patient has been having progressive swelling and pain. She notes that she has a dropfoot which has made it extremely difficult for her to get around as she lives at home alone by herself. Pain travels from right knee down into the right ankle. She admits to increased swelling. She has been discussing with Delonte Cid from [facility]. She was brought in by EMS. She is having trouble getting around. She feels very weak. Denies any headache or change in vision. No chest pain or shortness of breath. No nausea vomiting or diarrhea. ROS: See above HPI for pertinent positives & negatives. A total of 10 systems reviewed and were otherwise negative. PAST MEDICAL HISTORY:See Below PAST SURGICAL HISTORY:See Below FAMILY HISTORY:See Below SOCIAL HISTORY:See Below HOME MEDICATIONS:See Below ALLERGIES:See Below VITALS:See Below PHYSICAL EXAMINATION: GENERAL: Sitting up in bed, alert, well appearing, well nourished, no distress, non-toxic EYE EXAM: normal conjunctiva. PERRL and EOM's grossly intact. OROPHARYNX: no exudate, no erythema, lips, buccal mucosa, and tongue normal and mucous membranes are moist NECK: supple, no nuchal rigidity, no adenopathy, non-tender LUNGS: Clear to auscultation. Normal chest wall mechanics HEART: no murmurs, S1 normal and S2 normal ABDOMEN: abdomen soft, non-tender, normo-active bowel sounds, no masses, no rebound or guarding. UPPER EXTREMITIES: upper extremities are grossly normal. LOWER EXTREMITIES: No pitting edema. NEURO EXAM: Normal sensorium, cranial nerves II-XII grossly intact, normal speech, no gross weakness of arms, no gross weakness of legs. MEDICAL DECISION MAKING: Patient is a 59-year-old female who presents the ER for right knee pain status post surgery on the . She is having trouble getting around at home. IV was established blood was obtained. 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 Labs show no significant leukocytosis or anemia. INR unremarkable. BMP with a slightly elevated glucose. LFTs bilirubin and troponin was negative. Covid was obtained. Duplex of the right lower extremity shows no clot. Patient was updated bedside. Discussed with hospitalist for further evaluation as we are unable to place area at this time. Triage Nursing notes reviewed. Limited review of prior medical records performed Vital Signs: reviewed and remarkable for no significant abnormalities Differential diagnosis: DVT, musculoskeletal, infection, joint effusion, trauma, lymphedema, idiopathic, CHF, as well as other pathologies. ER treatment provided: See below Diagnostics interpreted by me: ECG: none Cardiac Monitoring: An order was placed for continuous cardiac monitoring. The monitor shows a rate of 93 with sinus rhythm. Laboratory studies: As stated above and show below. Imaging studies: Duplex of the right lower extremity was negative Consultation(s): Discussed with Kareen harding for further evaluation Procedures: none Critical Care: None Past Med/Surg History Medical History Asthma Depression Diabetes mellitus, type 2 NIDDM GERD (gastroesophageal reflux disease) History of anxiety Hyperlipidemia Hypertension Obesity Osteoarthritis Overactive bladder Surgical History History of appendectomy History of bilateral tubal ligation History of cataract extraction with lens replacement R/L History of section X1 History of foot surgery Left bone spur surgery History of tonsillectomy History of tooth extraction History of total knee replacement R/L; Left TKA: 09/19/18: SAB at L3-L4 + PNB at [facility] Family History Mother Family history of diabetes mellitus Father Family history of diabetes mellitus Other Diabetes Hypertension No family history of adverse response to anesthesia Ovarian cancer Social History Smoking Status: Former smoker Second Hand Exposure: No; Hx Alcohol Use: No Hx Substance Use: No Preferred Language: [place] Communication Ability: Effective Rapier Insertion Loom Fixer Required: No Beliefs That Will Affect Care: None Current Living Situation: Alone Feels Safe at Home: Yes Assistive Devices: Glasses and Walker Allergies Allergies Allergy/AdvReac Type Severity Reaction Status Date / Time No Known Allergies Allergy Verified 09/19/20 16:27 Home Meds Home Medications Medication Instructions Recorded Confirmed albuterol sulfate 0.63 mg INHALATION QID PRN 09/02/18 09/19/20 albuterol sulfate [ProAir HFA] 2 puff INHALATION QID PRN 09/02/18 09/19/20 amlodipine 5 mg PO QAM 09/02/18 09/19/20 amoxicillin 500 mg PO UD 09/02/18 09/19/20 calcium carbonate-vitamin D3 1 tab PO BID 09/02/18 09/19/20 [Calcium 500 + D] cholecalciferol (vitamin D3) 5,000 unit PO QAM 09/02/18 09/19/20 [Vitamin D3] enalapril maleate [Vasotec] 5 mg PO QAM 09/02/18 09/19/20 escitalopram oxalate [Lexapro] 10 mg PO HS 09/02/18 09/19/20 famotidine 20 mg PO BID 09/02/18 09/19/20 fexofenadine [Shahida Allergy] 180 mg PO QAM 09/02/18 09/19/20 montelukast 10 mg PO HS 09/02/18 09/19/20 rosuvastatin [Crestor] 5 mg PO HS 09/02/18 09/19/20 vitamin B complex 1 cap PO QAM 09/02/18 09/19/20 Myrbetriq 25 mg PO QAM 08/05/20 09/19/20 fluticasone propion-salmeterol 1 inh INHALATION BID 08/05/20 09/19/20 [Wixela Inhub] metformin 500 mg PO HS 08/05/20 09/19/20 Previous Rx's Medication Instructions Recorded acetaminophen 1,000 mg PO Q8 PRN #90 tab 09/14/20 enoxaparin 40 mg SUBCUT Q24H #28 syr 09/14/20 oxycodone 5 mg PO Q6H PRN #30 tab MDD 4 09/14/20 sennosides [Senokot] 17.2 mg PO HS PRN #28 tab 09/14/20 Results & Data (ED) Vital Signs Vital Signs - 24 hr 09/19/20 14:21 09/19/20 17:18 Temperature 37 C Temperature Source Oral Pulse Rate 102 H Pulse Rate [Finger] 99 H Pulse Rhythm Regular Pulse Strength Normal Respiratory Rate 20 18 Respiratory Effort / Characteristics Non-Labored Spontaneous Non-Labored Spontaneous Respiratory Depth Normal Normal Respiratory Pattern Regular Regular Blood Pressure 156/101 H Blood Pressure [Right Arm] 137/90 Blood Pressure Mean 119 Blood Pressure Mean [Right Arm] 105 Blood Pressure Position Lying Pulse Oximetry 99 100 Oxygen Delivery Method Room Air Room Air Sepsis Recent Fever Within 48 Hours No Sepsis New/Unexplained Change in Mental Status N/A Sepsis Action Taken by Nursing No Action Required Laboratory Data Result diagrams: 09/19/20 15:11 09/19/20 15:11 Lab Results 09/19/20 09/19/20 09/19/20 Range/Units 15:11 15:11 15:11 WBC 9.77 (4.8-10.8) K/uL RBC 4.09 L (4.2-5.4) M/uL Hgb 12.0 (12.0-16.0) g/dL Hct 37.9 (37-47) % MCV 92.7 (80-100) fL MCH 29.3 (25-34) pg MCHC 31.7 L (32-36) g/dL RDW Std Deviation 44.3 (36.4-46.3) fL RDW Coeff of Peggy 13.1 (11.5-14.5) % Plt Count 210 (130-400) K/uL MPV 10.2 (7.4-10.4) fL Immature Gran % (Auto) 0.3 % Neut % (Auto) 68.8 % Lymph % (Auto) 22.8 % [place] % (Auto) 7.2 % Eos % (Auto) 0.6 % Baso % (Auto) 0.3 % Neut # (Auto) 6.72 H (1.4-6.5) K/uL Lymph # (Auto) 2.23 (1.2-3.4) K/uL [place] # (Auto) 0.70 H (0.11-0.59) K/uL Eos # (Auto) 0.06 (0-0.5) K/uL Baso # (Auto) 0.03 (0-0.2) K/uL Immature Gran # (Auto) 0.03 H (0.00-0.02) K/uL PT Cancelled INR Cancelled Sodium 139 (136-145) mmol/L Potassium 3.9 (3.5-5.1) mmol/L Chloride 106 (98-107) mmol/L Carbon Dioxide 24 (21-32) mmol/L Anion Gap 8.0 (3-11) BUN 11 (7-18) mg/dl Creatinine 0.75 (0.6-1.2) mg/dl Est Cr Clr Drug Dosing 86.7 ml/min Est GFR ( Amer) 100.4 Est GFR (Non-Af Amer) 86.6 BUN/Creatinine Ratio 14.0 (10-20) Glucose 141 H (70-99) mg/dl Calcium 9.0 (8.5-10.1) mg/dl Total Bilirubin 0.6 (0.2-1) mg/dl AST 48 H (15-37) U/L ALT 46 (12-78) U/L Alkaline Phosphatase 87 (45-117) U/L Troponin I < 0.015 (0-0.045) ng/ml Total Protein 7.5 (6.4-8.2) gm/dl Albumin 3.3 L (3.4-5.0) gm/dl Globulin 4.2 H (2.5-4.0) gm/dl Albumin/Globulin Ratio 0.8 L (0.9-2) Specimen Hemolysis COVID-19 Eval Order 09/19/20 09/19/20 Range/Units 16:08 17:11 WBC (4.8-10.8) K/uL RBC (4.2-5.4) M/uL Hgb (12.0-16.0) g/dL Hct (37-47) % MCV (80-100) fL MCH (25-34) pg MCHC (32-36) g/dL RDW Std Deviation (36.4-46.3) fL RDW Coeff of Peggy (11.5-14.5) % Plt Count (130-400) K/uL MPV (7.4-10.4) fL Immature Gran % (Auto) % Neut % (Auto) % Lymph % (Auto) % [place] % (Auto) % Eos % (Auto) % Baso % (Auto) % Neut # (Auto) (1.4-6.5) K/uL Lymph # (Auto) (1.2-3.4) K/uL [place] # (Auto) (0.11-0.59) K/uL Eos # (Auto) (0-0.5) K/uL Baso # (Auto) (0-0.2) K/uL Immature Gran # (Auto) (0.00-0.02) K/uL PT 10.0 INR 1.0 Sodium (136-145) mmol/L Potassium (3.5-5.1) mmol/L Chloride (98-107) mmol/L Carbon Dioxide (21-32) mmol/L Anion Gap (3-11) BUN (7-18) mg/dl Creatinine (0.6-1.2) mg/dl Est Cr Clr Drug Dosing ml/min Est GFR ( Amer) Est GFR (Non-Af Amer) BUN/Creatinine Ratio (10-20) Glucose (70-99) mg/dl Calcium (8.5-10.1) mg/dl Total Bilirubin (0.2-1) mg/dl AST (15-37) U/L ALT (12-78) U/L Alkaline Phosphatase (45-117) U/L Troponin I (0-0.045) ng/ml Total Protein (6.4-8.2) gm/dl Albumin (3.4-5.0) gm/dl Globulin (2.5-4.0) gm/dl Albumin/Globulin Ratio (0.9-2) Specimen Hemolysis COVID-19 Eval Order CovFluRsv at [facility] Administered Medications Discontinued Medications Sodium Chloride (Nss) 500 mls @ 999 mls/hr IV .Q31M ONE Stop: 09/19/20 15:09 Last Admin: 09/19/20 17:21 Dose: 999 mls/hr Documented by: [id number] Imaging Data Radiologist's Impression: Venous Doppler Study 09/19/20 14:46 ULTRASOUND RIGHT LOWER EXTREMITY VENOUS CLINICAL HISTORY: Right leg pain and swelling. Recent surgery. COMPARISON STUDY: No priors. TECHNIQUE: Real-time, grayscale, and color Doppler sonography of the deep veins of the right lower extremity was performed from the inguinal crease to the calf. Compression and augmentation were utilized. FINDINGS: There is no sonographic evidence of deep venous thrombosis identified in the right lower extremity. The common femoral, superficial femoral, and popliteal veins are patent and normally compressible. The greater saphenous vein and the profunda femoris vein at the junction with the common femoral vein are clear. The visualized calf veins are patent. IMPRESSION: There is no sonographic evidence of deep venous thrombosis identified in the right lower extremity. ACT 112: Negative or not required by law. Electronically signed by: Tavon Booker M.D. 09/19/2020 3:57 PM Discharge Plan Visit Data Chief Complaint: Knee Injury/Pain Stated Complaint: R Knee Pain ED Provider: Willy Rajput Discharge Problem: Acute knee pain, Status post right knee replacement, Edema, Ambulatory dysfunction Forms Stand Alone Forms: [facility] Prescriptions Prescriptions: No Action amoxicillin 500 mg Tablet 500 mg PO UD RF: 0 rosuvastatin [Crestor] 5 mg Tablet 5 mg PO HS RF: 0 albuterol sulfate 0.63 mg/3 mL Solution For Nebulization 0.63 mg INHALATION QID PRN (Reason: Wheezing) RF: 0 enalapril maleate [Vasotec] 5 mg Tablet 5 mg PO QAM RF: 0 fexofenadine [Shahida Allergy] 180 mg Tablet 180 mg PO QAM RF: 0 amlodipine 5 mg Tablet 5 mg PO QAM RF: 0 famotidine 20 mg Tablet 20 mg PO BID RF: 0 montelukast 10 mg Tablet 10 mg PO HS RF: 0 albuterol sulfate [ProAir HFA] 90 mcg/actuation Hfa Aerosol Inhaler 2 puff INHALATION QID PRN (Reason: Wheezing) RF: 0 vitamin B complex Capsule 1 cap PO QAM RF: 0 escitalopram oxalate [Lexapro] 10 mg Tablet 10 mg PO HS RF: 0 calcium carbonate-vitamin D3 [Calcium 500 + D] 500 mg(1,250mg) -200 unit Tablet 1 tab PO BID RF: 0 cholecalciferol (vitamin D3) [Vitamin D3] 5,000 unit Tablet 5,000 unit PO QAM RF: 0 fluticasone propion-salmeterol [Wixela Inhub] 100-50 mcg/dose Blister With Device 1 inh INHALATION BID RF: 0 metformin 500 mg Tablet Extended Release 24 Hr 500 mg PO HS RF: 0 Myrbetriq 25 mg Tablet Extended Release 24 Hr 25 mg PO QAM RF: 0 enoxaparin 40 mg/0.4 mL Syringe 40 mg subcut Q24H Qty: 28 RF: 0 acetaminophen 500 mg Tablet 1,000 mg PO Q8 PRN (Reason: fever or pain) Qty: 90 RF: 0 oxycodone 5 mg Tablet 5 mg PO Q6H MDD 4 PRN (Reason: pain) Qty: 30 RF: 0 sennosides [Senokot] 8.6 mg Tablet 17.2 mg PO HS PRN (Reason: constipation) Qty: 28 RF: 0 Discharge Problem: Acute knee pain Qualifiers: Laterality: right Qualified Code(s): M25.561 - Pain in right knee Edema Qualifiers: Edema type: unspecified Qualified Code(s): R60.9 - Edema, unspecified
[2020-09-19 15:26] LABS: Basophils # (auto) 0.03 K/uL (0-0.2); Basophils % (auto) 0.3 %; Eosinophils # (auto) 0.06 K/uL (0-0.5); Eosinophils % (auto) 0.6 %; Hematocrit (blood only) 37.9 % (37-47); Immature Granulocytes # (auto) 0.03 K/uL (0.00-0.02); Immature Granulocytes % (auto) 0.3 %; Lymphocytes # (auto) 2.23 K/uL (1.2-3.4); Lymphocytes % (auto) 22.8 %; Mean Corpuscular Hemoglobin 29.3 pg (25-34); Mean Corpuscular Hgb Conc 31.7 g/dL (32-36); Mean Corpuscular Volume 92.7 fL (80-100); Mean Platelet Volume 10.2 fL (7.4-10.4); Monocytes % (auto) 7.2 %; Neutrophils # (auto) 6.72 K/uL (1.4-6.5); Neutrophils % (auto) 68.8 %; Platelet Count 210 K/uL (130-400); RDW Coefficient of Variation 13.1 % (11.5-14.5); RDW Standard Deviation 44.3 fL (36.4-46.3); Red Blood Count 4.09 M/uL (4.2-5.4); White Blood Count 9.77 K/uL (4.8-10.8)
[2020-09-19 15:57] LABS: Alanine Aminotransferase 46 U/L (12-78); Albumin Globulin Ratio 0.8 (0.9-2); Albumin Level 3.3 gm/dl (3.4-5.0); Alkaline Phosphatase 87 U/L (45-117); Aspartate Aminotransferase 48 U/L (15-37); Bilirubin,Total 0.6 mg/dl (0.2-1); Blood Urea Nitrogen 11 mg/dl (7-18); Carbon Dioxide 24 mmol/L (21-32); Chloride 106 mmol/L (98-107); Creatinine Clr Calc Pharmacy 86.7 ml/min; Est GFR (African American) 100.4; Est GFR (Non-African American) 86.6; Globulin 4.2 gm/dl (2.5-4.0); Glucose 141 mg/dl (70-99); Potassium 3.9 mmol/L (3.5-5.1); Sodium 139 mmol/L (136-145); Total Protein 7.5 gm/dl (6.4-8.2); Troponin I < 0.015 ng/ml (0-0.045)
--- NOTE | 2020-09-19 15:58 | Ultrasound Report ---
ULTRASOUND RIGHT LOWER EXTREMITY VENOUS CLINICAL HISTORY: Right leg pain and swelling. Recent surgery. COMPARISON STUDY: No priors. TECHNIQUE: Real-time, grayscale, and color Doppler sonography of the deep veins of the right lower ex tremity was performed from the inguinal crease to the calf. Compression and augmentation were utilize d. FINDINGS: There is no sonographic evidence of deep venous thrombosis identified in the right lower ex tremity. The common femoral, superficial femoral, and popliteal veins are patent and normally kamaljit sible. The greater saphenous vein and the profunda femoris vein at the junction with the common femor al vein are clear. The visualized calf veins are patent. IMPRESSION: There is no sonographic evidence of deep venous thrombosis identified in the right lower extremity. ACT 112: Negative or not required by law. Electronically signed by: Tavon Booker M.D. 09/19/2020 3:57 PM
--- NOTE | 2020-09-19 17:42 | History & Physical Report ---
Date of Service September 19, 2020 Assessment & Plan (1) Status post right knee replacement: (2) Ambulatory dysfunction: (3) Edema: (4) Foot drop, right: Patient is S/p right total knee revision on September 14, [address] Moreno Notable right foot drop, decreased sensation of right lower extremity AFO was ordered and fitted, however patient has difficulty with ambulation at home, and she lives alone Developed right ankle edema, and spasms of right lower extremity Doppler in the ED negative for DVT of right lower extremity Patient continued to use Lovenox 40 daily per orthopedics recommendations, she is supposed to continue Lovenox for 4 weeks Continue pain management with Tylenol and oxycodone as needed will obtain XR of R knee and ankle Orthopedics consulted Case management consult to facilitate DC Constipation MiraLAX, senna, as needed Hypertension -Continue home amlodipine, enalapril Continue to monitor BP Hyperlipidemia -Continue home Crestor Depression -Continue home Lexapro Asthma -Mild persistent -No acute exacerbation -Continue Wixela twice a day, albuterol as needed Prediabetes -A1c 6.1, earlier in August 2020 -At home on Metformin, will hold now -[facility], monitor blood sugars while in the hospital GERD -Continue home famotidine DVT ppx - lovenox Code status - FULL Dispo - Case management consulted for discharge needs History of Present Illness Chief Complaint: Ambulatory dysfunction Primary Care Provider: Jayla Chan PA-C Patient is a 59-year-old female, with history of hypertension hyperlipidemia, GERD, depression, asthma, and , OA and DJD and recent history of total knee revision on September 14, with Dr. Moreno, who presents with difficulty ambulating. She was discharged on September 16, after surgery and at that time it was noted that patient had right foot drop, and decreased sensation of her right lower extremity. AFO was ordered and fitted and patient reports that she has been using it however she still has a significant difficulty ambulating. She lives alone, uses cane, and reports that she can barely walk 2 feet. She developed right ankle edema, and also noted spasms of her right leg laterally. She contacted [facility], and discussed this new spasms and ankle edema with a PA. Warm compresses were recommended which patient did and reports that it helped however she still has a lot of difficulty with ambulation and activities of daily living, being by herself. She denies any fevers or chills, chest pain, shortness of breath. She denies any erythema or increased swelling of her knee. She does not feel that her knee is more painful either. She uses oxycodone sparingly, reports that she only needed Tylenol 1000 mg today so far. She presented to the ED for further evaluation, as there was concern [facility], there could be possible blood clot given findings of ankle edema. In the emergency room, Doppler was obtained and was negative for DVT. Patient reports that she has been using Lovenox as prescribed daily. In addition, she says that she has been having some difficulty with bowel movements, did not have a normal bowel movement since the surgery. She also reports low appetite however denies any abdominal pain, nausea or vomiting. She says that she cannot even prepare food for herself though given she cannot really stand/ambulate. She is somewhat frustrated that she was not able to get home health/home PT due to her insurance. Reports that she contacted her insurance company and someone was supposed to call her back on Sunday. Allergies Allergy/AdvReac Type Severity Reaction Status Date / Time No Known Allergies Allergy Verified 09/19/20 16:27 Home Medications Medication Instructions Recorded Confirmed Type albuterol sulfate 0.63 mg INHALATION QID PRN 09/02/18 09/19/20 History albuterol sulfate [ProAir HFA] 2 puff INHALATION QID PRN 09/02/18 09/19/20 History amlodipine 5 mg PO QAM 09/02/18 09/19/20 History amoxicillin 500 mg PO UD 09/02/18 09/19/20 History calcium carbonate-vitamin D3 1 tab PO BID 09/02/18 09/19/20 History [Calcium 500 + D] cholecalciferol (vitamin D3) 5,000 unit PO QAM 09/02/18 09/19/20 History [Vitamin D3] enalapril maleate [Vasotec] 5 mg PO QAM 09/02/18 09/19/20 History escitalopram oxalate [Lexapro] 10 mg PO HS 09/02/18 09/19/20 History famotidine 20 mg PO BID 09/02/18 09/19/20 History fexofenadine [Shahida Allergy] 180 mg PO QAM 09/02/18 09/19/20 History montelukast 10 mg PO HS 09/02/18 09/19/20 History rosuvastatin [Crestor] 5 mg PO HS 09/02/18 09/19/20 History vitamin B complex 1 cap PO QAM 09/02/18 09/19/20 History Myrbetriq 25 mg PO QAM 08/05/20 09/19/20 History fluticasone propion-salmeterol 1 inh INHALATION BID 08/05/20 09/19/20 History [Wixela Inhub] metformin 500 mg PO HS 08/05/20 09/19/20 History acetaminophen 1,000 mg PO Q8 PRN #90 tab 09/14/20 09/19/20 Rx enoxaparin 40 mg SUBCUT Q24H #28 syr 09/14/20 09/19/20 Rx oxycodone 5 mg PO Q6H PRN #30 tab MDD 4 09/14/20 09/19/20 Rx sennosides [Senokot] 17.2 mg PO HS PRN #28 tab 09/14/20 09/19/20 Rx Past Med/Surg History Medical History Asthma Depression Diabetes mellitus, type 2 NIDDM GERD (gastroesophageal reflux disease) History of anxiety Hyperlipidemia Hypertension Obesity Osteoarthritis Overactive bladder Surgical History History of appendectomy History of bilateral tubal ligation History of cataract extraction with lens replacement R/L History of section X1 History of foot surgery Left bone spur surgery History of tonsillectomy History of tooth extraction History of total knee replacement R/L; Left TKA: 09/19/18: SAB at L3-L4 + PNB at [facility] Family History Mother Family history of diabetes mellitus Father Family history of diabetes mellitus Other Diabetes Hypertension No family history of adverse response to anesthesia Ovarian cancer Social History Smoking Status: Former smoker Second Hand Exposure: No; Hx Alcohol Use: No Hx Substance Use: No Preferred Language: Monegasque Communication Ability: Effective Hospice Coordinator Required: No Beliefs That Will Affect Care: None Current Living Situation: Alone Feels Safe at Home: Yes Assistive Devices: Glasses and Walker Review of Systems Review of Systems: All systems reviewed & are unremarkable except as noted in HPI & below Constitutional: no fever and no chills Eyes: no problem reported Ear, Nose, Mouth, Throat: no problem reported Respiratory: no cough and no dyspnea Cardiovascular: no chest pain and no palpitations Gastrointestinal: + constipation; no abdominal pain, no nausea and no vomiting Genitourinary: no dysuria Musculoskeletal: Difficulty ambulating after surgery Integumentary: no problem reported Neurologic: no problem reported Psychiatric: no problem reported Endocrine: no problem reported Hematologic / Lymphatic: no problem reported Allergy / Immunological: no problem reported Physical Exam Physical Exam: Obese female lying in bed, in no acute distress Constitutional: WD/WN, vitals as above + obese Eyes: PERRL, conjunctivae normal, anicteric sclerae ENMT: external ear and nose normal, oropharynx normal Neck: trachea midline, no thyromegaly Respiratory: normal respiratory effort, lungs clear to auscultation Auscultation: no crackles, no rhonchi and no wheezes Cardiovascular: RRR, no murmur, no edema Chest (Breasts): Chest: normal inspection of chest Gastrointestinal (Abdomen): normal bowel sounds, soft, nontender, no hepatosplenomegaly Inspection/Auscultation: normal bowel sounds Musculoskeletal: Head/Neck/Chest: normocephalic and head atraumatic + Right foot drop, loss of sensation anterior sin and lateral right calf Patient otherwise moves extremities spontaneously Skin: no rashes, warm and dry Neurologic: PERRL, EOMI, accommodation nl, no face palsy, no dysarthria moves all extremities Motor/Sensory: + sensory deficit (anterior R sin, lateral R calf) Psychiatric: A+Ox3, euthymic affect Genitourinary: no CVA tenderness Lymphatic: + lymphedema (mild LE b/l) Results & Data Results & Data ([facility]) Vital Signs (Past 12 Hours) Vital Signs Temp Pulse Pulse Resp BP BP Pulse Ox 09/19/20 17:18 99 H 18 137/90 100 09/19/20 14:21 37 C 102 H 20 156/101 H 99 Laboratory Results 04/04/21 04/04/21 04/04/21 Range/Units 17:11 17:11 16:08 WBC (4.8-10.8) K/uL RBC (4.2-5.4) M/uL Hgb (12.0-16.0) g/dL Hct (37-47) % MCV (80-100) fL MCH (25-34) pg MCHC (32-36) g/dL RDW Std Deviation (36.4-46.3) fL RDW Coeff of Peggy (11.5-14.5) % Plt Count (130-400) K/uL MPV (7.4-10.4) fL Immature Gran % (Auto) % Neut % (Auto) % Lymph % (Auto) % Norton % (Auto) % Eos % (Auto) % Baso % (Auto) % Neut # (Auto) (1.4-6.5) K/uL Lymph # (Auto) (1.2-3.4) K/uL Norton # (Auto) (0.11-0.59) K/uL Eos # (Auto) (0-0.5) K/uL Baso # (Auto) (0-0.2) K/uL Immature Gran # (Auto) (0.00-0.02) K/uL PT 10.0 INR 1.0 Sodium (136-145) mmol/L Potassium (3.5-5.1) mmol/L Chloride (98-107) mmol/L Carbon Dioxide (21-32) mmol/L Anion Gap (3-11) BUN (7-18) mg/dl Creatinine (0.6-1.2) mg/dl Est Cr Clr Drug Dosing ml/min Est GFR ( Amer) Est GFR (Non-Af Amer) BUN/Creatinine Ratio (10-20) Glucose (70-99) mg/dl Calcium (8.5-10.1) mg/dl Total Bilirubin (0.2-1) mg/dl AST (15-37) U/L ALT (12-78) U/L Alkaline Phosphatase (45-117) U/L Troponin I (0-0.045) ng/ml Total Protein (6.4-8.2) gm/dl Albumin (3.4-5.0) gm/dl Globulin (2.5-4.0) gm/dl Albumin/Globulin Ratio (0.9-2) Specimen Hemolysis COVID-19 Eval Order CovFluRsv at [facility] SARS-CoV-2 (PCR) Pending Influenza Type A (PCR) Pending Influenza Type B (PCR) Pending RSV (RT-PCR) Pending 09/19/20 09/19/20 09/19/20 Range/Units 15:11 15:11 15:11 WBC 9.77 (4.8-10.8) K/uL RBC 4.09 L (4.2-5.4) M/uL Hgb 12.0 (12.0-16.0) g/dL Hct 37.9 (37-47) % MCV 92.7 (80-100) fL MCH 29.3 (25-34) pg MCHC 31.7 L (32-36) g/dL RDW Std Deviation 44.3 (36.4-46.3) fL RDW Coeff of Peggy 13.1 (11.5-14.5) % Plt Count 210 (130-400) K/uL MPV 10.2 (7.4-10.4) fL Immature Gran % (Auto) 0.3 % Neut % (Auto) 68.8 % Lymph % (Auto) 22.8 % Norton % (Auto) 7.2 % Eos % (Auto) 0.6 % Baso % (Auto) 0.3 % Neut # (Auto) 6.72 H (1.4-6.5) K/uL Lymph # (Auto) 2.23 (1.2-3.4) K/uL Norton # (Auto) 0.70 H (0.11-0.59) K/uL Eos # (Auto) 0.06 (0-0.5) K/uL Baso # (Auto) 0.03 (0-0.2) K/uL Immature Gran # (Auto) 0.03 H (0.00-0.02) K/uL PT Cancelled INR Cancelled Sodium 139 (136-145) mmol/L Potassium 3.9 (3.5-5.1) mmol/L Chloride 106 (98-107) mmol/L Carbon Dioxide 24 (21-32) mmol/L Anion Gap 8.0 (3-11) BUN 11 (7-18) mg/dl Creatinine 0.75 (0.6-1.2) mg/dl Est Cr Clr Drug Dosing 86.7 ml/min Est GFR ( Amer) 100.4 Est GFR (Non-Af Amer) 86.6 BUN/Creatinine Ratio 14.0 (10-20) Glucose 141 H (70-99) mg/dl Calcium 9.0 (8.5-10.1) mg/dl Total Bilirubin 0.6 (0.2-1) mg/dl AST 48 H (15-37) U/L ALT 46 (12-78) U/L Alkaline Phosphatase 87 (45-117) U/L Troponin I < 0.015 (0-0.045) ng/ml Total Protein 7.5 (6.4-8.2) gm/dl Albumin 3.3 L (3.4-5.0) gm/dl Globulin 4.2 H (2.5-4.0) gm/dl Albumin/Globulin Ratio 0.8 L (0.9-2) Specimen Hemolysis COVID-19 Eval Order SARS-CoV-2 (PCR) Influenza Type A (PCR) Influenza Type B (PCR) RSV (RT-PCR) Code Status & VTE Plan VTE Prophylaxis Plan VTE Prophylaxis will be ordered: Yes (1) Edema Edema type: unspecified Qualified Code(s): R60.9 - Edema, unspecified
[2020-09-19 18:24] LABS: Influenza A virus by PCR Negative (Neg); Influenza B virus by PCR Negative (Neg); RSV by PCR Negative (Neg); SARS CoV2 RNA(COVID-19) InHosp NEGATIVE (Negative)
--- NOTE | 2020-09-19 19:02 | XRay Report ---
TWO VIEWS RIGHT KNEE CLINICAL HISTORY: Postoperative pain and swelling. FINDINGS: AP and crosstable lateral portable views of the right knee are compared to study dated 09/14. A right knee arthroplasty with a long tibial stem is in near anatomic alignment. There has bee n undersurface remodeling of the patella. No periprosthetic lucency is identified. There is mild annette ical irregularity along the lateral aspect of the proximal tibial shaft. Skin clips and soft tissue e key are expected postoperative changes. The surgical drain has been removed. IMPRESSION: 1. A right knee arthroplasty is in near-anatomic alignment. 2. There is cortical irregularity along the lateral aspect of the proximal tibial shaft. This is of i ndeterminant significance and a nondisplaced fracture is not excluded. This cannot be corroborated on the lateral views. Consider correlation with oblique views for further assessment. 3. Skin clips and soft tissue edema around the knee are expected postoperative findings. ACT 112: Negative or not required by law. Electronically signed by: Tavon Booker M.D. 09/19/2020 7:00 PM
--- NOTE | 2020-09-19 19:11 | XRay Report ---
RIGHT ANKLE 3 VIEWS CLINICAL HISTORY: Right ankle pain and swelling. FINDINGS: 3 views of the right ankle are obtained. No prior studies are available for comparison at t he time of dictation. The skeletal structures are osteopenic. No fracture is seen. The ankle mortise is intact. There are large dorsal and plantar calcaneal enthesophytes. No joint effusion is identifie d. Diffuse soft tissue edema is present throughout the imaged right lower extremity. IMPRESSION: Soft tissue swelling with no acute bony abnormality identified. Electronically signed by: Tavon Booker M.D. 09/19/2020 7:10 PM
[2020-09-19] MEDS ORDERED: CARBOHYDRATES FOR HYPOGLYCEMIA PO PRN (19:55)
[2020-09-19] MEDS ORDERED: GLUCAGON FOR INJ 1 MG VIAL SQ PRN (19:55)
[2020-09-19] MEDS ORDERED: GLUCOSE 40% GEL 15 GM TUBE PO PRN (19:55)
[2020-09-19] MEDS ORDERED: SENNA 8.6 MG TAB PO PRN (19:55)
[2020-09-19] MEDS ORDERED: DEXTROSE 50% 50 ML SYRINGE IV PRN (19:55)
[2020-09-19] MEDS ORDERED: GLUCOSE 10 TABS/TUBE PO PRN (19:55)
[2020-09-19] MEDS ORDERED: ENOXAPARIN INJ 40 MG/0.4 ML SYR SQ SCH (21:00)
[2020-09-19] MEDS: ROSUVASTATIN CALCIUM 5 MG TAB PO SCH (21:06)
[2020-09-19] MEDS: CALCIUM 600MG + VIT D 400 IU TAB PO SCH (21:07)
[2020-09-19] MEDS: FAMOTIDINE 20 MG TAB PO SCH (21:07)
[2020-09-19] MEDS: ESCITALOPRAM OXALATE 10 MG TAB PO SCH (21:07)
[2020-09-19] MEDS: MONTELUKAST SODIUM 10 MG TABLET PO SCH (21:07)
[2020-09-19] MEDS: INSULIN ASPART 100 UNITS/ML 3 ML PEN SC SCH (21:09)
[2020-09-19] MEDS: ACETAMINOPHEN 325 MG TAB PO PRN (21:12)
[2020-09-19] MEDS ORDERED: Nursing to Pharmacy Communication SCH (22:45)
[2020-09-20 06:34] LABS: Hematocrit (blood only) 34.6 % (37-47); Hemoglobin 11.1 g/dL (12.0-16.0); Mean Corpuscular Hemoglobin 29.7 pg (25-34); Mean Corpuscular Hgb Conc 32.1 g/dL (32-36); Mean Corpuscular Volume 92.5 fL (80-100); Mean Platelet Volume 9.4 fL (7.4-10.4); Platelet Count 337 K/uL (130-400); RDW Coefficient of Variation 13.3 % (11.5-14.5); RDW Standard Deviation 44.5 fL (36.4-46.3); Red Blood Count 3.74 M/uL (4.2-5.4); White Blood Count 7.39 K/uL (4.8-10.8)
--- NOTE | 2020-09-20 06:57 | XRay Report ---
XR tibia fibula RT 2V CLINICAL HISTORY: Right lower leg pain. COMPARISON: The x-ray performed the same day DISCUSSION: There are postsurgical changes of a total right knee arthroplasty. There is no dislocatio n. There is Achilles insertional tendinopathy. There is a persistent linear calcific/ossific density paralleling the lateral cortex of the proximal tibia. This was present on the postoperative study carlyn ed 09/14/2020. A discrete fracture line is not identified. IMPRESSION: 1. Persistent linear calcific/ossific density paralleling the lateral cortex the proximal tibia in th e region of the interosseous ligament. No discrete fracture line is visualized. ACT 112: Negative or not required by law. Electronically signed by: Lance Luciano M.D. 09/20/2020 6:56 AM
[2020-09-20 07:05] LABS: BUN Creatinine Ratio 22.4 (10-20); Calcium 8.9 mg/dl (8.5-10.1); Creatinine Clr Calc Pharmacy 120.4 ml/min; Est GFR (African American) 118.9; Est GFR (Non-African American) 102.6; Potassium 4.1 mmol/L (3.5-5.1)
[2020-09-20] MEDS: ACETAMINOPHEN 325 MG TAB PO PRN ×3 (07:34→20:55)
[2020-09-20] MEDS: FEXOFENADINE HCL 180 MG TAB PO SCH (08:18)
[2020-09-20] MEDS: FLUTICASONE/VILANTEROL 100/25MCG 14 PUFFS/INHALER INH SCH (08:18)
[2020-09-20] MEDS: CALCIUM 600MG + VIT D 400 IU TAB PO SCH ×2 (08:18→20:55)
[2020-09-20] MEDS: ENOXAPARIN INJ 40 MG/0.4 ML SYR SQ SCH (08:19)
[2020-09-20] MEDS: amLODIPine BESYLATE 5 MG TAB PO SCH (08:19)
[2020-09-20] MEDS: MIRABEGRON ER 25 MG TAB PO SCH (08:19)
[2020-09-20] MEDS: VITAMIN B COMPLEX TAB PO SCH (08:20)
[2020-09-20] MEDS: CHOLECALCIFEROL 1,000 UNITS 25 MCG TAB PO SCH (08:20)
[2020-09-20] MEDS: FAMOTIDINE 20 MG TAB PO SCH ×2 (08:20→20:55)
[2020-09-20] MEDS: ENALAPRIL MALEATE 5 MG TAB PO SCH (08:20)
[2020-09-20] MEDS: INSULIN ASPART 100 UNITS/ML 3 ML PEN SC SCH ×4 (08:56→21:10)
[2020-09-20] MEDS: oxyCODONE HCL IR 5 MG TAB (IMMEDIATE RELEASE) PO PRN (09:59)
--- NOTE | 2020-09-20 12:06 | Hospitalist Progress Note ---
Date of Service September 20, 2020 Assessment & Plan (1) Status post right knee replacement: (2) Ambulatory dysfunction: (3) Edema: (4) Foot drop, right: Patient is S/p right total knee revision on September 14, [address] Moreno Notable right foot drop, decreased sensation of right lower extremity. Patient had AFO fitted. Patient has had difficulty with ambulation at home, and she lives alone Doppler in the ED negative for DVT of right lower extremity Patient continued to use Lovenox 40 daily per orthopedics recommendations, she is supposed to continue Lovenox for 4 weeks Continue pain management with Tylenol and oxycodone as needed Ortho consult, discussed with Delonte Cid PA-C - reviewed films w/ Dr. Moreno - fracture unlikely therefore WBAT w/ AFO Orthotics consult to reevaluate AFO brace fitting Case management consult to facilitate DC -possible DC today to [place] Constipation MiraLAX, senna, as needed Hypertension -BP controlled, continue home amlodipine, enalapril Hyperlipidemia -Continue home Crestor Depression -Continue home Lexapro Asthma -Mild persistent -No acute exacerbation -Continue Wixela twice a day, albuterol as needed Prediabetes -A1c 6.1, earlier in August 2020 -At home on Metformin, will hold now -[facility], monitor blood sugars while in the hospital GERD -Continue home famotidine DVT ppx - lovenox Code status - FULL Dispo - Case management consulted for discharge needs Admission and Anticipated Discharge Date Admission Date: September 19, 2020 Supervising Physician Co-Signing Physician Notes Patient seen and examined by me, care coordinated with EL Sen, please refer to her note above for further detail. Patient is currently sitting in the bed, in no acute distress. There were no acute events overnight. She is comfortable, eating breakfast. Denies any chest pain, shortness of breath. Heart sounds regular, lung sounds clear to auscultation bilaterally, without any wheezing rhonchi or crackles. Abdomen soft, nontender, nondistended. She is moving all 4 extremities, positive right foot drop, overall Right LE exam unchanged from yesterday. X-rays reviewed by orthopedics, no further studies necessary at this time. Orthotics consulted and case management contacted. Marybel Marcos MD Subjective Patient seen and examined. Doing well, offers no complaints. Reports pain is well controlled. Denies chest pain or shortness of breath. No abdominal pain or nausea. Review of Systems Review of Systems: All systems reviewed & are unremarkable except as noted in HPI & below Physical Exam Constitutional: WD/WN, vitals as above no acute distress Resting in bed Respiratory: normal respiratory effort, lungs clear to auscultation Cardiovascular: Rate/Rhythm: regular rate and regular rhythm Musculoskeletal: S/p right knee surgery, dressing dry and intact, + edema to RLE Neurologic: no focal motor deficits Psychiatric: Orientation: alert and oriented x 3 Results & Data Results & Data ([facility]) Vital Signs (Past 12 Hours) Vital Signs Temp Pulse Resp BP Pulse Ox 09/20/20 07:00 36.9 C 83 18 143/86 H 99 Laboratory Results Short CBC 09/19/20 09/20/20 Range/Units 15:11 06:10 WBC 9.77 7.39 (4.8-10.8) K/uL Hgb 12.0 11.1 L (12.0-16.0) g/dL Hct 37.9 34.6 L (37-47) % Plt Count 210 337 D (130-400) K/uL BMP 09/19/20 09/20/20 15:11 06:10 Sodium 139 139 Potassium 3.9 4.1 Chloride 106 108 H Carbon Dioxide 24 25 BUN 11 12 Creatinine 0.75 0.54 L Glucose 141 H 109 H Calcium 9.0 8.9 Cardiac Enzymes 09/19/20 Range/Units 15:11 Troponin I < 0.015 (0-0.045) ng/ml Liver Function 09/19/20 Range/Units 15:11 Total Bilirubin 0.6 (0.2-1) mg/dl AST 48 H (15-37) U/L ALT 46 (12-78) U/L Alkaline Phosphatase 87 (45-117) U/L Albumin 3.3 L (3.4-5.0) gm/dl (1) Edema Edema type: unspecified Qualified Code(s): R60.9 - Edema, unspecified
--- NOTE | 2020-09-20 12:08 | Orthopedic Consultation ---
Date of Consultation September 20, 2020 Assessment & Plan (1) Ambulatory dysfunction: X-rays have been reviewed by Dr. Moreno. He does not feel any further studies need to be done. He does not feel that this is a fracture at this time. Patient is having some difficulty with her AFO brace being comfortable. Will consult orthotics to adjust her brace as necessary. She can be weightbearing as tolerated. I discussed this with the patient and telling her that she does not have to put full weight on the leg if she does not want to. Plans will be for her to go to a fpc facility for further therapy and care. Supervising Physician Co-Signing Physician Notes Patient seen and examined, agree with above assessment and plan -RLE +2 DP pulse, compartments soft NT, +edema, +foot drop, exam essentally unch anged however patient does feel some sharp sensation to the dorsal foot compared to her inpatient exam s/p revision R TKA POD#6 -WBT RLE -PT/OT -AFO for foot drop, continue to monitor -Lovenox daily for DVT ppx -awaiting rehab placement for ambulatory dysfunction History of Present Illness Reason for Consultation: Ambulation dysfunction/muscle spasms status post right TKA revision Attending Physician: Justice Marcos MD History of Present Illness Patient is a 59-year-old white female known to our practice who is status post right tibial component revision of her TKA. She was just recently discharged this past . During the course of her stay she had developed a foot drop which was questionable from prolonged nerve block versus peroneal nerve stretching. An AFO brace was fitted by the orthotics team and the patient was continued on a PT and OT protocols of which she was progressing fairly well. She went home planning on outpatient PT. Over the course of the weekend she began developing increasing swelling in the right lower extremity as well as muscle spasms that were shooting down the lateral aspect of her leg into the ankle. I had spoken to her several times over the weekend and by Sunday her spasms were lessening however she had increased lower extremity swelling that went down into the foot. Patient noted a continued decline in the ability to take care of herself and ambulate without causing some of the muscle spasms and having some pain with weightbearing status. It was decided to have her come to the emergency room to rule out DVT, however with the patient's decline in ambulation she was admitted for ambulation dysfunction Allergies Allergy/AdvReac Type Severity Reaction Status Date / Time No Known Allergies Allergy Verified 09/19/20 16:27 Home Medications Medication Instructions Recorded Confirmed Type albuterol sulfate 0.63 mg INHALATION QID PRN 09/02/18 09/19/20 History albuterol sulfate [ProAir HFA] 2 puff INHALATION QID PRN 09/02/18 09/19/20 History amlodipine 5 mg PO QAM 09/02/18 09/19/20 History amoxicillin 500 mg PO UD 09/02/18 09/19/20 History calcium carbonate-vitamin D3 1 tab PO BID 09/02/18 09/19/20 History [Calcium 500 + D] cholecalciferol (vitamin D3) 5,000 unit PO QAM 09/02/18 09/19/20 History [Vitamin D3] enalapril maleate [Vasotec] 5 mg PO QAM 09/02/18 09/19/20 History escitalopram oxalate [Lexapro] 10 mg PO HS 09/02/18 09/19/20 History famotidine 20 mg PO BID 09/02/18 09/19/20 History fexofenadine [Shahida Allergy] 180 mg PO QAM 09/02/18 09/19/20 History montelukast 10 mg PO HS 09/02/18 09/19/20 History rosuvastatin [Crestor] 5 mg PO HS 09/02/18 09/19/20 History vitamin B complex 1 cap PO QAM 09/02/18 09/19/20 History Myrbetriq 25 mg PO QAM 08/05/20 09/19/20 History fluticasone propion-salmeterol 1 inh INHALATION BID 08/05/20 09/19/20 History [Wixela Inhub] metformin 500 mg PO HS 08/05/20 09/19/20 History acetaminophen 1,000 mg PO Q8 PRN #90 tab 09/14/20 09/19/20 Rx sennosides [Senokot] 17.2 mg PO HS PRN #28 tab 09/14/20 09/19/20 Rx enoxaparin 40 mg SUBCUT Q24H #22 syr 09/23/20 Rx oxycodone 2.5 mg PO Q6H PRN #10 tab MDD 4 09/23/20 Rx tramadol 25 mg PO Q4H PRN #10 tab 09/23/20 Rx Patient History Medical History Asthma Depression Diabetes mellitus, type 2 NIDDM GERD (gastroesophageal reflux disease) History of anxiety Hyperlipidemia Hypertension Obesity Osteoarthritis Overactive bladder Surgical History History of appendectomy History of bilateral tubal ligation History of cataract extraction with lens replacement R/L History of section X1 History of foot surgery Left bone spur surgery History of tonsillectomy History of tooth extraction History of total knee replacement R/L; Left TKA: 09/19/18: SAB at L3-L4 + PNB at [facility] Family History Mother Family history of diabetes mellitus Father Family history of diabetes mellitus Other Diabetes Hypertension No family history of adverse response to anesthesia Ovarian cancer Social History Smoking Status: Never smoker Second Hand Exposure: No; Do You Dip or Chew Tobacco: No; Tobacco Cessation Education Requested by Patient: No Hx Alcohol Use: No Hx Substance Use: No Preferred Language: Bahamian Communication Ability: Effective [employer] Supervisor Required: No Beliefs That Will Affect Care: None marital status: / Current Living Situation: Alone Other Information That Helps Us Care for You: No Feels Safe at Home: Yes Safety Concerns: Afraid for Self Assistive Devices: Glasses and Walker Assistive Devices Comment: FOOT DROP BRACE Review of Systems Review of Systems: All systems reviewed & are unremarkable except as noted in HPI & below Physical Exam Physical Exam: Upon coming into the room the patient was using the bedside commode flexing her knee at that time. Nursing staff got her back into bed. Her knee and lower extremity are more swollen than I remember seeing prior to her discharge last week. She continues to have the laura dressing which is intact with only spotty drainage. She continues with the foot drop of the right foot. She has good plantarflexion strength however little dorsiflexion at this time. Interestingly enough, when I tried to take her through gentle range of motion while lifting up the right lower extremity it causes her to have some muscle spasms. She feels it is from pressure on the back and side of the knee that are causing some of the spasms. She has decreased sensation down below the knee over the anterior portion of the tibia which travels down to the dorsum of the foot. Left lower extremity and upper extremities are essentially the normal is at this time with range of motion. There is no other sensorimotor loss seen at this time. Results & Data ([facility]) Vital Signs (Past 12 Hours) Vital Signs Temp Pulse Resp BP Pulse Ox 09/20/20 07:00 36.9 C 83 18 143/86 H 99 Diagnostic Findings Patient: EDEN YING LAdmit Date: 09/19/20MR#: [id number]: [address]Acct ID:[id number]: Date: [address] Zip: [place] [address]Cwa: 59Location: 3ESex: FRoom/Bed: [id number] Phy: Justice Marcos MDDiagnosis: KNEE PAIN,AMBULATORY DYSFUNCTIONPri Phy: Jayla Chan PA- CService Date: 09/19/20Fam Phy:Interpreting Phy: Lance Luciano MDAdmit Phy: Justice Marcos MD Ordering Phy: Sulaiman Cali MD cc: ~ XR tibia fibula RT 2V CLINICAL HISTORY: Right lower leg pain. COMPARISON: The x-ray performed the same day DISCUSSION: There are postsurgical changes of a total right knee arthroplasty. There is no dislocation. There is Achilles insertional tendinopathy. There is a persistent linear calcific/ossific density paralleling the lateral cortex of the proximal tibia. This was present on the postoperative study dated 09/14/2020. A discrete fracture line is not identified. IMPRESSION: 1. Persistent linear calcific/ossific density paralleling the lateral cortex the proximal tibia in the region of the interosseous ligament. No discrete fracture line is visualized. ACT 112: Negative or not required by law.
[2020-09-20] MEDS: POLYETHYLENE (MIRALAX) 17 GM PACK PO SCH (12:37)
[2020-09-20] MEDS: ESCITALOPRAM OXALATE 10 MG TAB PO SCH (20:55)
[2020-09-20] MEDS: MONTELUKAST SODIUM 10 MG TABLET PO SCH (20:55)
[2020-09-20] MEDS: ROSUVASTATIN CALCIUM 5 MG TAB PO SCH (20:55)
[2020-09-21] MEDS ORDERED: bisacodyL 10 MG SUPP PR PRN (04:32)
[2020-09-21] MEDS: ACETAMINOPHEN 325 MG TAB PO PRN ×2 (05:35→10:21)
[2020-09-21] MEDS: FEXOFENADINE HCL 180 MG TAB PO SCH (07:59)
[2020-09-21] MEDS: CALCIUM 600MG + VIT D 400 IU TAB PO SCH ×2 (07:59→21:11)
[2020-09-21] MEDS: POLYETHYLENE (MIRALAX) 17 GM PACK PO SCH (08:00)
[2020-09-21] MEDS: ENOXAPARIN INJ 40 MG/0.4 ML SYR SQ SCH (08:00)
[2020-09-21] MEDS: amLODIPine BESYLATE 5 MG TAB PO SCH (08:01)
[2020-09-21] MEDS: VITAMIN B COMPLEX TAB PO SCH (08:01)
[2020-09-21] MEDS: CHOLECALCIFEROL 1,000 UNITS 25 MCG TAB PO SCH (08:01)
[2020-09-21] MEDS: MIRABEGRON ER 25 MG TAB PO SCH (08:02)
[2020-09-21] MEDS: ENALAPRIL MALEATE 5 MG TAB PO SCH (08:02)
[2020-09-21] MEDS: FAMOTIDINE 20 MG TAB PO SCH ×2 (08:02→21:12)
[2020-09-21] MEDS: FLUTICASONE/VILANTEROL 100/25MCG 14 PUFFS/INHALER INH SCH (08:03)
[2020-09-21] MEDS: INSULIN ASPART 100 UNITS/ML 3 ML PEN SC SCH ×4 (08:27→22:10)
[2020-09-21] MEDS: oxyCODONE HCL IR 5 MG TAB (IMMEDIATE RELEASE) PO PRN (10:51)
[2020-09-21] MEDS ORDERED: traMADol HCL 50 MG TABLET PO PRN (12:29)
[2020-09-21] MEDS ORDERED: oxyCODONE HCL IR 5 MG TAB (IMMEDIATE RELEASE) PO PRN (12:29)
--- NOTE | 2020-09-21 12:43 | Hospitalist Progress Note ---
Date of Service September 21, 2020 Assessment & Plan (1) Status post right knee replacement: (2) Ambulatory dysfunction: (3) Edema: (4) Foot drop, right: Patient is S/p right total knee revision on September 14, [address] Moreno Notable right foot drop, decreased sensation of right lower extremity. Patient had AFO fitted. Patient has had difficulty with ambulation at home, and she lives alone Doppler in the ED negative for DVT of right lower extremity Patient continued to use Lovenox 40 daily per orthopedics recommendations, she is supposed to continue Lovenox for 4 weeks Continue pain management with Tylenol and oxycodone as needed Ortho consult, discussed with Delonte Cid PA-C - reviewed films w/ Dr. Moreno - fracture unlikely therefore WBAT w/ AFO Orthotics consult to reevaluate AFO brace fitting Case management consult to facilitate DC -possible DC today to [place] Constipation MiraLAX, senna, as needed Hypertension -BP controlled, continue home amlodipine, enalapril Hyperlipidemia -Continue home Crestor Depression -Continue home Lexapro Asthma -Mild persistent -No acute exacerbation -Continue Wixela twice a day, albuterol as needed Prediabetes -A1c 6.1, earlier in August 2020 -At home on Metformin, will hold now -SSI, monitor blood sugars while in the hospital GERD -Continue home famotidine DVT ppx - lovenox Code status - FULL Dispo - Case management consulted for discharge needs Admission and Anticipated Discharge Date Admission Date: September 19, 2020 Subjective Patient seen in follow-up of ambulatory dysfunction, knee pain, after knee surgery Denies chest pain or shortness of breath, abdominal pain, nausea or vomiting. She had uneventful night. Patient accepted for transfer to SNF. However after PT, patient had a little more pain and so took oxycodone. After taking oxycodone she felt unwell. I saw the patient immediately, patient is sitting in the chair, alert and oriented answering questions appropriately. Vital signs checked, normal. BP 117/80, pulse 79, respirations 16 temperature 36.7, O2 saturations 100% on room air. Discussed with the patient that we will let her relax for now as she does not respond so well to oxycodone and when she does, plan to discharge her later today. Recommend to continue with Tylenol 1000 mg 3 times a day as she responds well to Tylenol. Will decrease oxycodone dose to 2.5 mg and to be taken only as needed for more severe pain. Patient is in agreement. Review of Systems Review of Systems: All systems reviewed & are unremarkable except as noted in HPI & below Constitutional: no fever and no chills Respiratory: no cough and no dyspnea Cardiovascular: no chest pain and no palpitations Gastrointestinal: no abdominal pain, no nausea and no vomiting Physical Exam Physical Exam: Obese female sitting in chair, in no acute distress Constitutional: WD/WN, vitals as above + obese Eyes: PERRL, conjunctivae normal, anicteric sclerae ENMT: external ear and nose normal, oropharynx normal Neck: trachea midline, no thyromegaly Respiratory: normal respiratory effort, lungs clear to auscultation Auscultation: no crackles, no rhonchi and no wheezes Cardiovascular: RRR, no murmur, no edema Chest (Breasts): Chest: normal inspection of chest Gastrointestinal (Abdomen): normal bowel sounds, soft, nontender, no hepatosplenomegaly Inspection/Auscultation: normal bowel sounds Musculoskeletal: Head/Neck/Chest: normocephalic and head atraumatic Skin: no rashes, warm and dry Neurologic: PERRL, EOMI, accommodation nl, no face palsy, no dysarthria moves all extremities (+ R foot drop) Motor/Sensory: + sensory deficit (anterior R sin, lateral R calf) Psychiatric: A+Ox3, euthymic affect Genitourinary: no CVA tenderness Lymphatic: + lymphedema (mild LE b/l) Results & Data Results & Data ([facility]) Vital Signs (Past 12 Hours) Vital Signs Temp Pulse Resp BP Pulse Ox 09/21/20 11:44 36.7 C 79 16 117/80 100 09/21/20 11:30 36.7 C 57 L 16 82/53 L 99 09/21/20 07:53 36.7 C 87 16 138/91 100 Laboratory Results 09/21/20 09/21/20 09/20/20 Range/Units 12:08 08:20 20:41 POC Glucose 139 H 113 H 118 H (70-99) mg/dl 09/20/20 Range/Units 16:55 POC Glucose 114 H (70-99) mg/dl Medications Administered Current Inpatient Medications Acetaminophen (Acetaminophen 500 Mg Tab) 1,000 mg PO TID [facility] Stop: 10/21/20 13:59 Amlodipine Besylate (Amlodipine Besylate 5 Mg Tab) 5 mg PO QAM [facility] Stop: 10/20/20 08:59 Last Admin: 09/21/20 08:01 Dose: 5 mg Documented by: Bisacodyl (Bisacodyl 10 Mg Supp) 10 mg CO DAILY PRN PRN Reason: Constipation Stop: 10/21/20 04:31 Last Admin: 09/21/20 05:35 Dose: 10 mg Documented by: Dextrose (Dextrose 50% 50 Ml Syringe) 25 - 50 ml IV UD PRN; Protocol PRN Reason: Hypoglycemia Protocol Stop: 10/19/20 19:54 Enalapril Maleate (Enalapril Maleate 5 Mg Tab) 5 mg PO QAM [facility] Stop: 10/20/20 08:59 Last Admin: 09/21/20 08:02 Dose: 5 mg Documented by: Enoxaparin Sodium (Enoxaparin Inj 40 Mg/0.4 Ml Syr) 40 mg SQ Q24H [facility] Stop: 10/20/20 08:59 Last Admin: 09/21/20 08:00 Dose: 40 mg Documented by: Escitalopram Oxalate (Escitalopram Oxalate 10 Mg Tab) 10 mg PO HS [facility] Stop: 10/19/20 20:59 Last Admin: 09/20/20 20:55 Dose: 10 mg Documented by: Famotidine (Famotidine 20 Mg Tab) 20 mg PO BID [facility] Stop: 10/19/20 20:59 Last Admin: 09/21/20 08:02 Dose: 20 mg Documented by: Fexofenadine HCl (Fexofenadine Hcl 180 Mg Tab) 180 mg PO QAM [facility]ANDR[facility] Stop: 10/20/20 08:59 Last Admin: 09/21/20 07:59 Dose: 180 mg Documented by: Fluticasone/Vilanterol (Fluticasone/Vilanterol 100/25mcg 14 Puffs/Inhaler) 1 puffs INH DAILY [facility] Stop: 10/20/20 08:59 Last Admin: 09/21/20 08:03 Dose: 1 puffs Documented by: Glucagon (Glucagon For Inj 1 Mg Vial) 1 mg SQ UD PRN; Protocol PRN Reason: Hypoglycemia Protocol Stop: 10/19/20 19:54 Glucose (Glucose 10 Tabs/Tube) 4 - 8 tabs PO UD PRN; Protocol PRN Reason: Hypoglycemia Protocol Stop: 10/19/20 19:54 Glucose (Glucose 40% Gel 15 Gm Tube) 15 - 30 gm PO UD PRN; Protocol PRN Reason: Hypoglycemia Protocol Stop: 10/19/20 19:54 Insulin Aspart (Insulin Aspart 100 Units/Ml 3 Ml Pen) 0 units SC ACHS [facility]ANDR[facility] Stop: 10/19/20 20:59 Last Admin: 09/21/20 08:27 Dose: 2 units Documented by: Mirabegron (Mirabegron Er 25 Mg Tab) 25 mg PO QAM [facility] Stop: 10/20/20 08:59 Last Admin: 09/21/20 08:02 Dose: 25 mg Documented by: Miscellaneous (Carbohydrates For Hypoglycemia ) 15 - 30 gm PO UD PRN PRN Reason: Hypoglycemia Protocol Stop: 10/19/20 19:54 Montelukast Sodium (Montelukast Sodium 10 Mg Tablet) 10 mg PO HS [facility] Stop: 10/19/20 20:59 Last Admin: 09/20/20 20:55 Dose: 10 mg Documented by: Multivitamins/Minerals (Calcium 600mg + Vit D 400 Iu Tab) 1 tab PO BID [facility] Stop: 10/19/20 20:59 Last Admin: 09/21/20 07:59 Dose: 1 tab Documented by: Oxycodone HCl (Oxycodone Hcl Ir 5 Mg Tab (Immediate Release)) 2.5 mg PO Q6H PRN PRN Reason: pain Stop: 10/03/20 19:54 Polyethylene Glycol (Polyethylene (Miralax) 17 Gm Pack) 17 gm PO DAILY [facility] Stop: 10/20/20 12:14 Last Admin: 09/21/20 08:00 Dose: Not Given Documented by: Rosuvastatin Calcium (Rosuvastatin Calcium 5 Mg Tab) 5 mg PO HS [facility] Stop: 10/19/20 20:59 Last Admin: 09/20/20 20:55 Dose: 5 mg Documented by: Sennosides (Senna 8.6 Mg Tab) 17.2 mg PO HS PRN PRN Reason: constipation Stop: 10/19/20 19:54 Tramadol HCl (Tramadol Hcl 50 Mg Tablet) 25 mg PO Q4H PRN PRN Reason: Pain Stop: 10/21/20 12:28 Vitamin B Complex (Vitamin B Complex Tab) [facility] Stop: 10/20/20 08:59 Last Admin: 09/21/20 08:01 Dose: 1 tab Documented by: Vitamin D (Cholecalciferol 1,000 Units 25 Mcg Tab) 5,000 units PO QAM [facility] Stop: 10/20/20 08:59 Last Admin: 09/21/20 08:01 Dose: 5,000 units Documented by: (1) Edema Edema type: unspecified Qualified Code(s): R60.9 - Edema, unspecified
[2020-09-21] MEDS: ACETAMINOPHEN 500 MG TAB PO SCH ×2 (13:23→21:12)
[2020-09-21] MEDS: MONTELUKAST SODIUM 10 MG TABLET PO SCH (21:11)
[2020-09-21] MEDS: ESCITALOPRAM OXALATE 10 MG TAB PO SCH (21:11)
[2020-09-21] MEDS: ROSUVASTATIN CALCIUM 5 MG TAB PO SCH (21:12)
[2020-09-22 07:00] LABS: BUN Creatinine Ratio 23.2 (10-20); Calcium 9.3 mg/dl (8.5-10.1); Creatinine Clr Calc Pharmacy 101.6 ml/min; Est GFR (African American) 112.4; Potassium 4.1 mmol/L (3.5-5.1)
[2020-09-22] MEDS: ACETAMINOPHEN 500 MG TAB PO SCH ×3 (08:50→20:07)
[2020-09-22] MEDS: FEXOFENADINE HCL 180 MG TAB PO SCH (09:32)
[2020-09-22] MEDS: FLUTICASONE/VILANTEROL 100/25MCG 14 PUFFS/INHALER INH SCH (09:32)
[2020-09-22] MEDS: CALCIUM 600MG + VIT D 400 IU TAB PO SCH ×3 (09:33→20:06)
[2020-09-22] MEDS: MIRABEGRON ER 25 MG TAB PO SCH (09:33)
[2020-09-22] MEDS: VITAMIN B COMPLEX TAB PO SCH (09:33)
[2020-09-22] MEDS: FAMOTIDINE 20 MG TAB PO SCH ×2 (09:38→20:07)
[2020-09-22] MEDS: CHOLECALCIFEROL 1,000 UNITS 25 MCG TAB PO SCH (09:38)
[2020-09-22] MEDS: amLODIPine BESYLATE 5 MG TAB PO SCH (09:38)
[2020-09-22] MEDS: ENOXAPARIN INJ 40 MG/0.4 ML SYR SQ SCH (09:39)
[2020-09-22] MEDS: ENALAPRIL MALEATE 5 MG TAB PO SCH (09:39)
[2020-09-22] MEDS: POLYETHYLENE (MIRALAX) 17 GM PACK PO SCH (09:41)
[2020-09-22] MEDS: INSULIN ASPART 100 UNITS/ML 3 ML PEN SC SCH ×4 (10:57→21:04)
--- NOTE | 2020-09-22 14:00 | Hospitalist Progress Note ---
Date of Service September 22, 2020 Assessment & Plan (1) Status post right knee replacement: (2) Ambulatory dysfunction: (3) Edema: (4) Foot drop, right: Patient is S/p right total knee revision on September 14, [address] Moreno Notable right foot drop, decreased sensation of right lower extremity. Patient had AFO fitted. Patient has had difficulty with ambulation at home, and she lives alone Doppler in the ED negative for DVT of right lower extremity Patient continued to use Lovenox 40 daily per orthopedics recommendations, she is supposed to continue Lovenox for 4 weeks Continue pain management with Tylenol and oxycodone as needed Ortho on board recommended weightbearing as tolerated. Orthotics consult to reevaluate AFO brace fitting Waiting for placement to rehab Constipation MiraLAX, senna, as needed Hypertension -BP controlled, continue home amlodipine, enalapril Hyperlipidemia -Continue home Crestor Depression -Continue home Lexapro Asthma -Mild persistent -No acute exacerbation -Continue Wixela twice a day, albuterol as needed Prediabetes -A1c 6.1, earlier in August 2020 -At home on Metformin, continue to hold -SSI, monitor blood sugars while in the hospital GERD -Continue home famotidine DVT ppx - lovenox Code status - FULL Dispo - Case management consulted for discharge needs Admission and Anticipated Discharge Date Admission Date: September 21, 2020 Subjective Pt was seen and examined for follow up knee pain Pt just finished working with occupational therapy when i came to see her I watched her walking from the bathroom to the bed using the walker Pt said that her pain is much control now Denies any chest pain, palpitation, dizziness and SOB Review of Systems Review of Systems: All systems reviewed & are unremarkable except as noted in Subjective Physical Exam Physical Exam: General- No acute distress Head- atraumatic Eyes- PERRL, EOMI, ENT- oropharynx clear Neck- supple, no JVD Lungs- clear to auscultation Heart- regular rhythm; no murmur Abdomen- normal bowel sounds, soft, nontender Extremities- right knee pain Neuro- alert, oriented x 3; PERRL, EOMI; no facial palsy; no dysarthria Skin- warm & dry Results & Data Results & Data ([facility] [place]) Vital Signs (Past 12 Hours) Vital Signs Temp Pulse Resp BP Pulse Ox 09/22/20 07:00 36.7 C 78 16 136/84 99 (1) Edema Edema type: unspecified Qualified Code(s): R60.9 - Edema, unspecified
[2020-09-22] MEDS: ROSUVASTATIN CALCIUM 5 MG TAB PO SCH (20:06)
[2020-09-22] MEDS: MONTELUKAST SODIUM 10 MG TABLET PO SCH (20:07)
[2020-09-22] MEDS: ESCITALOPRAM OXALATE 10 MG TAB PO SCH (20:07)
[2020-09-23] MEDS: ACETAMINOPHEN 500 MG TAB PO SCH ×2 (04:48→13:07)
[2020-09-23] MEDS: FEXOFENADINE HCL 180 MG TAB PO SCH (09:06)
[2020-09-23] MEDS: FAMOTIDINE 20 MG TAB PO SCH (09:06)
[2020-09-23] MEDS: VITAMIN B COMPLEX TAB PO SCH (09:06)
[2020-09-23] MEDS: ENALAPRIL MALEATE 5 MG TAB PO SCH (09:06)
[2020-09-23] MEDS: MIRABEGRON ER 25 MG TAB PO SCH (09:07)
[2020-09-23] MEDS: CHOLECALCIFEROL 1,000 UNITS 25 MCG TAB PO SCH (09:07)
[2020-09-23] MEDS: CALCIUM 600MG + VIT D 400 IU TAB PO SCH (09:07)
[2020-09-23] MEDS: ENOXAPARIN INJ 40 MG/0.4 ML SYR SQ SCH (09:08)
[2020-09-23] MEDS: amLODIPine BESYLATE 5 MG TAB PO SCH (09:08)
[2020-09-23] MEDS: FLUTICASONE/VILANTEROL 100/25MCG 14 PUFFS/INHALER INH SCH (09:08)
[2020-09-23] MEDS: POLYETHYLENE (MIRALAX) 17 GM PACK PO SCH (09:08)
[2020-09-23] MEDS: INSULIN ASPART 100 UNITS/ML 3 ML PEN SC SCH ×2 (09:22→12:37)
--- NOTE | 2020-09-23 12:51 | Hospitalist Progress Note ---
Date of Service September 23, 2020 Assessment & Plan (1) Status post right knee replacement: (2) Ambulatory dysfunction: (3) Edema: (4) Foot drop, right: Patient is S/p right total knee revision on September 14, [address] Moreno Notable right foot drop, decreased sensation of right lower extremity. Patient had AFO fitted. Patient has had difficulty with ambulation at home, and she lives alone Doppler in the ED negative for DVT of right lower extremity Patient continued to use Lovenox 40 daily per orthopedics recommendations, will continue Lovenox for 4 weeks Continue pain management with Tylenol and oxycodone as needed Ortho on board recommended weightbearing as tolerated. Orthotics consult to reevaluate AFO brace fitting Plan to go to rehab today Follow up with orthopedic next week Constipation Pt was advised to hold stool softener and laxatives since she has a diarrhea due to them Ok to resume prn once stool starts to become solid Hypertension BP controlled Continue home amlodipine, enalapril Hyperlipidemia Continue home Crestor Depression Continue home Lexapro Asthma Mild persistent No acute exacerbation Continue Wixela twice a day, albuterol as needed Prediabetes A1c 6.1, earlier in August 2020 At home on Metformin, continue to hold SSI, monitor blood sugars while in the hospital GERD Continue home famotidine DVT ppx - Lovenox Code status FULL Disposition Will go to [place] for rehab Admission and Anticipated Discharge Date Admission Date: September 21, 2020 Subjective Pt was seen and examined for follow up knee pain after her recent knee surgery Lying in bed with no distress. Pt said that her pain improves She said that she has diarrhea today because of all the laxatives and stool softener she took because she did not have any bowel movement since Sunday Denies any chest pain, palpitation, dizziness and SOB Review of Systems Review of Systems: All systems reviewed & are unremarkable except as noted in Subjective Physical Exam Physical Exam: General- No acute distress Head- atraumatic Eyes- PERRL, EOMI, ENT- oropharynx clear Neck- supple, no JVD Lungs- clear to auscultation Heart- regular rhythm; no murmur Abdomen- normal bowel sounds, soft, nontender Extremities- right knee pain, +swelling Neuro- alert, oriented x 3; PERRL, EOMI; no facial palsy; no dysarthria Skin- warm & dry Results & Data Results & Data ([facility]) Vital Signs (Past 12 Hours) Vital Signs Temp Pulse Resp BP Pulse Ox 09/23/20 07:01 36.8 C 86 16 147/84 H 100 (1) Edema Edema type: unspecified Qualified Code(s): R60.9 - Edema, unspecified
--- NOTE | 2020-09-27 00:03 | Discharge Summary ---
Date of Service September 23, 2020 Admission HPI Per Admitting Provider Patient is a 59-year-old female, with history of hypertension hyperlipidemia, GERD, depression, asthma, and , OA and DJD and recent history of total knee revision on September 14, with Dr. Moreno, who presents with difficulty ambulating. She was discharged on September 16, after surgery and at that time it was noted that patient had right foot drop, and decreased sensation of her right lower extremity. AFO was ordered and fitted and patient reports that she has been using it however she still has a significant difficulty ambulating. She lives alone, uses cane, and reports that she can barely walk 2 feet. She developed right ankle edema, and also noted spasms of her right leg laterally. She contacted [facility], and discussed this new spasms and ankle edema with a PA. Warm compresses were recommended which patient did and reports that it helped however she still has a lot of difficulty with ambulation and activities of daily living, being by herself. She denies any fevers or chills, chest pain, shortness of breath. She denies any erythema or increased swelling of her knee. She does not feel that her knee is more painful either. She uses oxycodone sparingly, reports that she only needed Tylenol 1000 mg today so far. She presented to the ED for further evaluation, as there was concern from [facility] PA, there could be possible blood clot given findings of ankle edema. In the emergency room, Doppler was obtained and was negative for DVT. Patient reports that she has been using Lovenox as prescribed daily. In addition, she says that she has been having some difficulty with bowel movements, did not have a normal bowel movement since the surgery. She also reports low appetite however denies any abdominal pain, nausea or vomiting. She says that she cannot even prepare food for herself though given she cannot really stand/ambulate. She is somewhat frustrated that she was not able to get home health/home PT due to her insurance. Reports that she contacted her insurance company and someone was supposed to call her back on Sunday. Admission Exam Per Admitting Provider Physical Exam: Obese female lying in bed, in no acute distress Constitutional: WD/WN, vitals as above + obese Eyes: PERRL, conjunctivae normal, anicteric sclerae ENMT: external ear and nose normal, oropharynx normal Neck: trachea midline, no thyromegaly Respiratory: normal respiratory effort, lungs clear to auscultation Auscultation: no crackles, no rhonchi and no wheezes Cardiovascular: RRR, no murmur, no edema Chest (Breasts): Chest: normal inspection of chest Gastrointestinal: normal bowel sounds, soft, nontender, no hepatosplenomegaly Inspection/Auscultation: normal bowel sounds Musculoskeletal: Head/Neck/Chest: normocephalic and head atraumatic + Right foot drop, loss of sensation anterior sin and lateral right calf Patient otherwise moves extremities spontaneously Skin: no rashes, warm and dry Neurologic: PERRL, EOMI, accommodation nl, no face palsy, no dysarthria moves all extremities Motor/Sensory: + sensory deficit (anterior R sin, lateral R calf) Psychiatric: A+Ox3, euthymic affect Genitourinary: no CVA tenderness Lymphatic: + lymphedema (mild LE b/l) Principal Diagnosis Status post right knee replacement: Ambulatory dysfunction: Edema: Foot drop, right: Constipation Hypertension Hyperlipidemia Depression Asthma Prediabetes GERD Discharge Exam General- No acute distress Head- atraumatic Eyes- PERRL, EOMI, ENT- oropharynx clear Neck- supple, no JVD Lungs- clear to auscultation Heart- regular rhythm; no murmur Abdomen- normal bowel sounds, soft, nontender Extremities- right knee pain, +swelling Neuro- alert, oriented x 3; PERRL, EOMI; no facial palsy; no dysarthria Skin- warm & dry Discharge Data Allergies Allergy/AdvReac Type Severity Reaction Status Date / Time No Known Allergies Allergy Verified 09/19/20 16:27 Consultations 09/19/20 16:56 ED Decision to Admit Stat 09/19/20 19:55 Consult Orthopedic Surgery Routine Ordered Studies 09/19/20 14:46 US venous doppler LE RT Stat XR tibia fibula RT 2V CLINICAL HISTORY: Right lower leg pain. COMPARISON: The x-ray performed the same day DISCUSSION: There are postsurgical changes of a total right knee arthroplasty. There is no dislocation. There is Achilles insertional tendinopathy. There is a persistent linear calcific/ossific density paralleling the lateral cortex of the proximal tibia. This was present on the postoperative study dated 09/14/2020. A discrete fracture line is not identified. IMPRESSION: 1. Persistent linear calcific/ossific density paralleling the lateral cortex the proximal tibia in the region of the interosseous ligament. No discrete fracture line is visualized. ACT 112: Negative or not required by law. Electronically signed by: Lance Luciano M.D. 09/20/2020 6:56 AM Dictated: 09/20/20 0653Transcribed: 09/20/20 0653 RIGHT ANKLE 3 VIEWS CLINICAL HISTORY: Right ankle pain and swelling. FINDINGS: 3 views of the right ankle are obtained. No prior studies are available for comparison at the time of dictation. The skeletal structures are osteopenic. No fracture is seen. The ankle mortise is intact. There are large dorsal and plantar calcaneal enthesophytes. No joint effusion is identified. Diffuse soft tissue edema is present throughout the imaged right lower extremity. IMPRESSION: Soft tissue swelling with no acute bony abnormality identified. Electronically signed by: Tavon Booker M.D. 09/19/2020 7:10 PM Dictated: 09/19/20 190Transcribed: 09/19/201907 TWO VIEWS RIGHT KNEE CLINICAL HISTORY: Postoperative pain and swelling. FINDINGS: AP and crosstable lateral portable views of the right knee are compared to study dated 09/14/2020. A right knee arthroplasty with a long tibial stem is in near anatomic alignment. There has been undersurface remodeling of the patella. No periprosthetic lucency is identified. There is mild cortical irregularity along the lateral aspect of the proximal tibial shaft. Skin clips and soft tissue edema are expected postoperative changes. The surgical drain has been removed. IMPRESSION: 1. A right knee arthroplasty is in near-anatomic alignment. 2. There is cortical irregularity along the lateral aspect of the proximal tibial shaft. This is of indeterminant significance and a nondisplaced fracture is not excluded. This cannot be corroborated on the lateral views. Consider correlation with oblique views for further assessment. 3. Skin clips and soft tissue edema around the knee are expected postoperative findings. ACT 112: Negative or not required by law. Electronically signed by: Tavon Booker M.D. 09/19/2020 7:00 PM Dictated: 09/19/201855Transcribed: 09/19/201855 ULTRASOUND RIGHT LOWER EXTREMITY VENOUS CLINICAL HISTORY: Right leg pain and swelling. Recent surgery. COMPARISON STUDY: No priors. TECHNIQUE: Real-time, grayscale, and color Doppler sonography of the deep veins of the right lower extremity was performed from the inguinal crease to the calf. Compression and augmentation were utilized. FINDINGS: There is no sonographic evidence of deep venous thrombosis identified in the right lower extremity. The common femoral, superficial femoral, and popliteal veins are patent and normally compressible. The greater saphenous vein and the profunda femoris vein at the junction with the common femoral vein are clear. The visualized calf veins are patent. IMPRESSION: There is no sonographic evidence of deep venous thrombosis identified in the right lower extremity. ACT 112: Negative or not required by law. Electronically signed by: Tavon Booker M.D. 09/19/2020 3:57 PM Dictated: 09/19/201555Transcribed: 09/19/201555 Hospital Course (1) Status post right knee replacement: (2) Ambulatory dysfunction: (3) Edema: (4) Foot drop, right: Patient is S/p right total knee revision on September 14, [address] Moreno Notable right foot drop, decreased sensation of right lower extremity. Patient had AFO fitted. Patient has had difficulty with ambulation at home, and she lives alone Doppler in the ED negative for DVT of right lower extremity Patient continued to use Lovenox 40 daily per orthopedics recommendations, will continue Lovenox for 4 weeks Continue pain management with Tylenol and oxycodone as needed Ortho on board recommended weightbearing as tolerated. Orthotics consult to reevaluate AFO brace fitting Plan to go to rehab today Follow up with orthopedic next week Constipation Pt was advised to hold stool softener and laxatives since she has a diarrhea due to them Ok to resume prn once stool starts to become solid Hypertension BP controlled Continue home amlodipine, enalapril Hyperlipidemia Continue home Crestor Depression Continue home Lexapro Asthma Mild persistent No acute exacerbation Continue Wixela twice a day, albuterol as needed Prediabetes A1c 6.1, earlier in August 2020 At home on Metformin, continue to hold SSI, monitor blood sugars while in the hospital GERD Continue home famotidine DVT ppx - Lovenox Code status FULL Disposition Will go to [facility] for rehab Total Time Total Time Spent Total Time Spent (In Minutes): 35 minutes Total Time Includes: Examination of the Patient, Discharge Planning, Medication Reconciliation, Communication With Other Providers and Other Discharge Plan Discharge Items Patient Disposition: Transfer [facility] Reason For Visit: KNEE PAIN,AMBULATORY DYSFUNCTION Discharge Diagnosis: Ambulatory dysfunction, foot drop and knee pain after right total knee revision Activity: Per Instructions section Activity Comment: Per [facility] PT recommendations Non-emergency contact: Primary Care Provider Call non-emergency contact if: you have any medication questions and your symptoms worsen Follow-up/Referrals: Jayla Chan PA-C [Primary Care Provider] - Diet: Carb Consistent or DM2 and Heart Healthy Addtl Attending Provider Instructions: Follow up with your primary care provider once discharge from rehab Continue physical and occupational therapy Make sure to continue using Lovenox 40 subcu daily up until 4 weeks since surgery. Continue weightbearing as tolerated Continue to wear knee brace for support Fall precaution Follow-up with orthopedic surgery as previously scheduled next Sunday. Contact [facility] / Dr. Moreno, with any questions regarding your recent surgery. For pain recommend 1000 mg Tylenol 3 times a day as needed. Only if you have more severe pain not controlled with Tylenol, recommend small dose of oxycodone or small dose of tramadol. Pending Studies at Discharge: No Stand-Alone Forms: [facility] Skilled Items Patient informed of condition?: Yes DNR: No Discharge Level of Care: Skilled Communicable Disease: No Discharge Prognosis: Stable Lines: None Urinary Catheter: No Medications and DC Order Prescriptions: New tramadol 50 mg Tablet 25 mg PO Q4H PRN (Reason: pain, moderate) Qty: 10 RF: 0 oxycodone 5 mg Tablet 2.5 mg PO Q6H MDD 4 PRN (Reason: sever pain) Qty: 10 RF: 0 Continued amoxicillin 500 mg Tablet 500 mg PO UD RF: 0 rosuvastatin [Crestor] 5 mg Tablet 5 mg PO HS RF: 0 albuterol sulfate 0.63 mg/3 mL Solution For Nebulization 0.63 mg INHALATION QID PRN (Reason: Wheezing) RF: 0 enalapril maleate [Vasotec] 5 mg Tablet 5 mg PO QAM RF: 0 fexofenadine [Shahida Allergy] 180 mg Tablet 180 mg PO QAM RF: 0 amlodipine 5 mg Tablet 5 mg PO QAM RF: 0 famotidine 20 mg Tablet 20 mg PO BID RF: 0 montelukast 10 mg Tablet 10 mg PO HS RF: 0 albuterol sulfate [ProAir HFA] 90 mcg/actuation Hfa Aerosol Inhaler 2 puff INHALATION QID PRN (Reason: Wheezing) RF: 0 vitamin B complex Capsule 1 cap PO QAM RF: 0 escitalopram oxalate [Lexapro] 10 mg Tablet 10 mg PO HS RF: 0 calcium carbonate-vitamin D3 [Calcium 500 + D] 500 mg(1,250mg) -200 unit Tablet 1 tab PO BID RF: 0 cholecalciferol (vitamin D3) [Vitamin D3] 5,000 unit Tablet 5,000 unit PO QAM RF: 0 fluticasone propion-salmeterol [Wixela Inhub] 100-50 mcg/dose Blister With Device 1 inh INHALATION BID RF: 0 metformin 500 mg Tablet Extended Release 24 Hr 500 mg PO HS RF: 0 Myrbetriq 25 mg Tablet Extended Release 24 Hr 25 mg PO QAM RF: 0 acetaminophen 500 mg Tablet 1,000 mg PO Q8 PRN (Reason: fever or pain) Qty: 90 RF: 0 sennosides [Senokot] 8.6 mg Tablet 17.2 mg PO HS PRN (Reason: constipation) Qty: 28 RF: 0 enoxaparin 40 mg/0.4 mL Syringe 40 mg subcut Q24H Qty: 22 RF: 0 Discontinued oxycodone 5 mg Tablet 5 mg PO Q6H MDD 4 PRN (Reason: pain) Qty: 30 RF: 0 Discharge Orders: Discharge Order (Routine); Ordered 09/23/20 Ordered By: Lou Hubbard/Other Patient Handouts: Treating Diarrhea, Managing Post-Op Pain at Home Admission Data Admit Date/Time: 09/21/20 15:43 Attending Provider: Lou Franklin Admit Provider: Justice Marcos Primary Care Provider: Jayla Chan Other Providers: Justice Marcos ; Mario Moreno [facility] [place] Other Interventions: Discharge Summary Assessment (RN) Last Done: 09/23/20 12:47
== END 2020-09-23 14:17 | DRG 93 ==
LOC: ED 14:32 → 3E 14:32 → SUATTDRO 09-21 15:43